=== PATIENT | female | born 1940 | race Caucasian/White ===

== ENCOUNTER → 2016-05-17 | Outpatient (CLI) | payer OTHER ==
[~2016-05-17] MED LIST: AMOX875T PO; ASPEC325 PO; ASPEC81 PO; ASPI81TA28 PO; ATV5 PO; CALC-393 PO; CALCTAB5 PO; CHOL1000 PO; CLOB-65 EXT; CPR/500 PO; FRRG PO; FSM70 PO; GABA-113 PO; IPRA1AER2 INH; LORA-741 PO; NAPR-1169 PO; RXC5 PO; SERT-234 PO; TYLOTC500 PO
[2016-05-17 13:29] LABS: BASO % 0.1 %; BASO ABS # 0.01 K/uL (0-0.2); COMPLETE YES; HEMATOCRIT 39.8 % (37-47); IG% 0.1 %; LYMPH % 8.3 %; MEAN CELL VOLUME 87.9 fL (80-100); MEAN CORPUSCULAR HGB CONC 34.2 g/dl (32-36); MEAN PLATELET VOLUME 9.7 fL (7.4-10.4); MONO % 7.1 %; NEUT % 84.4 %; PLATELET COUNT 322 K/uL (130-400); RED BLOOD COUNT 4.53 M/uL (4.2-5.4); WHITE BLOOD COUNT 14.41 K/uL (4.8-10.8)
[2016-05-17 14:01] LABS: ALT/SGPT 20 U/L (12-78); BLOOD UREA NITROGEN 21 mg/dl (7-18); BUN/CREATININE RATIO 22.9 (10-20); CALCIUM 9.4 mg/dl (8.5-10.1); CARBON DIOXIDE 24 mmol/L (21-32); CHLORIDE 103 mmol/L (98-107); CHOLESTEROL 197 mg/dl (0-200); CREATININE 0.93 mg/dl (0.60-1.20); GLUCOSE 93 mg/dl (70-99); POTASSIUM 4.1 mmol/L (3.5-5.1); SODIUM 137 mmol/L (136-145)
[2016-05-17 14:05] LABS: ALKALINE PHOSPHATASE 101 U/L (45-117); AST/SGOT 15 U/L (15-37); CHOLESTEROL/HDL RATIO 3.7; HDL CHOLESTEROL 53 mg/dl; LDL CHOLESTEROL CALCULATED 116 mg/dl; TRIGLYCERIDES 138 mg/dl (0-150); VERY LOW DENSITY LIPOPROT CALC 28 mg/dl
== END | disposition home or self-care (01) ==
LOC: C.LABBC 10:26
PROVIDERS: ATTEND Family Medicine
DX: M85.80 Other specified disorders of bone density and structure, unspecified site (principal); E55.9 Vitamin D deficiency, unspecified; Z13.0 Encounter for screening for diseases of the blood and blood-forming organs and certain disorders involving the immune mechanism; E78.5 Hyperlipidemia, unspecified

== ENCOUNTER → 2016-06-19 | Outpatient (CLI) | payer OTHER | END | disposition home or self-care (01) | LOC: C.CTS 13:20 | PROVIDERS: ATTEND Orthopaedic Surgery | DX: Z01.818 Encounter for other preprocedural examination (principal); M19.012 Primary osteoarthritis, left shoulder ==

== ENCOUNTER 2016-06-28 11:32 | Observation (INO) | payer OTHER ==
[~2016-06-28] VITALS: Ht 172.7 cm; Wt 85.0 kg
[~2016-06-28 11:32] MED LIST changes: -AMOX875T PO; -CALC-393 PO; -CPR/500 PO; -GABA-113 PO; -LORA-741 PO; -RXC5 PO
[2016-06-28] MEDS ORDERED: SODIUM CHLORIDE 0.9% 1000ML 1,000 ML IV SCH (11:55)
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
[2016-06-28 12:38] LABS: BASO % 0.2 %; BASO ABS # 0.02 K/uL (0-0.2); COMPLETE YES; HEMATOCRIT 39.6 % (37-47); IG% 0.2 %; LYMPH % 5.9 %; LYMPH ABS # 0.52 K/uL (1.2-3.4); MEAN CELL VOLUME 89.8 fL (80-100); MEAN CORPUSCULAR HEMOGLOBIN 31.1 pg (25-34); MEAN CORPUSCULAR HGB CONC 34.6 g/dl (32-36); MEAN PLATELET VOLUME 9.8 fL (7.4-10.4); MONO % 9.4 %; NEUT % 84.3 %; PLATELET COUNT 223 K/uL (130-400); RED BLOOD COUNT 4.41 M/uL (4.2-5.4); WHITE BLOOD COUNT 8.74 K/uL (4.8-10.8)
[2016-06-28] MEDS ORDERED: GABA-113 PO (12:56)
[2016-06-28] MEDS ORDERED: LORA-741 PO (12:56)
[2016-06-28] MEDS ORDERED: CALC-393 PO (12:56)
[2016-06-28 13:02] LABS: BLOOD UREA NITROGEN 17 mg/dl (7-18); BUN/CREATININE RATIO 14.2 (10-20); CARBON DIOXIDE 25 mmol/L (21-32); CHLORIDE 101 mmol/L (98-107); GLUCOSE 140 mg/dl (70-99); POTASSIUM 3.9 mmol/L (3.5-5.1); SODIUM 135 mmol/L (136-145)
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
[2016-06-28] MEDS ORDERED: CEFTRIAXONE SOD INJ 1 GM ADDVIAL IV STA (14:14)
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
[2016-06-28] MEDS ORDERED: LORAZEPAM 0.5 MG TAB PO PRN (16:45)
[2016-06-28] MEDS ORDERED: ONDANSETRON INJ 2 MG/ML 2 ML VIAL ONE (16:46)
[2016-06-28] MEDS ORDERED: IPRATROPIUM BROMIDE/ALBUTEROL respimat INH INH SCH (17:00)
[2016-06-28] MEDS ORDERED: ALUMINUM/MAGNESIUM/SIMETH (MAALOX MAX) 30 ML UDC PO PRN (17:30)
[2016-06-28] MEDS ORDERED: ONDANSETRON INJ 2 MG/ML 2 ML VIAL IV PRN (17:30)
[2016-06-28] MEDS ORDERED: ACETAMINOPHEN 325 MG TAB PO PRN (17:30)
[2016-06-28 18:39] LABS: MAGNESIUM 1.9 mg/dl (1.8-2.4)
--- NOTE | 2016-06-28 19:16 | DIAGNOSTIC IMAGING REPORT ---
PA CHEST RADIOGRAPH AND UPRIGHT AND SUPINE AP RADIOGRAPHS OF THE ABDOMEN CLINICAL HISTORY: Vomiting. Confusion. COMPARISON STUDY: CT of the abdomen and pelvis April 06, 2013 and chest radiograph June 28, 2016. FINDINGS: Lung volumes are normal. A right shoulder arthroplasty is incidentally noted. There is moderate to severe arthritis of the left glenohumeral joint. Underlying emphysema is noted. There is no consolidation. Cardiomediastinal silhouette is normal. There is no free air. There are cholecystectomy clips. There are bilateral hip arthroplasties. Bowel gas pattern is normal. IMPRESSION: 1. No free air or evidence of bowel obstruction. 2. No acute cardiopulmonary findings. Electronically signed by: Rito Aviles M.D. 06/28/2016 7:15 PM Dictated Date/Time: 06/28/2016 7:13 PM
[2016-06-28 19:30] VITALS: O2SAT 93
[2016-06-28 19:44] VITALS: BP 109/71; PULSE 111; TEMP 37.1; BMI 29.1
[2016-06-28 19:46] VITALS: BP 133/50; TEMP 37.6; Ht 172.7 cm; Wt 85.0 kg
[2016-06-28 21:02] LABS: INR 1.1 (0.9-1.1); PROTHROMBIN TIME (PATIENT) 11.6 SECONDS (9.0-12.0)
[2016-06-28] MEDS ORDERED: IV FLUIDS COMPLETED PRN (21:15)
[2016-06-28] MEDS: NSS + 20MEQ KCL 1000ML 1,000 ML IV SCH (21:32)
[2016-06-28] MEDS: GABAPENTIN 300 MG CAP PO SCH (21:32)
[2016-06-28] MEDS: ASPIRIN 81 MG ECTAB PO SCH (21:32)
[2016-06-28] MEDS: IPRATROPIUM BROMIDE/ALBUTEROL respimat INH INH SCH (21:34)
[2016-06-28 23:48] VITALS: BP 131/74; PULSE 93; TEMP 36.9; O2SAT 96
[2016-06-29] VITALS (7 sets, daily range): BP systolic 87–118; BP diastolic 52–71; PULSE 67–93; TEMP 36.5–37.2; O2SAT 90–96
[2016-06-29] MEDS ORDERED: GADAVIST IV PRN
[2016-06-29 00:01] LABS: CKMB/CK RATIO 0.6 (0-3.0)
--- NOTE | 2016-06-29 06:59 | DIAGNOSTIC IMAGING REPORT ---
MRI OF THE BRAIN WITHOUT AND WITH IV CONTRAST CLINICAL HISTORY: AMS r/o cava mental status change COMPARISON STUDY: No previous studies for comparison. TECHNIQUE: Utilizing a 1.5 Gladys magnet and dedicated coil, multiplanar, multiecho imaging of the brain was performed pre and postcontrast administration. IV administration of 8 mL of Gadavist contrast was uneventful. FINDINGS: Diffusion-weighted images show no evidence for an acute ischemic event. Mild cerebellar as well as cerebral atrophy. Diffuse multifocal sinusitis. Moderate chronic small vessel change of aging involving the periventricular and deep white matter regions. No significant postcontrast enhancement within the limitations of motion artifact. IMPRESSION: 1. Age-related chronic small vessel change as well as atrophy. 2. No evidence for an acute ischemic event. 3. Diffuse sinusitis. Electronically signed by: Neville Hernandez M.D. 06/29/2016 6:58 AM Dictated Date/Time: 06/29/2016 6:56 AM
[2016-06-29 07:26] LABS: BASO % 0.3 %; BASO ABS # 0.02 K/uL (0-0.2); COMPLETE YES; HEMATOCRIT 34.2 % (37-47); IG% 0.1 %; LYMPH % 17.1 %; LYMPH ABS # 1.18 K/uL (1.2-3.4); MEAN CELL VOLUME 90.7 fL (80-100); MEAN CORPUSCULAR HGB CONC 34.2 g/dl (32-36); MEAN PLATELET VOLUME 9.2 fL (7.4-10.4); MONO % 15.2 %; NEUT % 67.3 %; PLATELET COUNT 189 K/uL (130-400); RED BLOOD COUNT 3.77 M/uL (4.2-5.4); WHITE BLOOD COUNT 6.89 K/uL (4.8-10.8)
[2016-06-29 07:58] LABS: BUN/CREATININE RATIO 20.4 (10-20); CALCIUM 7.8 mg/dl (8.5-10.1); CREATININE 1.1 mg/dl (0.60-1.20); MAGNESIUM 1.9 mg/dl (1.8-2.4); POTASSIUM 4.1 mmol/L (3.5-5.1)
[2016-06-29 08:03] LABS: CKMB/CK RATIO 0.5 (0-3.0)
[2016-06-29] MEDS: NSS + 20MEQ KCL 1000ML 1,000 ML IV SCH ×2 (08:12→17:29)
[2016-06-29] MEDS: CEFTRIAXONE SOD INJ 1,000 MG in DEXTROSE 5% 50ML 50 ML IV SCH (08:12)
[2016-06-29] MEDS: IPRATROPIUM BROMIDE/ALBUTEROL respimat INH INH SCH ×4 (08:13→20:57)
[2016-06-29] MEDS: HEPARIN SOD 5000 UNIT/0.5 ML CARP SQ SCH ×2 (08:26→21:47)
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
[2016-06-29 15:56] LABS: URINE APPEARANCE CLEAR (CLEAR); URINE COLOR DK YELLOW; URINE EPITHELIAL CELL AUTO >30 /lpf (0-5); URINE NITRITE NEG (NEG); URINE SPECIFIC GRAVITY 1.035 (1.000-1.030); UROBILINOGEN NEG (NEG)
[2016-06-29 16:04] LABS: MANUAL MICROSCOPIC REQUIRED? NO; REVIEW REQ? NO
[2016-06-29 16:05] LABS: URINE BILIRUBIN NEG (NEG)
[2016-06-29 16:29] LABS: BENZODIAZEPINE, URINE NEG (NEG); COCAINE,URINE NEG (NEG); PHENCYCLIDINE, URINE NEG (NEG)
[2016-06-29] MEDS: GABAPENTIN 300 MG CAP PO SCH (20:56)
[2016-06-29] MEDS: ASPIRIN 81 MG ECTAB PO SCH (20:56)
[2016-06-30] MEDS: NSS + 20MEQ KCL 1000ML 1,000 ML IV SCH (03:46)
[2016-06-30 03:50] VITALS: BP 89/54; PULSE 75; TEMP 36.8; O2SAT 98
[2016-06-30 06:32] LABS: BASO % 0.4 %; BASO ABS # 0.02 K/uL (0-0.2); COMPLETE YES; EOS % 0.9 %; HEMATOCRIT 34.2 % (37-47); IG% 0.7 %; LYMPH % 26.1 %; MEAN CELL VOLUME 92.4 fL (80-100); MEAN CORPUSCULAR HEMOGLOBIN 30.3 pg (25-34); MEAN CORPUSCULAR HGB CONC 32.7 g/dl (32-36); MEAN PLATELET VOLUME 9.8 fL (7.4-10.4); MONO % 13.7 %; NEUT % 58.2 %; PLATELET COUNT 171 K/uL (130-400); WHITE BLOOD COUNT 4.59 K/uL (4.8-10.8)
[2016-06-30 07:12] LABS: BUN/CREATININE RATIO 22.9 (10-20); CALCIUM 7.5 mg/dl (8.5-10.1); CREATININE 0.79 mg/dl (0.60-1.20); POTASSIUM 4.1 mmol/L (3.5-5.1)
[2016-06-30 07:30] VITALS: BP 131/77; PULSE 82; TEMP 36.3; O2SAT 95
[2016-06-30] MEDS: IPRATROPIUM BROMIDE/ALBUTEROL respimat INH INH SCH (07:36)
[2016-06-30] MEDS: HEPARIN SOD 5000 UNIT/0.5 ML CARP SQ SCH (07:36)
[2016-06-30] MEDS: CEFTRIAXONE SOD INJ 1,000 MG in DEXTROSE 5% 50ML 50 ML IV SCH (09:57)
[2016-06-30] MEDS ORDERED: AMOX875T PO (11:19)
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
[2016-06-30 11:46] VITALS: BP 131/77; PULSE 82; TEMP 36.3; O2SAT 95
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
[2016-08-04] MEDS ORDERED: RXC5 PO (08:13)
== END 2016-06-30 12:42 | disposition home or self-care (01) ==
LOC: ENRESERVDT → ENRESERVTM → C.EDB 11:33 → C.2T 17:19
PROVIDERS: ADMIT Family Medicine; ATTEND Hospitalist
DX: J01.90 Acute sinusitis, unspecified (principal); G93.41 Metabolic encephalopathy; R11.10 Vomiting, unspecified; J43.9 Emphysema, unspecified; M19.90 Unspecified osteoarthritis, unspecified site; Z96.649 Presence of unspecified artificial hip joint; Z90.710 Acquired absence of both cervix and uterus; Z87.891 Personal history of nicotine dependence; Z79.82 Long term (current) use of aspirin

== ENCOUNTER → 2016-06-28 | Outpatient (CLI) | payer OTHER ==
[~2016-06-28] MED LIST changes: -ASPEC325 PO; -ASPEC81 PO; -FRRG PO; -NAPR-1169 PO; -SERT-234 PO
--- NOTE | 2016-06-28 09:41 | DIAGNOSTIC IMAGING REPORT ---
CHEST 2 VIEWS ROUTINE CLINICAL HISTORY: J22 Acute respiratory [id number] dyspnea COMPARISON STUDY: 06/19/2016 FINDINGS: Mild emphysematous change. Prominent central pulmonary vasculature suggesting a component of pulmonary arterial hypertension. Prior right shoulder arthroplasty. Diaphragms smooth. Mild chronic interstitial change. IMPRESSION: Chronic changes as noted. No acute process. Electronically signed by: Neville Hernandez M.D. 06/28/2016 9:40 AM Dictated Date/Time: 06/28/2016 9:39 AM
[2016-06-28 14:46] LABS: INFLUENZA A PCR Neg for Influ A (NEG); INFLUENZA B PCR Neg for Influ B (NEG)
== END | disposition home or self-care (01) ==
LOC: C.RADBC 09:06
PROVIDERS: ATTEND Family Medicine
DX: J22 Unspecified acute lower respiratory infection (principal)

== ENCOUNTER → 2016-07-10 | Outpatient (CLI) | payer OTHER ==
[~2016-07-10] MED LIST changes: -ATV5 PO; +CALC-393 PO; -CALCTAB5 PO; -CLOB-65 EXT; +CPR/500 PO; -FSM70 PO; +GABA-113 PO; +LORA-741 PO; +RXC5 PO
== END | disposition home or self-care (01) ==
LOC: C.LABBFT 09:19
PROVIDERS: ATTEND Physician Assistant Medical
DX: K52.1 Toxic gastroenteritis and colitis (principal)

== ENCOUNTER 2016-08-03 08:41 | Inpatient (IN) | payer OTHER ==
[2016-06-19 11:12] VITALS: BMI 29.0
--- NOTE | 2016-06-19 11:57 | PAT Medication Instructions ---
Service Date Jun 19, 2016. Current Home Medication List Acetaminophen (Tylenol), 1,000 MG PO PRN Alendronate (Fosamax *), 70 MG PO WK Aspirin (Aspirin Ec), 81 MG PO HS Calcium (Caltrate), 600 MG PO QAM Cholecalciferol (Vitamin D3), 1 TAB PO BID Clobetasol Propionate 0.05% (Temovate 0.05%), 1 APPLN EXT BID PRN Ipratropium-Albuterol (Combivent Respimat), 1 PUFFS INH QID Lorazepam (Ativan *), 0.5 MG PO HS PRN for Anxiety Medication Instructions For Your Scheduled Surgery Alendronate (Fosamax *), 70 MG PO WK (continue as usual) - Hold the following medications 24 hours prior to surgery: Clobetasol Propionate 0.05% (Temovate 0.05%), 1 APPLN EXT BID PRN - Hold the following medications the morning of surgery: Cholecalciferol (Vitamin D3), 1 TAB PO BID Calcium (Caltrate), 600 MG PO QAM - Take the following medications the morning of surgery with a sip of water: Ipratropium-Albuterol (Combivent Respimat), 1 PUFFS INH QID Acetaminophen (Tylenol), 1,000 MG PO PRN (if needed) - Take the following medications as scheduled the night before surgery: Lorazepam (Ativan *), 0.5 MG PO HS PRN for Anxiety Ipratropium-Albuterol (Combivent Respimat), 1 PUFFS INH QID Cholecalciferol (Vitamin D3), 1 TAB PO BID Aspirin (Aspirin Ec), 81 MG PO HS Acetaminophen (Tylenol), 1,000 MG PO PRN If you have any questions please call us at [phone] or [phone] ( [place]) or [phone]
[2016-06-19 12:25] LABS: BASO % 0.3 %; BASO ABS # 0.03 K/uL (0-0.2); COMPLETE YES; EOS % 1.1 %; HEMATOCRIT 41.9 % (37-47); IG% 0.3 %; LYMPH % 23.3 %; LYMPH ABS # 2.07 K/uL (1.2-3.4); MEAN CELL VOLUME 89.1 fL (80-100); MEAN CORPUSCULAR HGB CONC 33.7 g/dl (32-36); MEAN PLATELET VOLUME 9.1 fL (7.4-10.4); MONO % 6.4 %; NEUT % 68.6 %; PLATELET COUNT 272 K/uL (130-400); WHITE BLOOD COUNT 8.88 K/uL (4.8-10.8)
[2016-06-19 12:36] LABS: PROTHROMBIN TIME (PATIENT) 10.7 SECONDS (9.0-12.0)
--- NOTE | 2016-06-19 12:37 | DIAGNOSTIC IMAGING REPORT ---
CHEST 2 VIEWS ROUTINE CLINICAL HISTORY: Preoperative chest COMPARISON STUDY: 10/08/2014 FINDINGS: There is suspected underlying pulmonary emphysema. The heart is normal in size. There is no failure. There is no focal pulmonary consolidation. There are no pleural effusions. There is chronic bibasal thickening. As a calcified granuloma the left lung base. There are postsurgical changes right shoulder arthroplasty. Moderate degenerative changes are present within the left shoulder.[ IMPRESSION: No active disease in the chest. Electronically signed by: Alex Damon M.D. 06/19/2016 12:35 PM Dictated Date/Time: 06/19/2016 12:35 PM
[2016-06-19 12:45] LABS: URINE APPEARANCE CLEAR (CLEAR); URINE BILIRUBIN NEG (NEG); URINE COLOR YELLOW; URINE NITRITE NEG (NEG); URINE PH 6.5 (4.5-7.5); URINE SPECIFIC GRAVITY 1.008 (1.000-1.030); UROBILINOGEN NEG (NEG)
[2016-06-19 12:57] LABS: MANUAL MICROSCOPIC REQUIRED? NO; REVIEW REQ? NO
[2016-06-19 13:16] LABS: BUN/CREATININE RATIO 17.2 (10-20); CALCIUM 9.2 mg/dl (8.5-10.1); POTASSIUM 4.6 mmol/L (3.5-5.1)
--- NOTE | 2016-08-02 16:32 | HISTORY & PHYSICAL EXAMINATION ---
DATE OF ADMISSION: 08/03/2016 CHIEF COMPLAINT: Primary osteoarthritis of the left shoulder. HISTORY OF PRESENT ILLNESS: Tarik is a very pleasant 75-year-old female who has been dealing with chronic left shoulder pain. X-rays and clinical examination have been diagnostic for primary osteoarthritis of the left shoulder. After failing years of conservative treatment, she elected to proceed with a left total shoulder arthroplasty. She understands all the risks, benefits, alternatives to the procedure and has elected to proceed. PAST MEDICAL HISTORY: Significant for 1. Cerebral palsy, which is fairly mild from . 2. Emphysema/COPD. 3. Low back pain and sciatica. PAST SURGICAL HISTORY: Significant for bilateral hip replacements, one [place] [address] Polk and the other in [address] Grubbs and a right shoulder surgery in 2004. ALLERGIES: No known drug allergies. MEDICATIONS: Include lorazepam 0.5 mg daily, aspirin 81 mg daily, calcium 600 plus D daily, Tylenol Extra Strength 2 a day, Combivent inhaler 4 times a day. SOCIAL HISTORY: She lives by herself. She has a lot of family and friends who live close by. She does not smoke. She has a history of smoking, but quit in 2001. REVIEW OF SYSTEMS: She complains of left shoulder pain. All other pertinent review of systems is negative. PHYSICAL EXAMINATION: GENERAL: She is awake, alert and oriented x3. She is in no apparent distress. She is very pleasant. HEENT: Pupils are equal, round and reactive to light. Extraocular motion intact. Oral mucosa is pink and moist. HEART: Regular rate per radial pulse. LUNGS: Chelle symmetrically bilaterally with no audible breath sounds. ABDOMEN: Soft, nontender, nondistended. MUSCULOSKELETAL: On physical examination of her shoulder, she has about 80 degrees of forward elevation, 80 degrees of abduction. She 5/5 muscle strength to full can test and external rotation but significant crepitus with range of motion. She is neurovascularly intact. IMAGING DATA: X-rays of the left shoulder do show advanced osteoarthritis with some collapse of the humeral head. This is type B2 glenoid and some inferior osteophyte formation. IMPRESSION: Primary osteoarthritis of the left shoulder. PLAN: Will proceed with a Biomet comprehensive left total shoulder arthroplasty. Postoperatively, she will be placed in an arm sling and kept overnight for postoperative medical management.
[2016-08-03] VITALS (12 sets, daily range): BP systolic 96–133; BP diastolic 58–81; PULSE 72–120; TEMP 36.2–36.6; O2SAT 86–97; Ht 170.2 cm; Wt 84.2 kg
[~2016-08-03] VITALS: Ht 170.2 cm; Wt 84.2 kg
[~2016-08-03 08:41] MED LIST changes: +ACETAMINOPHEN 500 MG TAB PO SCH; +CEFAZOLIN 2000 MG/60 ML D5W 60 ML IV SCH; -CPR/500 PO; +FAMOTIDINE 20 MG TAB PO SCH; +GABAPENTIN 300 MG CAP PO SCH; +LACTATED RINGER'S 1000ML 1,000 ML IV SCH; +LACTATED RINGER'S 1000ML IV SCH; +ROPIVACAINE 0.5% 5 MG/ML 30 ML VIAL ONE; +ROPIVACAINE 5MG/ML 30 ML 150 MG, BUPIVACAINE/EPINEPHR 0.5% MPF 30 ML, KETOROLAC TROMETH... INFIL SCH; -RXC5 PO; +TRANEXAMIC ACID INJ 1,000 MG in SODIUM CHLORIDE 0.9% 100ML 100 ML IV SCH
--- NOTE | 2016-08-03 09:21 | History & Physical Bridge Note ---
H&P Re-Evaluation Bridge Note: I have examined the patient, reviewed the History & Physical and in the interval since the performance of the History & Physical I have noted the following changes of clinical significance: No changes noted
[2016-08-03] MEDS ORDERED: BUPIVACAINE/EPINEPHRINE 0.5% MPF 1:200,000 30 ML VIAL ONE (10:27)
[2016-08-03] MEDS ORDERED: ORTHO JOINT ANESTHETIC ONE (10:27)
[2016-08-03] MEDS ORDERED: BACITRACIN 50000 UNIT VIAL ONE (10:28)
[2016-08-03] MEDS ORDERED: MIDAZOLAM HCL 1 MG/ML 2ML VIAL ONE (10:32)
[2016-08-03] MEDS ORDERED: FENTANYL CITRATE INJ 50 MCG/1 ML 2 ML VIAL ONE (10:32)
[2016-08-03] MEDS ORDERED: PROPOFOL IV EMULSION 10 MG/ML 20 ML VIAL IV ONE (10:34)
[2016-08-03] MEDS ORDERED: ROCURONIUM BROMIDE 10 MG/ML 5 ML VIAL ONE (10:34)
[2016-08-03] MEDS ORDERED: LIDOCAINE HCL 2% 2 ML VIAL (20MG/ML) ONE (10:34)
[2016-08-03] MEDS: TRANEXAMIC ACID INJ 1,000 MG in SODIUM CHLORIDE 0.9% 100ML 100 ML IV SCH ×2 (10:35→15:01)
[2016-08-03] MEDS ORDERED: NEOSTIGMINE METHYLSULFATE 5 MG/5 ML SYR ONE (12:32)
[2016-08-03] MEDS ORDERED: DEXAMETHASONE SOD INJ 4 MG/ML VIAL ONE (12:32)
[2016-08-03] MEDS ORDERED: GLYCOPYRROLATE INJ 0.2 MG/ML VIAL ONE (12:32)
[2016-08-03] MEDS ORDERED: ONDANSETRON INJ 2 MG/ML 2 ML VIAL ONE (12:32)
--- NOTE | 2016-08-03 12:53 | [facility] Post Operative Brief Note ---
Immediate Operative Summary Operative Date August 03, 2016. Pre-Operative Diagnosis Primary osteoarthritis of the left shoulder Post-Operative Diagnosis SAME Procedure(s) Performed Left Total Shoulder Arthroplasty Surgeon Dr. 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 Left Humeral head Complication(s) None Disposition Recovery Room / PACU
[2016-08-03] MEDS ORDERED: MAGNESIUM HYDROXIDE SUSP 30 ML UDC PO PRN (13:00)
[2016-08-03] MEDS ORDERED: LORAZEPAM 0.5 MG TAB PO PRN (13:00)
[2016-08-03] MEDS ORDERED: OXYCODONE HCL IR 5 MG TAB (IMMEDIATE RELEASE) PO PRN (13:00)
[2016-08-03] MEDS ORDERED: METOCLOPRAMIDE HCL INJ 5 MG/ML 2 ML VIAL IV PRN (13:00)
[2016-08-03] MEDS ORDERED: MoRPHine SULFATE 2 MG/ML CARP IV PRN (13:00)
[2016-08-03] MEDS ORDERED: NALOXONE HCL 0.4 MG/1 ML VIAL/CARP IV PRN (13:00)
[2016-08-03] MEDS ORDERED: ONDANSETRON INJ 2 MG/ML 2 ML VIAL IV PRN (13:00)
[2016-08-03] MEDS ORDERED: SOD PHOSPHATE/SOD BIPHOSPHATE ENEMA 132 ML BTL PR PRN (13:00)
[2016-08-03] MEDS ORDERED: BISACODYL 10 MG SUPP PR PRN (13:00)
--- NOTE | 2016-08-03 13:45 | DIAGNOSTIC IMAGING REPORT ---
LEFT SHOULDER MIN 2 VIEWS ROUTINE CLINICAL HISTORY: Post shoulder surgery postoperative evaluation COMPARISON: None. DISCUSSION: Evidence for total left shoulder arthroplasty. Good contact between prosthetic and underlying bone. Small linear component of the bony structure posterior aspect to the metallic humeral head prosthetic possibly pre-existing. Expected postoperative soft tissue change. IMPRESSION: Anatomic alignment status post left shoulder arthroplasty. Electronically signed by: Neville Hernandez M.D. 08/03/2016 1:43 PM Dictated Date/Time: 08/03/2016 1:42 PM
--- NOTE | 2016-08-03 15:29 | OPERATIVE REPORT ---
DATE OF OPERATION: 08/03/2016 PREOPERATIVE DIAGNOSIS: Primary osteoarthritis of the left shoulder. POSTOPERATIVE DIAGNOSIS: Same. PROCEDURE: Left total shoulder arthroplasty. SURGEON: Dr. Harjit Whitaker. DEVELOPMENTAL SERVICES WORKER: Jonathon Garvin PA-C, whose assistance was necessary for retraction and helping with instrumentation. ANESTHESIA: General with left interscalene nerve block. COMPLICATIONS: None. CONDITION: Stable to PACU. IMPLANTS USED: I used a Biomet comprehensive left total shoulder arthroplasty with a small glenoid with Regenerex post, size 15 stem and a 14 x 21 eccentric head. The glenoid was cemented with Palacos-G cement. INDICATIONS: Tarik is a pleasant 75-year-old female who presented to my office with chronic left shoulder pain. X-rays and clinical examination were diagnostic for primary osteoarthritis of the left shoulder. After failing conservative treatment, she elected to undergo a left total shoulder arthroplasty. OPERATION AND FINDINGS: On 08/03/2016 she arrived at [facility] for the above procedure. She was seen in the preoperative holding area and the operative extremity was identified and signed. She was given a preoperative antibiotic, taken back to the operating room, laid on the table in supine position and put under general anesthesia. She was then put into the beachchair position. The left shoulder was prepped and draped in sterile fashion. Time-out was done and the patient and operative extremity was properly identified. A deltopectoral incision was used. Dissection was taken down through the fascia and the anterior shoulder was exposed. The long head of the biceps tendon was tenodesed to the upper border of the pec major and the rotator interval was opened. The subscapularis was tenotomized off the lesser tuberosity with a centimeter of cuff tissue remaining. The supraspinatus felt intact, although it was a little bit thin. The proximal humerus was then dislocated out of the joint. A canal finding reamer was sent down the center of the humeral canal. Sequential reaming up to a size 15 reamer was done. Off that reamer, a proximal humeral resection guide was placed and the proximal humerus was resected at 30 degrees of retroversion and 135 degrees of inclination. The glenoid was then exposed. Time was spent doing a very minimal labral release of the superior and anterior labrum. The Biomet signature guide was then snapped onto the anterior aspect of the glenoid and the guide pin was placed in the total shoulder arthroplasty hole. A small glenoid was then reamed and the central peg hole was drilled, the 3 peripheral peg holes were drilled and the final glenoid was cemented into place with Palacos-G cement. Once cement had hardened, the proximal humerus was exposed. Sequential broaching up to a size 15 broach was done. A 46 x 21 mm eccentric head seemed to be the best fit and it was placed. The shoulder was reduced, brought through a full range of motion and felt to be stable. The trial components were then removed. The final 15 stem was impacted into place followed by a 46 x 21 mm eccentric head. The shoulder was reduced. The subscapularis was tenodesed back to the lesser tuberosity with transosseous FiberWire sutures and [id number] sutures. Two sutures were placed in the rotator interval. The shoulder was brought through a full range of motion and felt to be stable. The entire joint was irrigated with 3 liters of normal saline solution with bacitracin. Surrounding soft tissues were injected with 100 mL of orthopedic pain control cocktail. A drain was placed. Hemostasis was controlled. Skin was closed with 2-0 Vicryl, 3-0 V-Loc suture and Prineo dressing. She was then placed in a compressive dressing and a left arm sling. She was then extubated, transferred to a [facility] and taken to the postanesthesia care unit in stable condition. She tolerated the procedure well. I attest to the content of the Intraoperative Record and any orders documented therein. Any exceptio ns are noted below.
--- NOTE | 2016-08-03 15:35 | Anesthesiology Progress Note ---
Anesthesia Post Op Note Date & Time August 03, 2016 at 15:35 Vital Signs Pain Intensity: 0 Vital Signs Past 12 Hours Date Time Temp Pulse Resp B/P Pulse Ox O2 Delivery O2 Flow Rate FiO2 08/03/16 15:00 36.4 90 18 125/72 96 Nasal Cannula 3.0 08/03/16 14:15 109/57 08/03/16 14:10 116/61 08/03/16 14:09 79 14 91 08/03/16 14:09 73 15 91 08/03/16 14:05 127/63 08/03/16 14:04 71 15 93 08/03/16 14:04 71 15 08/03/16 14:00 123/71 08/03/16 13:59 79 16 123/71 95 Nasal Cannula 2 08/03/16 13:58 79 16 08/03/16 13:58 77 16 94 08/03/16 13:56 77 19 94 08/03/16 13:56 77 15 93 08/03/16 13:55 108/61 08/03/16 13:50 116/60 08/03/16 13:46 71 18 94 08/03/16 13:46 72 18 08/03/16 13:45 118/54 08/03/16 13:45 118/54 08/03/16 13:44 67 18 96 08/03/16 13:44 67 18 96 08/03/16 13:44 69 18 08/03/16 13:44 69 18 08/03/16 13:40 117/58 08/03/16 13:40 117/58 08/03/16 13:39 65 15 99 08/03/16 13:39 61 15 99 08/03/16 13:39 65 15 99 08/03/16 13:39 61 15 99 08/03/16 13:35 122/65 08/03/16 13:35 122/65 08/03/16 13:30 120/59 08/03/16 13:30 120/59 08/03/16 13:29 68 17 08/03/16 13:29 68 17 08/03/16 13:29 69 17 100 08/03/16 13:29 69 17 100 08/03/16 13:25 129/59 08/03/16 13:25 129/59 08/03/16 13:24 36.2 65 12 130/65 100 Mask 10 08/03/16 13:24 65 15 100 08/03/16 13:24 66 15 130/65 100 08/03/16 13:24 66 15 130/65 100 08/03/16 13:24 65 15 100 08/03/16 09:23 36.6 96 20 108/67 96 Room Air Notes Mental Status: alert / awake / arousable, participated in evaluation Pt Amnestic to Procedure: Yes Nausea / Vomiting: adequately controlled Pain: adequately controlled Airway Patency, RR, SpO2: stable & adequate BP & HR: stable & adequate Hydration State: stable & adequate Anesthetic Complications: no major complications apparent
[2016-08-03] MEDS: ACETAMINOPHEN IV 1,000 MG in EMPTY BAG 0 ML IV SCH ×2 (16:06→21:12)
[2016-08-03] MEDS: IPRATROPIUM BROMIDE/ALBUTEROL respimat INH INH SCH ×3 (16:07→20:34)
[2016-08-03] MEDS: D5W AND 1/2NSS + 20MEQ KCL 1,000 ML IV SCH (16:07)
[2016-08-03] MEDS: KETOROLAC TROMETHAMINE 15 MG/ML VIAL IV. SCH ×2 (16:08→21:14)
[2016-08-03] MEDS: CEFAZOLIN IV 2,000 MG in DEXTROSE 5% 50ML 50 ML IV SCH (18:37)
[2016-08-03 19:25] LABS: BASO % 0.1 %; BASO ABS # 0.01 K/uL (0-0.2); HEMATOCRIT 36.4 % (37-47); IG% 0.1 %; LYMPH % 4.9 %; LYMPH ABS # 0.69 K/uL (1.2-3.4); MEAN CELL VOLUME 91.7 fL (80-100); MONO % 2.1 %; NEUT % 92.8 %; PLATELET COUNT 212 K/uL (130-400); RED BLOOD COUNT 3.97 M/uL (4.2-5.4); WHITE BLOOD COUNT 14.11 K/uL (4.8-10.8)
[2016-08-03 19:27] LABS: COMPLETE YES; MEAN CORPUSCULAR HGB CONC 32.7 g/dl (32-36)
[2016-08-03 20:00] LABS: BUN/CREATININE RATIO 14.9 (10-20); CALCIUM 8.3 mg/dl (8.5-10.1); CREATININE 1.2 mg/dl (0.60-1.20); POTASSIUM 4.1 mmol/L (3.5-5.1)
--- NOTE | 2016-08-03 20:20 | Progress Note ---
Subjective Date of Service: August 03, 2016. Subjective Pt evaluation today including: conversation w/ patient, physical exam, chart review, lab review, review of studies, review of inpatient medication list asked to see due to tachycardia pt post op shoulder arthroplasty nursing called due to HR gradually increasing through the day. asked to see when she'd reached 120. chart reviewed, labs and EKG ordered. pt seen / examined - notes that she's absolutely asymptomatic no palpitations/racing heart no chest pain/pressure no shortness of breath no weak/lightheaded/dizzy no diaphoresis no significant pain as an aside, she does incidentally note that she's been having trouble voiding since surgery - bladder feels full but can't eliminate Problem List Medical Problems: (1) Altered mental status Status: Acute (2) Sinusitis Status: Acute Review of Systems ros otherwise negative except for as above Objective Vital Signs Date Time Temp Pulse Resp B/P Pulse Ox O2 Delivery O2 Flow Rate FiO2 08/03/16 19:39 36.4 92 18 115/72 96 Room Air 2.0 08/03/16 19:25 99 88 Room Air 08/03/16 19:25 92 Nasal Cannula 2.0 08/03/16 18:14 120 08/03/16 17:30 36.3 114 18 110/63 92 Room Air 08/03/16 16:33 36.4 107 16 133/81 90 Room Air 08/03/16 15:30 36.2 97 18 129/58 97 Nasal Cannula 3.0 08/03/16 15:00 36.4 90 18 125/72 96 Nasal Cannula 3.0 08/03/16 14:30 Nasal Cannula 2.0 08/03/16 14:30 36.5 74 16 101/66 92 Nasal Cannula 2.0 08/03/16 14:30 Nasal Cannula 2.0 08/03/16 14:15 109/57 08/03/16 14:10 116/61 08/03/16 14:09 79 14 91 08/03/16 14:09 73 15 91 08/03/16 14:05 127/63 08/03/16 14:04 71 15 93 08/03/16 14:04 71 15 08/03/16 14:00 123/71 08/03/16 13:59 79 16 123/71 95 Nasal Cannula 2 08/03/16 13:58 79 16 08/03/16 13:58 77 16 94 08/03/16 13:56 77 19 94 08/03/16 13:56 77 15 93 08/03/16 13:55 108/61 08/03/16 13:50 116/60 08/03/16 13:46 71 18 94 08/03/16 13:46 72 18 08/03/16 13:45 118/54 08/03/16 13:45 118/54 08/03/16 13:44 67 18 96 08/03/16 13:44 67 18 96 08/03/16 13:44 69 18 08/03/16 13:44 69 18 08/03/16 13:40 117/58 08/03/16 13:40 117/58 08/03/16 13:39 65 15 99 08/03/16 13:39 61 15 99 08/03/16 13:39 65 15 99 08/03/16 13:39 61 15 99 08/03/16 13:35 122/65 08/03/16 13:35 122/65 08/03/16 13:30 120/59 08/03/16 13:30 120/59 08/03/16 13:29 68 17 08/03/16 13:29 68 17 08/03/16 13:29 69 17 100 08/03/16 13:29 69 17 100 08/03/16 13:25 129/59 08/03/16 13:25 129/59 08/03/16 13:24 36.2 65 12 130/65 100 Mask 10 08/03/16 13:24 65 15 100 08/03/16 13:24 66 15 130/65 100 08/03/16 13:24 66 15 130/65 100 08/03/16 13:24 65 15 100 08/03/16 09:23 36.6 96 20 108/67 96 Room Air Physical Exam General Appearance: no apparent distress Eyes: EOMI ENT: hearing grossly normal Neck: trachea midline Respiratory/Chest: lungs clear, normal breath sounds, no respiratory distress, no accessory muscle use Cardiovascular: regular rate, rhythm (sl tachy ~100 at the time of my exam), no edema, no gallop, no murmur Abdomen: soft, + pertinent finding (palpation above bladder feels full and creates the sensation of needing to void) 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 (chronic appearing asymmetry related to CP), alert, normal mood/affect Skin: normal color, warm/dry Laboratory Results Last 24 Hours Test 08/03/16 19:16 White Blood Count 14.11 K/uL Red Blood Count 3.97 M/uL Hemoglobin 11.9 g/dL Hematocrit 36.4 % Mean Corpuscular Volume 91.7 fL Mean Corpuscular Hemoglobin 30.0 pg Mean Corpuscular Hemoglobin Concent 32.7 g/dl Platelet Count 212 K/uL Mean Platelet Volume 9.0 fL Neutrophils (%) (Auto) 92.8 % Lymphocytes (%) (Auto) 4.9 % Monocytes (%) (Auto) 2.1 % Eosinophils (%) (Auto) 0.0 % Basophils (%) (Auto) 0.1 % Neutrophils # (Auto) 13.11 K/uL Lymphocytes # (Auto) 0.69 K/uL Monocytes # (Auto) 0.29 K/uL Eosinophils # (Auto) 0.00 K/uL Basophils # (Auto) 0.01 K/uL RDW Standard Deviation 48.8 fL RDW Coefficient of Variation 14.4 % Immature Granulocyte % (Auto) 0.1 % Immature Granulocyte # (Auto) 0.01 K/uL Sodium Level 138 mmol/L Potassium Level 4.1 mmol/L Chloride Level 104 mmol/L Carbon Dioxide Level 24 mmol/L Anion Gap 10.0 mmol/L Blood Urea Nitrogen 18 mg/dl Creatinine 1.20 mg/dl Est Creatinine Clear Calc Drug Dose 45.2 ml/min Estimated GFR () 51.2 Estimated GFR (Non- 44.2 BUN/Creatinine Ratio 14.9 Random Glucose 225 mg/dl Calcium Level 8.3 mg/dl Assessment and Plan sinus tachycardia -reviewed situation/labs - 300cc blood loss during surgery, creatinine higher now than it was preop - probably a degree of this is sinus tachy from blood loss , but no hypotension and already fluids @ 100/hr - would keep fluids at current rate and follow -likely also relates in a way to her current urinary retention - while common w spinal cord paralysis patients, ?dysautonomia w her urinary retention and CP. straight cath if unable to void for urinary retentino urinary retention -likely reactive to whole situation (surgery, meds, etc) -straight cath q6 prn, anticipate spontaneous resolution elevated creatinine -somewhat up from baseline -continue IVF, repeat BMP in AM anemia -preop labs in current chart actually higher than what appears to be her typical baseline - which is around high 11's. -continue to follow leukocytosis -no s/s infection - almost certainly steroid effect and/or demarginatino -follow clinically -CBC ordered for AM DVT proph -per orthopedics
[2016-08-03] MEDS: CHOLECALCIFEROL 1000 INTER.UNIT TAB PO SCH (20:35)
[2016-08-03] MEDS: DOCUSATE SODIUM 100 MG CAP PO SCH (20:35)
[2016-08-03] MEDS ORDERED: SENNA 8.6 MG TAB PO SCH (21:00)
[2016-08-03] MEDS ORDERED: GABAPENTIN 300 MG CAP PO SCH (21:00)
[2016-08-03] MEDS ORDERED: ASPIRIN 81 MG ECTAB PO SCH (21:00)
[2016-08-04] MEDS: D5W AND 1/2NSS + 20MEQ KCL 1,000 ML IV SCH ×2 (00:21→10:11)
[2016-08-04] MEDS: CEFAZOLIN IV 2,000 MG in DEXTROSE 5% 50ML 50 ML IV SCH (03:08)
[2016-08-04] MEDS: KETOROLAC TROMETHAMINE 15 MG/ML VIAL IV. SCH ×2 (03:10→09:43)
[2016-08-04 03:40] VITALS: BP 92/52; PULSE 73; TEMP 36.5; O2SAT 94
[2016-08-04] MEDS: ACETAMINOPHEN IV 1,000 MG in EMPTY BAG 0 ML IV SCH (05:10)
[2016-08-04 06:21] LABS: BASO % 0.1 %; BASO ABS # 0.01 K/uL (0-0.2); COMPLETE YES; HEMATOCRIT 35.3 % (37-47); IG% 0.2 %; LYMPH % 5.8 %; LYMPH ABS # 0.76 K/uL (1.2-3.4); MEAN CELL VOLUME 91.7 fL (80-100); MEAN CORPUSCULAR HEMOGLOBIN 30.1 pg (25-34); MEAN CORPUSCULAR HGB CONC 32.9 g/dl (32-36); NEUT % 87.9 %; PLATELET COUNT 203 K/uL (130-400); RED BLOOD COUNT 3.85 M/uL (4.2-5.4); WHITE BLOOD COUNT 13.05 K/uL (4.8-10.8)
[2016-08-04 07:18] LABS: BUN/CREATININE RATIO 17.2 (10-20); CALCIUM 8.2 mg/dl (8.5-10.1); CREATININE 0.85 mg/dl (0.60-1.20); POTASSIUM 4.6 mmol/L (3.5-5.1)
[2016-08-04 07:34] VITALS: BP 102/65; PULSE 70; TEMP 36.4; O2SAT 94
[2016-08-04] MEDS ORDERED: RXC5 PO (08:13)
--- NOTE | 2016-08-04 08:15 | Discharge Instructions ---
Discharge Instructions Date of Service August 04, 2016. Admission Reason for Admission: Left Degenerative Joint Disease Shoulder Discharge Discharge Diagnosis / Problem: Left Total Shoulder Discharge Goals Goal(s): Decrease discomfort, Improve function Activity Recommendations Activity Limitations: as noted below Shower/Bathe: may shower/bathe in 3 days . Instructions / Follow-Up Instructions / Follow-Up Activity and Therapy Recommendations: * Wear your sling for 3 weeks, unless otherwise instructed. You may remove your sling to shower and to dress, but otherwise, you should be in your sling at all times, including while sleeping * The shoulder replacement is very stable and you can use your hand while in the sling * Physical Therapy should start about 3-5 days from your day of surgery. Therapy will last about 8-12 weeks * You were shown a series of exercises in the hospital. Do these exercises daily including the exercises you were shown in physical therapy. Medications: * Narcotic You will likely be sent home from the hospital with a prescription for the narcotic pain medication that worked best throughout your stay. * Other medications may be prescribed for specific circumstances. If you have any questions, please call the office at . * Resume previous home medications unless otherwise instructed Dressing Care: You will likely have a Prineo dressing covering your incision. This looks like a glued on clear mesh dressing. Do not remove this dressing until you follow- up in my office in 2-3 weeks. Its pretty hard to peel it off. You may leave the Prineo dressing uncovered or cover it if it is draining a little bit. No further dressing care is required Showering: You may shower 3 days from the day of surgery. Leave the Prineo dressing intact and let the soapy shower water run over it. Do not scrub or soak the dressing or the incision. Things To Watch For: * Drainage from the incision site that occurs more than one week after your surgery. * Increased redness at the incision site. * Fever above 102 degrees Fahrenheit. * Unusual chest pain or shortness of breath. * Call [facility] at with any of the above problems Follow-Up Visit: Follow-up with Dr. Whitaker 2-3 weeks after your day of surgery. An appointment was probably scheduled when you signed-up for surgery in the office. If you have any questions call Office Instructions: More detailed instructions as well as Frequently Asked Questions were provided in a folder by our office when you signed-up for surgery. Please review these instructions when you get home. If you have any further questions or concerns, please feel free to call the office at [phone] Current Hospital Diet Patient's current hospital diet: Regular Diet Discharge Diet Recommended Diet: Regular Diet Procedures Procedures Performed: Left Total Shoulder Arthroplasty Pending Studies Studies pending at discharge: no Laboratory Results Lipid Panel Test 05/17/16 10:30 Range/Units Triglycerides Level 138 0-150 mg/dl Cholesterol Level 197 0-200 mg/dl HDL Cholesterol 53 mg/dl Cholesterol/HDL Ratio 3.7 LDL Cholesterol, Calculated 116 mg/dl Medical Emergencies . Who to Call and When: Medical Emergencies: If at any time you feel your situation is an emergency, please call 911 immediately. . Non-Emergent Contact Non-Emergency issues call your: Surgeon Call Non-Emergent contact if: wound has increased drainage, wound has increased redness . "Provider Documentation" section prepared by Harjit Whitaker. . VTE Core Measure Inpt VTE Proph given/why not?: Treatment not indicated
[2016-08-04] MEDS: CHOLECALCIFEROL 1000 INTER.UNIT TAB PO SCH (08:25)
[2016-08-04] MEDS: DOCUSATE SODIUM 100 MG CAP PO SCH (08:25)
[2016-08-04] MEDS: IPRATROPIUM BROMIDE/ALBUTEROL respimat INH INH SCH (08:25)
[2016-08-04 08:46] VITALS: BP 102/65; PULSE 70; TEMP 36.4; O2SAT 94
--- NOTE | 2016-08-04 08:46 | PROGRESS NOTE ---
DATE: 08/04/2016 CHIEF COMPLAINT: Status post left total shoulder arthroplasty postop day #1. PROGRESS: aTrik was seen and examined at bedside today. Overall, she is doing fairly well. She said she has no pain in her shoulder. She was able to get some sleep last night and has no complaints. PHYSICAL EXAMINATION: LEFT SHOULDER: The dressing is clean and dry, and the drain is to suction. Her radial, median and ulnar nerves are checked and intact at her wrist. She is wearing her sling as instructed. LABORATORIES: She has an H\T\H today of 11.6 and 35.3. Her glucose is 144. Vital signs are all stable on room air and she is voiding on her own. X-rays postoperatively of the left shoulder show the prosthesis to be in anatomic alignment without any evidence of fracture, dislocation or loosening. IMPRESSION: Status post left total shoulder arthroplasty postop day #1. PLAN: At this point, she is doing as well as expected. She will be seen by physical therapy this morning for hand, wrist, elbow and pendulum exercises. The nursing staff can change her dressing and pull the drain and discharge her to home later this morning on oral pain medications.
[2016-08-04] MEDS ORDERED: CALCIUM 600MG + VIT D 400 IU TAB PO SCH (09:00)
[2016-08-04] MEDS ORDERED: MULTIVITAMIN TAB PO SCH (09:00)
[2016-08-04] MEDS ORDERED: PANTOprazole SOD 40 MG TAB PO SCH (09:00)
--- NOTE | 2016-08-04 09:10 | DISCHARGE SUMMARY ---
DISCHARGE DIAGNOSIS: Primary osteoarthritis of the left shoulder. PROCEDURE: Left total shoulder arthroplasty on 08/03/[address] Harjit Whitaker. DISCHARGE INSTRUCTIONS: 1. Oxycodone 5-10 mg every 4 hours as needed for pain. 2. Tylenol 1000 mg as needed. 3. Aspirin 81 mg daily. 4. Calcium 600 mg daily. 5. Vitamin D3 1000 units twice a day. 6. Neurontin 300 mg at night. 7. Combivent 1 puff 4 times a day. 8. Ativan 0.5 mg at night as needed for anxiety. 9. Left arm sling for 3 weeks. 10. Start physical therapy this week. 11. Call the office of Dr. Whitaker with any questions or concerns. 12. Follow up with Dr. Whitaker in 2 weeks. HOSPITAL COURSE: Tarik is a pleasant 75-year-old female who presented to my office with complaints of chronic left shoulder pain. X-rays and clinical examination were diagnostic for primary osteoarthritis of the left shoulder. After failing conservative treatment, she elected to undergo shoulder arthroplasty. On 08/03/2016, she arrived at [facility] and underwent a left shoulder replacement without complications. She had an interscalene block and a general anesthetic. Postoperatively, she was discharged to general orthopedic floor. Her hospital course was uneventful. On postop day #1, her H\T\H was 11.6 and 35.5. She was not having much pain in her shoulder. She was able to participate well with physical therapy, doing hand, wrist, elbow and pendulum exercises. The nursing staff changed her dressing and pulled the drain, and she was subsequently discharged to home on oral pain medications and the above instructions.
== END 2016-08-04 11:03 | disposition home or self-care (01) | DRG 483 ==
LOC: ENRESERVDT → ENRESERVTM → C.ACU 08:41 → C.3E 09:30
PROVIDERS: ADMIT Orthopaedic Surgery; ATTEND Orthopaedic Surgery
PROC: 0RRK0JZ Replacement of Left Shoulder Joint with Synthetic Substitute, Open Approach (ICD-10-PCS; principal; 2016-08-03 11:40)
DX: M19.012 Primary osteoarthritis, left shoulder (principal); N39.0 Urinary tract infection, site not specified; R00.0 Tachycardia, unspecified; R33.9 Retention of urine, unspecified; G80.9 Cerebral palsy, unspecified; J43.9 Emphysema, unspecified; Z79.82 Long term (current) use of aspirin; Z79.899 Other long term (current) drug therapy; B96.5 Pseudomonas (aeruginosa) (mallei) (pseudomallei) as the cause of diseases classified elsewhere; D72.829 Elevated white blood cell count, unspecified; E86.0 Dehydration; R39.15 Urgency of urination; Z90.710 Acquired absence of both cervix and uterus; Z90.49 Acquired absence of other specified parts of digestive tract; E66.9 Obesity, unspecified; Z68.36 Body mass index [BMI] 36.0-36.9, adult; Z96.649 Presence of unspecified artificial hip joint; Z96.612 Presence of left artificial shoulder joint; Z87.891 Personal history of nicotine dependence; Z80.9 Family history of malignant neoplasm, unspecified; Z82.0 Family history of epilepsy and other diseases of the nervous system

== ENCOUNTER 2016-08-05 13:31 | Inpatient (IN) | payer OTHER ==
[~2016-08-05] VITALS: Ht 152.4 cm; Wt 84.2 kg
[~2016-08-05 13:31] MED LIST changes: -ACETAMINOPHEN 500 MG TAB PO SCH; -CEFAZOLIN 2000 MG/60 ML D5W 60 ML IV SCH; -FAMOTIDINE 20 MG TAB PO SCH; -GABAPENTIN 300 MG CAP PO SCH; -LACTATED RINGER'S 1000ML 1,000 ML IV SCH; -LACTATED RINGER'S 1000ML IV SCH; -ROPIVACAINE 0.5% 5 MG/ML 30 ML VIAL ONE; -ROPIVACAINE 5MG/ML 30 ML 150 MG, BUPIVACAINE/EPINEPHR 0.5% MPF 30 ML, KETOROLAC TROMETH... INFIL SCH; +RXC5 PO; -TRANEXAMIC ACID INJ 1,000 MG in SODIUM CHLORIDE 0.9% 100ML 100 ML IV SCH
[2016-08-05] MEDS ORDERED: SODIUM CHLORIDE 0.9% 250ML 250 ML IV STA (14:53)
[2016-08-05] MEDS ORDERED: SODIUM CHLORIDE 0.9% 1000ML 1,000 ML IV STA (14:53)
[2016-08-05 15:01] LABS: BASO % 0.2 %; BASO ABS # 0.03 K/uL (0-0.2); COMPLETE YES; EOS % 0.1 %; HEMATOCRIT 33.8 % (37-47); IG% 0.4 %; LYMPH % 8.1 %; LYMPH ABS # 1.12 K/uL (1.2-3.4); MEAN CELL VOLUME 91.4 fL (80-100); MEAN CORPUSCULAR HEMOGLOBIN 31.1 pg (25-34); MEAN PLATELET VOLUME 9.8 fL (7.4-10.4); MONO % 8.8 %; NEUT % 82.4 %; PLATELET COUNT 222 K/uL (130-400)
[2016-08-05 15:09] LABS: BLOOD UREA NITROGEN 15 mg/dl (7-18); CALCIUM 8.2 mg/dl (8.5-10.1); CARBON DIOXIDE 27 mmol/L (21-32); CHLORIDE 104 mmol/L (98-107); GLUCOSE 100 mg/dl (70-99); MAGNESIUM 1.9 mg/dl (1.8-2.4); POTASSIUM 4.3 mmol/L (3.5-5.1); SODIUM 140 mmol/L (136-145)
[2016-08-05 15:10] LABS: ALT/SGPT 17 U/L (12-78); AST/SGOT 22 U/L (15-37); BUN/CREATININE RATIO 18.3 (10-20); CREATININE 0.81 mg/dl (0.60-1.20)
--- NOTE | 2016-08-05 15:13 | EMERGENCY ROOM VISIT NOTE ---
History Report prepared by Manisha: Daisy Lang Under the Supervision of: Dr. Sabine Lara M.D. First contact with patient: 14:42 Chief Complaint: OTHER COMPLAINT Stated Complaint: POST SURGERY SIDE EFFECTS History of Present Illness The patient is a 75 year old female who presents to the Emergency Room with complaints of persistent weakness starting this morning. She got up around 0800 this morning and fell because her legs felt weak. She was unable to get up for 3 hours. Her daughter and son came to help her up and once they had gotten her up she fell again around 1200. She denies any injury or neck pain. She reports has had difficulty urinating recently. She feels like she has to go, but cannot produce any urine at times. She denies any dysuria. She feels she might have a fever. She denies any confusion or changes in speech. She has not eaten today. She has a history of arthritis and COPD. She recently had shoulder replacement surgery. She has not taken any Percocet or pain medications today. Source of History: patient Onset: this morning Position: other (global) Quality: other (weakness) Timing: other (persistent) Associated Symptoms: No neck pain Note: Pt reports 2 falls, trouble urinating. Pt denies any injury, dysuria, confusion , changes in speech. Review of Systems See HPI for pertinent positives & negatives. A total of 10 systems reviewed and were otherwise negative. Past Medical & Surgical Medical Problems: (1) DJD (degenerative joint disease) (2) History of orthopedic surgery (3) Metabolic encephalopathy (4) Osteoarthritis of left shoulder Surgical Problems: (1) History of total hip replacement (2) Hx of hysterectomy Family History FHx: cancer FHx: seizures Social History Smoking Status: Never Smoker Alcohol Use: none Marital Status: Housing Status: lives alone Occupation Status: retired Current/Historical Medications Scheduled Acetaminophen (Tylenol), 1,000 MG PO PRN Aspirin (Aspirin Ec), 81 MG PO HS Calcium Carbonate (Calcium), 600 MG PO DAILY Cholecalciferol (Vitamin D3), 1 TAB PO BID Gabapentin (Neurontin), 300 MG PO QPM Ipratropium-Albuterol (Combivent Respimat), 1 PUFFS INH QID Scheduled PRN Lorazepam (Ativan), 0.25 MG PO HS PRN for Anxiety Oxycodone HCl (Oxycodone HCl), 5-10 MG PO Q4H PRN for Pain Allergies Coded Allergies: No Known Allergies (Verified , 08/05/16) Physical Exam Vital Signs Date Time Temp Pulse Resp B/P Pulse Ox O2 Delivery O2 Flow Rate FiO2 08/05/16 18:07 104 20 111/57 95 Room Air 08/05/16 15:55 53 20 128/56 96 Room Air 08/05/16 14:20 108 08/05/16 13:37 37.3 103 20 162/69 96 Room Air Physical Exam Vital signs reviewed. General: Well-appearing, in no significant distress. HEENT: No scleral icterus, PERRLA, neck supple. Atraumatic. Mucous membranes dry. Cardiovascular: Regular rate and rhythm, no extra sounds. Pulmonary: Clear to auscultation bilaterally, normal work of breathing. Abdomen: Soft, nontender, nondistended, positive bowel sounds. Musculoskeletal: No peripheral edema. Sling to the left arm with bandages in place over the shoulder. Neurologic: Patient awake alert and oriented x 3, full strength in all 4 extremities. Cranial nerves 2 through 12 grossly intact. Skin: Warm, dry, no rash Medical Decision & Procedures ER Provider Diagnostic Interpretation: X-ray results as stated below per interpretation by me and the radiologist. Radiology results as stated below per my review and radiologist interpretation: CHEST ONE VIEW PORTABLE CLINICAL HISTORY: Weakness. Trauma. COMPARISON STUDY: 06/28/2016 FINDINGS: The heart is normal in size. There is no failure. There is no lobar consolidation. There is mild chronic interstitial thickening. There is calcified left lower lobe granuloma. There are no pleural effusions. There are postsurgical changes of bilateral shoulder arthroplasties.[ IMPRESSION: Mild chronic interstitial change. No acute findings. Electronically signed by: Alex Damon M.D. 08/05/2016 4:20 PM Dictated Date/Time: 08/05/2016 4:[address] HEAD WITHOUT CONTRAST (CT) CLINICAL HISTORY: Acute change in mental status. Weakness. Head trauma. COMPARISON STUDY: 06/28/2016 TECHNIQUE: Axial CT of the brain is performed from the vertex to the skull base. IV contrast was not administered for this examination. CT DOSE: 1074.96 mGy.cm FINDINGS: No intra or extra-axial mass lesions are visualized. There is no CT evidence of acute cortical infarction. There is no evidence of midline shift. There is no acute hemorrhage. No calvarial fractures are visualized. There are patchy white matter hypodensities likely on a small vessel basis. There is no evidence of pathologic ventricular dilatation. There is no evidence of acute sinusitis IMPRESSION: No acute intracranial findings Electronically signed by: Alex Damon M.D. 08/05/2016 3:30 PM Dictated Date/Time: 08/05/2016 3:29 PM Laboratory Results 08/05/16 14:33 Red Blood Count 3.70, Mean Corpuscular Volume 91.4, Mean Corpuscular Hemoglobin 31.1, Mean Corpuscular Hemoglobin Concent 34.0, Mean Platelet Volume 9.8, Neutrophils (%) (Auto) 82.4, Lymphocytes (%) (Auto) 8.1, Monocytes (%) (Auto) 8.8, Eosinophils (%) (Auto) 0.1, Basophils (%) (Auto) 0.2, Neutrophils # (Auto) 11.37, Lymphocytes # (Auto) 1.12, Monocytes # (Auto) 1.21, Eosinophils # (Auto) 0.02, Basophils # (Auto) 0.03 08/05/16 14:33 Test 08/05/16 14:33 08/05/16 15:44 White Blood Count 13.80 K/uL (4.8-10.8) Red Blood Count 3.70 M/uL (4.2-5.4) Hemoglobin 11.5 g/dL (12.0-16.0) Hematocrit 33.8 % (37-47) Mean Corpuscular Volume 91.4 fL (80-100) Mean Corpuscular Hemoglobin 31.1 pg (25-34) Mean Corpuscular Hemoglobin Concent 34.0 g/dl (32-36) Platelet Count 222 K/uL (130-400) Mean Platelet Volume 9.8 fL (7.4-10.4) Neutrophils (%) (Auto) 82.4 % Lymphocytes (%) (Auto) 8.1 % Monocytes (%) (Auto) 8.8 % Eosinophils (%) (Auto) 0.1 % Basophils (%) (Auto) 0.2 % Neutrophils # (Auto) 11.37 K/uL (1.4-6.5) Lymphocytes # (Auto) 1.12 K/uL (1.2-3.4) Monocytes # (Auto) 1.21 K/uL (0.11-0.59) Eosinophils # (Auto) 0.02 K/uL (0-0.5) Basophils # (Auto) 0.03 K/uL (0-0.2) RDW Standard Deviation 50.7 fL (36.4-46.3) RDW Coefficient of Variation 15.1 % (11.5-14.5) Immature Granulocyte % (Auto) 0.4 % Immature Granulocyte # (Auto) 0.05 K/uL (0.00-0.02) Anion Gap 9.0 mmol/L (3-11) Est Creatinine Clear Calc Drug Dose 67.2 ml/min Estimated GFR () 82.3 Estimated GFR (Non- 71.0 BUN/Creatinine Ratio 18.3 (10-20) Calcium Level 8.2 mg/dl (8.5-10.1) Magnesium Level 1.9 mg/dl (1.8-2.4) Total Bilirubin 0.7 mg/dl (0.2-1) Direct Bilirubin 0.2 mg/dl (0-0.2) Aspartate Amino Transf (AST/SGOT) 22 U/L (15-37) Alanine Aminotransferase (ALT/SGPT) 17 U/L (12-78) Alkaline Phosphatase 63 U/L (45-117) Total Creatine Kinase 260 U/L (26-192) Creatine Kinase MB 0.6 ng/ml (0.5-3.6) Creatine Kinase MB Ratio 0.2 (0-3.0) Troponin I < 0.015 ng/ml (0-0.045) Total Protein 6.7 gm/dl (6.4-8.2) Albumin 3.1 gm/dl (3.4-5.0) Urine Color YELLOW Urine Appearance CLEAR (CLEAR) Urine pH 5.5 (4.5-7.5) Urine Specific [place] 1.020 (1.000-1.030) Urine Protein NEG (NEG) Urine Glucose (UA) NEG (NEG) Urine Ketones TRACE (NEG) Urine Occult Blood NEG (NEG) Urine Nitrite NEG (NEG) Urine Bilirubin NEG (NEG) Urine Urobilinogen NEG (NEG) Urine Leukocyte Esterase NEG (NEG) Laboratory results per my review. Medications Administered Medications (Trade) Dose Ordered Sig/[place] Route Start Time Stop Time Status Last Admin Dose Admin Sodium Chloride 250 ml @ 999 mls/hr Q16M STAT IV 08/05/16 14:53 08/05/16 15:08 DC 08/05/16 15:42 999 MLS/HR Sodium Chloride (Nss 1000ml) 1,000 ml @ 125 mls/hr Q8H STAT IV 08/05/16 14:53 08/05/16 20:50 DC 08/05/16 15:52 125 MLS/HR ECG Indication: weakness Rate (beats per minute): 107 Rhythm: sinus tachycardia Findings: PVC (frequent), no acute ischemic change, other (possible right ventricular hypertrophy, QTC 427) ED Course 1452: Past medical records reviewed. The patient was evaluated in room C8. A complete history and physical examination was performed. 1453: NSS 1000 ml @ 125 mls/hr IV, NSS 250 ml @ 999 mls/hr IV. 1641: The case repairer is trying to arrange rehab for the patient. 1647: I reevaluated the patient. I updated her on the plan. 1656: I reviewed the patient's case with Dr. Pritchett [facility] - hospitalist. He will evaluate the patient for further management. 1715: Upon reevaluation, the patient is resting comfortably. I discussed laboratory and radiographic results with her and her family. They verbalized agreement of the treatment plan. The patient will be evaluated for further management and care. Medical Decision Differential diagnosis: Etiologies such as metabolic, infection, hypo/hyperglycemia, electrolyte abnormalities, cardiac sources, intracerebral event, toxicologic, neurologic, as well as others were entertained. This patient was evaluated and appeared to be in no significant distress. IV access was obtained and laboratory work was drawn. The patient was placed on the attendance clerk. After work reveals a mild leukocytosis. Patient was hydrated with normal saline solution. It does not appear that the patient is suffering from an acute urinary tract infection. Laboratory work is otherwise fairly unrevealing. I suspect the patient requires more intensive rehabilitation services after her recent surgery. The patient seems happy with the plan for hospitalist evaluation. Consults Time Called: 1649 Consulting Physician: Dr. Pritchett [facility] hospitalist Returned Call: [phone] I reviewed the patient's case with him. He will evaluate the patient for further management. Impression Primary Impression: Generalized weakness Additional Impressions: Physical deconditioning Falls Status post replacement of left shoulder joint Scribe Attestation The scribe's documentation has been prepared under my direction and personally reviewed by me in its entirety. I confirm that the note above accurately reflects all work, treatment, procedures, and medical decision making performed by me. Departure Information Dispostion Being Evaluated By Hospitalist Referrals Austin Gilmore D.O.Int.Med. (PCP) Patient Instructions My [facility] Problem Qualifiers
[2016-08-05 15:19] LABS: ALKALINE PHOSPHATASE 63 U/L (45-117); CKMB/CK RATIO 0.2 (0-3.0)
--- NOTE | 2016-08-05 15:32 | DIAGNOSTIC IMAGING REPORT ---
CT HEAD WITHOUT CONTRAST (CT) CLINICAL HISTORY: Acute change in mental status. Weakness. Head trauma. COMPARISON STUDY: 06/28/2016 TECHNIQUE: Axial CT of the brain is performed from the vertex to the skull base. IV contrast was not administered for this examination. CT DOSE: 1074.96 mGy.cm FINDINGS: No intra or extra-axial mass lesions are visualized. There is no CT evidence of acute cortical infarction. There is no evidence of midline shift. There is no acute hemorrhage. No calvarial fractures are visualized. There are patchy white matter hypodensities likely on a small vessel basis. There is no evidence of pathologic ventricular dilatation. There is no evidence of acute sinusitis IMPRESSION: No acute intracranial findings Electronically signed by: Alex Damon M.D. 08/05/2016 3:30 PM Dictated Date/Time: 08/05/2016 3:29 PM
[2016-08-05 16:02] LABS: URINE APPEARANCE CLEAR (CLEAR); URINE BILIRUBIN NEG (NEG); URINE COLOR YELLOW; URINE NITRITE NEG (NEG); URINE PH 5.5 (4.5-7.5); UROBILINOGEN NEG (NEG); ZZURINE CULT IF INDIC CATH NO
[2016-08-05 16:04] LABS: MANUAL MICROSCOPIC REQUIRED? NO; REVIEW REQ? NO
--- NOTE | 2016-08-05 16:22 | DIAGNOSTIC IMAGING REPORT ---
CHEST ONE VIEW PORTABLE CLINICAL HISTORY: Weakness. Trauma. COMPARISON STUDY: 06/28/2016 FINDINGS: The heart is normal in size. There is no failure. There is no lobar consolidation. There is mild chronic interstitial thickening. There is calcified left lower lobe granuloma. There are no pleural effusions. There are postsurgical changes of bilateral shoulder arthroplasties.[ IMPRESSION: Mild chronic interstitial change. No acute findings. Electronically signed by: Alex Damon M.D. 08/05/2016 4:20 PM Dictated Date/Time: 08/05/2016 4:19 PM
[2016-08-05] MEDS ORDERED: ACETAMINOPHEN 325 MG TAB PO PRN (18:30)
[2016-08-05] MEDS ORDERED: OXYCODONE HCL IR 5 MG TAB (IMMEDIATE RELEASE) PO PRN (18:30)
[2016-08-05] MEDS ORDERED: LORAZEPAM 0.5 MG TAB PO PRN (18:30)
[2016-08-05] MEDS ORDERED: MAGNESIUM HYDROXIDE SUSP 30 ML UDC PO PRN (18:30)
[2016-08-05] MEDS ORDERED: ALUMINUM/MAGNESIUM/SIMETH (MAALOX MAX) 30 ML UDC PO PRN (18:30)
[2016-08-05] MEDS ORDERED: POLYETHYLENE (MIRALAX) 17 GM PACK PO PRN (18:30)
[2016-08-05] MEDS ORDERED: ACETAMINOPHEN 500 MG TAB PO SCH (18:30)
[2016-08-05] MEDS ORDERED: ONDANSETRON INJ 2 MG/ML 2 ML VIAL IV PRN (18:30)
[2016-08-05 19:50] VITALS: BP 119/68; PULSE 94; TEMP 37.1; O2SAT 94; Ht 152.4 cm; Wt 84.2 kg
[2016-08-05] MEDS ORDERED: OXYCODONE HCL IR 5 MG TAB (IMMEDIATE RELEASE) PO ONE (20:47)
[2016-08-05] MEDS: SODIUM CHLOR 0.45% + 20MEQ KCL 1,000 ML IV SCH (21:14)
[2016-08-05] MEDS: IPRATROPIUM BROMIDE/ALBUTEROL respimat INH INH SCH (21:19)
--- NOTE | 2016-08-05 21:38 | History and Physical ---
History & Physical Date & Time of Service: August 05, 2016 at 21:34 Chief Complaint: Generalized Weakness Primary Care Physician: Austin Gilmore D.O.Int.Med. Past Medical/Surgical History Medical Problems: (1) DJD (degenerative joint disease) Status: Chronic (2) History of orthopedic surgery Status: Resolved Surgical Problems: (1) History of total hip replacement Status: Resolved (2) Hx of hysterectomy Status: Resolved Family History FHx: cancer FHx: seizures Social History Smoking Status: Former Smoker Marital Status: Housing status: lives alone Occupational Status: retired Immunizations History of Influenza Vaccine: No History of Tetanus Vaccine?: Yes Tetanus Immunization Date: Oct 25, 2012 History of Pneumococcal: Unknown History of Hepatitis B Vaccine: No Multi-Drug Resistant Organisms History of MDRO: No Allergies Coded Allergies: No Known Allergies (Verified , 08/05/16) Home Medications Scheduled Acetaminophen (Tylenol), 1,000 MG PO PRN Aspirin (Aspirin Ec), 81 MG PO HS Calcium Carbonate (Calcium), 600 MG PO DAILY Cholecalciferol (Vitamin D3), 1 TAB PO BID Gabapentin (Neurontin), 300 MG PO QPM Ipratropium-Albuterol (Combivent Respimat), 1 PUFFS INH QID Scheduled PRN Lorazepam (Ativan), 0.25 MG PO HS PRN for Anxiety Oxycodone HCl (Oxycodone HCl), 5-10 MG PO Q4H PRN for Pain Physical Exam Vital Signs Date Time Temp Pulse Resp B/P Pulse Ox O2 Delivery O2 Flow Rate FiO2 08/05/16 19:50 37.1 94 18 119/68 94 Room Air 08/05/16 19:32 88 18 113/67 96 Room Air 08/05/16 18:07 104 20 111/57 95 Room Air 08/05/16 15:55 53 20 128/56 96 Room Air 08/05/16 14:20 108 08/05/16 13:37 37.3 103 20 162/69 96 Room Air Diagnostics Laboratory Results Results Past 24 Hours Test 08/05/16 14:33 08/05/16 15:44 Range/Units White Blood Count 13.80 4.8-10.8 K/uL Red Blood Count 3.70 4.2-5.4 M/uL Hemoglobin 11.5 12.0-16.0 g/dL Hematocrit 33.8 37-47 % Mean Corpuscular Volume 91.4 80-100 fL Mean Corpuscular Hemoglobin 31.1 25-34 pg Mean Corpuscular Hemoglobin Concent 34.0 32-36 g/dl Platelet Count 222 130-400 K/uL Mean Platelet Volume 9.8 7.4-10.4 fL Neutrophils (%) (Auto) 82.4 % Lymphocytes (%) (Auto) 8.1 % Monocytes (%) (Auto) 8.8 % Eosinophils (%) (Auto) 0.1 % Basophils (%) (Auto) 0.2 % Neutrophils # (Auto) 11.37 1.4-6.5 K/uL Lymphocytes # (Auto) 1.12 1.2-3.4 K/uL Monocytes # (Auto) 1.21 0.11-0.59 K/uL Eosinophils # (Auto) 0.02 0-0.5 K/uL Basophils # (Auto) 0.03 0-0.2 K/uL RDW Standard Deviation 50.7 36.4-46.3 fL RDW Coefficient of Variation 15.1 11.5-14.5 % Immature Granulocyte % (Auto) 0.4 % Immature Granulocyte # (Auto) 0.05 0.00-0.02 K/uL Sodium Level 140 136-145 mmol/L Potassium Level 4.3 3.5-5.1 mmol/L Chloride Level 104 98-107 mmol/L Carbon Dioxide Level 27 21-32 mmol/L Anion Gap 9.0 3-11 mmol/L Blood Urea Nitrogen 15 7-18 mg/dl Creatinine 0.81 0.60-1.20 mg/dl Est Creatinine Clear Calc Drug Dose 67.2 ml/min Estimated GFR () 82.3 Estimated GFR (Non- 71.0 BUN/Creatinine Ratio 18.3 10-20 Random Glucose 100 70-99 mg/dl Calcium Level 8.2 8.5-10.1 mg/dl Magnesium Level 1.9 1.8-2.4 mg/dl Total Bilirubin 0.7 0.2-1 mg/dl Direct Bilirubin 0.2 0-0.2 mg/dl Aspartate Amino Transf (AST/SGOT) 22 15-37 U/L Alanine Aminotransferase (ALT/SGPT) 17 12-78 U/L Alkaline Phosphatase 63 45-117 U/L Total Creatine Kinase 260 26-192 U/L Creatine Kinase MB 0.6 0.5-3.6 ng/ml Creatine Kinase MB Ratio 0.2 0-3.0 Troponin I < 0.015 0-0.045 ng/ml Total Protein 6.7 6.4-8.2 gm/dl Albumin 3.1 3.4-5.0 gm/dl Urine Color YELLOW Urine Appearance CLEAR CLEAR Urine pH 5.5 4.5-7.5 Urine Specific [place] 1.020 1.000-1.030 Urine Protein NEG NEG Urine Glucose (UA) NEG NEG Urine Ketones TRACE NEG Urine Occult Blood NEG NEG Urine Nitrite NEG NEG Urine Bilirubin NEG NEG Urine Urobilinogen NEG NEG Urine Leukocyte Esterase NEG NEG Microbiology Results 08/05/16 Blood Culture, Received Pending 08/05/16 Blood Culture, Received Pending 08/05/16 Urine Culture, Received Pending Impression Assessment and Plan obs #[id number] Advanced Directives Existing Living Will: No Existing Power of Keno Writer: No VTE Prophylaxis VTE Risk Assessment Done? Y/N: Yes Risk Level: Moderate
[2016-08-05] MEDS: GABAPENTIN 300 MG CAP PO SCH (21:45)
[2016-08-05] MEDS: ASPIRIN 81 MG ECTAB PO SCH (21:45)
[2016-08-05] MEDS: CHOLECALCIFEROL 1000 INTER.UNIT TAB PO SCH (21:45)
[2016-08-05] MEDS ORDERED: IV FLUIDS COMPLETED PRN (22:30)
[2016-08-05 23:25] VITALS: BP 97/61; PULSE 80; TEMP 37; O2SAT 96
--- NOTE | 2016-08-06 04:13 | HISTORY & PHYSICAL EXAMINATION ---
DATE OF ADMISSION: 08/05/2016 CHIEF COMPLAINT: Weakness. HISTORY OF PRESENT ILLNESS: The patient is a very pleasant 75-year-old female with cerebral palsy that I had actually seen a couple of nights ago for our consultation for tachycardia and after her shoulder surgery. She, then the next day it appears, was discharged to home but now she is noting that she is starting to feel weak. She got up around 8:00 this morning and fell. She notes that her legs just felt weak and shaky. She initially notes numb, but that on clarification, it does not appear there was truly a lack of sensation as much as it just felt weak all over diffusely without any focal weakness. There was no pain. She was unable to get up for several hours and then her children came and found her and then she fell again around noon and because she was continuing to be so weak, they brought her here to the ER for further evaluation. She denies maverick fevers, chills, or sweats but notes she has felt a little bit hot. She denies dysuria, although she did have urinary retention a couple of nights ago. She is no longer having urinary retention, now she does not have cough, chest pain or shortness of breath. REVIEW OF SYSTEMS: Otherwise negative, except for as above. PAST MEDICAL HISTORY: Emphysema, anxiety, osteoarthritis, cerebral palsy. PAST SURGICAL HISTORY: Includes her shoulder surgery from a couple of days ago, appendectomy, cholecystectomy, total abdominal hysterectomy. Two hip surgeries. FAMILY HISTORY: Includes cancer and seizures. Dad of a stroke at 70. Both mother and grandmother had early Alzheimer's. SOCIAL HISTORY: She is a former smoker but she quit about 20 years ago. She is and lives alone. ALLERGIES: No known drug allergies. MEDICATIONS: Her current meds are acetaminophen 1000 mg p.o. p.r.n. pain, aspirin 81 mg at bedtime, calcium 600 mg daily, vitamin D 1 b.i.d., gabapentin 300 mg at bedtime, Combivent 1 puff q.i.d., Ativan 0.25 at bedtime p.r.n., oxycodone 5 mg 1-2 tabs q. 4 hours p.r.n. moderate to severe pain. ALLERGIES: No known drug allergies. PHYSICAL EXAMINATION: VITAL SIGNS: Temp 37.3, pulse 103, respiratory rate 20, blood pressure 162/69, 96% on room air. GENERAL: She is awake, alert, oriented x3, pleasant but appears fatigued. HEENT: Normocephalic, atraumatic. Mucous membranes somewhat dry. CARDIOVASCULAR: Regular. No rubs, murmurs, or gallops. LUNGS: Clear to auscultation bilaterally. No rales, rhonchi, or wheezes with good effort. ABDOMEN: Soft, nondistended, nontender, no masses or organomegaly. EXTREMITIES: Without cyanosis, clubbing or edema. No calf tenderness. Her left arm is in a sling, but is distally neurovascularly intact. NEUROLOGIC: Shows chronic appearing deficits with her cerebral palsy unchanged from whenever I saw her the other night. No other deficits. Cranial nerves II-XII grossly intact. Gross motor and sensory are intact. SKIN: Shows no rashes, no pallor or icterus. MUSCULOSKELETAL: Chills, no gross lesions. Her left arm is in a sling as above noted. MENTAL STATE: Good recent and remote recall. Normal mood and affect. Good judgment and insight. LABORATORY AND DIAGNOSTICS: CBC shows a white count of 13.8 with 82.4% neutrophils is actually lower than it was. When I last saw her, it was 14.11 and yesterday was 13.05. She did have steroids perioperatively on review of chart, hemoglobin 11.5, platelets 222. Complete metabolic panel shows sodium 140, potassium 4.3, chloride 104, CO2 27, BUN 15, calcium 8.2, glucose 100. Mag 1.9, total bili 0.7 with a direct of 0.2, AST 22, ALT 17, alkaline phosphatase 63. CK total of 260 with an MB of 0.6, troponin less than 0.015. Albumin 3.1, total protein 6.7. Urinalysis is yellow, clear, specific gravity 1.020, trace ketones. Head CT shows no evidence of cortical infarct, no evidence of midline shift, no hemorrhage, no fractures, patchy white matter hypodensities, likely small vessel. No evidence of palpable logic ventricular dilation, no evidence of acute sinusitis and her chest x-ray has no lobar consolidation, calcified left lower lobe granuloma, no acute findings, mild chronic interstitial change. EKG sinus tachycardia with frequent. Notable ischemic changes. Urine and blood cultures are pending. ASSESSMENT AND PLAN: 1. Fall with weakness most likely it is a combination of being a 75-year-old female with cerebral palsy and a recent shoulder surgery, her pain medicines, and just general deconditioning certainly it appears to be exacerbated by a bit of dehydration. Fortunately, I do not see any evidence of anything worrisome acute going on such as a septic process or new infection. Obviously, we will be awaiting cultures and following serial exams to ensure this is not the case, but mostly we will initially manage her with supportive care, IV fluids, physical therapy and occupational therapy evaluations and see if she needs rehabilitation. 2. Mild dehydration. IV fluids followup. 3. Leukocytosis. This appears to be a lingering steroid effect/maybe a degree of demargination from surgery. She does not show any signs or symptoms of active infection. Chest x-ray was clear. Blood and urine cultures are pending. We will continue to follow expectantly. 4. Deep venous thrombosis prophylaxis, Lovenox. 5. Chronic obstructive pulmonary disease. Continue her Combivent. KHAI
[2016-08-06 05:45] VITALS: BP_SYST 104; BP_SYST 78; BP_SYST 95; BP_DIAS 40; BP_DIAS 61; PULSE 91; PULSE 93; PULSE 98
[2016-08-06] MEDS: SODIUM CHLOR 0.45% + 20MEQ KCL 1,000 ML IV SCH ×2 (06:11→16:45)
[2016-08-06 07:18] VITALS: BP 107/68; PULSE 90; TEMP 36.6; O2SAT 95
[2016-08-06] MEDS: ENOXAPARIN 40 MG/0.4 ML SYR SQ SCH (08:39)
[2016-08-06] MEDS: CHOLECALCIFEROL 1000 INTER.UNIT TAB PO SCH ×2 (08:39→20:36)
[2016-08-06] MEDS: CALCIUM 600MG + VIT D 400 IU TAB PO SCH (08:39)
[2016-08-06] MEDS: IPRATROPIUM BROMIDE/ALBUTEROL respimat INH INH SCH ×4 (08:40→20:35)
--- NOTE | 2016-08-06 09:28 | Hospitalist Progress Note ---
Hospitalist Progress Note Date of Service August 06, 2016. (Sonia Tamayo PA-C) Subjective Pt evaluation today including: conversation w/ patient, physical exam, chart review, lab review, review of studies, review of inpatient medication list Patient seen and evaluated. Admitted overnight for generalized weakness and falls x 2. Question deconditioning vs cerebral palsy vs dehydration. UA negative for bacteria but culture with prelim reading of gram neg. bacilli. Only symptom reported is feeling the need to void but does not void. Orthostatic readings positive for orthostasis. Also complains of a non-productive cough that has been present for a while but cannot give complete duration. Reviewed previous admission which shows significant sinusitis on CT imaging and was treated with Augmentin at end of May. -- Does have a history of COPD so possible related to this Feels like she is febrile but not documented fevers. Previous admission noted for mother and sister with dementia symptoms at this approx. age Constitutional: + fever (subjective), + weakness (generalized), No chills Eyes: No worsening of vision ENT: No sore throat Respiratory: + cough, No shortness of breath, No sputum Cardiovascular: No chest pain Abdomen: No nausea, No pain, No vomiting Female : + problem reported (feelings of needing to void without voiding) , No dysuria Neurologic: No numbness/tingling (Sonia Tamayo, ERNESTOC) Medications Current Inpatient Medications Medications (Trade) Dose Ordered Sig/Gary Route Start Time Stop Time Status Last Admin Dose Admin Enoxaparin Sodium (Lovenox Inj) 40 mg DAILY SQ 08/06/16 09:00 09/05/16 08:59 08/06/16 08:39 40 MG Acetaminophen (Tylenol Tab) 650 mg Q4H PRN PO 08/05/16 18:30 09/04/16 18:29 Al Hydrox/Mg Hydrox/Simethicone (Maalox Max Susp) 15 ml Q4H PRN PO 08/05/16 18:30 09/04/16 18:29 Magnesium Hydroxide (Milk Of Magnesia Susp) 30 ml Q6H PRN PO 08/05/16 18:30 09/04/16 18:29 Polyethylene (Miralax Powder Packet) 17 gm DAILY PRN PO 08/05/16 18:30 09/04/16 18:29 Ondansetron HCl (Zofran Inj) 4 mg Q6H PRN IV 08/05/16 18:30 09/04/16 18:29 Aspirin (Ecotrin Tab) 81 mg HS PO 08/05/16 21:00 09/04/16 20:59 08/05/16 21:45 81 MG Cholecalciferol (Vitamin D Tab) 1,000 inter.unit BID PO 08/05/16 21:00 09/04/16 20:59 08/06/16 08:39 1,000 INTER.UNIT Gabapentin (Neurontin Cap) 300 mg QPM PO 08/05/16 21:00 09/04/16 20:59 08/05/16 21:45 300 MG Albuterol/ Ipratropium (Combivent Respimat Inh) 1 puffs QID INH 08/05/16 21:00 09/04/16 20:59 08/06/16 08:40 1 PUFFS Lorazepam (Ativan Tab) 0.25 mg HS PRN PO 08/05/16 18:30 09/04/16 18:29 Oxycodone HCl (Roxicodone Immediate Rel Tab) 5 mg Q4H PRN PO 08/05/16 18:30 09/04/16 18:29 08/05/16 19:40 5 MG Calcium/Vitamin D 1 tab 1 tab DAILY PO 08/06/16 09:00 09/05/16 08:59 08/06/16 08:39 1 TAB Potassium Chloride/Sodium Chloride (1/2 Nss + 20meq KCl 1000ml) 1,000 ml @ 100 mls/hr Q10H IV 08/05/16 21:00 09/04/16 20:59 08/06/16 06:11 100 MLS/HR Miscellaneous 1 ea 1 ea PRN PRN N/A 08/05/16 22:30 08/05/17 22:29 Ceftriaxone Sodium/Dextrose (Rocephin Inj/ Dextrose Add-[place] 50ML) 50 ml @ 100 mls/hr ONE STAT IV 08/06/16 09:19 08/06/16 09:48 UNV (Sonia Tamayo, ELSI) Objective Vital Signs Date Time Temp Pulse Resp B/P Pulse Ox O2 Delivery O2 Flow Rate FiO2 08/06/16 07:18 36.6 90 16 107/68 95 Room Air 08/06/16 07:15 Room Air 08/06/16 05:45 93 104/61 91 95/61 98 78/40 08/05/16 23:25 37.0 80 18 97/61 96 Room Air 08/05/16 19:50 37.1 94 18 119/68 94 Room Air 08/05/16 19:32 88 18 113/67 96 Room Air 08/05/16 18:07 104 20 111/57 95 Room Air 08/05/16 15:55 53 20 128/56 96 Room Air 08/05/16 14:20 108 08/05/16 13:37 37.3 103 20 162/69 96 Room Air (Sonia Tamayo PA-C) Physical Exam General Appearance: WD/WN, no apparent distress Eyes: sclerae normal ENT: hearing grossly normal Neck: supple, no JVD, trachea midline Respiratory/Chest: lungs clear, normal breath sounds, no respiratory distress, no accessory muscle use Cardiovascular: regular rate, rhythm, no gallop, no murmur Abdomen: normal bowel sounds, non tender, soft Extremities: no pedal edema, no calf tenderness, + pertinent finding ( tenderness to palpation of anterior aspect of bilateral tibias not exacerbated with joint movements or dorsiflexion/plantar flexion) Neurologic/Psychiatric: alert Skin: normal color, warm/dry (Sonia Tamayo, PA-C) Laboratory Results Last 24 Hours Test 08/05/16 14:33 08/05/16 15:44 White Blood Count 13.80 K/uL Red Blood Count 3.70 M/uL Hemoglobin 11.5 g/dL Hematocrit 33.8 % Mean Corpuscular Volume 91.4 fL Mean Corpuscular Hemoglobin 31.1 pg Mean Corpuscular Hemoglobin Concent 34.0 g/dl Platelet Count 222 K/uL Mean Platelet Volume 9.8 fL Neutrophils (%) (Auto) 82.4 % Lymphocytes (%) (Auto) 8.1 % Monocytes (%) (Auto) 8.8 % Eosinophils (%) (Auto) 0.1 % Basophils (%) (Auto) 0.2 % Neutrophils # (Auto) 11.37 K/uL Lymphocytes # (Auto) 1.12 K/uL Monocytes # (Auto) 1.21 K/uL Eosinophils # (Auto) 0.02 K/uL Basophils # (Auto) 0.03 K/uL RDW Standard Deviation 50.7 fL RDW Coefficient of Variation 15.1 % Immature Granulocyte % (Auto) 0.4 % Immature Granulocyte # (Auto) 0.05 K/uL Sodium Level 140 mmol/L Potassium Level 4.3 mmol/L Chloride Level 104 mmol/L Carbon Dioxide Level 27 mmol/L Anion Gap 9.0 mmol/L Blood Urea Nitrogen 15 mg/dl Creatinine 0.81 mg/dl Est Creatinine Clear Calc Drug Dose 67.2 ml/min Estimated GFR () 82.3 Estimated GFR (Non- 71.0 BUN/Creatinine Ratio 18.3 Random Glucose 100 mg/dl Calcium Level 8.2 mg/dl Magnesium Level 1.9 mg/dl Total Bilirubin 0.7 mg/dl Direct Bilirubin 0.2 mg/dl Aspartate Amino Transf (AST/SGOT) 22 U/L Alanine Aminotransferase (ALT/SGPT) 17 U/L Alkaline Phosphatase 63 U/L Total Creatine Kinase 260 U/L Creatine Kinase MB 0.6 ng/ml Creatine Kinase MB Ratio 0.2 Troponin I < 0.015 ng/ml Total Protein 6.7 gm/dl Albumin 3.1 gm/dl Urine Color YELLOW Urine Appearance CLEAR Urine pH 5.5 Urine Specific [place] 1.020 Urine Protein NEG Urine Glucose (UA) NEG Urine Ketones TRACE Urine Occult Blood NEG Urine Nitrite NEG Urine Bilirubin NEG Urine Urobilinogen NEG Urine Leukocyte Esterase NEG (Sonia Tamayo PA-C) Assessment and Plan Generalized Weakness and Fall x 2: - Recent L shoulder surgery and H/O cerebral palsy - pain medicines vs deconditioning vs dehydration vs orthostatic hypotension - NSS + KCl 20 mEq 100 mL/hr Urgency to Void - UCx prelim with gram neg. bacilli: - Rocephin 1 g IV daily - await culture results for further management S/P L Shoulder Surgery: Oxycodone 5 mg Q4H PRN COPD: Combivent 1 puff QID Cerebral Palsy: Gabapentin 300 mg daily DVT Prophylaxis: Lovenox 40 mg SC daily Disposition: - PT/OT evaluations - possible SNF at [facility] (Sonia Tamayo PA-C) Reviewed: Pt Seen/Exam by Me (Anuja Manley M.D.) History Pt seen with Sonia CALZADA. Agree with A/P. (Anuja Manley M.D.) Constitutional: acknowledges: weakness Musculoskeletal: positive: other (left shoulder pain) (Anuja Manley M.D.) General Appearance: WD/WN, other (resting in chair) Ears, Nose, Throat: normal ENT inspection Neck: non-tender Respiratory: chest non-tender Cardiovascular: normal peripheral pulses Extremities: other (left shoulder in sling support. Left shoulder incision C/D and in dressing) Neurologic/Psychiatric: protection analyst II-XII nml as tested, alert, oriented x 3 (Anuja Manley M.D.) Assessment/Plan s/p left shoulder surgery. Follow up with Ortho as OP. Possible UTI: On IV rocephin. follow up on urine cultures (Anuja Manley M.D.)
[2016-08-06] MEDS ORDERED: CEFTRIAXONE SOD INJ 1 GM in DEXTROSE 5% ADD-VANTAGE 50ML 50 ML IV STA (09:33)
[2016-08-06 15:02] VITALS: BP 100/63; PULSE 77; TEMP 37.6; O2SAT 93
[2016-08-06] MEDS: GABAPENTIN 300 MG CAP PO SCH (20:36)
[2016-08-06] MEDS: ASPIRIN 81 MG ECTAB PO SCH (20:36)
[2016-08-06 21:11] VITALS: BP_SYST 110; BP_SYST 123; BP_SYST 143; BP_DIAS 60; BP_DIAS 63; BP_DIAS 74
[2016-08-06 22:55] VITALS: BP 104/68; PULSE 92; TEMP 37.1; O2SAT 95
[2016-08-07] VITALS (7 sets, daily range): BP systolic 99–133; BP diastolic 55–73; PULSE 64–89; TEMP 36.5–37; O2SAT 93–98
[2016-08-07] MEDS: SODIUM CHLOR 0.45% + 20MEQ KCL 1,000 ML IV SCH ×3 (02:46→23:21)
[2016-08-07] MEDS: CALCIUM 600MG + VIT D 400 IU TAB PO SCH (08:28)
[2016-08-07] MEDS: CHOLECALCIFEROL 1000 INTER.UNIT TAB PO SCH ×2 (08:28→20:37)
[2016-08-07] MEDS: IPRATROPIUM BROMIDE/ALBUTEROL respimat INH INH SCH ×4 (08:28→20:35)
[2016-08-07] MEDS: ENOXAPARIN 40 MG/0.4 ML SYR SQ SCH (08:29)
[2016-08-07] MEDS ORDERED: CIPROFLOXACIN 250 MG TAB PO SCH (11:15)
[2016-08-07] MEDS ORDERED: CEFTRIAXONE SOD INJ 1 GM in DEXTROSE 5% ADD-VANTAGE 50ML 50 ML IV SCH (12:00)
--- NOTE | 2016-08-07 15:32 | Hospitalist Progress Note ---
Hospitalist Progress Note Date of Service August 07, 2016. (Sonia Tamayo, ENRESTOC) Subjective Pt evaluation today including: conversation w/ patient, physical exam, chart review, lab review, review of studies, review of inpatient medication list Patient seen and evaluated. Still positive orthostatics but improved. She feels that her weakness has improved. She was denied [facility] and discussed with patient. She would prefer to return home with home health services. Daughter can pick patient up at 5 After talking with patient plan is to keep overnight and continue hydration and evaluate orthostatics in AM States that she has been urinating more frequently which she states she feels she was not urinating enough prior to today. Prelim BCx were with NGTD - was called that one cx is now + for gram neg bacilli. Will update patient Constitutional: No chills, No fever Eyes: No worsening of vision ENT: No nasal symptoms, No sore throat Respiratory: + cough, No shortness of breath Cardiovascular: No chest pain Abdomen: No constipation, No diarrhea, No nausea, No pain, No vomiting Musculoskeletal: No calf pain, No swelling Female : + urinary frequency Neurologic: + weakness (bilateral - improving) Skin: No itch, No rash (Sonia Tamayo, ERNESTOC) Medications Current Inpatient Medications Medications (Trade) Dose Ordered Sig/Gary Route Start Time Stop Time Status Last Admin Dose Admin Enoxaparin Sodium (Lovenox Inj) 40 mg DAILY SQ 08/06/16 09:00 09/05/16 08:59 08/07/16 08:29 40 MG Acetaminophen (Tylenol Tab) 650 mg Q4H PRN PO 08/05/16 18:30 09/04/16 18:29 Al Hydrox/Mg Hydrox/Simethicone (Maalox Max Susp) 15 ml Q4H PRN PO 08/05/16 18:30 09/04/16 18:29 Magnesium Hydroxide (Milk Of Magnesia Susp) 30 ml Q6H PRN PO 08/05/16 18:30 09/04/16 18:29 Polyethylene (Miralax Powder Packet) 17 gm DAILY PRN PO 08/05/16 18:30 09/04/16 18:29 Ondansetron HCl (Zofran Inj) 4 mg Q6H PRN IV 08/05/16 18:30 09/04/16 18:29 Aspirin (Ecotrin Tab) 81 mg HS PO 08/05/16 21:00 09/04/16 20:59 08/06/16 20:36 81 MG Cholecalciferol (Vitamin D Tab) 1,000 inter.unit BID PO 08/05/16 21:00 09/04/16 20:59 08/07/16 08:28 1,000 INTER.UNIT Gabapentin (Neurontin Cap) 300 mg QPM PO 08/05/16 21:00 09/04/16 20:59 08/06/16 20:36 300 MG Albuterol/ Ipratropium (Combivent Respimat Inh) 1 puffs QID INH 08/05/16 21:00 09/04/16 20:59 08/07/16 14:08 1 PUFFS Lorazepam (Ativan Tab) 0.25 mg HS PRN PO 08/05/16 18:30 09/04/16 18:29 Oxycodone HCl (Roxicodone Immediate Rel Tab) 5 mg Q4H PRN PO 08/05/16 18:30 09/04/16 18:29 08/05/16 19:40 5 MG Calcium/Vitamin D 1 tab 1 tab DAILY PO 08/06/16 09:00 09/05/16 08:59 08/07/16 08:28 1 TAB Potassium Chloride/Sodium Chloride (1/2 Nss + 20meq KCl 1000ml) 1,000 ml @ 100 mls/hr Q10H IV 08/05/16 21:00 09/04/16 20:59 08/07/16 14:08 100 MLS/HR Miscellaneous (Iv Fluids Completed) 1 ea PRN PRN N/A 08/05/16 22:30 08/05/17 22:29 Ciprofloxacin (Ciprofloxacin Tab) 250 mg Q12 PO 08/07/16 11:15 08/12/16 11:14 08/07/16 11:38 250 MG (Sonia Tamayo PA-C) Objective Vital Signs Date Time Temp Pulse Resp B/P Pulse Ox O2 Delivery O2 Flow Rate FiO2 08/07/16 07:28 36.7 83 18 112/67 95 Room Air 08/07/16 07:28 Room Air 08/07/16 00:20 Room Air 08/06/16 22:55 37.1 92 18 104/68 95 Room Air 08/06/16 21:11 143/74 123/60 110/63 08/06/16 19:33 Room Air (Sonia Tamayo PA-C) Physical Exam General Appearance: WD/WN, no apparent distress Eyes: sclerae normal ENT: hearing grossly normal Neck: supple, no JVD, trachea midline Respiratory/Chest: lungs clear, normal breath sounds, no respiratory distress, no accessory muscle use Cardiovascular: regular rate, rhythm, no gallop, no murmur Abdomen: normal bowel sounds, non tender, soft Extremities: no pedal edema, no calf tenderness Neurologic/Psychiatric: alert, oriented x 3 Skin: normal color, warm/dry (Sonia Tamayo PA-C) Laboratory Results Last 24 Hours Test 08/07/16 07:19 Cortisol AM Sample 25.69 mcg/dl (Sonia Tamayo PA-C) Assessment and Plan Bacteremia: Gram Neg Bacilli - Prelim BCx with NGTD - one is now positive for gram neg. bacilli - awaiting further identification - Will stop po Cipro and institute Cipro 500 mg IV BID - due to some resistance with initial ceftriaxone will allow another day of antibiotics and plan for repeat BCx on 08/09 Generalized Weakness and Fall x 2: IMPROVING - Recent L shoulder surgery and H/O cerebral palsy - pain medicines vs deconditioning vs dehydration vs orthostatic hypotension - NSS + KCl 20 mEq 100 mL/hr - evidence of orthostasis that is improving with hydration Enterobacter Cloacae and Pseudomonas Aeruginosa UTI: - Enterobacter resistant to Rocephin and Cefoxatime - antibiotics as above S/P L Shoulder Surgery: Oxycodone 5 mg Q4H PRN COPD: Combivent 1 puff QID Cerebral Palsy: Gabapentin 300 mg daily DVT Prophylaxis: Lovenox 40 mg SC daily Disposition: - [facility] denied - patient prefers [facility] and have been arranged - Changed to full admission Continued [facility] stay due to: multiple IV medications needed Discharge planning: home with home health (Sonia Tamayo PA-C)
[2016-08-07] MEDS: CIPROFLOXACIN / D5W 400 MG in PREMIXED IN D5W 200 ML IV SCH (20:36)
[2016-08-07] MEDS: GABAPENTIN 300 MG CAP PO SCH (20:37)
[2016-08-07] MEDS: ASPIRIN 81 MG ECTAB PO SCH (20:37)
[2016-08-08 05:32] LABS: HEMATOCRIT 29.7 % (37-47); MEAN CELL VOLUME 90.8 fL (80-100); MEAN CORPUSCULAR HEMOGLOBIN 30.3 pg (25-34); MEAN CORPUSCULAR HGB CONC 33.3 g/dl (32-36); MEAN PLATELET VOLUME 9.2 fL (7.4-10.4); PLATELET COUNT 224 K/uL (130-400); RED BLOOD COUNT 3.27 M/uL (4.2-5.4); WHITE BLOOD COUNT 6.51 K/uL (4.8-10.8)
[2016-08-08 05:53] LABS: BUN/CREATININE RATIO 9.4 (10-20); CALCIUM 7.8 mg/dl (8.5-10.1); CREATININE 0.6 mg/dl (0.60-1.20); POTASSIUM 4.1 mmol/L (3.5-5.1)
[2016-08-08 07:06] VITALS: BP 112/67; PULSE 79; TEMP 36.7; O2SAT 95
[2016-08-08] MEDS: CHOLECALCIFEROL 1000 INTER.UNIT TAB PO SCH (08:51)
[2016-08-08] MEDS: CIPROFLOXACIN / D5W 400 MG in PREMIXED IN D5W 200 ML IV SCH (08:51)
[2016-08-08] MEDS: SODIUM CHLOR 0.45% + 20MEQ KCL 1,000 ML IV SCH (08:51)
[2016-08-08] MEDS: IPRATROPIUM BROMIDE/ALBUTEROL respimat INH INH SCH ×3 (08:51→17:11)
[2016-08-08] MEDS: CALCIUM 600MG + VIT D 400 IU TAB PO SCH (08:52)
[2016-08-08] MEDS: ENOXAPARIN 40 MG/0.4 ML SYR SQ SCH (08:52)
--- NOTE | 2016-08-08 10:16 | Clinical Documentation Query ---
CLINICAL DOCUMENTATION QUERY 75 year old female who presents to the Emergency Room with complaints of persistent weakness. She has undergone left TSR on 08/03/16 and has since had weakness, Leukocytosis, and bacteremia not congruent with identified bacteria in UC. In your clinical opinion is this patient being managed for: ( ) Possible left total shoulder arthroplasty joint infection ( ) Other explanation of clinical findings (Please Explain) ( ) Unable to determine (Please Define) ( ) Need to Discuss ( ) Not Agree The medical record reflects the following clinical findings, treatment, and risk factors. Clinical Indicators: WBC's 13.80, 1/2 BC +Gram positive bacilli, weakness. Treatment: ID consult, IV Cipro, repeat BC. Risk Factors: Age, recent surgery Please clarify and document your clinical opinion in the progress notes and discharge summary. Terms such as "probable", "suspected", "likely", "questionable", "possible", or "still to be ruled out" are acceptable. IF IN AGREEMENT, YOU MUST DOCUMENT ABOVE DIAGNOSTIC STATEMENT IN DAILY PROGRESS NOTES AND DISCHARGE SUMMARY. This document is not part of the patient's record. Thank You, Fred Tamayo RN [phone]
--- NOTE | 2016-08-08 11:28 | Medical Consult ---
Consultation Date of Consultation: August 08, 2016. Attending Physician: Fabio Pritchett D.O. Reason for Consultation: Bacteremia, Pseudomonas and Enterobacter UTI History of Present Illness Patient is a 75-year-old female presents emergency department with complaint of weakness prior to admission started a few hours before she came in for evaluation. The patient states that she had a left total shoulder replacement completed on 08/03/2016. She initially did well following surgery, but then started to get very weak. She states she has had no problems with her left shoulder. Her wound has been healing well, and she has had no drainage from the wound or surrounding erythema. She denies fever or, but she has had some chills. Her white blood cell count on admission was 13.80. Her creatinine was 0.81. She did have a urine culture completed which grew Enterobacter which was resistant to cefotaxime and ceftriaxone only, and Pseudomonas which was pansensitive. Her initial blood cultures are growing gram-positive bacilli in 1 /2 cultures and repeat blood cultures are pending. She was initially placed on IV ceftriaxone empirically, but was changed to IV Cipro following culture results. She did have a CT scan of her head which showed no acute findings, and chest x-ray showed mild chronic interstitial change but no acute findings either. I did discuss this case with Sonia Tamayo PA-C as well. Past Medical/Surgical History Medical Problems: (1) Altered mental status Status: Acute (2) Falls Status: Acute (3) Generalized weakness Status: Acute (4) Physical deconditioning Status: Acute (5) Sinusitis Status: Acute Social History Problems: (1) Status post replacement of left shoulder joint Status: Acute Medical Problems: (1) DJD (degenerative joint disease) (2) History of orthopedic surgery (3) Metabolic encephalopathy (4) Osteoarthritis of left shoulder Surgical Problems: (1) History of total hip replacement (2) Hx of hysterectomy Family History FHx: cancer FHx: seizures Noncontributory Social History Smoking Status: Former Smoker Marital Status: Housing Status: lives alone Occupation Status: retired Allergies Coded Allergies: No Known Allergies (Verified , 08/05/16) Home Medications Reported Home Medications Medications Dose Route/Sig Max Daily Dose Days Date Category Oxycodone HCl 5 Mg Tab 5-10 Mg PO Q4H PRN 08/04/16 Rx Ativan (Lorazepam) 0.5 Mg Tab 0.25 Mg PO HS PRN 06/28/16 Reported Neurontin (Gabapentin) 300 Mg Cap 300 Mg PO QPM 06/28/16 Reported Calcium (Calcium Carbonate) 600 Mg Tab 600 Mg PO DAILY 06/28/16 Reported Vitamin D3 (Cholecalciferol) 1,000 Unit Tab 1 Tab PO BID 90 06/19/16 Reported Aspirin Ec (Aspirin) 81 Mg Tab 81 Mg PO HS 06/19/16 Reported Combivent Respimat (Ipratropium-Albuterol) 1 Aer Aer 1 Puffs INH QID 10/08/14 Reported Tylenol (Acetaminophen) 500 Mg Tab 1,000 Mg PO PRN 10/08/14 Reported Current Inpatient Medications Current Inpatient Medications Medications (Trade) Dose Ordered Sig/Gary Route Start Time Stop Time Status Last Admin Dose Admin Enoxaparin Sodium (Lovenox Inj) 40 mg DAILY SQ 08/06/16 09:00 09/05/16 08:59 08/08/16 08:52 40 MG Acetaminophen (Tylenol Tab) 650 mg Q4H PRN PO 08/05/16 18:30 09/04/16 18:29 Al Hydrox/Mg Hydrox/Simethicone (Maalox Max Susp) 15 ml Q4H PRN PO 08/05/16 18:30 09/04/16 18:29 Magnesium Hydroxide (Milk Of Magnesia Susp) 30 ml Q6H PRN PO 08/05/16 18:30 09/04/16 18:29 Polyethylene (Miralax Powder Packet) 17 gm DAILY PRN PO 08/05/16 18:30 09/04/16 18:29 Ondansetron HCl (Zofran Inj) 4 mg Q6H PRN IV 08/05/16 18:30 09/04/16 18:29 Aspirin (Ecotrin Tab) 81 mg HS PO 08/05/16 21:00 09/04/16 20:59 08/07/16 20:37 81 MG Cholecalciferol (Vitamin D Tab) 1,000 inter.unit BID PO 08/05/16 21:00 09/04/16 20:59 08/08/16 08:51 1,000 INTER.UNIT Gabapentin (Neurontin Cap) 300 mg QPM PO 08/05/16 21:00 09/04/16 20:59 08/07/16 20:37 300 MG Albuterol/ Ipratropium (Combivent Respimat Inh) 1 puffs QID INH 08/05/16 21:00 09/04/16 20:59 08/08/16 08:51 1 PUFFS Lorazepam (Ativan Tab) 0.25 mg HS PRN PO 08/05/16 18:30 09/04/16 18:29 08/07/16 20:40 0.25 MG Oxycodone HCl (Roxicodone Immediate Rel Tab) 5 mg Q4H PRN PO 08/05/16 18:30 09/04/16 18:29 08/05/16 19:40 5 MG Calcium/Vitamin D 1 tab 1 tab DAILY PO 08/06/16 09:00 09/05/16 08:59 08/08/16 08:52 1 TAB Potassium Chloride/Sodium Chloride (1/2 Nss + 20meq KCl 1000ml) 1,000 ml @ 100 mls/hr Q10H IV 08/05/16 21:00 09/04/16 20:59 08/08/16 08:51 100 MLS/HR Miscellaneous 1 ea 1 ea PRN PRN N/A 08/05/16 22:30 08/05/17 22:29 Ciprofloxacin/ Dextrose/Prmx (Cipro / D5w/ Premixed D5W) 200 ml @ 100 mls/hr Q12H IV 08/07/16 21:00 08/21/16 20:59 08/08/16 08:51 100 MLS/HR Review of Systems Constitutional: + chills (chronic), + fatigue, + weakness Eyes: No worsening of vision ENT: No hearing loss Respiratory: + cough, No shortness of breath Cardiovascular: No chest pain, No palpitations Abdomen: No diarrhea, No nausea, No pain, No vomiting Musculoskeletal: + joint pain (left shoulder- recent shoulder replacement) Genitourinary - Female: + 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), No dysuria, No urinary frequency Integumentary: + new/changing skin lesions (healing incision of the left shoulder), No itch, No rash Physical Exam Date Time Temp Pulse Resp B/P Pulse Ox O2 Delivery O2 Flow Rate FiO2 08/08/16 07:30 Room Air 08/08/16 07:06 36.7 79 18 112/67 95 Room Air 08/07/16 23:30 36.5 89 16 115/73 95 Room Air 08/07/16 19:25 Room Air 08/07/16 16:17 36.7 73 18 106/68 93 Room Air 08/07/16 16:13 36.7 81 16 119/55 97 Room Air 08/07/16 16:12 36.7 86 16 124/71 97 Nasal Cannula 2.0 08/07/16 16:05 36.6 64 99/58 98 Room Air 08/07/16 15:52 37.0 64 16 133/64 98 Room Air 08/07/16 15:18 Room Air General Appearance: no apparent distress, + obese Head: normocephalic, atraumatic Eyes: normal inspection, sclerae normal ENT: hearing grossly normal Neck: supple, trachea midline Respiratory/Chest: chest non-tender, lungs clear, normal breath sounds, no respiratory distress, no accessory muscle use Cardiovascular: regular rate, rhythm, no murmur Abdomen/GI: normal bowel sounds, non tender, soft, no organomegaly Extremities/Musculoskelatal: + pertinent finding (left shoulder with healing surgical incision. No surrounding erythema, edema, or warmth) Neurologic/Psych: alert, normal mood/affect Skin: normal color, warm/dry, no rash Laboratory Results CHEST ONE VIEW PORTABLE CLINICAL HISTORY: Weakness. Trauma. COMPARISON STUDY: 06/28/2016 FINDINGS: The heart is normal in size. There is no failure. There is no lobar consolidation. There is mild chronic interstitial thickening. There is calcified left lower lobe granuloma. There are no pleural effusions. There are postsurgical changes of bilateral shoulder arthroplasties.[ IMPRESSION: Mild chronic interstitial change. No acute findings. RUN DATE: 08/07/16 [facility] PAGE 1 RUN TIME: 914 Specimen Inquiry PATIENT: JAMIL BLAIR LOC: [facility] U # : [id number] AGE/SX: 75/F ROOM: E303 REG : 08/05/[address]: Fabio Pritchett D.O. : 1940 BED: 1 DIS : STATUS: ADM Silas TLOC: SPEC #: [id number] LUIS ALFREDO: 08/05/16-UNK STATUS: COMP REQ #: [id number] RECD: 08/05/[address]: Fabio Pritchett D.O. SOURCE: CHEKO, CC ENTR: 08/05/[address] [facility] [address]: Austin Gilmore D.O.Int.Med. SPDESC: ORDERED: ROMA BOWEN COMMENTS: Has Specimen Been Obtained/Collected? Y Procedure Result Verified Site URINE CULTURE Final 08/07/16-914 Organism 1 ENTEROBACTER CLOACAE COLONY COUNT >100,000 CFU/ml SENS SENSITIVITY TO FOLLOW Organism 2 PSEUDOMONAS AERUGINOSA COLONY COUNT >100,000 CFU/ml SENS SENSITIVITY TO FOLLOW ENT CLOAC PSEUD AERG M.I.C. RX M.I.C. RX --------- ------ --------- ------ TRIMET/SULFA <=2/38 S CEFOTAXIME >32 R CEFTAZIDIME 4 S CEFTRIAXONE >32 R CEFEPIME <=4 S <=4 S IMIPENEM <=1 S <=1 S AZTREONAM <=4 S GENTAMICIN <=4 S <=4 S TOBRAMYCIN <=4 S <=4 S AMIKACIN <=16 S <=16 S CIPROFLOXACIN <=1 S <=1 S LEVOFLOXACIN <=2 S <=2 S ERTAPENEM <=1 S NITROFURANTOIN <=32 S PIP/TAZO <=16 S <=16 S 1. ENTEROBACTER CLOACAE Target Route Dose RX AB Cost M.I.C. IQ ------ ----- ------ -- ------ -------- - ------ TRIMET/SULFA S <=2/38 CEFOTAXIME R >32 CEFTRIAXONE R >32 CEFEPIME S <=4 IMIPENEM S <=1 GENTAMICIN S <=4 TOBRAMYCIN S <=4 AMIKACIN S <=16 CIPROFLOXACIN S <=1 LEVOFLOXACIN S <=2 CONTINUED ON NEXT PAGE RUN DATE: 08/07/16 [facility] PAGE 2 RUN TIME: 914 Specimen Inquiry SPEC: [id number] PATIENT: JOHNNIEJAMIL Faiza [id number] ( Continued) Procedure Result Verified Site URINE CULTURE Final (continued) 08/07/16-914 1. ENTEROBACTER CLOACAE (continued) Target Route Dose RX AB Cost M.I.C. IQ ------ ----- ------ -- ------ -------- - ------ ERTAPENEM S <=1 NITROFURANTOIN S <=32 PIP/TAZO S <=16 2. PSEUDOMONAS AERUGINOSA Target Route Dose RX AB Cost M.I.C. IQ ------ ----- ------ -- ------ -------- - ------ CEFTAZIDIME S 4 CEFEPIME S <=4 IMIPENEM S <=1 AZTREONAM S <=4 GENTAMICIN S <=4 TOBRAMYCIN S <=4 AMIKACIN S <=16 CIPROFLOXACIN S <=1 LEVOFLOXACIN S <=2 PIP/TAZO S <=16 S = SENSITIVE I = INTERMEDIATE R = RESISTANT Item Value Date Time Blood Culture Received 08/08/16 0515 Blood Pending Blood Culture Received 08/08/16 05 Blood Pending Blood Culture - Preliminary Resulted 08/05/162114 Blood NO GROWTH TO DATE. Urine Culture - Final Complete 08/05/16 0000 Urine , Clean Catch Enterobacter Cloacae Blood Culture - Preliminary Resulted 08/05/162111 Blood Gram Positive Bacilli Blood Culture - Preliminary Resulted 08/05/162111 Blood Gram Positive Bacilli Urine Culture - Final Complete 06/19/16 0000 Urine , Clean Catch Gamma Strep Not Enterococcus Last 24 Hours Test 08/08/16 05:15 White Blood Count 6.51 K/uL Red Blood Count 3.27 M/uL Hemoglobin 9.9 g/dL Hematocrit 29.7 % Mean Corpuscular Volume 90.8 fL Mean Corpuscular Hemoglobin 30.3 pg Mean Corpuscular Hemoglobin Concent 33.3 g/dl RDW Standard Deviation 48.9 fL RDW Coefficient of Variation 14.7 % Platelet Count 224 K/uL Mean Platelet Volume 9.2 fL Sodium Level 136 mmol/L Potassium Level 4.1 mmol/L Chloride Level 105 mmol/L Carbon Dioxide Level 26 mmol/L Anion Gap 5.0 mmol/L Blood Urea Nitrogen 6 mg/dl Creatinine 0.60 mg/dl Est Creatinine Clear Calc Drug Dose 78.0 ml/min Estimated GFR () 103.3 Estimated GFR (Non- 89.2 BUN/Creatinine Ratio 9.4 Random Glucose 103 mg/dl Calcium Level 7.8 mg/dl Assessment & Plan Patient with Enterobacter and Pseudomonas UTI with Gram positive Bacilli growing in 1/2 initial blood culture. The patient is currently on IV Cipro- will change this to PO Cipro 500 mg BID. Feel that her GPB in 1/2 blood cultures is likely contaminant, but will follow repeat blood cultures. The other concern would be recent shoulder surgery and possible P. Acnes (GPB) in blood cultures but seems unlikely with shoulder healing well. This patient likely is OK for D/C once cleared by primary team with PO Cipro 500 mg BID to complete 2 week. We will follow up as outpatient. PROVIDER ADDENDUM: Pt. examined and reviewed with Ms. Bone. Agree with above assessment.
[2016-08-08] MEDS ORDERED: CPR/500 PO (12:57)
--- NOTE | 2016-08-08 13:09 | Discharge Instructions ---
Discharge Instructions Date of Service August 08, 2016. Admission Reason for Admission: Generalized Weakness Discharge Discharge Diagnosis / Problem: Urinary Tract Infection Discharge Goals Goal(s): Decrease discomfort, Improve function, Increase independence Activity Recommendations Activity Limitations: as noted below Lifting Limitations: gradually increase as tolerated (follow instructions by orthopedic surgeon) Shower/Bathe: no limitations . Instructions / Follow-Up Instructions / Follow-Up Urinary Tract Infection: - You have been treated for a UTI and have received antibiotics today. You will be provided a prescription to finish the course of antibiotics - Continue Ciprofloxacin 500 mg twice a day to finish a 14 day course -- You received one dose in the morning while at the hospital. Please take your evening dose today 08/08 Blood Culture: - One blood culture on two obtain was positive however this appears to be a contamination when they were drawn - Repeat blood cultures were obtained on 08/08 and results will be available to your family doctor Follow-Up: - Keep your appointment with your orthopedic surgeon as previously established - Infectious Disease (antibiotic and infection doctors) will set up a follow-up appointment in regards to the UTI - Home health services will be visiting you to assist with needs. Please see your family doctor in 7-10 days Current Hospital Diet Patient's current hospital diet: Regular Diet Discharge Diet Recommended Diet: Regular Diet Pending Studies Studies pending at discharge: yes List of pending studies: Repeat blood cultures - results will be available to family doctor Laboratory Results Lipid Panel Test 05/17/16 10:30 Range/Units Triglycerides Level 138 0-150 mg/dl Cholesterol Level 197 0-200 mg/dl HDL Cholesterol 53 mg/dl Cholesterol/HDL Ratio 3.7 LDL Cholesterol, Calculated 116 mg/dl Medical Emergencies . Who to Call and When: Medical Emergencies: If at any time you feel your situation is an emergency, please call 911 immediately. . Non-Emergent Contact Non-Emergency issues call your: Primary Care Provider Call Non-Emergent contact if: you have a fever, your pain is concerning you, you have any medication questions . . "Provider Documentation" section prepared by Sonia Tamayo. . VTE Core Measure Inpt VTE Proph given/why not?: Enoxaparin (Lovenox)SQ
--- NOTE | 2016-08-08 15:38 | Discharge Summary ---
Discharge Summary Date of Service August 08, 2016. Discharge Summary Admission Date: August 07, 2016 at 15:34 Discharge Date: August 08, 2016 Discharge Disposition: Home with services Principal Diagnosis: Urinary Tract Infection Problems/Secondary Diagnoses: 1. Emphysema 2. Osteoarthritis 3. Cerebral Palsy 4. S/P L Shoulder Replacement (Recent) 5. S/P Cholecystectomy 6. S/P Total Abdominal Hysterectomy Immunizations: Have You Had Influenza Vaccine: No History of Tetanus Vaccine?: Yes Tetanus Immunization Date: Oct 25, 2012 History of Pneumococcal: Unknown History of Hepatitis B Vaccine: No Procedures: 1. CT HEAD WITHOUT CONTRAST (CT) FINDINGS: No intra or extra-axial mass lesions are visualized. There is no CT evidence of acute cortical infarction. There is no evidence of midline shift. There is no acute hemorrhage. No calvarial fractures are visualized. There are patchy white matter hypodensities likely on a small vessel basis. There is no evidence of pathologic ventricular dilatation. There is no evidence of acute sinusitis IMPRESSION: No acute intracranial findings 2. CHEST ONE VIEW PORTABLE FINDINGS: The heart is normal in size. There is no failure. There is no lobar consolidation. There is mild chronic interstitial thickening. There is calcified left lower lobe granuloma. There are no pleural effusions. There are postsurgical changes of bilateral shoulder arthroplasties. IMPRESSION: Mild chronic interstitial change. No acute findings. Consultations: 1. Infectious Disease Medication Reconciliation New Medications: Ciprofloxacin (Ciprofloxacin HCl) 500 Mg Tab 500 MG PO BID, #25 take one pill tonight 08/08 then take twice a day starting 08/09 Continued Medications: Acetaminophen (Tylenol) 500 Mg Tab 1000 MG PO PRN, TAB Aspirin (Aspirin Ec) 81 Mg Tab 81 MG PO HS Calcium Carbonate (Calcium) 600 Mg Tab 600 MG PO DAILY Cholecalciferol (Vitamin D3) 1,000 Unit Tab 1 TAB PO BID for 90 Days, #180 TAB 3 Refills Gabapentin (Neurontin) 300 Mg Cap 300 MG PO QPM Ipratropium-Albuterol (Combivent Respimat) 1 Aer Aer 1 PUFFS INH QID, INH Lorazepam (Ativan) 0.5 Mg Tab 0.25 MG PO HS PRN for Anxiety Oxycodone HCl (Oxycodone HCl) 5 Mg Tab 5-10 MG PO Q4H PRN for Pain, #30 TAB Discharge Exam REVIEW OF SYSTEMS Constitutional: No chills, No fever Eyes: No worsening of vision ENT: No nasal symptoms, No sore throat Respiratory: + cough, No shortness of breath Cardiovascular: No chest pain Abdomen: No constipation, No diarrhea, No nausea, No pain, No vomiting Musculoskeletal: No calf pain, No swelling Female : + urinary frequency (improving) Neurologic: + weakness (bilateral - resolved); Denies lightheadedness/dizziness Skin: No itch, No rash PHYSICAL EXAM: General Appearance: WD/WN, no apparent distress Eyes: sclerae normal ENT: hearing grossly normal Neck: supple, no JVD, trachea midline Respiratory/Chest: lungs clear, normal breath sounds, no respiratory distress, no accessory muscle use Cardiovascular: regular rate, rhythm, no gallop, no murmur Abdomen: normal bowel sounds, non tender, soft Extremities: no pedal edema, no calf tenderness Neurologic/Psychiatric: alert, oriented x 3; gross motor function intact in b/ l lower extremities and RUE; LUE placed in sling Skin: normal color, warm/dry Hospital Course ADMISSION: The patient is a very pleasant 75-year-old female with cerebral palsy that I had actually seen a couple of nights ago for our consultation for tachycardia and after her shoulder surgery. She, then the next day it appears, was discharged to home but now she is noting that she is starting to feel weak. She got up around 8:00 this morning and fell. She notes that her legs just felt weak and shaky. She initially notes numb, but that on clarification, it does not appear there was truly a lack of sensation as much as it just felt weak all over diffusely without any focal weakness. There was no pain. She was unable to get up for several hours and then her children came and found her and then she fell again around noon and because she was continuing to be so weak , they brought her here to the ER for further evaluation. She denies maverick fevers, chills, or sweats but notes she has felt a little bit hot. She denies dysuria, although she did have urinary retention a couple of nights ago. She is no longer having urinary retention, now she does not have cough, chest pain or shortness of breath. HOSPITAL COURSE: Ms. Segura was admitted for general weakness of initial unknown etiology. Preliminary urinalysis was unremarkable but give patient's urinary symptoms of the sensation to void without voiding a culture was obtained. Culture significant for pansensitive pseudomonas aeruginosa and minimally resistant enterococcus cloacae (ceftriaxone/cefotaxime). She was initially placed on Ceftriaxone prior to culture identification which had no effect on the enterococcus. She did begin to feel better with IV hydration. She was noted to be significantly orthostatic which did improve with hydration. Patient reporting that she was not symptomatic even when orthostatic. During admission, blood cultures revealed one with gram positive bacilli which appears to be contaminated. Repeat blood cultures obtained and pending. Infectious disease was consulted which believe this is contamination but concern for P. acnes given recent surgery. ID would like to follow-up with patient as outpatient. Recommendations given for Ciprofloxacin 500 mg BID x 14 days total. PT/OT evaluations completed with concern for returning home alone. Insurance declined [place] stay and discussed this with patient and daughter Jessica. They both would like to utilize [facility] at this time. Patient did improve in regards to presenting symptoms and likely acute falls related to infection. Per our records reviewed no evidence of prior pseudomonas/enterococcus UTIs in our system. Per patient, she reports getting frequent UTIs when she was younger but has not had any recently. Also discussion with daughter reveals that she noticed some acute mental status changes prior to presentation to the hospital. Patient was noted to be mildly confused but alert and oriented. 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 Patient is hemodynamically stable and optimal for discharge home with [facility]. Total Time Spent: Greater than 30 minutes This includes examination of the patient, discharge planning, medication reconciliation, and communication with other providers. Discharge Instructions Please refer to the electronic Patient Visit Report (Discharge Instructions) for additional information. Additional Copies To Austin Gilmore D.O.Int.Med.
[2016-08-08 15:47] VITALS: BP 121/63; PULSE 88; TEMP 36.9; O2SAT 97
== END 2016-08-08 17:40 | disposition home health service (06) | DRG 690 ==
LOC: CANRESERV → ENRESERVDT → ENRESERVTM → C.EDB 13:32 → C.3E 18:24 → OBSVTOIN 08-07 15:34
PROVIDERS: ADMIT Family Medicine; ATTEND Family Medicine
DX: N39.0 Urinary tract infection, site not specified (principal); B96.5 Pseudomonas (aeruginosa) (mallei) (pseudomallei) as the cause of diseases classified elsewhere; G80.9 Cerebral palsy, unspecified; J43.9 Emphysema, unspecified; M19.90 Unspecified osteoarthritis, unspecified site; D72.829 Elevated white blood cell count, unspecified; E86.0 Dehydration; R39.15 Urgency of urination; R33.9 Retention of urine, unspecified; Z79.82 Long term (current) use of aspirin; Z79.899 Other long term (current) drug therapy; Z90.710 Acquired absence of both cervix and uterus; Z90.49 Acquired absence of other specified parts of digestive tract; E66.9 Obesity, unspecified; Z68.36 Body mass index [BMI] 36.0-36.9, adult; Z96.649 Presence of unspecified artificial hip joint; Z96.612 Presence of left artificial shoulder joint; Z87.891 Personal history of nicotine dependence; Z80.9 Family history of malignant neoplasm, unspecified; Z82.0 Family history of epilepsy and other diseases of the nervous system

== ENCOUNTER → 2017-03-29 | Outpatient (CLI) | payer OTHER ==
[~2017-03-29] MED LIST changes: +CPR/500 PO
--- NOTE | 2017-04-02 13:37 | MAMMOGRAPHY REPORT ---
BILATERAL DIGITAL SCREENING MAMMOGRAM WITH CAD: 03/29/2017 CLINICAL HISTORY: Routine screening. Patient has no complaints. TECHNIQUE: Current study was also evaluated with a Computer Aided Detection (CAD) system. Bilateral CC and MLO views were obtained. COMPARISON: Comparison is made to exams dated: 03/12/2016 mammogram, 03/08/2015 mammogram, 03/04/2014 mammogram, 03/03/2013 mammogram, 02/27/2011 mammogram, and 02/21/2010 mammogram - [facility]. BREAST COMPOSITION: The tissue of both breasts is almost entirely fatty. FINDINGS: No suspicious masses, calcifications, or areas of architectural distortion are noted in ei ther breast. There has been no significant interval change compared to prior exams. IMPRESSION: ACR BI-RADS CATEGORY 1: NEGATIVE There is no mammographic evidence of malignancy. A 1 year screening mammogram is recommended. The pa tient will receive written notification of the results. Approximately 10% of breast cancers are not detected with mammography. A negative mammographic report should not delay biopsy if a clinically suggestive mass is present. Opal Norris M.D. /:03/29/2017 14:57:28 Coper Hand: Dianne Taylor, [facility] letter sent: Normal 1/2 BI-RADS Code: ACR BI-RADS Category 1: Negative
== END | disposition home or self-care (01) ==
LOC: C.MAMM 14:20
PROVIDERS: ATTEND Internal Medicine
DX: Z12.31 Encounter for screening mammogram for malignant neoplasm of breast (principal)

== ENCOUNTER → 2017-11-19 | Outpatient (CLI) | payer OTHER ==
[2017-11-19 12:43] LABS: BASO % 0.7 %; BASO ABS # 0.05 K/uL (0-0.2); EOS % 3.2 %; EOS ABS # 0.24 K/uL (0-0.5); HEMATOCRIT 41.9 % (37-47); HEMOGLOBIN 13.8 g/dL (12.0-16.0); IG# 0.02 K/uL (0.00-0.02); LYMPH % 21.9 %; LYMPH ABS # 1.66 K/uL (1.2-3.4); MEAN CELL VOLUME 92.9 fL (80-100); MEAN CORPUSCULAR HEMOGLOBIN 30.6 pg (25-34); MEAN CORPUSCULAR HGB CONC 32.9 g/dl (32-36); MEAN PLATELET VOLUME 9.9 fL (7.4-10.4); MONO % 7.3 %; MONO ABS # 0.55 K/uL (0.11-0.59); NEUT % 66.6 %; NEUT ABS # 5.06 K/uL (1.4-6.5); PLATELET COUNT 281 K/uL (130-400); RED CELL DISTRIBUTION WIDTH SD 47.6 fL (36.4-46.3); WHITE BLOOD COUNT 7.58 K/uL (4.8-10.8)
[2017-11-19 14:14] LABS: ALBUMIN 3.9 gm/dl (3.4-5.0); ALKALINE PHOSPHATASE 77 U/L (45-117); ALT/SGPT 18 U/L (12-78); AST/SGOT 15 U/L (15-37); BLOOD UREA NITROGEN 20 mg/dl (7-18); CALCIUM 8.5 mg/dl (8.5-10.1); CARBON DIOXIDE 25 mmol/L (21-32); CHOLESTEROL 200 mg/dl (0-200); CREATININE 0.97 mg/dl (0.60-1.20); GLUCOSE 95 mg/dl (70-99); LDL CHOLESTEROL CALCULATED 116 mg/dl; POTASSIUM 4.6 mmol/L (3.5-5.1); SODIUM 135 mmol/L (136-145); TOTAL PROTEIN 7.8 gm/dl (6.4-8.2)
== END | disposition home or self-care (01) ==
LOC: C.LABBFT 08:27
PROVIDERS: ATTEND Internal Medicine
DX: Z00.00 Encounter for general adult medical examination without abnormal findings (principal); M85.80 Other specified disorders of bone density and structure, unspecified site; M47.816 Spondylosis without myelopathy or radiculopathy, lumbar region; J44.9 Chronic obstructive pulmonary disease, unspecified; F41.9 Anxiety disorder, unspecified; E78.5 Hyperlipidemia, unspecified

== ENCOUNTER 2022-07-23 16:45 | Inpatient (IN) ==
--- NOTE | 2022-07-23 17:16 | Emergency Department Note ---
Impression & Plan Closed dislocation of right hip, Pulmonary edema, Hypoxia ED Provider Note NAME: JAMIL BLAIR AGE: 81 SEX: F : 1940 ARRIVES VIA: Ambulance INFORMANT: Patient, ED PROVIDER(S): Pablito Soriano DO CHIEF COMPLAINT: Hip pain HPI: The patient is an 81-year-old female who presented to the emergency department for hip pain. She states that she bent forward in a chair to try to pet her cat when she noticed pain in her right hip. The patient states she has a history of hip dislocation in the past. It feels similar. She denies having any trauma or fall. She denies having any head injury or chest pain. He is also noticed that she is having some trouble breathing especially over the course the last 2 weeks. She had no changes to her medications. She has had a dry cough. She been compliant with her outpatient medications otherwise. She was started on prednisone recently she was seen in our facility for right hip pain. This was felt to be secondary to arthritis. She was started on prednisone. ROS: See above HPI for pertinent positives & negatives. A total of 10 systems reviewed and were otherwise negative. PAST MEDICAL HISTORY: See Below PAST SURGICAL HISTORY: See Below FAMILY HISTORY: See Below SOCIAL HISTORY: See Below HOME MEDICATIONS: See Below ALLERGIES: See Below VITALS: See Below PHYSICAL EXAMINATION: GENERAL: The patient is awake and alert. She is anxious and uncomfortable. EYES: The conjunctivae are clear. The pupils are round and reactive. EARS, NOSE, MOUTH AND THROAT: The nose is without any evidence of any deformity. NECK: The neck is nontender and supple. RESPIRATORY: Diminished breath sounds are noted throughout. There is no tachypnea or conversational dyspnea. CARDIOVASCULAR: Regular rate and rhythm noted there no murmurs rubs or gallops normal S1 normal S2. GASTROINTESTINAL: The abdomen is soft. Abdomen is nontender. MUSCULOSKELETAL/EXTREMITIES: Right lower extremity is internally rotated and shortened. There is pain with any range of motion testing. SKIN: There is no obvious evidence of any rash. There are no petechiae, pallor or cyanosis noted. NEUROLOGIC: Patient is awake alert and oriented x3 MEDICAL DECISION MAKING: The patient is an 81-year-old female who presented to the emergency department for an evaluation of hip pain. The patient was seated in a chair when she bent forward to pet her cat and felt her hip go out of place. She had a very similar episode occur approximately 1 month ago. She was in our facility recently for hip pain again but this was felt to be arthritic in nature and the patient was started on a course of steroids. The patient was treated with sedation and re duction of the right hip dislocation. The patient tolerated the procedure well. On the previous visit she did require a large amount of propofol. For this reason etomidate was used. The patient did quite well with the procedure. Upon arrival to the emergency department she was hypoxic. Chest x-ray appears to be consistent with pulmonary edema. This does not appear to be cardiac in nature at least not related to acute ischemia. She was given a small dose of Lasix. Because of her other findings even though the hip was reduced I did discuss her condition with the on-call [facility] hospitalist. They have agreed to evaluate the patient in the emergency department for further management and disposition. The patient was also discussed with the on-call orthopedic physician. She may require routine consult while she is in the hospital to determine if the patient would benefit from any revision of this hip. Triage Nursing notes reviewed. Prior medical records reviewed Vital Signs: reviewed and remarkable for hypoxia. Differential diagnosis: Fracture, subluxation, dislocation, contusion, ligamentous injury, neurovascular, compartment syndrome, rhabdomyolysis, as well as other patho logies. ER treatment provided: See below Diagnostics interpreted by me: ECG: EKG was obtained in the emergency department. My interpretation is normal sinus rhythm at 81 bpm. There was no ectopy. There is no acute ST segment abnormalities noted. This was paired to a tracing from September 17, 2020. No changes were noted. Cardiac Monitoring: An order was placed for continuous cardiac monitoring. The monitor shows a rate of 71 bpm with sinus rhythm. Laboratory studies: As stated above and show below. Imaging studies: See below. Radiographic imaging was reviewed by myself Consultation(s): I discussed this case with Dr. Whitaker who is on-call for orthopedics. I discussed this case with Dr. [facility] ED COURSE: Procedures: Closed reduction of right hip dislocation Indication: Prostatic hip dislocation closed, right. The patient was treated with sedation in the emergency department. The patient was consented for sedation and closed reduction. The patient was given sedation and after the effects of the medication were observed the right hip was brought into flexion and perpendicular with the bed. Upward traction toward the ceiling was applied against the right leg. Internal rotation was applied to the right hip. The patient tolerated the procedure well. Pulses were symmetric in both feet. Past Med/Surg History Medical History Allergic rhinitis Anxiety Carpal tunnel syndrome, right Chronic pruritus COPD (chronic obstructive pulmonary disease) Degenerative joint disease of left hip Dyslipidemia Hypothyroidism Impaired fasting glucose Lichen planus Osteoarthritis of left shoulder Osteopenia Sensorineural hearing loss of both ears Spastic dysphonia mild CP Stress incontinence in female Ulnar neuropathy at elbow of right upper extremity Vitamin D deficiency Surgical History History of appendectomy History of cholecystectomy History of shoulder replacement History of total abdominal hysterectomy and bilateral salpingo-oophorectomy History of total hip replacement Family History Sister Breast cancer Denies family history of Ovarian cancer Prostate cancer Myocardial infarction Colorectal cancer Social History Smoking Status: Former smoker Tobacco Type: Cigarettes Age Started Using Tobacco: 15; Age Quit Using Tobacco: 66; packs per day: 2; Cigarettes Per Day: 40; Second Hand Exposure: No; Hx Alcohol Use: No Hx Substance Use: No Preferred Language: [place] Visual Impairment: No Limitations Hearing Ability: Use of Hearing Aid marital status: Current Living Situation: Alone current occupational status: retired 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 Feels Safe at Home: Yes Childhood Exposure to Second-Hand Smoke: No caffeine: Yes (Not very often) Dental Care, Regularly: No Physical Activity Frequency: Does not Exercise Seatbelt Use: always Sunscreen Use: No Allergies Allergies Allergy/AdvReac Type Severity Reaction Status Date / Time No Known Drug Allergies Allergy NKDA Verified 07/23/22 21:07 Home Meds Home Medications Medication Instructions Recorded Confirmed aspirin 81 mg tablet,delayed 81 mg PO DAILY #30 tabs 12/11/18 07/23/22 release calcium carbonate 600 mg calcium 600 mg PO DAILY 12/11/18 07/23/22 (1,500 mg) tablet cholecalciferol (vitamin D3) 50 2,000 units PO DAILY #90 caps 12/11/18 07/23/22 mcg (2,000 unit) capsule acetaminophen 500 mg tablet 1,000 mg PO Q4H PRN hip pain 06/28/22 07/23/22 (Tylenol Extra Strength) docusate sodium 50 mg capsule 100 mg PO HS 06/28/22 07/23/22 (Stool Softener) Previous Rx's Medication Instructions Recorded albuterol sulfate 90 mcg/actuation 2 puff inhalation Q6H PRN 08/30/21 aerosol inhaler shortness of breath or wheezing #18 grams escitalopram oxalate 10 mg tablet 10 mg PO DAILY #90 tabs 10/26/21 gabapentin 300 mg capsule 300 mg PO HS #90 caps 11/01/21 lorazepam 1 mg tablet 1.5 mg PO HS PRN sleep #45 tabs 03/19/22 levothyroxine 50 mcg tablet 50 mcg PO DAILY #90 tabs 06/12/22 glycopyrrolate 9 mcg-formoterol 2 puff inhalation BID #10.7 grams 07/09/22 4.8 mcg HFA aerosol inhaler (Bevespi Aerosphere) celecoxib 100 mg capsule (Celebrex) 100 mg PO BID PRN pain #30 caps 07/16/22 tramadol 50 mg tablet 50 mg PO TID PRN pain #42 tabs 07/16/22 Results & Data (ED) Vital Signs Vital Signs - 24 hr 07/23/22 16:37 07/23/22 16:52 07/23/22 17:07 Temperature 36.5 C Temperature Source Oral Pulse Rate 84 79 Pulse Rate [Finger] 84 Pulse Rhythm Regular Regular Pulse Rhythm [Finger] Regular Pulse Strength Normal Pulse Strength [Finger] Normal Respiratory Rate 20 20 21 Respiratory Effort / Characteristics Non-Labored Non-Labored Respiratory Depth Normal Normal Respiratory Pattern Regular Regular Blood Pressure 177/97 H Blood Pressure [Right Arm] 177/97 H Blood Pressure Mean 123 Blood Pressure Mean [Right Arm] 123 Blood Pressure Position [Right Arm] Sitting Pulse Oximetry 92 92 89 L Oxygen Delivery Method Room Air Room Air Room Air Oxygen Flow Rate Sepsis Recent Fever Within 48 Hours No Sepsis New/Unexplained Change in Mental Status N/A Sepsis Action Taken by Nursing No Action Required End Tidal CO2 (18-54mmHg) 07/23/22 17:24 07/23/22 18:25 07/23/22 19:51 Temperature Temperature Source Pulse Rate 86 80 Pulse Rate [Finger] 88 Pulse Rhythm Pulse Rhythm [Finger] Regular Pulse Strength Pulse Strength [Finger] Normal Respiratory Rate 22 24 Respiratory Effort / Characteristics Non-Labored Spontaneous Non-Labored Spontaneous Respiratory Depth Normal Normal Respiratory Pattern Regular Regular Blood Pressure Blood Pressure [Right Arm] 138/83 180/78 H Blood Pressure Mean Blood Pressure Mean [Right Arm] 101 Blood Pressure Position [Right Arm] Sitting Pulse Oximetry 93 94 Oxygen Delivery Method Nasal Cannula Nasal Cannula Oxygen Flow Rate 2 4 Sepsis Recent Fever Within 48 Hours Sepsis New/Unexplained Change in Mental Status Sepsis Action Taken by Nursing End Tidal CO2 (18-54mmHg) 07/23/22 20:32 07/23/22 19:55 07/23/22 19:59 Temperature Temperature Source Pulse Rate 82 76 Pulse Rate [Finger] 72 Pulse Rhythm Pulse Rhythm [Finger] Pulse Strength Pulse Strength [Finger] Respiratory Rate 18 26 H 21 Respiratory Effort / Characteristics Non-Labored Spontaneous Non-Labored Spontaneous Non-Labored Spontaneous Respiratory Depth Normal Normal Normal Respiratory Pattern Regular Regular Regular Blood Pressure Blood Pressure [Right Arm] 146/71 H 182/81 H 157/85 H Blood Pressure Mean Blood Pressure Mean [Right Arm] 96 Blood Pressure Position [Right Arm] Pulse Oximetry 93 95 94 Oxygen Delivery Method Nasal Cannula Nasal Cannula Nasal Cannula Oxygen Flow Rate 3 4 4 Sepsis Recent Fever Within 48 Hours Sepsis New/Unexplained Change in Mental Status Sepsis Action Taken by Nursing End Tidal CO2 (18-54mmHg) 25 07/23/22 20:14 07/23/22 20:29 07/23/22 21:06 Temperature Temperature Source Pulse Rate 72 72 Pulse Rate [Finger] 78 Pulse Rhythm Pulse Rhythm [Finger] Pulse Strength Pulse Strength [Finger] Respiratory Rate 19 16 18 Respiratory Effort / Characteristics Non-Labored Spontaneous Non-Labored Spontaneous Non-Labored Spontaneous Respiratory Depth Normal Normal Normal Respiratory Pattern Regular Regular Regular Blood Pressure Blood Pressure [Right Arm] 153/73 H 156/75 H 136/63 Blood Pressure Mean Blood Pressure Mean [Right Arm] 87 Blood Pressure Position [Right Arm] Pulse Oximetry 93 92 93 Oxygen Delivery Method Nasal Cannula Nasal Cannula Nasal Cannula Oxygen Flow Rate 2 3 3 Sepsis Recent Fever Within 48 Hours Sepsis New/Unexplained Change in Mental Status Sepsis Action Taken by Nursing End Tidal CO2 (18-54mmHg) 07/23/22 21:32 Temperature Temperature Source Pulse Rate 71 Pulse Rate [Finger] Pulse Rhythm Pulse Rhythm [Finger] Pulse Strength Pulse Strength [Finger] Respiratory Rate Respiratory Effort / Characteristics Respiratory Depth Respiratory Pattern Blood Pressure Blood Pressure [Right Arm] Blood Pressure Mean Blood Pressure Mean [Right Arm] Blood Pressure Position [Right Arm] Pulse Oximetry Oxygen Delivery Method Oxygen Flow Rate Sepsis Recent Fever Within 48 Hours Sepsis New/Unexplained Change in Mental Status Sepsis Action Taken by Nursing End Tidal CO2 (18-54mmHg) Home Medications Current Medication List: was personally reviewed by me Laboratory Data Attestation: I reviewed the patient's lab results. 07/23/22 17:25 07/23/22 17:25 Lab Results 07/23/22 07/23/22 07/23/22 Range/Units 17:25 17:25 17:46 WBC 11.83 H (4.8-10.8) K/ul RBC 4.43 (4.20-5.40) M/uL Hgb 13.6 (12.0-16.0) g/dl Hct 40.4 (37.0-47.0) % MCV 91.2 (80.0-100.0) fL MCH 30.7 (25.0-34.0) pg MCHC 33.7 (32.0-36.0) g/dL RDW Std Deviation 48.4 H (36.4-46.3) fL RDW Coeff of Gregoria 14.4 (11.5-14.5) % Plt Count 300 (130-400) K/uL MPV 8.8 L (9.4-12.4) fL Immature Gran % (Auto) 0.5 % Neut % (Auto) 81.0 % Lymph % (Auto) 11.8 % [place] % (Auto) 6.0 % Eos % (Auto) 0.4 % Baso % (Auto) 0.3 % Neut # (Auto) 9.57 H (1.40-6.50) K/uL Lymph # (Auto) 1.40 (1.2-3.4) K/uL [place] # (Auto) 0.71 H (0.11-0.59) K/uL Eos # (Auto) 0.05 (0-0.50) K/uL Baso # (Auto) 0.04 (0-0.2) K/uL Immature Gran # (Auto) 0.06 (0.01-0.20) K/uL VBG pH 7.40 (7.36-7.41) VBG pCO2 45 (38-50) mmHg VBG pO2 46 mmHg VBG HCO3 28 mmol/L VBG O2 Saturation 79.0 % VBG Base Excess 2.5 mEq/L Sodium 135 L (136-145) mmol/L Potassium 4.3 (3.5-5.1) mmol/L Chloride 101 (98-107) mmol/L Carbon Dioxide 25 (21-32) mmol/L Anion Gap 9 (3-11) BUN 31 H (6-23) mg/dl Creatinine 0.83 (0.6-1.2) mg/dl Est Cr Clr Drug Dosing 31.7 ml/min Est GFR ( Amer) 76.6 ml/min Est GFR (Non-Af Amer) 66.1 ml/min BUN/Creatinine Ratio 37.3 H (10-20) Glucose 107 H (70-99(Fasting)) mg/dl Calcium 9.4 (8.6-10.3) mg/dl Total Bilirubin 0.5 (0.2-1.0) mg/dl AST 18 (13-39) U/L ALT 10 (7-52) U/L Alkaline Phosphatase 83 (34-104) U/L Troponin I High Sens 6.4 (0-14) pg/ml Total Protein 7.8 (6.0-8.3) gm/dl Albumin 4.3 (3.4-5.0) gm/dl Globulin 3.5 (2.5-4.0) gm/dl Albumin/Globulin Ratio 1.2 (0.9-2) Lipase 21 (11-82) U/L Urine Color Urine Appearance (Clear) Urine pH (4.5-7.5) Ur Specific [place] (1.000-1.030) Urine Protein (Negative) Urine Glucose (UA) (Negative) Urine Ketones (Negative) Urine Blood (Negative) Urine Nitrite (Negative) Urine Bilirubin (Negative) Urine Urobilinogen (Negative) Ur Leukocyte Esterase (Negative) Urine WBC (Auto) (0-5) /hpf Urine RBC (Auto) (0-4) /hpf U Hyaline Cast (Auto) (0-5) /lpf U Epithel Cells (Auto) (0-5) /lpf Urine Bacteria (Auto) (Negative) SARS-CoV-2 (PCR) (Negative) Influenza Type A (PCR) (Neg) Influenza Type B (PCR) (Neg) RSV (RT-PCR) (Neg) 07/23/22 07/23/22 Range/Units 18:26 Unknown WBC (4.8-10.8) K/ul RBC (4.20-5.40) M/uL Hgb (12.0-16.0) g/dl Hct (37.0-47.0) % MCV (80.0-100.0) fL MCH (25.0-34.0) pg MCHC (32.0-36.0) g/dL RDW Std Deviation (36.4-46.3) fL RDW Coeff of Gregoria (11.5-14.5) % Plt Count (130-400) K/uL MPV (9.4-12.4) fL Immature Gran % (Auto) % Neut % (Auto) % Lymph % (Auto) % [place] % (Auto) % Eos % (Auto) % Baso % (Auto) % Neut # (Auto) (1.40-6.50) K/uL Lymph # (Auto) (1.2-3.4) K/uL [place] # (Auto) (0.11-0.59) K/uL Eos # (Auto) (0-0.50) K/uL Baso # (Auto) (0-0.2) K/uL Immature Gran # (Auto) (0.01-0.20) K/uL VBG pH (7.36-7.41) VBG pCO2 (38-50) mmHg VBG pO2 mmHg VBG HCO3 mmol/L VBG O2 Saturation % VBG Base Excess mEq/L Sodium (136-145) mmol/L Potassium (3.5-5.1) mmol/L Chloride (98-107) mmol/L Carbon Dioxide (21-32) mmol/L Anion Gap (3-11) BUN (6-23) mg/dl Creatinine (0.6-1.2) mg/dl Est Cr Clr Drug Dosing ml/min Est GFR ( Amer) ml/min Est GFR (Non-Af Amer) ml/min BUN/Creatinine Ratio (10-20) Glucose (70-99(Fasting)) mg/dl Calcium (8.6-10.3) mg/dl Total Bilirubin (0.2-1.0) mg/dl AST (13-39) U/L ALT (7-52) U/L Alkaline Phosphatase (34-104) U/L Troponin I High Sens (0-14) pg/ml Total Protein (6.0-8.3) gm/dl Albumin (3.4-5.0) gm/dl Globulin (2.5-4.0) gm/dl Albumin/Globulin Ratio (0.9-2) Lipase (11-82) U/L Urine Color Yellow Urine Appearance Clear (Clear) Urine pH 6.5 (4.5-7.5) Ur Specific [place] 1.021 (1.000-1.030) Urine Protein 1+ H (Negative) Urine Glucose (UA) Negative (Negative) Urine Ketones Negative (Negative) Urine Blood 2+ H (Negative) Urine Nitrite Negative (Negative) Urine Bilirubin Negative (Negative) Urine Urobilinogen Negative (Negative) Ur Leukocyte Esterase Negative (Negative) Urine WBC (Auto) 5-10 H (0-5) /hpf Urine RBC (Auto) >30 H (0-4) /hpf U Hyaline Cast (Auto) 5-10 H (0-5) /lpf U Epithel Cells (Auto) 5-10 H (0-5) /lpf Urine Bacteria (Auto) Negative (Negative) SARS-CoV-2 (PCR) NEGATIVE (Negative) Influenza Type A (PCR) Negative (Neg) Influenza Type B (PCR) Negative (Neg) RSV (RT-PCR) Negative (Neg) Administered Medications Discontinued Medications Etomidate (Etomidate 2 Mg/Ml 20 Ml Vial) Confirm Administered Dose 80 mg IV .ST K-MED ONE Stop: 07/23/22 19:37 Last Increment: 07/23/22 20:34 Dose: 10 mg Documented By: MED Etomidate (Etomidate 2 Mg/Ml 20 Ml Vial) Confirm Administered Dose 40 mg IV .STK-MED ONE Stop: 07/23/22 19:38 Last Admin: 07/23/22 20:36 Dose: Not Given Documented By: MED Etomidate (Etomidate 2 Mg/Ml 20 Ml Vial) Confirm Administered Dose 80 mg IV .STK-MED ONE Stop: 07/23/22 19:39 Last Admin: 07/23/22 20:36 Dose: Not Given Documented By: MED Furosemide (Furosemide Inj 20 Mg/2 Ml Vial) 20 mg IV ONE ONE Stop: 07/23/22 19:01 Last Admin: 07/23/22 19:08 Dose: 20 mg Documented By: CHARY Imaging Data Attestation: I personally reviewed and interpreted this imaging study as follows: My Impression: X-ray of the right hip and pelvis was obtained in the emergency department. My interpretation is dislocation of the right hip, postoperative changes noted to both hips, final report below. Chest x-ray was obtained in the emergency department. My interpretation is pulmonary edema, final report below. Postreduction x-ray of the right hip was obtained in the emergency department. My interpretation is reduction was noted to the right hip that was previously dislocated, final report below. Radiologist's Impression: Hip/Pelvis X-Ray 07/23/22 17:06 XR hip RT 2V w pelvis CLINICAL HISTORY: dislocation TECHNIQUE: 2 views of the right hip and single frontal view of the pelvis were obtained. Comparison: Comparison is made to hip radiographs 07/03/2022 FINDINGS: There is dislocation of the right hip. 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 No perihardware lucency or hardware fracture is seen. Soft tissue swelling is seen. IMPRESSION: Dislocation of the right hip. ACT 112: Negative or not required by law. Electronically signed by: Manuel Gage M.D. 07/23/2022 6:57 PM Chest X-Ray 07/23/22 17:07 XR chest 1V portable CLINICAL HISTORY: hypoxia TECHNIQUE: Single frontal radiograph of the chest was obtained. Comparison: Comparison is made to chest radiograph 06/05/2022 FINDINGS: Bilateral shoulder arthroplasties are seen. Cardiomegaly is noted. Prominence and cephalization of the vasculature is seen. Small bilateral pleural effusions are seen. IMPRESSION: Small bilateral pleural effusions. Cardiomegaly and mild pulmonary edema. ACT 112: Negative or not required by law. Electronically signed by: Manuel Gage M.D. 07/23/2022 6:56 PM Hip/Pelvis X-Ray 07/23/22 19:53 XR hip RT 2V w pelvis CLINICAL HISTORY: post reduction TECHNIQUE: 2 views of the right hip and single frontal view of the pelvis were obtained. Comparison: Comparison is made to right hip radiographs 07/23/2022 at 1833 hours FINDINGS: Satisfactory reduction of previously noted right dislocation. 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 Degenerative changes are seen in the lumbar spine. IMPRESSION: Satisfactory reduction of bilateral hip arthroplasties. ACT 112: Negative or not required by law. Electronically signed by: Manuel Gage M.D. 07/23/2022 8:33 PM Discharge Plan Visit Data Chief Complaint: Hip Pain Stated Complaint: hip pain ED Provider: Pablito Soriano Discharge Problem: Closed dislocation of right hip, Pulmonary edema, Hypoxia Patient Disposition: Being Evaluated by Hospitalist Forms Stand Alone Forms: Anesthesia/Sedation, Adult, [facility] Prescriptions Prescriptions: No Action albuterol sulfate 90 mcg/actuation HFA aerosol inhaler 2 puff inhalation Q6H PRN (Reason: shortness of breath or wheezing) Qty: 18 5RF escitalopram oxalate 10 mg tablet 10 mg PO DAILY Qty: 90 3RF gabapentin 300 mg capsule 300 mg PO HS Qty: 90 3RF lorazepam 1 mg tablet 1.5 mg PO HS PRN (Reason: sleep) Qty: 45 5RF levothyroxine 50 mcg tablet 50 mcg PO DAILY Qty: 90 3RF Bevespi Aerosphere 9-4.8 mcg HFA aerosol inhaler 2 puff inhalation BID Qty: 10.7 5RF Stool Softener 50 mg capsule 100 mg PO HS acetaminophen [Tylenol Extra Strength] 500 mg tablet 1,000 mg PO Q4H PRN (Reason: hip pain ) aspirin 81 mg tablet,delayed release (DR/EC) 81 mg PO DAILY Qty: 30 calcium carbonate 600 mg calcium (1,500 mg) tablet 600 mg PO DAILY cholecalciferol (vitamin D3) 2,000 unit capsule 2,000 units PO DAILY Qty: 90 celecoxib [Celebrex] 100 mg capsule 100 mg PO BID PRN (Reason: pain) Qty: 30 1RF tramadol 50 mg tablet 50 mg PO TID PRN (Reason: pain) Qty: 42 0RF Referrals Referrals: Patricia Aviles MD [Primary Care Provider] -
[2022-07-23 17:50] LABS: Basophils # (auto) 0.04 K/uL (0-0.2); Basophils % (auto) 0.3 %; Eosinophils # (auto) 0.05 K/uL (0-0.50); Eosinophils % (auto) 0.4 %; Hematocrit (blood only) 40.4 % (37.0-47.0); Hemoglobin 13.6 g/dl (12.0-16.0); Immature Granulocytes # (auto) 0.06 K/uL (0.01-0.20); Immature Granulocytes % (auto) 0.5 %; Lymphocytes % (auto) 11.8 %; Mean Corpuscular Hemoglobin 30.7 pg (25.0-34.0); Mean Corpuscular Hgb Conc 33.7 g/dL (32.0-36.0); Mean Corpuscular Volume 91.2 fL (80.0-100.0); Mean Platelet Volume 8.8 fL (9.4-12.4); Monocytes # (auto) 0.71 K/uL (0.11-0.59); Neutrophils # (auto) 9.57 K/uL (1.40-6.50); Platelet Count 300 K/uL (130-400); RDW Coefficient of Variation 14.4 % (11.5-14.5); RDW Standard Deviation 48.4 fL (36.4-46.3); Red Blood Count 4.43 M/uL (4.20-5.40); White Blood Count 11.83 K/ul (4.8-10.8)
[2022-07-23 17:57] LABS: Base Excess VBG 2.5 mEq/L; HCO3 VBG 28 mmol/L; PCO2 VBG 45 mmHg (38-50); PO2 VBG 46 mmHg
[2022-07-23 18:03] LABS: Appearance Urine Clear (Clear); Bacteria Urine Automated Negative (Negative); Bilirubin Urine Negative (Negative); Blood Urine 2+ (Negative); Color Urine Yellow; Glucose Urine UA Negative (Negative); Ketones Urine Negative (Negative); Leukocyte Esterase Urine Negative (Negative); Nitrite Urine Negative (Negative); Protein Urine 1+ (Negative); RBC Urine Automated >30 /hpf (0-4); Specific Gravity Urine 1.021 (1.000-1.030); Urobilinogen Urine Negative (Negative); pH Urine 6.5 (4.5-7.5)
[2022-07-23 18:09] LABS: Albumin Globulin Ratio 1.2 (0.9-2); Albumin Level 4.3 gm/dl (3.4-5.0); BUN Creatinine Ratio 37.3 (10-20); Bilirubin,Total 0.5 mg/dl (0.2-1.0); Calcium 9.4 mg/dl (8.6-10.3); Creatinine Clr Calc Pharmacy 31.7 ml/min; Est GFR (African American) 76.6 ml/min; Est GFR (Non-African American) 66.1 ml/min; Globulin 3.5 gm/dl (2.5-4.0); Potassium 4.3 mmol/L (3.5-5.1); Total Protein 7.8 gm/dl (6.0-8.3)
[2022-07-23 18:13] LABS: Troponin I High Sensitivity 6.4 pg/ml (0-14)
--- NOTE | 2022-07-23 18:57 | XRay Report ---
XR chest 1V portable CLINICAL HISTORY: hypoxia TECHNIQUE: Single frontal radiograph of the chest was obtained. Comparison: Comparison is made to chest radiograph 06/05/2022 FINDINGS: Bilateral shoulder arthroplasties are seen. Cardiomegaly is noted. Prominence and cephalization of th e vasculature is seen. Small bilateral pleural effusions are seen. IMPRESSION: Small bilateral pleural effusions. Cardiomegaly and mild pulmonary edema. ACT 112: Negative or not required by law. Electronically signed by: Manuel Gage M.D. 07/23/2022 6:56 PM
--- NOTE | 2022-07-23 18:58 | XRay Report ---
XR hip RT 2V w pelvis CLINICAL HISTORY: dislocation TECHNIQUE: 2 views of the right hip and single frontal view of the pelvis were obtained. Comparison: Comparison is made to hip radiographs 07/03/2022 FINDINGS: There is dislocation of the right hip. 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 No perihardware lucency or hardware fracture is seen. Soft tissue swelling is seen. IMPRESSION: Dislocation of the right hip. ACT 112: Negative or not required by law. Electronically signed by: Manuel Gage M.D. 07/23/2022 6:57 PM
[2022-07-23] MEDS ORDERED: FUROSEMIDE INJ 20 MG/2 ML VIAL IV ONE (19:00)
[2022-07-23 19:27] LABS: Influenza A virus by PCR Negative (Neg); Influenza B virus by PCR Negative (Neg); RSV by PCR Negative (Neg); SARS CoV2 RNA(COVID-19) Ceph NEGATIVE (Negative)
[2022-07-23] MEDS ORDERED: ETOMIDATE 2 MG/ML 20 ML VIAL IV ONE ×3 (19:36→19:38)
--- NOTE | 2022-07-23 20:05 | Emergency Department Note ---
ED Visit Note Provided procedural sedation for the patient's right hip reduction. Please see note below Procedural Sedation Indication: right periprosthetic hip dislocation Total time: 8 minutes. Written consent was obtained after the risks and benefits were explained to the patient, including, but not limited to aspiration, allergic reaction, breathing difficulties, cardiac complications, vomiting, pain, event recall, bleeding, and/or infection. Pre-sedation examination and paperwork completed. The patient was on 100% oxygen via nasal cannula prior to the procedure. Continuos end tidal CO2 monitoring, pulse oximetry, and cardiac monitoring were utilized. Suction, airway equipment, medications, respiratory equipment, and appropriate personnel were prepared prior to the initiation of the procedure. A time out was taken. Sedation was achieved utilizing 10 mg of etomidate. After I observed the patient had reached the appropriate level of sedation the main procedure was performed without complication. Sedation was discontinued and the monitoring continued. The patient recovered quickly from the effects of the medication without complication or adverse event. .
--- NOTE | 2022-07-23 20:35 | XRay Report ---
XR hip RT 2V w pelvis CLINICAL HISTORY: post reduction TECHNIQUE: 2 views of the right hip and single frontal view of the pelvis were obtained. Comparison: Comparison is made to right hip radiographs 07/23/2022 at 1833 hours FINDINGS: Satisfactory reduction of previously noted right dislocation. 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 Degenerative changes are seen in the lumbar spine. IMPRESSION: Satisfactory reduction of bilateral hip arthroplasties. ACT 112: Negative or not required by law. Electronically signed by: Manuel Gage M.D. 07/23/2022 8:33 PM
--- NOTE | 2022-07-23 22:01 | History & Physical Report ---
Date of Service July 23, 2022 Assessment & Plan (1) Closed dislocation of right hip: (2) Pulmonary edema: (3) Hypoxia: (4) Hypothyroidism: (5) COPD (chronic obstructive pulmonary disease): (6) Anxiety: (7) Allergic rhinitis: (8) Dyslipidemia: (9) Vitamin D deficiency: Plan Closed dislocation right total hip arthroplasty- Previous occurrence on 06/05/2022 was reduced at that time Recurrence today, reduced in the ED Acetaminophen 650 mg by mouth every 6 hours as needed for mild pain or temperature Tramadol 50 mg by mouth every 6 hours as needed for moderate pain We will consult orthopedic surgery Dr. Whitaker Pulmonary edema/CHF/hypoxia- The patient will be admitted to telemetry for serial cardiac enzymes, serial EKG's, cardiac rhythm monitoring and a 2-D echocardiogram with Dopplers. Pulse ox 89% on room air, titrate to keep pulse ox around 95% Given furosemide 20 mg IV in ED Continue every morning, and follow response for possible adjustment needed in dosage Follow serial CBC with differential and chemistry profile Hypothyroidism- Continue levothyroxine 50 mcg daily Peripheral neuropathy- Continue gabapentin Anxiety- Continue escitalopram and lorazepam History of Present Illness Chief Complaint: The patient presents to the emergency department with complaint of right hip pain that occurred as she was bending forward in a chair to try to pet her cat. She also reports some persistent difficulty with breathing over the past 2 weeks, primarily complaining of dyspnea on exertion Primary Care Provider: Patricia Aviles MD The patient is an 81-year-old female with a past medical history including hypothyroidism, right ulnar neuropathy, right carpal tunnel syndrome, urinary stress incontinence, allergic rhinitis, anxiety, COPD, dyslipidemia, osteopenia, SNHL bilaterally, vitamin D deficiency, left shoulder osteoarthritis, right total hip arthroplasty, previous dislocation of right total hip arthroplasty on 06/05/2022 with reduction in the ED. 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 Chest x-ray revealed pulmonary edema with left pleural effusion, for which the patient received furosemide 20 mg IV, and was referred for evaluation for admission. Pulse ox on room air was 89% Allergies Allergy/AdvReac Type Severity Reaction Status Date / Time No Known Drug Allergies Allergy NKDA Verified 07/23/22 21:07 Home Medications Medication Instructions Recorded Confirmed Type aspirin 81 mg tablet,delayed 81 mg PO DAILY #30 tabs 12/11/18 07/23/22 History release calcium carbonate 600 mg calcium 600 mg PO DAILY 12/11/18 07/23/22 History (1,500 mg) tablet cholecalciferol (vitamin D3) 50 2,000 units PO DAILY #90 caps 12/11/18 07/23/22 History mcg (2,000 unit) capsule albuterol sulfate 90 mcg/actuation 2 puff inhalation Q6H PRN 08/30/21 07/23/22 Rx aerosol inhaler shortness of breath or wheezing #18 grams escitalopram oxalate 10 mg tablet 10 mg PO DAILY #90 tabs 10/26/21 07/23/22 Rx gabapentin 300 mg capsule 300 mg PO HS #90 caps 11/01/21 07/23/22 Rx lorazepam 1 mg tablet 1.5 mg PO HS PRN sleep #45 tabs 03/19/22 07/23/22 Rx levothyroxine 50 mcg tablet 50 mcg PO DAILY #90 tabs 06/12/22 07/23/22 Rx acetaminophen 500 mg tablet 1,000 mg PO Q4H PRN hip pain 06/28/22 07/23/22 History (Tylenol Extra Strength) docusate sodium 50 mg capsule 100 mg PO HS 06/28/22 07/23/22 History (Stool Softener) glycopyrrolate 9 mcg-formoterol 2 puff inhalation BID #10.7 grams 07/09/22 07/23/22 Rx 4.8 mcg HFA aerosol inhaler (Bevespi Aerosphere) celecoxib 100 mg capsule (Celebrex) 100 mg PO BID PRN pain #30 caps 07/16/22 07/23/22 Rx tramadol 50 mg tablet 50 mg PO TID PRN pain #42 tabs 07/16/22 07/23/22 Rx Past Med/Surg History Medical History Allergic rhinitis Anxiety Carpal tunnel syndrome, right Chronic pruritus COPD (chronic obstructive pulmonary disease) Degenerative joint disease of left hip Dyslipidemia Hypothyroidism Impaired fasting glucose Lichen planus Osteoarthritis of left shoulder Osteopenia Sensorineural hearing loss of both ears Spastic dysphonia mild CP Stress incontinence in female Ulnar neuropathy at elbow of right upper extremity Vitamin D deficiency Surgical History History of appendectomy History of cholecystectomy History of shoulder replacement History of total abdominal hysterectomy and bilateral salpingo-oophorectomy History of total hip replacement Family History Sister Breast cancer Denies family history of Ovarian cancer Prostate cancer Myocardial infarction Colorectal cancer Social History Smoking Status: Former smoker Tobacco Type: Cigarettes Age Started Using Tobacco: 15; Age Quit Using Tobacco: 66; packs per day: 2; Cigarettes Per Day: 40; Second Hand Exposure: No; Hx Alcohol Use: No Hx Substance Use: No Preferred Language: Swedish Visual Impairment: No Limitations Hearing Ability: Use of Hearing Aid marital status: Current Living Situation: Alone current occupational status: retired 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 Feels Safe at Home: Yes Childhood Exposure to Second-Hand Smoke: No caffeine: Yes (Not very often) Dental Care, Regularly: No Physical Activity Frequency: Does not Exercise Seatbelt Use: always Sunscreen Use: No Review of Systems Review of Systems: The patient denies chest pain, palpitations, cough, lower extremity swelling, sore throat, fevers, chills, sweats, weight change, fatigue, nausea, vomiting, diarrhea , constipation, abdominal pain, pelvic pain, blood in urine or stool, dysuria, urinary frequency or urgency, lightheadedness, dizziness, headache, memory loss, loss of consciousness, rash, abnormal bruising or bleeding, focal or generalized weakness, numbness or tingling in arms, generalized arthralgias or myalgias, back or neck pain, or night sweats. The review of systems is otherwise negative other than for that already noted above, and at least 10 systems have been reviewed. Physical Exam Physical Exam: The patient is awake, alert and oriented 3, well developed and well nourished, normocephalic and atraumatic, lying in bed and in no acute distress. HEENT--PERRL, EOMI, mucous membranes and oropharynx normal. Neck--supple. No JVD. No bruits. Thyroid normal, trachea midline, no adenopathy. Heart--normal S1 and S2. No murmurs, rubs or gallops. Lungs--clear bilaterally, no respiratory distress, no accessory muscle use. Abdomen--normal bowel sounds and soft. Nontender. Nondistended, no hernias or masses, no organomegaly. Extremities--no cyanosis or clubbing. No edema. There are good distal pulses b/l. Dermatologic--normal skin turgor, normal color, no abnormal lymph nodes, no rash. Neurologic--cranial nerves II through XII grossly intact. Rheumatologic--normal range of motion. Psychiatric--normal affect. Results & Data Results & Data Vital Signs (Past 12 Hours) Vital Signs Temp Pulse Pulse Resp BP BP Pulse Ox 07/23/22 21:32 71 07/23/22 21:06 78 18 136/63 93 07/23/22 20:29 72 16 156/75 H 92 07/23/22 20:14 72 19 153/73 H 93 07/23/22 19:59 76 21 157/85 H 94 07/23/22 19:55 82 26 H 182/81 H 95 07/23/22 20:32 72 18 146/71 H 93 07/23/22 19:51 80 24 180/78 H 94 07/23/22 18:25 88 22 138/83 93 07/23/22 17:24 86 07/23/22 17:07 79 21 89 L 07/23/22 16:52 36.5 C 84 20 177/97 H 92 07/23/22 16:37 84 20 177/97 H 92 O2 Del Method O2 Flow Rate 07/23/22 21:32 07/23/22 21:06 Nasal Cannula 3 07/23/22 20:29 Nasal Cannula 3 07/23/22 20:14 Nasal Cannula 2 07/23/22 19:59 Nasal Cannula 4 07/23/22 19:55 Nasal Cannula 4 07/23/22 20:32 Nasal Cannula 3 07/23/22 19:51 Nasal Cannula 4 07/23/22 18:25 Nasal Cannula 2 07/23/22 17:24 07/23/22 17:07 Room Air 07/23/22 16:52 Room Air 07/23/22 16:37 Room Air Laboratory Results Laboratory Results WBC 11.83 K/ul (4.8-10.8) H 07/23/22 17:25 RBC 4.43 M/uL (4.20-5.40) 07/23/22 17:25 Hgb 13.6 g/dl (12.0-16.0) 07/23/22 17: Hct 40.4 % (37.0-47.0) 07/23/22 17:25 MCV 91.2 fL (80.0-100.0) 07/23/22 17: MCH 30.7 pg (25.0-34.0) 07/23/22 17: MCHC 33.7 g/dL (32.0-36.0) 07/23/22 17: RDW Std Deviation 48.4 fL (36.4-46.3) H 07/23/22: RDW Coeff of Gregoria 14.4 % (11.5-14.5) 07/23/22 17: Plt Count 300 K/uL (130-400) 07/23/22 17: MPV 8.8 fL (9.4-12.4) L 07/23/22 17: Immature Gran % (Auto) 0.5 % 07/23/22 17: Neut % (Auto) 81.0 % 07/23/22 17:25 Lymph % (Auto) 11.8 % 07/23/22 17:25 Frio % (Auto) 6.0 % 07/23/22 17:25 Eos % (Auto) 0.4 % 07/23/22 17:25 Baso % (Auto) 0.3 % 07/23/22 17:25 Neut # (Auto) 9.57 K/uL (1.40-6.50) H 07/23/22 17:25 Lymph # (Auto) 1.40 K/uL (1.2-3.4) 07/23/22 17:25 Frio # (Auto) 0.71 K/uL (0.11-0.59) H 07/23/22 17:25 Eos # (Auto) 0.05 K/uL (0-0.50) 07/23/22 17:25 Baso # (Auto) 0.04 K/uL (0-0.2) 07/23/22 17: Immature Gran # (Auto) 0.06 K/uL (0.01-0.20) 07/23/22 17:25 VBG pH 7.40 (7.36-7.41) 07/23/22 17:46 VBG pCO2 45 mmHg (38-50) 07/23/22 17:46 VBG pO2 46 mmHg 07/23/22 17:46 VBG HCO3 28 mmol/L 07/23/22 17:46 VBG O2 Saturation 79.0 % 07/23/22 17:46 VBG Base Excess 2.5 mEq/L 07/23/22 17:46 Sodium 135 mmol/L (136-145) L 07/23/22 17:25 Potassium 4.3 mmol/L (3.5-5.1) 07/23/22 17:25 Chloride 101 mmol/L (98-107) 07/23/22 17:25 Carbon Dioxide 25 mmol/L (21-32) 07/23/22 17:25 Anion Gap 9 (3-11) 07/23/22 17:25 BUN 31 mg/dl (6-23) H 07/23/22 17:25 Creatinine 0.83 mg/dl (0.6-1.2) 07/23/22 17:25 Est Cr Clr Drug Dosing 31.7 ml/min 07/23/22 17:25 Est GFR ( Amer) 76.6 ml/min 07/23/22 17:25 Est GFR (Non-Af Amer) 66.1 ml/min 07/23/22 17:25 BUN/Creatinine Ratio 37.3 (10-20) H 07/23/22 17:25 Glucose 107 mg/dl (70-99(Fasting)) H 07/23/22 17:25 Calcium 9.4 mg/dl (8.6-10.3) 07/23/22 17:25 Total Bilirubin 0.5 mg/dl (0.2-1.0) 07/23/22 17:25 AST 18 U/L (13-39) 07/23/22 17:25 ALT 10 U/L (7-52) 07/23/22 17:25 Alkaline Phosphatase 83 U/L (34-104) 07/23/22 17:25 Troponin I High Sens 6.4 pg/ml (0-14) 07/23/22 17:25 Total Protein 7.8 gm/dl (6.0-8.3) 07/23/22 17:25 Albumin 4.3 gm/dl (3.4-5.0) 07/23/22 17:25 Globulin 3.5 gm/dl (2.5-4.0) 07/23/22 17:25 Albumin/Globulin Ratio 1.2 (0.9-2) 07/23/22 17:25 Lipase 21 U/L (11-82) 07/23/22 17:25 Urine Color Yellow 07/23/22 Unknown Urine Appearance Clear (Clear) 07/23/22 Unknown Urine pH 6.5 (4.5-7.5) 07/23/22 Unknown Ur Specific [place] 1.021 (1.000-1.030) 07/23/22 Unknown Urine Protein 1+ (Negative) H 07/23/22 Unknown Urine Glucose (UA) Negative (Negative) 07/23/22 Unknown Urine Ketones Negative (Negative) 07/23/22 Unknown Urine Blood 2+ (Negative) H 07/23/22 Unknown Urine Nitrite Negative (Negative) 07/23/22 Unknown Urine Bilirubin Negative (Negative) 07/23/22 Unknown Urine Urobilinogen Negative (Negative) 07/23/22 Unknown Ur Leukocyte Esterase Negative (Negative) 07/23/22 Unknown Urine WBC (Auto) 5-10 /hpf (0-5) H 07/23/22 Unknown Urine RBC (Auto) >30 /hpf (0-4) H 07/23/22 Unknown U Hyaline Cast (Auto) 5-10 /lpf (0-5) H 07/23/22 Unknown U Epithel Cells (Auto) 5-10 /lpf (0-5) H 07/23/22 Unknown Urine Bacteria (Auto) Negative (Negative) 07/23/22 Unknown SARS-CoV-2 (PCR) NEGATIVE (Negative) 07/23/22 18:26 Influenza Type A (PCR) Negative (Neg) 07/23/22 18:26 Influenza Type B (PCR) Negative (Neg) 07/23/22 18:26 RSV (RT-PCR) Negative (Neg) 07/23/22 18:26 Impressions Chest X-Ray 07/23/22 17:07 XR chest 1V portable CLINICAL HISTORY: hypoxia TECHNIQUE: Single frontal radiograph of the chest was obtained. Comparison: Comparison is made to chest radiograph 06/05/2022 FINDINGS: Bilateral shoulder arthroplasties are seen. Cardiomegaly is noted. Prominence and cephalization of the vasculature is seen. Small bilateral pleural effusions are seen. IMPRESSION: Small bilateral pleural effusions. Cardiomegaly and mild pulmonary edema. ACT 112: Negative or not required by law. Electronically signed by: Manuel Gage M.D. 07/23/2022 6:56 PM Hip/Pelvis X-Ray 07/23/22 19:53 XR hip RT 2V w pelvis CLINICAL HISTORY: post reduction TECHNIQUE: 2 views of the right hip and single frontal view of the pelvis were obtained. Comparison: Comparison is made to right hip radiographs 07/23/2022 at 1833 hours FINDINGS: Satisfactory reduction of previously noted right dislocation. 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 Degenerative changes are seen in the lumbar spine. IMPRESSION: Satisfactory reduction of bilateral hip arthroplasties. ACT 112: Negative or not required by law. Electronically signed by: Manuel Gage M.D. 07/23/2022 8:33 PM Code Status & VTE Plan Code Status Full code VTE Prophylaxis Plan VTE Prophylaxis will be ordered: Yes PG Care Time/CCT Total # of Minutes Spent Total Time Spent with Patient: Total time spent is greater than 50% in coordination of care (as documented) at patient's floor/unit and/or counseling patient: Coding Level of Care Code 33867 INT INP/OBS CARE MIN Diagnoses Closed dislocation of right hip S73.004A Encounter type: initial encounter Pulmonary edema J81.0 Chronicity: acute Hypoxia R09.02 Hypothyroidism E03.9 COPD (chronic obstructive pulmonary disease) J44.9 COPD type: unspecified COPD Anxiety F41.9 Allergic rhinitis J30.9 Dyslipidemia E78.5 Vitamin D deficiency E55.9 (1) Closed dislocation of right hip Encounter type: initial encounter Qualified Code(s): S73.004A - Unspecified dislocation of right hip, initial encounter (2) Pulmonary edema Chronicity: acute Qualified Code(s): J81.0 - Acute pulmonary edema (5) COPD (chronic obstructive pulmonary disease) COPD type: unspecified COPD Qualified Code(s): J44.9 - Chronic obstructive pulmonary disease, unspecified
[2022-07-23] MEDS ORDERED: ALBUTEROL HFA 8 GM INHALER INH PRN (23:50)
[2022-07-23] MEDS ORDERED: ACETAMINOPHEN 500 MG TAB PO PRN (23:50)
[2022-07-23] MEDS ORDERED: ONDANSETRON INJ 2 MG/ML 2 ML VIAL IV PRN (23:50)
[2022-07-24] MEDS: UMECLIDINIUM/VILANTEROL 62.5/25MCG 7 PUFFS/INHALER INH SCH ×2 (00:36→08:22)
[2022-07-24] MEDS: LEVOTHYROXINE SODIUM 50 MCG TABLET PO SCH (05:50)
--- NOTE | 2022-07-24 06:58 | Orthopedic Consultation ---
Date of Service July 24, 2022 Assessment & Plan (1) Closed dislocation of right hip: We discussed diagnosis and treatment options. I will place her in a knee immobilizer on the right leg. She can be up and ambulating with a knee immobilizer. She had a DePuy prosthesis with a cemented [place] [address] Polk. This was done through a posterior approach. I discussed this with my partner Dr. Chung Grubbs and he would be willing to see her in follow-up. She can follow-up with Dr. Grubbs next week regarding conservative treatment versus revision surgery to her right hip. In the meantime, she can be weightbearing as tolerated in the knee immobilizer. History of Present Illness Reason for Consultation: Recurrent dislocation of the right hip. Requesting Physician: . Attending Physician: Alfredo Alvarez MD Tarik is a pleasant 81-year-old female who underwent a right hip replacement by Dr. Polk in 1999. She did very well until this past May. She had her first dislocation of her right hip. She went to the emergency room and it was reduced. Unfortunately, she had a recurrent dislocation last night. She came to the emergency room and once again, her hip was reduced. She was also experiencing some hypoxia so she was admitted to the medical service. Orthopedics was consulted to evaluate and treat.. Allergies Allergy/AdvReac Type Severity Reaction Status Date / Time No Known Drug Allergies Allergy NKDA Verified 07/23/22 21:07 Home Medications Medication Instructions Recorded Confirmed Type aspirin 81 mg tablet,delayed 81 mg PO DAILY #30 tabs 12/11/18 07/23/22 History release calcium carbonate 600 mg calcium 600 mg PO DAILY 12/11/18 07/23/22 History (1,500 mg) tablet cholecalciferol (vitamin D3) 50 2,000 units PO DAILY #90 caps 12/11/18 07/23/22 History mcg (2,000 unit) capsule albuterol sulfate 90 mcg/actuation 2 puff inhalation Q6H PRN 08/30/21 07/23/22 Rx aerosol inhaler shortness of breath or wheezing #18 grams escitalopram oxalate 10 mg tablet 10 mg PO DAILY #90 tabs 10/26/21 07/23/22 Rx gabapentin 300 mg capsule 300 mg PO HS #90 caps 11/01/21 07/23/22 Rx lorazepam 1 mg tablet 1.5 mg PO HS PRN sleep #45 tabs 03/19/22 07/23/22 Rx levothyroxine 50 mcg tablet 50 mcg PO DAILY #90 tabs 06/12/22 07/23/22 Rx acetaminophen 500 mg tablet 1,000 mg PO Q4H PRN hip pain 06/28/22 07/23/22 History (Tylenol Extra Strength) docusate sodium 50 mg capsule 100 mg PO HS 06/28/22 07/23/22 History (Stool Softener) glycopyrrolate 9 mcg-formoterol 2 puff inhalation BID #10.7 grams 07/09/22 07/23/22 Rx 4.8 mcg HFA aerosol inhaler (Bevespi Aerosphere) celecoxib 100 mg capsule (Celebrex) 100 mg PO BID PRN pain #30 caps 07/16/22 07/23/22 Rx tramadol 50 mg tablet 50 mg PO TID PRN pain #42 tabs 07/16/22 07/23/22 Rx Past Med/Surg History Medical History Allergic rhinitis Anxiety Carpal tunnel syndrome, right Chronic pruritus COPD (chronic obstructive pulmonary disease) Degenerative joint disease of left hip Dyslipidemia Hypothyroidism Impaired fasting glucose Lichen planus Osteoarthritis of left shoulder Osteopenia Sensorineural hearing loss of both ears Spastic dysphonia mild CP Stress incontinence in female Ulnar neuropathy at elbow of right upper extremity Vitamin D deficiency Surgical History History of appendectomy History of cholecystectomy History of shoulder replacement History of total abdominal hysterectomy and bilateral salpingo-oophorectomy History of total hip replacement Family History Sister Breast cancer Denies family history of Ovarian cancer Prostate cancer Myocardial infarction Colorectal cancer Social History Smoking Status: Former smoker Tobacco Type: Cigarettes Age Started Using Tobacco: 15; Age Quit Using Tobacco: 66; packs per day: 2; Cigarettes Per Day: 40; Second Hand Exposure: No; Hx Alcohol Use: No Hx Substance Use: No Preferred Language: Hungarian Communication Ability: Effective Visual Impairment: No Limitations Hearing Ability: Use of Hearing Aid Business Initiatives Manager Required: No Beliefs That Will Affect Care: None marital status: Current Living Situation: Alone current occupational status: retired 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 Physical Exam On physical examination the right hip, she has good gentle range of motion. Her leg lengths are currently equal. She is neurovascular intact.. Constitutional WD/WN, vitals as above Eyes PERRL, conjunctivae normal, anicteric sclerae ENMT external ear and nose normal, oropharynx normal Neck trachea midline, no thyromegaly Respiratory normal respiratory effort, lungs clear to auscultation Cardiovascular RRR, no murmur, no edema Gastrointestinal (Abdomen) normal bowel sounds, soft, nontender, no hepatosplenomegaly Skin no rashes, warm and dry Psychiatric A+Ox3, euthymic affect Results & Data Results & Data Laboratory Results . Diagnostic Findings Postreduction x-rays of the right hip show the prosthesis to be in good alignment. I do not see any immediate complications with the prosthesis.. PG Care Time/CCT Total # of Minutes Spent Total Time Spent with Patient: Total time spent is greater than 50% in coordination of care (as documented) at patient's floor/unit and/or counseling patient: Coding Level of Care Code 80607 IN/OBS CONSULT LVL 4,60M Diagnoses Closed dislocation of right hip S73.004A Encounter type: initial encounter (1) Closed dislocation of right hip Encounter type: initial encounter Qualified Code(s): S73.004A - Unspecified dislocation of right hip, initial encounter
[2022-07-24 07:32] LABS: Basophils # (auto) 0.04 K/uL (0-0.2); Basophils % (auto) 0.4 %; Eosinophils # (auto) 0.33 K/uL (0-0.50); Eosinophils % (auto) 3.4 %; Hemoglobin 13.7 g/dl (12.0-16.0); Immature Granulocytes # (auto) 0.05 K/uL (0.01-0.20); Immature Granulocytes % (auto) 0.5 %; Lymphocytes # (auto) 1.55 K/uL (1.2-3.4); Lymphocytes % (auto) 15.8 %; Mean Corpuscular Hemoglobin 30.6 pg (25.0-34.0); Mean Corpuscular Hgb Conc 33.4 g/dL (32.0-36.0); Mean Corpuscular Volume 91.5 fL (80.0-100.0); Mean Platelet Volume 8.8 fL (9.4-12.4); Monocytes # (auto) 0.78 K/uL (0.11-0.59); Monocytes % (auto) 7.9 %; Neutrophils # (auto) 7.08 K/uL (1.40-6.50); Platelet Count 312 K/uL (130-400); RDW Coefficient of Variation 14.3 % (11.5-14.5); RDW Standard Deviation 48.3 fL (36.4-46.3); Red Blood Count 4.48 M/uL (4.20-5.40); White Blood Count 9.83 K/ul (4.8-10.8)
[2022-07-24 07:47] LABS: BUN Creatinine Ratio 30.9 (10-20); Calcium 9.2 mg/dl (8.6-10.3); Creatinine Clr Calc Pharmacy 58.2 ml/min; Est GFR (African American) 78.9 ml/min; Est GFR (Non-African American) 68.1 ml/min; Phosphorus 3.6 mg/dl (2.5-4.9); Potassium 5.1 mmol/L (3.5-5.1)
[2022-07-24] MEDS: ASPIRIN 81 MG ECTAB PO SCH (08:21)
[2022-07-24] MEDS: CHOLECALCIFEROL 1,000 UNITS 25 MCG TAB PO SCH (08:21)
[2022-07-24] MEDS: CALCIUM CARBONATE 1250MG TAB PO SCH (08:21)
[2022-07-24] MEDS: ESCITALOPRAM OXALATE 10 MG TAB PO SCH (08:22)
[2022-07-24] MEDS ORDERED: FUROSEMIDE INJ 20 MG/2 ML VIAL IV SCH (09:00)
--- NOTE | 2022-07-24 10:44 | XCELERA ---
[id number] [id number]
--- NOTE | 2022-07-24 12:45 | Electrocardiogram Report ---
Test Reason : Blood Pressure : / mmHG Vent. Rate : 086 BPM Atrial Rate : 086 BPM P-R Int : 156 ms QRS Dur : 088 ms QT Int : 382 ms P-R-T Axes : 062 075 063 degrees QTc Int : 457 ms Normal sinus rhythm Low voltage QRS Borderline ECG When compared with ECG of 17-SEP-2020 22:38, No significant change was found Confirmed by Pablito Davis ([id number]) on 07/24/2022 12:44:48 PM Referred By: REFERRED SELF Confirmed By:Pablito Davis
--- NOTE | 2022-07-24 13:01 | Electrocardiogram Report ---
Test Reason : Blood Pressure : / mmHG Vent. Rate : 068 BPM Atrial Rate : 068 BPM P-R Int : 152 ms QRS Dur : 086 ms QT Int : 434 ms P-R-T Axes : 042 061 053 degrees QTc Int : 461 ms Normal sinus rhythm Low voltage QRS Borderline ECG When compared with ECG of 23-JUL-2022 17:11, (unconfirmed) No significant change was found Confirmed by Pablito Davis ([id number]) on 07/24/2022 1:00:46 PM Referred By: REFERRED SELF Confirmed By:Pablito Davis
[2022-07-24] MEDS ORDERED: OPTIRAY 320 500ml IV ONE (16:43)
--- NOTE | 2022-07-24 16:59 | CT Scan Report ---
CT ANGIOGRAPHY OF THE CHEST, PULMONARY EMBOLUS PROTOCOL CLINICAL HISTORY: dyspnea, hypoxia; PE? CHF? other? COMPARISON STUDY: Chest radiograph July 23, 2022. Chest CT December 16, 2007. TECHNIQUE: Following IV administration of 110 mL of Optiray, helical axial images of the chest were o btained utilizing the pulmonary embolus protocol. Maximal intensity projections and sagittal and cor onal reformats were viewed on an independent 3D workstation. IV contrast was administered without co mplication. Automated exposure control was utilized for the study. A dose lowering technique was ut ilized adhering to the principles of ALARA. CT DOSE: 293.69 mGy.cm FINDINGS: No pulmonary emboli are identified. There is no thoracic aortic dissection. Size of the he art is normal. There is mild dilatation of the central pulmonary arteries. Prominent mediastinal and bilateral hilar lymph nodes are present. There is no pneumothorax or pleural effusion. There is mucus plugging and bronchial wall thickening within the right lower lobe. Mild subpleural ground glass opa cities within the left lower lobe are noted. There is a 1.5 x 0.6 cm subpleural elongated density wit hin the left lower lobe on image 38 of 256. This is likely benign. Moderate emphysema is present. In addition, there is peripheral predominant subpleural reticulation and groundglass opacity with honeyc ombing. There is no pneumothorax. No pleural effusion. No acute fractures within the bony thorax are present. IMPRESSION: 1. No pulmonary emboli identified. 2. Emphysema. 3. 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 4. Minimal alveolar opacities within the left lower lobe which favor an infectious process. 1.5 x 0.6 cm subpleural nodular density within the left lower lobe. This is likely benign. A follow up chest C T in 3 months to ensure resolution is recommended. 5. Mild dilatation of the central pulmonary arteries. 6. Bronchial wall thickening and mucus plugging within the right lower lobe. ACT 112: Negative or not required by law. Electronically signed by: Rito Aviles M.D. 07/24/2022 4:57 PM
[2022-07-24] MEDS: guaiFENesin SUGAR FREE 100 MG/5 ML UDC PO SCH (18:43)
[2022-07-24] MEDS: DOCUSATE SODIUM 100 MG CAP PO SCH (20:58)
[2022-07-24] MEDS: GABAPENTIN 300 MG CAP PO SCH (20:59)
[2022-07-24] MEDS: TRIAMCINOLONE ACET 0.5% CR 15 GM TUBE EXT SCH (20:59)
[2022-07-24] MEDS: DOXYCYCLINE HYCLATE 100 MG CAP PO SCH (20:59)
[2022-07-24] MEDS: LORazepam 0.5 MG TAB PO PRN (21:00)
--- NOTE | 2022-07-24 21:13 | Hospitalist Progress Note ---
Date of Service July 24, 2022 Assessment & Plan (1) Closed dislocation of right hip: Plan: s/p reduction of dislocated right total hip arthroplasty by ER attending at time of presentation. seen by orthopedics today - she can WBAT with knee immobilizer in place. her orthopedic right hip hardware is 20+ years old - thus, she ultimately may need revision of the hip in the future; discussions to take place as outpatient. appreciate ortho assistance. PT, OT ordered. (2) Hypothyroidism: Plan: TSH 11/2021 wnl cont synthroid (3) COPD (chronic obstructive pulmonary disease): Plan: long-time prior smoker I am not 100% convinced that her presenting pulmonary symptoms were due to pulmonary edema she does not examine in decompensated CHF today although she may have had mild volume overload that improved with 2 doses of lasix will obtain CTA chest - r/o PE, r/o ILD, r/o other causes of presenting pulmonary symptoms cont home inhalers (4) Anxiety: Plan: cont SSRI (5) Allergic rhinitis: (6) Dyslipidemia: (7) Vitamin D deficiency: Plan: 25-OH vit D level in 11/2021 was wnl (8) Pulmonary edema: Plan: question of, vs other etiology - see #3 above obtain CTA chest - r/o other causes of presenting dyspnea (9) DVT prophylaxis: Plan: consider once daily xarelto 10mg daily - at high risk of DVT due to use of knee immobilizer moving forward Admission and Anticipated Discharge Date Admission Date: July 23, 2022 Subjective tele overnight wnl patient resting comfortably in the bed during the visit she was wearing her knee immobilizer while resting states breathing is better overall her right hip pain is improved s/p reduction of her right total hip dislocation patient reports she was a previous smoker but quit in the past denies significant cough today eating well Review of Systems Review of Systems: gen - no fevers cv - no orthopnea today pulm - no dyspnea at rest GI - no abd pain or vomiting Physical Exam Physical Exam: gen - NAD, comfortable HENT - voice with dysphonia; MM dry neck - no JVD heart - RRR, s1 s2, no murmur lungs - fine b/l basilar dry rales, otherwise CTA b/l, no increased work of pema athing abd - soft NT ND BS+ ext - right leg in knee immobilizer, no peripheral edema, pulses 2+ b/l neuro - dysphonic voice skin - severe dermatitis of left hand (palm) with thick scale, cracking, etc Results & Data Results & Data Vital Signs (Past 12 Hours) Vital Signs Temp Pulse Pulse Resp BP Pulse Ox O2 Del Method 07/24/22 19:52 36.9 C 87 18 125/98 95 Nasal Cannula 07/24/22 16:00 81 07/24/22 15:26 36.8 C 87 18 112/71 95 Nasal Cannula 07/24/22 11:33 36.7 C 77 20 110/67 94 Nasal Cannula O2 Flow Rate 07/24/22 19:52 2.0 07/24/22 16:00 07/24/22 15:26 2 07/24/22 11:33 2 Laboratory Results Laboratory Results - last 24 hr 07/24/22 07/24/22 07/24/22 06:58 06:58 06:58 WBC 9.83 RBC 4.48 Hgb 13.7 Hct 41.0 MCV 91.5 MCH 30.6 MCHC 33.4 RDW Std Deviation 48.3 H RDW Coeff of Gregoria 14.3 Plt Count 312 MPV 8.8 L Immature Gran % (Auto) 0.5 Neut % (Auto) 72.0 Lymph % (Auto) 15.8 Delta % (Auto) 7.9 Eos % (Auto) 3.4 Baso % (Auto) 0.4 Neut # (Auto) 7.08 H Lymph # (Auto) 1.55 Delta # (Auto) 0.78 H Eos # (Auto) 0.33 Baso # (Auto) 0.04 Immature Gran # (Auto) 0.05 Sodium 136 Potassium 5.1 Chloride 99 Carbon Dioxide 30 Anion Gap 7 BUN 25 H Creatinine 0.81 Est Cr Clr Drug Dosing 58.2 Est GFR ( Amer) 78.9 Est GFR (Non-Af Amer) 68.1 BUN/Creatinine Ratio 30.9 H Glucose 94 Calcium 9.2 Phosphorus 3.6 Magnesium 2.0 Troponin I High Sens 6.7 Albumin 4.0 07/24/22 07/24/22 12:56 18:56 WBC RBC Hgb Hct MCV MCH MCHC RDW Std Deviation RDW Coeff of Gregoria Plt Count MPV Immature Gran % (Auto) Neut % (Auto) Lymph % (Auto) Delta % (Auto) Eos % (Auto) Baso % (Auto) Neut # (Auto) Lymph # (Auto) Delta # (Auto) Eos # (Auto) Baso # (Auto) Immature Gran # (Auto) Sodium Potassium Chloride Carbon Dioxide Anion Gap BUN Creatinine Est Cr Clr Drug Dosing Est GFR ( Amer) Est GFR (Non-Af Amer) BUN/Creatinine Ratio Glucose Calcium Phosphorus Magnesium Troponin I High Sens 4.9 7.0 Albumin PG Care Time/CCT Total # of Minutes Spent Total Time Spent with Patient: Total time spent is greater than 50% in coordination of care (as documented) at patient's floor/unit and/or counseling patient: Coding Level of Care Code 23161 SUB INP/OBS CARE 235MIN Diagnoses Closed dislocation of right hip S73.004A Encounter type: initial encounter Hypothyroidism E03.9 COPD (chronic obstructive pulmonary disease) J44.9 COPD type: unspecified COPD Anxiety F41.9 Allergic rhinitis J30.9 Dyslipidemia E78.5 Vitamin D deficiency E55.9 Pulmonary edema J81.0 Chronicity: acute DVT prophylaxis Z29.9 (1) Closed dislocation of right hip Encounter type: initial encounter Qualified Code(s): S73.004A - Unspecified dislocation of right hip, initial encounter (3) COPD (chronic obstructive pulmonary disease) COPD type: unspecified COPD Qualified Code(s): J44.9 - Chronic obstructive pulmonary disease, unspecified (8) Pulmonary edema Chronicity: acute Qualified Code(s): J81.0 - Acute pulmonary edema
[2022-07-24] MEDS: EUCERIN CR 120 GM JAR EXT SCH (21:34)
[2022-07-25] MEDS: guaiFENesin SUGAR FREE 100 MG/5 ML UDC PO SCH ×5 (00:09→22:48)
[2022-07-25] MEDS: traMADol HCL 50 MG TABLET PO PRN ×2 (01:53→11:24)
--- NOTE | 2022-07-25 03:33 | Communication Note ---
Date of Service: July 25, 2022 At approximately 1:36AM I was notified by patient's nurse she had gotten up to go to the bathroom an hour prior and had then complained of hip pain saying "feels like it may be dislocated again I'm not sure. Hurt a little after I got back from using the bathroom but now it's hurting more". A repeat R hip XR was performed with evidence of repeat dislocation of the R hip. At this time her pulses remain in tact at the bilateral lower extremities without any acute complaints other than pain. Patient would benefit from re-evaluation from orthopedic team in the daytime for repeat closed reduction. Patient now with external catheter. Resident Activity Tracking Resident Involvement: Resident Care Provided Care Provided: Adult Hospital Medicine
[2022-07-25] MEDS ORDERED: oxyCODONE/ACETAMINOPHEN 10-325 TAB PO STA (04:26)
[2022-07-25] MEDS: LEVOTHYROXINE SODIUM 50 MCG TABLET PO SCH (05:55)
--- NOTE | 2022-07-25 07:04 | XRay Report ---
SINGLE VIEW PELVIS; 2 VIEWS RIGHT HIP CLINICAL HISTORY: Right hip pain. FINDINGS: An AP view of the pelvis with AP and crosstable lateral views of the right hip are compared to study dated 07/23/2022. The skeletal structures are osteopenic. No acute fracture is seen involvin g the hips or bony pelvis. A left hip arthroplasty is in near anatomic alignment. There is dislocatio n of the femoral component of the right hip arthroplasty, which is posteriorly and superiorly displac ed. No periprosthetic lucency is identified. Enthesophytes arise from the anterior superior iliac spi karla. Lumbosacral spondylosis is partially imaged. The bladder is filled with excreted IV contrast. IMPRESSION: 1. Dislocation of the right hip arthroplasty. 2. No fracture is seen. Electronically signed by: Derrek Laguerre M.D. 07/25/2022 7:02 AM
[2022-07-25 07:36] LABS: Basophils # (auto) 0.03 K/uL (0-0.2); Basophils % (auto) 0.3 %; Eosinophils # (auto) 0.07 K/uL (0-0.50); Eosinophils % (auto) 0.7 %; Hematocrit (blood only) 36.5 % (37.0-47.0); Hemoglobin 12.2 g/dl (12.0-16.0); Immature Granulocytes # (auto) 0.05 K/uL (0.01-0.20); Immature Granulocytes % (auto) 0.5 %; Lymphocytes # (auto) 1.16 K/uL (1.2-3.4); Lymphocytes % (auto) 11.9 %; Mean Corpuscular Hemoglobin 30.1 pg (25.0-34.0); Mean Corpuscular Hgb Conc 33.4 g/dL (32.0-36.0); Mean Corpuscular Volume 90.1 fL (80.0-100.0); Mean Platelet Volume 8.9 fL (9.4-12.4); Monocytes # (auto) 0.74 K/uL (0.11-0.59); Monocytes % (auto) 7.6 %; Neutrophils # (auto) 7.66 K/uL (1.40-6.50); Platelet Count 312 K/uL (130-400); RDW Coefficient of Variation 14.2 % (11.5-14.5); RDW Standard Deviation 47.1 fL (36.4-46.3); Red Blood Count 4.05 M/uL (4.20-5.40); White Blood Count 9.71 K/ul (4.8-10.8)
[2022-07-25] MEDS: EUCERIN CR 120 GM JAR EXT SCH ×3 (08:00→20:37)
[2022-07-25] MEDS: DOXYCYCLINE HYCLATE 100 MG CAP PO SCH ×2 (08:00→20:37)
[2022-07-25] MEDS: ASPIRIN 81 MG ECTAB PO SCH (08:00)
[2022-07-25] MEDS: CHOLECALCIFEROL 1,000 UNITS 25 MCG TAB PO SCH (08:00)
[2022-07-25] MEDS: CALCIUM CARBONATE 1250MG TAB PO SCH (08:00)
[2022-07-25] MEDS: UMECLIDINIUM/VILANTEROL 62.5/25MCG 7 PUFFS/INHALER INH SCH (08:01)
[2022-07-25] MEDS: TRIAMCINOLONE ACET 0.5% CR 15 GM TUBE EXT SCH ×3 (08:01→20:37)
[2022-07-25] MEDS: ESCITALOPRAM OXALATE 10 MG TAB PO SCH (08:01)
[2022-07-25 09:48] LABS: Albumin Level 3.8 gm/dl (3.4-5.0); Calcium 8.4 mg/dl (8.6-10.3); Creatinine Clr Calc Pharmacy 52.9 ml/min; Est GFR (African American) 70.4 ml/min; Est GFR (Non-African American) 60.8 ml/min; Magnesium 1.9 mg/dl (1.7-2.4); Phosphorus 4.1 mg/dl (2.5-4.9); Potassium 3.9 mmol/L (3.5-5.1)
--- NOTE | 2022-07-25 15:41 | Orthopedic Progress Note ---
Date of Service July 25, 2022 Assessment & Plan (1) Closed dislocation of right hip: She was seen and examined by Dr. Grubbs today as well. 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 We discussed furtehr management/options including closed reduction vs revision maura. She wants to proceed with surgery and reviser her hip. Procedure was explained including risks, benefits, alternatives and consent was obtained. We will plan on doing a revision to a constrained liner, but be prepared for possible revision of the acetabular component if needed. NPO after midnight. Hold anticoagulation still at this time. Subjective . 81 year old patient admitted 07/23/22 s/p closed reduction of right hip. She was apparently sitting at the edge of her bed overnight and dislocated her hip again last night. She is not having pain unless she moves. Denies any pain prior to the dislocation. She had previous right maura in 1999 and revision in 2008 specifically head/liner exchange. Review of Systems All systems reviewed & are unremarkable except as noted in HPI & below. Physical Exam . alert and oriented. NAD Right leg: knee immobilizer on. Able to dorsiflex and plantarflex. NVI Results & Data Results & Data Laboratory Results . Diagnostic Findings .xrays show dislocation of right maura. There is some osteolysis around the acetabular component . PG Care Time/CCT Total # of Minutes Spent Total Time Spent with Patient: Total time spent is greater than 50% in coordination of care (as documented) at patient's floor/unit and/or counseling patient: Coding Level of Care Code 06247 SUB INP/OBS CARE 3/50MIN Diagnoses Closed dislocation of right hip S73.004A Encounter type: initial encounter (1) Closed dislocation of right hip Encounter type: initial encounter Qualified Code(s): S73.004A - Unspecified dislocation of right hip, initial encounter
--- NOTE | 2022-07-25 16:48 | Electrocardiogram Report ---
Test Reason : Blood Pressure : / mmHG Vent. Rate : 071 BPM Atrial Rate : 071 BPM P-R Int : 154 ms QRS Dur : 086 ms QT Int : 412 ms P-R-T Axes : 051 071 055 degrees QTc Int : 447 ms Normal sinus rhythm Normal ECG When compared with ECG of 24-JUL-2022 05:42, No significant change was found Confirmed by Pablito Davis [id number]) on 07/25/2022 4:47:56 PM Referred By: REFERRED SELF Confirmed By:Pablito Davis
--- NOTE | 2022-07-25 19:30 | Hospitalist Progress Note ---
Date of Service July 25, 2022 Assessment & Plan (1) Closed dislocation of right hip: Plan: present on admission --> s/p reduction of dislocated right total hip arthroplasty by ER attending at time of presentation. unfortunately had recurrence of same overnight. seen by Dr Grubbs from [facility] Ortho --> to have right THR revision tomorrow due to high risk of ongoing, recurrent hip dislocations. hardware of right THR is 20+ years old. from cardiopulmonary standpoint she is likely optimized. most of her CT chest findings are chronic in appearance. I do not feel she has decompensated CHF (Na worsened with diuresis, and mild o2 requirement has not changed with diuresis). Her O2 requirement is likely from COPD and newly discovered pulmonary fibrosis. Alejandro revised cardiac risk index score for perioperative cardiopulmonary event is <10% based on her medical history. will check an INR in am. will place on scheduled combivent for her COPD. appreciate ortho assistance. remain on bedrest. (2) Hypothyroidism: Plan: TSH 11/2021 wnl cont synthroid (3) COPD (chronic obstructive pulmonary disease): Plan: long-time prior smoker emphysema seen on CT chest 07/24 along with findings suggestive of pulmonary fibrosis (see below) cont home inhalers cont doxycycline as precautionary measure (some ? LLL infiltrate on CT but her clinical picture not c/w pneumonia) (4) Anxiety: Plan: cont SSRI (5) Allergic rhinitis: (6) Dyslipidemia: (7) Vitamin D deficiency: Plan: 25-OH vit D level in 11/2021 was wnl (8) Pulmonary edema: Plan: doubt CHF/pulm edema CT chest most c/w COPD with PF Na worse after just 2 small doses of IV lasix lasix stopped (9) DVT prophylaxis: Plan: consider once daily xarelto 10mg daily or asa 81mg BID post-op from right hip revision (10) Pulmonary fibrosis determined by high resolution computed tomography: Plan: CT chest shows findings concerning for PF if present this is likely from her prior smoking she does not follow with pulmonary would benefit from consultation with pulmonary as outpatient for PFTs and routine care they can make final call about whether there is truly pulmonary fibrosis but, again, CT chest highly suggestive of such COPD/suspected PF likely cause of ongoing dyspnea at home over the last few months will need 2-step ambulatory O2 test at discharge (11) Hyponatremia: Plan: 2nd diuresis no further lasix repeat BMP am Plan updated pt's daughter by phone this evening questions answered pt's daughter reports that patient has had memory loss for some time at home will refer to neurology post-d/c for neurocognitive evaluation, etc complex care coordination today Admission and Anticipated Discharge Date Admission Date: July 23, 2022 Subjective events of overnight reviewed by report patient got out of bed and walked to the commode upon return to the bed she developed acute pain in the right hip/groin region night resident was notified -- x-rays taken STAT of R hip -- recurrent dislocation of THR was seen placed on bedrest orthopedics has seen this afternoon -- they advise right THR revision due to recurrent nature of the dislocation even if we reduced this dislocation once again she is at high risk of ongoing dislocations patient agreeable to revision tomorrow based on her medical history her revised Alejandro cardiac risk index score for a perioperative/postoperative cardiopulmonary event is <10% tele overnight wnl Review of Systems Review of Systems: gen - eating fair (states this is chronic for her) cv - no chest pain, no orthopnea pulm - mild cough, but states it is chronic and no worse than usual ; just occasional sputum GI - no abd pain/n/v musculo - if she turns wrong in bed she has pain in the right groin/right anterior thigh Physical Exam Physical Exam: gen - NAD, comfortable lying nearly flat in bed HENT - voice with dysphonia; MMM neck - no JVD heart - RRR, s1 s2, no murmur lungs - fine b/l basilar dry rales worse on left; no wheezes; no increased work of breathing abd - soft NT ND BS+ ext - no peripheral edema, pulses 2+ b/l; right leg is shorter than left leg neuro - dysphonic voice skin - improved dermatitis of left hand (palm) Results & Data Results & Data Vital Signs (Past 12 Hours) Vital Signs Temp Pulse Pulse Resp BP Pulse Ox O2 Del Method 07/25/22 19:22 36.8 C 67 18 104/62 96 Room Air 07/25/22 18:12 68 07/25/22 16:00 36.5 C 88 18 108/77 97 Nasal Cannula 07/25/22 12:15 36.9 C 72 76 H 124/73 95 Room Air 07/25/22 07:58 36.8 C 88 20 118/66 98 Nasal Cannula 07/25/22 08:00 83 07/25/22 08:00 Nasal Cannula O2 Flow Rate 07/25/22 19:22 07/25/22 18:12 07/25/22 16:00 2 07/25/22 12:15 07/25/22 07:58 2 07/25/22 08:00 07/25/22 08:00 2 Laboratory Results Laboratory Results - last 24 hr 07/24/22 07/25/22 07/25/22 18:56 06:54 06:54 WBC 9.71 RBC 4.05 L Hgb 12.2 Hct 36.5 L MCV 90.1 MCH 30.1 MCHC 33.4 RDW Std Deviation 47.1 H RDW Coeff of Gregoria 14.2 Plt Count 312 MPV 8.9 L Immature Gran % (Auto) 0.5 Neut % (Auto) 79.0 Lymph % (Auto) 11.9 [place] % (Auto) 7.6 Eos % (Auto) 0.7 Baso % (Auto) 0.3 Neut # (Auto) 7.66 H Lymph # (Auto) 1.16 L [place] # (Auto) 0.74 H Eos # (Auto) 0.07 Baso # (Auto) 0.03 Immature Gran # (Auto) 0.05 Sodium 132 L Potassium 3.9 D Chloride 97 L Carbon Dioxide 26 Anion Gap 9 BUN 24 H Creatinine 0.89 Est Cr Clr Drug Dosing 52.9 Est GFR ( Amer) 70.4 Est GFR (Non-Af Amer) 60.8 BUN/Creatinine Ratio 27.0 H Glucose 104 H Calcium 8.4 L Phosphorus 4.1 Magnesium 1.9 Troponin I High Sens 7.0 Albumin 3.8 PG Care Time/CCT Total # of Minutes Spent Total Time Spent with Patient: Total time spent is greater than 50% in coordination of care (as documented) at patient's floor/unit and/or counseling patient: Coding Level of Care Code 57175 SUB INP/OBS CARE 3/50MIN Diagnoses Closed dislocation of right hip S73.004A Encounter type: initial encounter Hypothyroidism E03.9 COPD (chronic obstructive pulmonary disease) J44.9 COPD type: unspecified COPD Anxiety F41.9 Allergic rhinitis J30.9 Dyslipidemia E78.5 Vitamin D deficiency E55.9 Pulmonary edema J81.0 Chronicity: acute DVT prophylaxis Z29.9 Pulmonary fibrosis determined by high resolution computed tomography J84.10 Hyponatremia E87.1 (1) Closed dislocation of right hip Encounter type: initial encounter Qualified Code(s): S73.004A - Unspecified dislocation of right hip, initial encounter (3) COPD (chronic obstructive pulmonary disease) COPD type: unspecified COPD Qualified Code(s): J44.9 - Chronic obstructive pulmonary disease, unspecified (8) Pulmonary edema Chronicity: acute Qualified Code(s): J81.0 - Acute pulmonary edema
[2022-07-25] MEDS: DOCUSATE SODIUM 100 MG CAP PO SCH (20:37)
[2022-07-25] MEDS: GABAPENTIN 300 MG CAP PO SCH (20:37)
[2022-07-25] MEDS: LORazepam 0.5 MG TAB PO PRN (20:38)
[2022-07-25] MEDS ORDERED: IPRATROPIUM BROMIDE/ALBUTEROL respimat INH INH SCH (21:00)
[2022-07-26] MEDS: guaiFENesin SUGAR FREE 100 MG/5 ML UDC PO SCH ×4 (04:45→21:11)
[2022-07-26] MEDS: traMADol HCL 50 MG TABLET PO PRN (05:27)
[2022-07-26] MEDS: LEVOTHYROXINE SODIUM 50 MCG TABLET PO SCH (05:28)
[2022-07-26] MEDS ORDERED: BUPIVACAINE 0.5 % 5 MG/1 ML PF 10ML VIAL ONE (06:24)
[2022-07-26] MEDS ORDERED: ROPIVACAINE 0.5% 5 MG/ML 30 ML VIAL ONE (07:07)
[2022-07-26] MEDS: IPRATROPIUM BROMIDE HFA INHALER INH SCH ×4 (07:18→19:17)
[2022-07-26] MEDS: ALBUTEROL HFA 8 GM INHALER INH SCH ×4 (07:18→19:17)
[2022-07-26 08:02] LABS: BUN Creatinine Ratio 27.3 (10-20); Calcium 8.9 mg/dl (8.6-10.3); Creatinine Clr Calc Pharmacy 61.9 ml/min; Est GFR (African American) 83.9 ml/min; Est GFR (Non-African American) 72.4 ml/min; Phosphorus 3.4 mg/dl (2.5-4.9); Potassium 4.1 mmol/L (3.5-5.1)
[2022-07-26 08:08] LABS: Prothrombin Time 11.4 Seconds (9.0-12.0)
[2022-07-26] MEDS: ASPIRIN 81 MG ECTAB PO SCH (08:35)
[2022-07-26] MEDS: DOXYCYCLINE HYCLATE 100 MG CAP PO SCH ×2 (08:37→21:12)
[2022-07-26] MEDS: CALCIUM CARBONATE 1250MG TAB PO SCH (08:37)
[2022-07-26] MEDS: ESCITALOPRAM OXALATE 10 MG TAB PO SCH (08:37)
[2022-07-26] MEDS: CHOLECALCIFEROL 1,000 UNITS 25 MCG TAB PO SCH (08:37)
[2022-07-26] MEDS: TRIAMCINOLONE ACET 0.5% CR 15 GM TUBE EXT SCH ×3 (08:38→21:15)
[2022-07-26] MEDS: UMECLIDINIUM/VILANTEROL 62.5/25MCG 7 PUFFS/INHALER INH SCH (08:38)
[2022-07-26] MEDS: EUCERIN CR 120 GM JAR EXT SCH ×3 (08:38→21:14)
[2022-07-26] MEDS ORDERED: MIDAZOLAM HCL 1 MG/ML 2ML VIAL ONE (10:32)
[2022-07-26] MEDS ORDERED: fentaNYL citrate PF 100 MCG/2 ML VIAL ONE (10:32)
--- NOTE | 2022-07-26 10:32 | Anesthesiology Consultation ---
Date of Service July 26, 2022 Assessment & Plan Chart Review Chart Review: Acceptable Risk for Surgery and Patient NOT seen in Pre Admission Testing History Surgery Operation Date: 07/26/22 07:50 Proposed Procedures p Right Total Hip Arthroplasty Revision - Egdar Grubbs MD Height/Weight Height: 5 ft 6 in Weight: 82 kg Allergies Allergy/AdvReac Type Severity Reaction Status Date / Time No Known Drug Allergies Allergy NKDA Verified 07/23/22 21:07 Medications Home Medications Medication Instructions Recorded Confirmed Last Taken aspirin 81 mg tablet,delayed 81 mg PO DAILY #30 tabs 12/11/18 07/23/22 Unknown release calcium carbonate 600 mg calcium 600 mg PO DAILY 12/11/18 07/23/22 Unknown (1,500 mg) tablet cholecalciferol (vitamin D3) 50 2,000 units PO DAILY #90 caps 12/11/18 07/23/22 Unknown mcg (2,000 unit) capsule albuterol sulfate 90 mcg/actuation 2 puff inhalation Q6H PRN 08/30/21 07/23/22 Unknown aerosol inhaler shortness of breath or wheezing #18 grams escitalopram oxalate 10 mg tablet 10 mg PO DAILY #90 tabs 10/26/21 07/23/22 Unknown gabapentin 300 mg capsule 300 mg PO HS #90 caps 11/01/21 07/23/22 Unknown lorazepam 1 mg tablet 1.5 mg PO HS PRN sleep #45 tabs 03/19/22 07/23/22 Unknown levothyroxine 50 mcg tablet 50 mcg PO DAILY #90 tabs 06/12/22 07/23/22 Unknown acetaminophen 500 mg tablet 1,000 mg PO Q4H PRN hip pain 06/28/22 07/23/22 Unknown (Tylenol Extra Strength) docusate sodium 50 mg capsule 100 mg PO HS 06/28/22 07/23/22 Unknown (Stool Softener) glycopyrrolate 9 mcg-formoterol 2 puff inhalation BID #10.7 grams 07/09/22 07/23/22 Unknown 4.8 mcg HFA aerosol inhaler (Bevespi Aerosphere) celecoxib 100 mg capsule (Celebrex) 100 mg PO BID PRN pain #30 caps 07/16/22 07/23/22 Unknown tramadol 50 mg tablet 50 mg PO TID PRN pain #42 tabs 07/16/22 07/23/22 Unknown Active Medications Generic Name Dose Route Start Last Admin Trade Name Nasreen PRN Reason Stop Dose Admin Acetaminophen 1,000 mg 07/23/22 23:50 07/25/22 16:01 Acetaminophen 500 Mg Tab PO 08/22/22 23:49 1,000 mg Q4H PRN Administration hip pain Albuterol 1 puffs 07/26/22 07:00 07/26/22 07:18 Albuterol Hfa 8 Gm Inhaler INH 08/25/22 06:59 1 puffs QIDR ELENITA Administration Aspirin 81 mg 07/24/22 09:00 07/26/22 08:35 Aspirin 81 Mg Ectab PO 08/23/22 08:59 Not Given DAILY ELENITA Calcium Carbonate 1,250 mg 07/24/22 09:00 07/26/22 08:37 Calcium Carbonate 1250mg Tab PO 08/23/22 08:59 1,250 mg DAILY ELENITA Administration Docusate Sodium 100 mg 07/24/22 21:00 07/25/22 20:37 Docusate Sodium 100 Mg Cap PO 08/23/22 20:59 100 mg HS ELENITA Administration Doxycycline Hyclate 100 mg 07/24/22 21:00 07/26/22 08:37 Doxycycline Hyclate 100 Mg Cap PO 07/31/22 20:59 100 mg BID ELENITA Administration Escitalopram Oxalate 10 mg 07/24/22 09:00 07/26/22 08:37 Escitalopram Oxalate 10 Mg Tab PO 08/23/22 08:59 10 mg DAILY ELENITA Administration Gabapentin 300 mg 07/24/22 21:00 07/25/22 20:37 Gabapentin 300 Mg Cap PO 08/23/22 20:59 300 mg HS ELENITA Administration Guaifenesin 100 mg 07/24/22 17:45 07/26/22 04:45 Guaifenesin Sugar Free 100 Mg/5 Ml Udc PO 08/23/22 17:44 Not Given Q6H ELENITA Ipratropium [place] 1 puffs 07/26/22 07:00 07/26/22 07:18 Ipratropium [place] Hfa Inhaler INH 08/25/22 06:59 1 puffs QIDR ELENITA Administration Levothyroxine Sodium 50 mcg 07/24/22 06:30 07/26/22 05:28 Levothyroxine Sodium 50 Mcg Tablet PO 08/23/22 06:29 50 mcg DAILYBB ELENITA Administration Lorazepam 1.5 mg 07/23/22 23:50 07/25/22 20:38 Lorazepam 0.5 Mg Tab PO 08/22/22 23:49 1.5 mg HS PRN Administration sleep Multi-Ingredient Cream 1 appln 07/24/22 21:00 07/26/22 08:38 Eucerin Cr 120 Gm Jar EXT 08/23/22 20:59 1 appln TID ELENITA Administration Tramadol HCl 50 mg 07/23/22 23:50 07/26/22 05:27 Tramadol Hcl 50 Mg Tablet PO 08/22/22 23:49 50 mg TID PRN Administration Moderate Pain (Scale 4, 5, 6) Triamcinolone Acetonide 1 appln 07/24/22 21:00 07/26/22 08:38 Triamcinolone Acet 0.5% Cr 15 Gm Tube EXT 08/23/22 20:59 1 appln TID ELENITA Administration Umeclidinium/Vilanterol 1 puffs 07/23/22 23:50 07/26/22 08:38 Umeclidinium/Vilanterol 62.5/25mcg 7 Puffs/Inhaler INH 08/22/22 23:49 1 puffs DAILY ELENITA Administration Vitamin D 2,000 units 07/24/22 09:00 07/26/22 08:37 Cholecalciferol 1,000 Units 25 Mcg Tab PO 08/23/22 08:59 2,000 units DAILY ELENITA Administration NPO Date Last Intake of Fluids: 07/25/22 Time Last Intake of Fluids: 18:00 Last Intake of Fluids Comment: sipof water with meds Date Last Intake of Solids: 07/25/22 Time Last Intake of Solids: 18:00 Past Medical History Medical History Allergic rhinitis Anxiety Carpal tunnel syndrome, right Chronic pruritus COPD (chronic obstructive pulmonary disease) Degenerative joint disease of left hip Dyslipidemia Hypothyroidism Impaired fasting glucose Lichen planus Osteoarthritis of left shoulder Osteopenia Sensorineural hearing loss of both ears Spastic dysphonia mild CP Stress incontinence in female Ulnar neuropathy at elbow of right upper extremity Vitamin D deficiency Past Family History Family History Sister Breast cancer Denies family history of Ovarian cancer Prostate cancer Myocardial infarction Colorectal cancer Past Surgical History Surgical History History of appendectomy History of cholecystectomy History of shoulder replacement History of total abdominal hysterectomy and bilateral salpingo-oophorectomy History of total hip replacement Social History Smoking Status: Former smoker tobacco type: cigarettes Smoking cigarettes per day: 40 Do You Dip or Chew Tobacco: No Smoking End Date: 1999 Hx Alcohol Use: No Hx Substance Use: No substance use type: does not use Physical Exam Vital Signs Last Vital Signs Temp 36.8 C 07/26/22 10:21 Pulse 70 07/26/22 10:21 Resp 18 07/26/22 07:35 BP 129/57 L 07/26/22 10:21 Pulse Ox 95 07/26/22 10:21 O2 Del Method Nasal Cannula 07/26/22 10:21 O2 Flow Rate 2 07/26/22 10:21 Testing Laboratory Results 07/25/22 06:54 07/26/22 06:33 PT 11.4 Seconds (9.0-12.0) 07/26/22 06:32 INR 1.0 (0.9-1.1) 07/26/22 06:32 Urine Color Yellow 07/23/22 Unknown Urine Appearance Clear (Clear) 07/23/22 Unknown Urine pH 6.5 (4.5-7.5) 07/23/22 Unknown Ur Specific [place] 1.021 (1.000-1.030) 07/23/22 Unknown Urine Protein 1+ (Negative) H 07/23/22 Unknown Urine Glucose (UA) Negative (Negative) 07/23/22 Unknown Urine Ketones Negative (Negative) 07/23/22 Unknown Urine Nitrite Negative (Negative) 07/23/22 Unknown Ur Leukocyte Esterase Negative (Negative) 07/23/22 Unknown Urine WBC (Auto) 5-10 /hpf (0-5) H 07/23/22 Unknown Urine RBC (Auto) >30 /hpf (0-4) H 07/23/22 Unknown U Hyaline Cast (Auto) 5-10 /lpf (0-5) H 07/23/22 Unknown U Epithel Cells (Auto) 5-10 /lpf (0-5) H 07/23/22 Unknown Urine Bacteria (Auto) Negative (Negative) 07/23/22 Unknown Blood Type A Positive 07/25/22 20:06 Antibody Screen NEGATIVE 07/25/22 20:06
[2022-07-26] MEDS ORDERED: HYDROmorphone INJ 2 MG/ML SYR/VIAL IV PRN (10:33)
[2022-07-26] MEDS ORDERED: ONDANSETRON INJ 2 MG/ML 2 ML VIAL IV PRN ×2 (10:33→14:03)
[2022-07-26] MEDS ORDERED: ePHEDrine sulfate 50 MG/ML AMP IV PRN (10:33)
[2022-07-26] MEDS ORDERED: ATROPINE SULFATE 0.1 MG/ML 10ML SYR IV PRN (10:33)
[2022-07-26] MEDS ORDERED: fentaNYL citrate PF 100 MCG/2 ML VIAL IV PRN (10:33)
[2022-07-26] MEDS ORDERED: TRANEXAMIC ACID / 0.7% NACL 1,000 MG/100 ML BAG IV ONE (10:46)
[2022-07-26] MEDS ORDERED: ceFAZolin 2000MG 2,000 MG/15 ML SYR IV ONE (10:47)
--- NOTE | 2022-07-26 10:48 | History & Physical Bridge Note ---
Date of Service July 26, 2022 History & Physical Bridge Note I have examined the patient, reviewed the History & Physical and in the interval since the performance of the History & Physical I have noted the following changes of clinical significance: no changes noted
[2022-07-26] MEDS ORDERED: TRANEXAMIC ACID / 0.7% NACL 1000MG/100ML BAG IV ONE (10:49)
[2022-07-26] MEDS ORDERED: ceFAZolin 2,000 MG/15 ML IV PUSH IV ONE (10:49)
[2022-07-26] MEDS ORDERED: BUPIVACAINE/EPINEPHRINE 0.5% MPF 1:200,000 30 ML VIAL ONE (10:53)
--- NOTE | 2022-07-26 11:24 | History & Physical Bridge Note ---
Date of Service July 26, 2022 History & Physical Bridge Note I have examined the patient, reviewed the History & Physical and in the interval since the performance of the History & Physical I have noted the following changes of clinical significance: Unfortunately, the equipment that we needed to do this operation was improperly sent in and the we do not have the equipment to do it. As a result were going to have to postpone her surgery/revision arthroplasty till tomorrow when we can get the right equipment. She already has a spinal in place. As her anesthetic is in place we are going to relocate her hip today and make her more comfortable and till tomorrow in the interim time. I did call and talk to her daughter about this and explained the situation and got an consent from the daughter as the patient had received a spinal already. All questions were answered. Risks and benefits were explained and they understand.
--- NOTE | 2022-07-26 11:57 | Operative Report ---
PG Post Operative Report Pre & Post Diagnosis Operation Date: 07/27/22 13:15 Preop diagnosis: Right posterior hip dislocation status post total hip arthroplasty. Postoperative diagnosis: Posterior right hip dislocation status post total hip replacement I identified the patient and participated in the time-out.: Yes Procedure Operation Date: 07/27/22 13:15 Closed reduction of right dislocated total hip arthroplasty. Surgeon Edgar Grubbs MD Iridologist Jeffrey Diaz PA-C Estimated Blood Loss 0 Findings Consistent with Post-Op Diagnosis Specimens None Anesthesia Type Spinal MAC Complications none Disposition Accompanied Patient To Recovery: No Indications Patient is an 81-year-old female who is a status post a right hybrid total hip [place] [address] Polk. She underwent revision in [address] [place]. She done relatively well and over over the past several months she has had several dislocations. She admitted to the hospital status post closed reduction and indicated for revision arthroplasty due to unstable total hip replacement. We are planning on revising her hip to a constrained liner today but the improper equipment came. She already had a spinal in place so we elected do a closed reduction and read to schedule her surgery for tomorrow. The purpose of the closure duction is to make her more comfortable in the interim period of time since she already had the spinal. I did explain this in depth to the patient as well as her daughter and they were understanding. Description of Procedure The patient was taken the operating, identified, placed on the operating table supine position protectors were properly padded. Spinal had been implemented holding area. X-rays brought in. We applied some longitudinal traction of the leg to flex the hip and internally rotated. We were able to relocate the hip without much difficulty. Hip appeared stable postreduction. An abduction pillow was applied. The patient then transferred to the recovery room in stable condition. There were no complications. Jeffrey Diaz, my physician security assistant, was present for the entire procedure. His assistance was required for proper patient positioning, applying a lot of traction to the hip and assisting in the closure duction. I attest to the content of the Intraoperative Record and any orders documented therein. Any exceptions are noted below.
--- NOTE | 2022-07-26 11:58 | Fluoroscopy Report ---
FL hip RT 1V CLINICAL HISTORY: CLOSED REDUCTION RT HIP COMPARISON STUDY: Pelvis and right hip 07/25/2022. FLUOROSCOPY TIME: 35 seconds FLUOROSCOPY IMAGES: 1 Ka,r: 8.2 mGy FINDINGS: There is a right total hip arthroplasty. The alignment appears anatomic status post reducti on. No acute fractures identified. IMPRESSION: Fluoroscopic assistance provided for closed reduction of the right femoral prosthesis dis location. Alignment appears anatomic. ACT 112: Negative or not required by law. Electronically signed by: Chandana Yin M.D. 07/26/2022 11:57 AM
--- NOTE | 2022-07-26 13:15 | Anesthesiology Progress Note ---
Date of Service July 26, 2022 Anesthesia Post Procedure Vital Signs Vital Signs: Temp Pulse Pulse Pulse Resp BP Pulse Ox 07/26/22 13:05 74 20 105/48 L 95 07/26/22 12:55 80 21 92/45 L 94 07/26/22 12:45 77 17 103/55 L 94 07/26/22 12:35 37 C 75 20 101/50 L 94 07/26/22 12:25 86 21 94/50 L 95 07/26/22 12:15 69 13 93/50 L 95 07/26/22 12:05 70 20 96/48 L 97 07/26/22 11:55 67 14 104/50 L 97 07/26/22 11:48 37.1 C 72 18 98/40 L 100 07/26/22 10:21 36.8 C 70 129/57 L 95 07/26/22 07:35 36.7 C 68 18 115/54 L 96 07/26/22 07:18 66 07/26/22 07:18 07/26/22 07:18 78 16 96 07/26/22 03:07 36.8 C 64 18 108/67 96 07/26/22 00:09 68 07/25/22 22:35 36.6 C 72 18 106/66 96 07/25/22 19:51 07/25/22 19:22 36.8 C 67 18 104/62 96 07/25/22 18:12 68 07/25/22 16:00 36.5 C 88 18 108/77 97 O2 Del Method O2 Flow Rate 07/26/22 13:05 Nasal Cannula 2 07/26/22 12:55 Nasal Cannula 2 07/26/22 12:45 Nasal Cannula 2 07/26/22 12:35 Nasal Cannula 2 07/26/22 12:25 Nasal Cannula 3 07/26/22 12:15 Nasal Cannula 2 07/26/22 12:05 Nasal Cannula 4 07/26/22 11:55 Oxymask 12 07/26/22 11:48 Oxymask 12 07/26/22 10:21 Nasal Cannula 2 07/26/22 07:35 Nasal Cannula 2 07/26/22 07:18 07/26/22 07:18 Nasal Cannula 2 07/26/22 07:18 Nasal Cannula 2 07/26/22 03:07 Nasal Cannula 07/26/22 00:09 07/25/22 22:35 Nasal Cannula 07/25/22 19:51 Nasal Cannula 2 07/25/22 19:22 Room Air 07/25/22 18:12 07/25/22 16:00 Nasal Cannula 2 Pain Intensity Right Hip: Pain Intensity: 10 Transfer of Care Handoff Completed per policy Notes Mental Status: alert / awake / arousable Patient Amnestic to Procedure: Yes Nausea / Vomiting: adequately controlled Pain: adequately controlled Airway Patency, RR, SpO2: stable & adequate BP & HR: stable & adequate Hydration State: stable & adequate Neuraxial Anesthesia: was administered and sensory block is resolving Anesthetic Complications: no major complications apparent
[2022-07-26] MEDS ORDERED: CELECOXIB 100 MG CAP PO PRN (14:03)
[2022-07-26] MEDS ORDERED: NALOXONE HCL 0.4 MG/1 ML VIAL/CARP IV PRN (14:03)
[2022-07-26] MEDS ORDERED: METOCLOPRAMIDE HCL INJ 5 MG/ML 2 ML VIAL IV PRN (14:03)
[2022-07-26] MEDS ORDERED: bisacodyL 10 MG SUPP PR PRN (14:03)
[2022-07-26] MEDS ORDERED: MAGNESIUM HYDROXIDE SUSP 30 ML UDC PO PRN (14:03)
[2022-07-26] MEDS: SODIUM CHLORIDE 0.9% 1000ML 1,000 ML IV SCH (14:40)
--- NOTE | 2022-07-26 19:44 | Hospitalist Progress Note ---
Date of Service July 26, 2022 Assessment & Plan (1) Closed dislocation of right hip: Plan: present on admission --> s/p reduction of dislocated right total hip arthroplasty by ER attending at time of presentation. unfortunately had recurrence of same 07/25. seen by Dr Grubbs from [facility] who advised revision of R THR. hardware of right THR is 20+ years old. went to OR today to have the right hip revised. however, only able to reduce the right hip dislocation; unable to actually perform the revision. this will be done tomorrow 07/27. from cardiopulmonary standpoint she continues to be optimized. most of her CT chest findings are chronic in appearance. I do not feel she has decompensated CHF (Na worsened with diuresis, and mild o2 requirement has not changed with diuresis). Her O2 requirement is likely from COPD and newly discovered pulmonary fibrosis. Alejandro revised cardiac risk index score for perioperative cardiopulmonary event is <10% based on her medical history. (2) Hypothyroidism: Plan: TSH 11/2021 wnl cont synthroid (3) COPD (chronic obstructive pulmonary disease): Plan: long-time prior smoker emphysema seen on CT chest 07/24 along with findings suggestive of pulmonary fibrosis (see below) cont home inhalers cont doxycycline as precautionary measure (some ? LLL infiltrate on CT but her clinical picture not c/w pneumonia) (4) Anxiety: Plan: cont SSRI (5) Allergic rhinitis: (6) Dyslipidemia: (7) Vitamin D deficiency: Plan: 25-OH vit D level in 11/2021 was wnl (8) Pulmonary edema: Plan: doubt CHF/pulm edema CT chest most c/w COPD with PF Na worse after just 2 small doses of IV lasix lasix stopped (9) DVT prophylaxis: Plan: consider once daily xarelto 10mg daily or asa 81mg BID post-op from right hip revision (10) Pulmonary fibrosis determined by high resolution computed tomography: Plan: CT chest shows findings concerning for PF if present this is likely from her prior smoking she does not follow with pulmonary would benefit from consultation with pulmonary as outpatient for PFTs and routine care they can make final call about whether there is truly pulmonary fibrosis but, again, CT chest highly suggestive of such COPD/suspected PF likely cause of ongoing dyspnea at home over the last few months will need 2-step ambulatory O2 test at discharge cont inhalers & doxycycline (11) Hyponatremia: Plan: 2nd diuresis no further lasix repeat BMP today stable with Na 134 Plan updated pt's daughter by phone yesterday evening questions answered pt's daughter reports that patient has had memory loss for some time at home will refer to neurology post-d/c for neurocognitive evaluation, etc care d/w Dr Grubbs today Admission and Anticipated Discharge Date Admission Date: July 23, 2022 Subjective today's events noted went to OR to have R hip revised there were technical difficulties with hardware and thus only the R hip dislocation was reduced she will return to the OR tomorrow for the revision during my visit she was resting comfortably in bed no right hip pain breathing is near normal today mild cough only ate good meal post-op today tele wnl overnight Review of Systems Review of Systems: cv - no orthopnea pulm - no dyspnea at rest GI - no pain; has not moved bowels in some time Physical Exam Physical Exam: gen - NAD, comfortable HENT - voice with dysphonia; MMM neck - no JVD heart - RRR, s1 s2, no murmur lungs - decreased BS bases, minimal end-exp wheezes, minimal faint crackle b/l, airation fair-food abd - soft NT ND BS+ ext - no peripheral edema, pulses 2+ b/l neuro - dysphonic voice Results & Data Results & Data Vital Signs (Past 12 Hours) Vital Signs Temp Pulse Pulse Pulse Resp BP Pulse Ox 07/26/22 19:00 36.8 C 82 18 113/67 92 07/26/22 19:19 80 18 91 07/26/22 15:57 76 07/26/22 14:30 07/26/22 15:16 36.4 C L 73 20 105/53 L 93 07/26/22 14:53 73 18 94 07/26/22 13:15 72 18 99/52 L 94 07/26/22 13:05 74 20 105/48 L 95 07/26/22 12:55 80 21 92/45 L 94 07/26/22 12:45 77 17 103/55 L 94 07/26/22 12:35 37 C 75 20 101/50 L 94 07/26/22 12:25 86 21 94/50 L 95 07/26/22 12:15 69 13 93/50 L 95 07/26/22 12:05 70 20 96/48 L 97 07/26/22 11:55 67 14 104/50 L 97 07/26/22 11:48 37.1 C 72 18 98/40 L 100 07/26/22 10:21 36.8 C 70 129/57 L 95 O2 Del Method O2 Flow Rate 07/26/22 19:00 Nasal Cannula 1.5 07/26/22 19:19 Nasal Cannula 2 07/26/22 15:57 07/26/22 14:30 Nasal Cannula 2 07/26/22 15:16 Nasal Cannula 2 07/26/22 14:53 Nasal Cannula 2 07/26/22 13:15 Nasal Cannula 2 07/26/22 13:05 Nasal Cannula 2 07/26/22 12:55 Nasal Cannula 2 07/26/22 12:45 Nasal Cannula 2 07/26/22 12:35 Nasal Cannula 2 07/26/22 12:25 Nasal Cannula 3 07/26/22 12:15 Nasal Cannula 2 07/26/22 12:05 Nasal Cannula 4 07/26/22 11:55 Oxymask 12 07/26/22 11:48 Oxymask 12 07/26/22 10:21 Nasal Cannula 2 Laboratory Results Laboratory Results - last 24 hr 07/25/22 07/26/22 07/26/22 20:06 06:32 06:32 PT 11.4 INR 1.0 Sodium Potassium Chloride Carbon Dioxide Anion Gap BUN Creatinine Est Cr Clr Drug Dosing Est GFR ( Amer) Est GFR (Non-Af Amer) BUN/Creatinine Ratio Glucose Calcium Phosphorus Albumin Blood Type A Positive Blood Type Recheck A Positive Antibody Screen NEGATIVE 07/26/22 06:33 PT INR Sodium 134 L Potassium 4.1 Chloride 98 Carbon Dioxide 27 Anion Gap 9 BUN 21 Creatinine 0.77 Est Cr Clr Drug Dosing 61.9 Est GFR ( Amer) 83.9 Est GFR (Non-Af Amer) 72.4 BUN/Creatinine Ratio 27.3 H Glucose 91 Calcium 8.9 Phosphorus 3.4 Albumin 4.0 Blood Type Blood Type Recheck Antibody Screen PG Care Time/CCT Total # of Minutes Spent Total Time Spent with Patient: Total time spent is greater than 50% in coordination of care (as documented) at patient's floor/unit and/or counseling patient: Coding Level of Care Code 52940 SUB INP/OBS CARE 2/35MIN Diagnoses Closed dislocation of right hip S73.004A Encounter type: initial encounter Hypothyroidism E03.9 COPD (chronic obstructive pulmonary disease) J44.9 COPD type: unspecified COPD Anxiety F41.9 Allergic rhinitis J30.9 Dyslipidemia E78.5 Vitamin D deficiency E55.9 Pulmonary edema J81.0 Chronicity: acute DVT prophylaxis Z29.9 Pulmonary fibrosis determined by high resolution computed tomography J84.10 Hyponatremia E87.1 (1) Closed dislocation of right hip Encounter type: initial encounter Qualified Code(s): S73.004A - Unspecified dislocation of right hip, initial encounter (3) COPD (chronic obstructive pulmonary disease) COPD type: unspecified COPD Qualified Code(s): J44.9 - Chronic obstructive pulmonary disease, unspecified (8) Pulmonary edema Chronicity: acute Qualified Code(s): J81.0 - Acute pulmonary edema
[2022-07-26] MEDS: LORazepam 0.5 MG TAB PO PRN (21:11)
[2022-07-26] MEDS: DOCUSATE SODIUM 100 MG CAP PO SCH (21:12)
[2022-07-26] MEDS: GABAPENTIN 300 MG CAP PO SCH (21:13)
[2022-07-26] MEDS: SENNA 8.6 MG TAB PO SCH (21:13)
[2022-07-27] MEDS: SODIUM CHLORIDE 0.9% 1000ML 1,000 ML IV SCH ×2 (01:16→16:45)
[2022-07-27] MEDS ORDERED: ceFAZolin 2000MG 2,000 MG/15 ML SYR IV SCH (06:00)
[2022-07-27] MEDS ORDERED: TRANEXAMIC ACID / 0.7% NACL 1,000 MG/100 ML BAG IV SCH ×2 (06:00→21:45)
[2022-07-27] MEDS: guaiFENesin SUGAR FREE 100 MG/5 ML UDC PO SCH ×4 (06:27→22:47)
[2022-07-27] MEDS: LEVOTHYROXINE SODIUM 50 MCG TABLET PO SCH (06:28)
[2022-07-27] MEDS ORDERED: BUPIVACAINE 0.5 % 5 MG/1 ML PF 10ML VIAL ONE (06:44)
[2022-07-27] MEDS: IPRATROPIUM BROMIDE HFA INHALER INH SCH ×4 (07:20→19:56)
[2022-07-27] MEDS: ALBUTEROL HFA 8 GM INHALER INH SCH ×4 (07:20→19:56)
--- NOTE | 2022-07-27 07:34 | History & Physical Bridge Note ---
Date of Service July 27, 2022 History & Physical Bridge Note I have examined the patient, reviewed the History & Physical and in the interval since the performance of the History & Physical I have noted the following changes of clinical significance: no changes noted
[2022-07-27 07:50] LABS: Basophils # (auto) 0.04 K/uL (0-0.2); Basophils % (auto) 0.5 %; Eosinophils % (auto) 2.5 %; Hematocrit (blood only) 37.1 % (37.0-47.0); Hemoglobin 12.4 g/dl (12.0-16.0); Immature Granulocytes # (auto) 0.02 K/uL (0.01-0.20); Immature Granulocytes % (auto) 0.3 %; Lymphocytes % (auto) 13.8 %; Mean Corpuscular Hemoglobin 30.7 pg (25.0-34.0); Mean Corpuscular Hgb Conc 33.4 g/dL (32.0-36.0); Mean Corpuscular Volume 91.8 fL (80.0-100.0); Mean Platelet Volume 8.9 fL (9.4-12.4); Monocytes # (auto) 0.93 K/uL (0.11-0.59); Monocytes % (auto) 11.7 %; Neutrophils # (auto) 5.69 K/uL (1.40-6.50); Neutrophils % (auto) 71.2 %; Platelet Count 279 K/uL (130-400); RDW Coefficient of Variation 13.8 % (11.5-14.5); RDW Standard Deviation 47.4 fL (36.4-46.3); Red Blood Count 4.04 M/uL (4.20-5.40); White Blood Count 7.98 K/ul (4.8-10.8)
--- NOTE | 2022-07-27 07:53 | Progress Notes ---
DATE OF SERVICE: 07/27/2022. SUBJECTIVE: An 81-year-old female admitted with recurrent posterior hip dislocation on the right ramy e, status post total hip replacement. She had a closed reduction done yesterday. She is doing well. Really not having any pain currently. She is wanting to proceed with a revision to stabilize her h ip as it has come out several times this year, now. No new complaints. OBJECTIVE: VITAL SIGNS: Temperature 36.8. Vital signs are stable. GENERAL: Shows a pleasant elderly female. She is lying in bed. She is awake, alert and oriented. EXTREMITIES: Examination of the right leg reveals her leg to be well aligned. Leg lengths were equa l. She has got no particular pain with hip motion this morning. ASSESSMENT: An 81-year-old white female status post a right total hip replacement done in 1999 and r evised in 2008, with recurrent dislocation recently. She has failed conservative measures and would like to proceed with revision hip arthroplasty. PLAN: We are going to take her to the operating room today. Yesterday, we did order the equipment i n, but the wrong equipment came in. We are going to proceed with a conversion to a constrained impla nt. The risks and benefits of this procedure have been explained and she understands. She would lik e to proceed. We are going to hopefully do that early this afternoon. All questions were answered. We will continue DVT prophylaxis including thigh-high TEDs, SCDs, and postoperative management. Job ID: [id number]
[2022-07-27 08:02] LABS: BUN Creatinine Ratio 30.7 (10-20); Calcium 8.5 mg/dl (8.6-10.3); Creatinine Clr Calc Pharmacy 63.5 ml/min; Est GFR (African American) 86.6 ml/min; Est GFR (Non-African American) 74.8 ml/min; Potassium 4.1 mmol/L (3.5-5.1)
[2022-07-27] MEDS: CALCIUM CARBONATE 1250MG TAB PO SCH (09:09)
[2022-07-27] MEDS: DOXYCYCLINE HYCLATE 100 MG CAP PO SCH ×2 (09:10→21:36)
[2022-07-27] MEDS: ESCITALOPRAM OXALATE 10 MG TAB PO SCH (09:10)
[2022-07-27] MEDS: UMECLIDINIUM/VILANTEROL 62.5/25MCG 7 PUFFS/INHALER INH SCH (09:10)
[2022-07-27] MEDS: MULTIVITAMIN TAB PO SCH (09:10)
[2022-07-27] MEDS: DOCUSATE SODIUM 100 MG CAP PO SCH ×2 (09:10→21:34)
[2022-07-27] MEDS: ASPIRIN 81 MG ECTAB PO SCH ×2 (09:10→21:33)
[2022-07-27] MEDS: CHOLECALCIFEROL 1,000 UNITS 25 MCG TAB PO SCH (09:10)
[2022-07-27] MEDS: TRIAMCINOLONE ACET 0.5% CR 15 GM TUBE EXT SCH ×3 (09:13→21:36)
[2022-07-27] MEDS: EUCERIN CR 120 GM JAR EXT SCH ×3 (09:14→21:36)
[2022-07-27] MEDS ORDERED: ePHEDrine sulfate 50 MG/ML AMP IV PRN (13:03)
[2022-07-27] MEDS ORDERED: ONDANSETRON INJ 2 MG/ML 2 ML VIAL IV PRN ×2 (13:03→16:37)
[2022-07-27] MEDS ORDERED: MIDAZOLAM HCL 1 MG/ML 2ML VIAL ONE (13:03)
[2022-07-27] MEDS ORDERED: fentaNYL citrate PF 100 MCG/2 ML VIAL ONE (13:03)
[2022-07-27] MEDS ORDERED: ATROPINE SULFATE 0.1 MG/ML 10ML SYR IV PRN (13:03)
--- NOTE | 2022-07-27 13:03 | Anesthesiology Consultation ---
Date of Service July 27, 2022 Assessment & Plan Chart Review Chart Review: Acceptable Risk for Surgery Consults Requested none ASA ASA3 Proposed Anesthesia Anesthesia Type: MAC Spinal History Surgery Operation Date: 07/26/22 07:50 Proposed Procedures p Right Total Hip Arthroplasty Revision - Edgar Grubbs MD Operation Date: 07/27/22 13:15 Proposed Procedures p Right Total Hip Revision - Edgar Grubbs MD Height/Weight Height: 5 ft 6 in Weight: 82 kg Allergies Allergy/AdvReac Type Severity Reaction Status Date / Time No Known Drug Allergies Allergy NKDA Verified 07/23/22 21:07 Medications Home Medications Medication Instructions Recorded Confirmed Last Taken aspirin 81 mg tablet,delayed 81 mg PO DAILY #30 tabs 12/11/18 07/23/22 Unknown release calcium carbonate 600 mg calcium 600 mg PO DAILY 12/11/18 07/23/22 Unknown (1,500 mg) tablet cholecalciferol (vitamin D3) 50 2,000 units PO DAILY #90 caps 12/11/18 07/23/22 Unknown mcg (2,000 unit) capsule albuterol sulfate 90 mcg/actuation 2 puff inhalation Q6H PRN 08/30/21 07/23/22 Unknown aerosol inhaler shortness of breath or wheezing #18 grams escitalopram oxalate 10 mg tablet 10 mg PO DAILY #90 tabs 10/26/21 07/23/22 Unknown gabapentin 300 mg capsule 300 mg PO HS #90 caps 11/01/21 07/23/22 Unknown lorazepam 1 mg tablet 1.5 mg PO HS PRN sleep #45 tabs 03/19/22 07/23/22 Unknown levothyroxine 50 mcg tablet 50 mcg PO DAILY #90 tabs 06/12/22 07/23/22 Unknown acetaminophen 500 mg tablet 1,000 mg PO Q4H PRN hip pain 06/28/22 07/23/22 Unknown (Tylenol Extra Strength) docusate sodium 50 mg capsule 100 mg PO HS 06/28/22 07/23/22 Unknown (Stool Softener) glycopyrrolate 9 mcg-formoterol 2 puff inhalation BID #10.7 grams 07/09/22 07/23/22 Unknown 4.8 mcg HFA aerosol inhaler (Bevespi Aerosphere) celecoxib 100 mg capsule (Celebrex) 100 mg PO BID PRN pain #30 caps 07/16/22 07/23/22 Unknown tramadol 50 mg tablet 50 mg PO TID PRN pain #42 tabs 07/16/22 07/23/22 Unknown Active Medications Generic Name Dose Route Start Last Admin Trade Name Nasreen PRN Reason Stop Dose Admin Acetaminophen 1,000 mg 07/23/22 23:50 07/25/22 16:01 Acetaminophen 500 Mg Tab PO 08/22/22 23:49 1,000 mg Q4H PRN Administration hip pain Albuterol 1 puffs 07/26/22 07:00 07/27/22 11:25 Albuterol Hfa 8 Gm Inhaler INH 08/25/22 06:59 1 puffs QIDR ELENITA Administration Aspirin 81 mg 07/24/22 09:00 07/27/22 09:10 Aspirin 81 Mg Ectab PO 08/23/22 08:59 Not Given DAILY ELENITA Calcium Carbonate 1,250 mg 07/24/22 09:00 07/27/22 09:09 Calcium Carbonate 1250mg Tab PO 08/23/22 08:59 1,250 mg DAILY ELENITA Administration Docusate Sodium 100 mg 07/26/22 21:00 07/27/22 09:10 Docusate Sodium 100 Mg Cap PO 08/25/22 20:59 100 mg BID ELENITA Administration Doxycycline Hyclate 100 mg 07/24/22 21:00 07/27/22 09:10 Doxycycline Hyclate 100 Mg Cap PO 07/31/22 20:59 100 mg BID ELENITA Administration Escitalopram Oxalate 10 mg 07/24/22 09:00 07/27/22 09:10 Escitalopram Oxalate 10 Mg Tab PO 08/23/22 08:59 10 mg DAILY ELENITA Administration Gabapentin 300 mg 07/24/22 21:00 07/26/22 21:13 Gabapentin 300 Mg Cap PO 08/23/22 20:59 300 mg HS ELENITA Administration Guaifenesin 100 mg 07/24/22 17:45 07/27/22 10:18 Guaifenesin Sugar Free 100 Mg/5 Ml Udc PO 08/23/22 17:44 100 mg Q6H EELNITA Administration Ipratropium Delphi 1 puffs 07/26/22 07:00 07/27/22 11:26 Ipratropium Delphi Hfa Inhaler INH 08/25/22 06:59 1 puffs QIDR ELENITA Administration Levothyroxine Sodium 50 mcg 07/24/22 06:30 07/27/22 06:28 Levothyroxine Sodium 50 Mcg Tablet PO 08/23/22 06:29 50 mcg DAILYBB ELENITA Administration Lorazepam 1.5 mg 07/23/22 23:50 07/26/22 21:11 Lorazepam 0.5 Mg Tab PO 08/22/22 23:49 1.5 mg HS PRN Administration sleep Multi-Ingredient Cream 1 appln 07/24/22 21:00 07/27/22 09:14 Eucerin Cr 120 Gm Jar EXT 08/23/22 20:59 1 appln TID ELENITA Administration Multivitamins 1 tab 07/27/22 09:00 07/27/22 09:10 Multivitamin Tab PO 08/26/22 08:59 1 tab QAM ELENITA Administration Sennosides 17.2 mg 07/26/22 21:00 07/26/22 21:13 Senna 8.6 Mg Tab PO 08/25/22 20:59 17.2 mg HS ELENITA Administration Tramadol HCl 50 mg 07/23/22 23:50 07/26/22 05:27 Tramadol Hcl 50 Mg Tablet PO 08/22/22 23:49 50 mg TID PRN Administration Moderate Pain (Scale 4, 5, 6) Triamcinolone Acetonide 1 appln 07/24/22 21:00 07/27/22 09:13 Triamcinolone Acet 0.5% Cr 15 Gm Tube EXT 08/23/22 20:59 1 appln TID ELENITA Administration Umeclidinium/Vilanterol 1 puffs 07/23/22 23:50 07/27/22 09:10 Umeclidinium/Vilanterol 62.5/25mcg 7 Puffs/Inhaler INH 08/22/22 23:49 1 puffs DAILY ELENITA Administration Vitamin D 2,000 units 07/24/22 09:00 07/27/22 09:10 Cholecalciferol 1,000 Units 25 Mcg Tab PO 08/23/22 08:59 2,000 units DAILY ELENITA Administration NPO Date Last Intake of Fluids: 07/26/22 Time Last Intake of Fluids: 18:00 Last Intake of Fluids Comment: sip of water with meds today Date Last Intake of Solids: 07/26/22 Time Last Intake of Solids: 18:00 Past Medical History Medical History Allergic rhinitis Anxiety Carpal tunnel syndrome, right Chronic pruritus COPD (chronic obstructive pulmonary disease) Degenerative joint disease of left hip Dyslipidemia Hypothyroidism Impaired fasting glucose Lichen planus Osteoarthritis of left shoulder Osteopenia Sensorineural hearing loss of both ears Spastic dysphonia mild CP Stress incontinence in female Ulnar neuropathy at elbow of right upper extremity Vitamin D deficiency Exercise / Class Metabolic Activity II 4-5 Yardwork/Stairs/Walk up hill Past Family History Family History Sister Breast cancer Denies family history of Ovarian cancer Prostate cancer Myocardial infarction Colorectal cancer Past Surgical History Surgical History History of appendectomy History of cholecystectomy History of shoulder replacement History of total abdominal hysterectomy and bilateral salpingo-oophorectomy History of total hip replacement Social History Smoking Status: Former smoker tobacco type: cigarettes Smoking cigarettes per day: 40 Do You Dip or Chew Tobacco: No Smoking End Date: 1999 Hx Alcohol Use: No Hx Substance Use: No substance use type: does not use Review of Systems ROS Unobtainable: All systems reviewed & are unremarkable except as noted in HPI & below Physical Exam Vital Signs Last Vital Signs Temp 37.0 C 07/27/22 12:49 Pulse 73 07/27/22 12:49 Resp 20 07/27/22 12:49 BP 96/50 L 07/27/22 12:49 Pulse Ox 93 07/27/22 12:49 O2 Del Method Nasal Cannula 07/27/22 12:49 O2 Flow Rate 2 07/27/22 12:49 ENMT Thyromental Distance: > or= 3.5 Finger Breadths Mallampati Class: II Respiratory normal respiratory effort Auscultation: lungs clear to auscultation bilaterally Cardiovascular Rate/Rhythm: regular rate and regular rhythm Psychiatric Orientation: alert and oriented x 3 Testing Laboratory Results 07/27/22 07:12 07/27/22 07:12 PT 11.4 Seconds (9.0-12.0) 07/26/22 06:32 INR 1.0 (0.9-1.1) 07/26/22 06:32 Urine Color Yellow 07/23/22 Unknown Urine Appearance Clear (Clear) 07/23/22 Unknown Urine pH 6.5 (4.5-7.5) 07/23/22 Unknown Ur Specific [place] 1.021 (1.000-1.030) 07/23/22 Unknown Urine Protein 1+ (Negative) H 07/23/22 Unknown Urine Glucose (UA) Negative (Negative) 07/23/22 Unknown Urine Ketones Negative (Negative) 07/23/22 Unknown Urine Nitrite Negative (Negative) 07/23/22 Unknown Ur Leukocyte Esterase Negative (Negative) 07/23/22 Unknown Urine WBC (Auto) 5-10 /hpf (0-5) H 07/23/22 Unknown Urine RBC (Auto) >30 /hpf (0-4) H 07/23/22 Unknown U Hyaline Cast (Auto) 5-10 /lpf (0-5) H 07/23/22 Unknown U Epithel Cells (Auto) 5-10 /lpf (0-5) H 07/23/22 Unknown Urine Bacteria (Auto) Negative (Negative) 07/23/22 Unknown Blood Type A Positive 07/25/22 20:06 Antibody Screen NEGATIVE 07/25/22 20:06
[2022-07-27] MEDS ORDERED: BUPIVACAINE/EPINEPHRINE 0.5% MPF 1:200,000 30 ML VIAL ONE (13:47)
[2022-07-27] MEDS ORDERED: LIDOCAINE 2% MPF LOCAL 5 ML VIAL ONE (14:05)
[2022-07-27] MEDS ORDERED: PHENYLEPHRINE 100MCG/ML 5ML SYR ONE (14:05)
[2022-07-27] MEDS ORDERED: ePHEDrine sulfate 50 MG/ML SYR ONE (14:05)
[2022-07-27] MEDS ORDERED: PROPOFOL IV EMULSION 10 MG/ML 20 ML VIAL IV ONE (14:05)
--- NOTE | 2022-07-27 15:52 | Operative Report ---
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 I identified the patient and participated in the time-out.: Yes Procedure Operation Date: 07/27/22 13:15 Actual Procedures p Right Total Hip Revision(Right) - Edgar Grubbs MD Surgeon Edgar Grubbs MD [employer] Operator Jeffrey Diaz PA-C Estimated Blood Loss 100 Findings Consistent with Post-Op Diagnosis Specimens None Anesthesia Type Spinal MAC Complications none Disposition Accompanied Patient To Recovery: No Indications Patient is an 81-year-old female who is a status post right hip replacement done initially in 1999. She did pretty well from this but had revision done about [address] Rodriguez. She had no problems and that she has had several recurrent dislocation episodes. This required a closed reduction. She had 3 episodes now indicated for revision to a constrained liner. We had the surgery planned for yesterday but the inappropriate equipment was sent in and we had to reschedule. She is now indicated for the definitive procedure. Description of Procedure Operative implants consist of: 1. DePuy size 52 x 32 mm constrained acetabular liner. 2. DePuy +5/32 mm metal articular ball. The patient was taken the operating, identified, placed on the operating table supine position protectors were properly padded. IV antibiotics tried by anesthesia team. She also received 1 g tranexamic acid. The patient then placed in the left lateral decubitus position. Axillary roll was placed. Stulberg hip positioner was used for positioning. The right hip and leg were then prepped with Hibiclens and then ChloraPrep in a sterile fashion. The right leg was then draped in the sterile fashion. A posterolateral approach to the right hip was then performed a curvilinear incision using the previous incision. Sharp dissection was carried through subcutaneous tissue down to the IT band gluteal fascia the IT band gluteal fascia/longitudinally in line with skin incision. We did release some scar tissue from the back of the hip joint. I skeletonized the posterior aspect of the femur. I dislocated the hip. We remove the head. I then retracted the femur anteriorly. I spent quite a bit of time cleaning all the scar tissue and soft tissue around the edge of the acetabular cup so we could adequately visualize this. I then used a drill and a screw to remove the polyethylene liner. This took several attempts. I then assessed the implants and the implants appear to be well fixed. We elect to just place a constrained liner. The wounds irrigated extensively. The polyethylene was impacted into position. A 52 mm locking ring was then placed with the bevel superior and a +5/32 mm metal articular ball was impacted in position. Hip was then relocated. It took us some time to get the head to inserted into the constrained liner. Once this was complete locking ring was placed and secured. Hip was stable. Appeared well fixed. Attention drawn toward closing. Wounds irrigated cosigns of. Lavage solution. We did inject locally with 60 cc of half percent Marcaine with epinephrine. The posterior capsule and posterior scar in the soft tissues were then reattached to the posterior aspect of the hip through the holes in the trochanter with #2 Tycron suture. The IT band gluteal fascia then closed in 1 PDS suture running fashion the subcutaneous tissue then closed in 2 layers the deep layer #1 Vicryl suture subcutaneous tissues with 2-0 Dexon suture in a buried interrupted fashion the skin was closed skin spring. Leg was then cleaned and dried and sterile dressed with Xeroform, 4 fours, ABD pad and foam tape was applied. The patient and transferred to the recovery in stable condition. Patient tolerated procedure well and there were no complications. Jeffrey Diaz, my physician dental hygiene administrative assistant, was present for the entire procedure. His assistance was essential and required for appropriate patient positioning, prepping and draping, surgical exposure, performing the technical details of the operation, placement the implants, closure of the wound, and placement of the sterile bandage. I attest to the content of the Intraoperative Record and any orders documented therein. Any exceptions are noted below.
--- NOTE | 2022-07-27 16:13 | Anesthesiology Progress Note ---
Date of Service July 27, 2022 Anesthesia Post Procedure Vital Signs Vital Signs: Temp Pulse Pulse Pulse Resp BP BP 07/27/22 16:05 72 22 111/69 07/27/22 15:55 72 22 101/54 L 07/27/22 15:45 36.4 C L 67 16 128/63 07/27/22 12:49 37.0 C 73 20 96/50 L 07/27/22 11:30 36.5 C 82 18 109/54 L 07/27/22 11:26 83 17 07/27/22 07:00 65 07/27/22 09:52 07/27/22 09:20 07/27/22 09:19 07/27/22 07:47 36.7 C 70 18 108/69 07/27/22 07:21 82 17 07/27/22 00:00 78 07/26/22 21:00 07/27/22 02:55 36.8 C 77 18 101/56 L 07/26/22 22:26 36.9 C 77 18 92/57 L 07/26/22 19:00 36.8 C 82 18 113/67 07/26/22 19:19 80 18 Pulse Ox O2 Del Method O2 Flow Rate 07/27/22 16:05 96 Nasal Cannula 3 07/27/22 15:55 99 Oxymask 5 07/27/22 15:45 100 Oxymask 9 07/27/22 12:49 93 Nasal Cannula 2 07/27/22 11:30 93 Nasal Cannula 2 07/27/22 11:26 96 Nasal Cannula 2 07/27/22 07:00 07/27/22 09:52 Nasal Cannula 2 07/27/22 09:20 92 Nasal Cannula 2 07/27/22 09:19 79 L Room Air 07/27/22 07:47 91 Nasal Cannula 2 07/27/22 07:21 94 Nasal Cannula 2 07/27/22 00:00 07/26/22 21:00 Nasal Cannula 2 07/27/22 02:55 92 Nasal Cannula 1.5 07/26/22 22:26 92 Nasal Cannula 1.5 07/26/22 19:00 92 Nasal Cannula 1.5 07/26/22 19:19 91 Nasal Cannula 2 Pain Intensity Right Hip: Pain Intensity: 10 Transfer of Care Handoff Completed per policy Notes Mental Status: alert / awake / arousable and participated in evaluation Patient Amnestic to Procedure: Yes Nausea / Vomiting: adequately controlled Pain: adequately controlled Airway Patency, RR, SpO2: stable & adequate BP & HR: stable & adequate Hydration State: stable & adequate Neuraxial Anesthesia: was administered and sensory block is resolving Anesthetic Complications: no major complications apparent and Pt Satisfied with anesthetic care
--- NOTE | 2022-07-27 16:28 | XRay Report ---
AP PELVIS, CROSSTABLE LATERAL RIGHT HIP History: Right total hip arthroplasty. Degenerative arthritis. Postop. FINDINGS: The patient is status post replacement of a right total hip arthroplasty. The hardware is i ntact. No fracture or dislocation. Skin spring are in place. Evidence for prior left total hip arthr oplasty. IMPRESSION: Right total hip arthroplasty. No evidence for hardware complication ACT 112: Negative or not required by law. Electronically signed by: Chandana Yin M.D. 07/27/2022 4:26 PM
[2022-07-27] MEDS ORDERED: ALUMINUM/MAGNESIUM SUSP 30 ML UDC PO PRN (16:37)
[2022-07-27] MEDS ORDERED: MAGNESIUM HYDROXIDE SUSP 30 ML UDC PO PRN (16:37)
[2022-07-27] MEDS ORDERED: traMADol HCL 50 MG TABLET PO PRN (16:37)
[2022-07-27] MEDS ORDERED: HYDROmorphone INJ 0.5 MG/0.5 ML SYR IV PRN (16:37)
[2022-07-27] MEDS ORDERED: bisacodyL 10 MG SUPP PR PRN (16:37)
[2022-07-27] MEDS ORDERED: NALOXONE HCL 0.4 MG/1 ML VIAL/CARP IV PRN (16:37)
[2022-07-27] MEDS ORDERED: METOCLOPRAMIDE HCL INJ 5 MG/ML 2 ML VIAL IV PRN (16:37)
[2022-07-27] MEDS: ASCORBIC ACID 500 MG TAB PO SCH (16:46)
--- NOTE | 2022-07-27 19:29 | Hospitalist Progress Note ---
Date of Service July 27, 2022 Assessment & Plan (1) Closed dislocation of right hip: Plan: present on admission --> s/p reduction of dislocated right total hip arthroplasty by ER attending at time of presentation. unfortunately had recurrence of same 07/25. 07/26 - reduced again in OR. 07/27 - today - s/p revision of R THR by Dr Grubbs. appreciate his assistance. EBL - 100cc. check cbc/bmp in am. DVT proph - asa 81mg bid. (2) Hypothyroidism: Plan: TSH 11/2021 wnl cont synthroid (3) COPD (chronic obstructive pulmonary disease): Plan: long-time prior smoker emphysema seen on CT chest 07/24 along with findings suggestive of pulmonary fibrosis (see below) cont home inhalers cont doxycycline as precautionary measure (some ? LLL infiltrate on CT but her clinical picture not c/w pneumonia) day #3 of 7 of doxy (4) Anxiety: Plan: cont SSRI (5) Allergic rhinitis: (6) Dyslipidemia: (7) Vitamin D deficiency: Plan: 25-OH vit D level in 11/2021 was wnl (8) Pulmonary edema: Plan: doubt CHF/pulm edema recent CT chest most c/w COPD with PF lasix stopped (9) Pulmonary fibrosis determined by high resolution computed tomography: Plan: CT chest shows findings concerning for PF if present this is likely from her prior smoking she does not follow with pulmonary would benefit from consultation with pulmonary as outpatient for PFTs and routine care they can make final call about whether there is truly pulmonary fibrosis but, again, CT chest highly suggestive of such COPD/suspected PF likely cause of ongoing dyspnea at home over the last few months will need 2-step ambulatory O2 test at discharge cont inhalers & doxycycline - day #3 of such complete 7 days of doxy patient tolerated her surgery well today (10) Hyponatremia: Plan: 2nd diuresis no further lasix repeat BMP today stable (11) DVT prophylaxis: Plan: asa 81mg BID Plan updated pt's daughter by phone this evening questions answered pt's daughter reports that patient has had memory loss for some time at home will refer to neurology post-d/c for neurocognitive evaluation, etc PT, OT labs AM appreciate Dr Grubbs's assistance Admission and Anticipated Discharge Date Admission Date: July 23, 2022 Subjective saw patient post-op from her R THR revision she was resting comfortably in bed denied pain in the R hip no dyspnea no orthopnea no chest pain tele stable overnight able to eat w/o N/V at dinner tonight Review of Systems Review of Systems: gen - no fevers cv - no chest pain pulm - mild cough - no change from baseline cough GI - no pain Physical Exam Physical Exam: gen - NAD, comfortable, pleasant, lying in bed flat HENT - voice with dysphonia; MMM neck - no JVD heart - RRR, s1 s2, no murmur lungs - decreased BS bases, mild bibasilar rales (fine, dry) abd - soft NT ND BS+ ext - no peripheral edema, pulses 2+ b/l neuro - dysphonic voice musculo - right hip dressings in place; post-op adductor pillow in place Results & Data Results & Data Vital Signs (Past 12 Hours) Vital Signs Temp Pulse Pulse Resp BP BP Pulse Ox 07/27/22 18:28 36.3 C L 75 18 113/50 L 92 07/27/22 17:16 36.5 C 83 18 114/63 92 07/27/22 16:54 36.5 C 83 18 102/62 92 07/27/22 16:39 37.1 C 74 18 91/48 L 92 07/27/22 16:25 78 20 97/47 L 95 07/27/22 16:15 36.8 C 74 17 100/48 L 95 07/27/22 16:05 72 22 111/69 96 07/27/22 15:55 72 22 101/54 L 99 07/27/22 15:45 36.4 C L 67 16 128/63 100 07/27/22 12:49 37.0 C 73 20 96/50 L 93 07/27/22 11:30 36.5 C 82 18 109/54 L 93 07/27/22 11:26 83 17 96 07/27/22 09:52 07/27/22 09:20 92 07/27/22 09:19 79 L 07/27/22 07:47 36.7 C 70 18 108/69 91 O2 Del Method O2 Flow Rate 07/27/22 18:28 Nasal Cannula 2 07/27/22 17:16 Nasal Cannula 2 07/27/22 16:54 Nasal Cannula 2 07/27/22 16:39 Nasal Cannula 2 04/28/23 16:25 Nasal Cannula 3 07/27/22 16:15 Nasal Cannula 3 07/27/22 16:05 Nasal Cannula 3 07/27/22 15:55 Oxymask 5 07/27/22 15:45 Oxymask 9 07/27/22 12:49 Nasal Cannula 2 07/27/22 11:30 Nasal Cannula 2 07/27/22 11:26 Nasal Cannula 2 07/27/22 09:52 Nasal Cannula 2 07/27/22 09:20 Nasal Cannula 2 07/27/22 09:19 Room Air 07/27/22 07:47 Nasal Cannula 2 Laboratory Results Laboratory Results - last 48 hr 07/26/22 07/27/22 07/27/22 06:32 07:12 07:12 WBC 7.98 RBC 4.04 L Hgb 12.4 Hct 37.1 MCV 91.8 MCH 30.7 MCHC 33.4 RDW Std Deviation 47.4 H RDW Coeff of Gregoria 13.8 Plt Count 279 MPV 8.9 L Immature Gran % (Auto) 0.3 Neut % (Auto) 71.2 Lymph % (Auto) 13.8 [place] % (Auto) 11.7 Eos % (Auto) 2.5 Baso % (Auto) 0.5 Neut # (Auto) 5.69 Lymph # (Auto) 1.10 L [place] # (Auto) 0.93 H Eos # (Auto) 0.20 Baso # (Auto) 0.04 Immature Gran # (Auto) 0.02 Sodium 134 L Potassium 4.1 Chloride 99 Carbon Dioxide 27 Anion Gap 8 BUN 23 Creatinine 0.75 Est Cr Clr Drug Dosing 63.5 Est GFR ( Amer) 86.6 Est GFR (Non-Af Amer) 74.8 BUN/Creatinine Ratio 30.7 H Glucose 89 Calcium 8.5 L Blood Type Recheck A Positive PG Care Time/CCT Total # of Minutes Spent Total Time Spent with Patient: Total time spent is greater than 50% in coordination of care (as documented) at patient's floor/unit and/or counseling patient: Coding Level of Care Code 24213 SUB INP/OBS CARE 2/35MIN Diagnoses Closed dislocation of right hip S73.004A Encounter type: initial encounter Hypothyroidism E03.9 COPD (chronic obstructive pulmonary disease) J44.9 COPD type: unspecified COPD Anxiety F41.9 Allergic rhinitis J30.9 Dyslipidemia E78.5 Vitamin D deficiency E55.9 Pulmonary edema J81.0 Chronicity: acute Pulmonary fibrosis determined by high resolution computed tomography J84.10 Hyponatremia E87.1 DVT prophylaxis Z29.9 (1) Closed dislocation of right hip Encounter type: initial encounter Qualified Code(s): S73.004A - Unspecified dislocation of right hip, initial encounter (3) COPD (chronic obstructive pulmonary disease) COPD type: unspecified COPD Qualified Code(s): J44.9 - Chronic obstructive pulmonary disease, unspecified (8) Pulmonary edema Chronicity: acute Qualified Code(s): J81.0 - Acute pulmonary edema
[2022-07-27] MEDS ORDERED: SENNA 8.6 MG TAB PO SCH (21:00)
[2022-07-27] MEDS ORDERED: DOCUSATE SODIUM 100 MG CAP PO SCH (21:00)
[2022-07-27] MEDS: SENNA 8.6 MG TAB PO SCH (21:34)
[2022-07-27] MEDS: GABAPENTIN 300 MG CAP PO SCH (21:37)
[2022-07-27] MEDS: ACETAMINOPHEN 500 MG TAB PO SCH (21:42)
[2022-07-27] MEDS: ceFAZolin 2000MG 2,000 MG/15 ML SYR IV SCH (21:58)
[2022-07-27] MEDS: LORazepam 0.5 MG TAB PO PRN (22:04)
[2022-07-28] MEDS: SODIUM CHLORIDE 0.9% 1000ML 1,000 ML IV SCH (01:51)
[2022-07-28] MEDS: guaiFENesin SUGAR FREE 100 MG/5 ML UDC PO SCH ×4 (05:40→23:34)
[2022-07-28] MEDS: ceFAZolin 2000MG 2,000 MG/15 ML SYR IV SCH (05:41)
[2022-07-28] MEDS: ACETAMINOPHEN 500 MG TAB PO SCH ×3 (05:42→21:28)
[2022-07-28] MEDS: LEVOTHYROXINE SODIUM 50 MCG TABLET PO SCH (05:43)
[2022-07-28 07:13] LABS: Calcium 7.8 mg/dl (8.6-10.3); Creatinine Clr Calc Pharmacy 80.7 ml/min; Est GFR (African American) 99.1 ml/min; Est GFR (Non-African American) 85.5 ml/min
[2022-07-28] MEDS: MULTIVITAMIN TAB PO SCH ×2 (07:21→08:02)
[2022-07-28] MEDS: CALCIUM CARBONATE 1250MG TAB PO SCH (07:21)
[2022-07-28] MEDS: DOCUSATE SODIUM 100 MG CAP PO SCH ×2 (07:21→21:29)
[2022-07-28] MEDS: ESCITALOPRAM OXALATE 10 MG TAB PO SCH (07:22)
[2022-07-28] MEDS: ASPIRIN 81 MG ECTAB PO SCH ×2 (07:22→21:28)
[2022-07-28] MEDS: CHOLECALCIFEROL 1,000 UNITS 25 MCG TAB PO SCH (07:22)
[2022-07-28] MEDS: ASCORBIC ACID 500 MG TAB PO SCH ×2 (07:23→17:44)
[2022-07-28 07:26] LABS: Basophils # (auto) 0.03 K/uL (0-0.2); Basophils % (auto) 0.4 %; Eosinophils # (auto) 0.07 K/uL (0-0.50); Eosinophils % (auto) 0.9 %; Hematocrit (blood only) 31.6 % (37.0-47.0); Hemoglobin 10.3 g/dl (12.0-16.0); Immature Granulocytes # (auto) 0.05 K/uL (0.01-0.20); Immature Granulocytes % (auto) 0.6 %; Lymphocytes # (auto) 0.51 K/uL (1.2-3.4); Lymphocytes % (auto) 6.4 %; Mean Corpuscular Hemoglobin 30.5 pg (25.0-34.0); Mean Corpuscular Hgb Conc 32.6 g/dL (32.0-36.0); Mean Corpuscular Volume 93.5 fL (80.0-100.0); Mean Platelet Volume 9.1 fL (9.4-12.4); Monocytes # (auto) 0.81 K/uL (0.11-0.59); Monocytes % (auto) 10.2 %; Neutrophils # (auto) 6.51 K/uL (1.40-6.50); Neutrophils % (auto) 81.5 %; Platelet Count 260 K/uL (130-400); RDW Coefficient of Variation 13.9 % (11.5-14.5); RDW Standard Deviation 47.1 fL (36.4-46.3); Red Blood Count 3.38 M/uL (4.20-5.40); White Blood Count 7.98 K/ul (4.8-10.8)
[2022-07-28] MEDS: EUCERIN CR 120 GM JAR EXT SCH ×3 (07:29→21:30)
[2022-07-28] MEDS: TRIAMCINOLONE ACET 0.5% CR 15 GM TUBE EXT SCH ×3 (07:29→21:29)
[2022-07-28] MEDS: IPRATROPIUM BROMIDE HFA INHALER INH SCH ×4 (07:43→19:27)
[2022-07-28] MEDS: ALBUTEROL HFA 8 GM INHALER INH SCH ×4 (07:43→19:27)
[2022-07-28] MEDS: UMECLIDINIUM/VILANTEROL 62.5/25MCG 7 PUFFS/INHALER INH SCH (08:01)
[2022-07-28] MEDS: DOXYCYCLINE HYCLATE 100 MG CAP PO SCH ×2 (08:03→21:28)
--- NOTE | 2022-07-28 08:13 | Progress Notes ---
DATE OF SERVICE: 07/28/2022. SUBJECTIVE: An 81-year-old white female postoperative day 1 from a revision arthroplasty and convers ion to a constrained hip replacement liner. She is doing well this morning. Had a little bit of jose n overnight, but very manageable. No chest pain, no shortness of breath. Not feeling dizzy or light headed. OBJECTIVE: VITAL SIGNS: Temperature is 37.2. Vital signs are stable. GENERAL: Physical examination shows a pleasant, elderly female. She is sitting up in bed and just _ ___ her breakfast. She is awake, alert, and oriented and looks comfortable. EXTREMITIES: Examination of the right hip reveals the dressing to be clean, dry, and intact. Her le g lengths were equal. Hip is located. She is neurologically intact. LABORATORY DATA: Hemoglobin is 10.3. Hematocrit 31.6. Electrolytes are stable. ASSESSMENT: An 81-year-old white female postoperative day 1 from a conversion of a total hip replace ment to a constrained construct. She is doing well. Pain is controlled. Hip is located. She is ne urologically intact. PLAN: 1. DVT prophylaxis includes thigh-high TEDs, SCDs, and recommended a baby aspirin twice a day for 6 weeks. 2. PT/OT. She can fully weightbear as tolerated. No particular restrictions. 3. Medical management as per the medicine service. 4. Pain control. Recommended to limit pain medicine. ____ mostly Tylenol. I do not think it will be particularly painful for her. 5. Disposition: She is orthopedically okay for discharge any time medically stable. I will need to see her back two to three weeks out from surgery date. She can weight bear as tolerated. No partic ular restrictions. Job ID: [id number]
--- NOTE | 2022-07-28 17:53 | Hospitalist Progress Note ---
Date of Service July 28, 2022 Assessment & Plan (1) Closed dislocation of right hip: Plan: present on admission --> s/p reduction of dislocated right total hip arthroplasty by ER attending at time of presentation. unfortunately had recurrence of same 07/25. 07/26 - reduced again in OR. POD #1 - s/p revision of R THR by Dr Grubbs. appreciate his assistance. EBL - 100cc. DVT proph - asa 81mg bid. (2) Hypotension: Plan: likely a combination of acute blood loss anemia, diarrhea, and poor po intake today gave fluid bolus this afternoon (500cc) followed by 1 additional liter of maintenance fluids of note - appears R arm BPs are lower than L arm BPs if this trend continues consider dopplers of arms - r/o subclavian stenosis (3) Acute blood loss anemia: Plan: 2 gram drop since 24 hours ago 2nd to R hip surgery repeat CBC in am (4) Hyponatremia: Plan: 2nd diuresis earlier in the stay 133 today stable repeat BMP AM (5) Pulmonary fibrosis determined by high resolution computed tomography: Plan: CT chest shows findings concerning for PF if present this is likely from her prior smoking she does not follow with pulmonary would benefit from consultation with pulmonary as outpatient for PFTs and routine care they can make final call about whether there is truly pulmonary fibrosis but, again, CT chest highly suggestive of such COPD/suspected PF likely cause of ongoing dyspnea at home over the last few months will need 2-step ambulatory O2 test at discharge cont inhalers & doxycycline - day #4 of such complete 7 days of doxy pulmonary status remains stable (6) Hypothyroidism: Plan: TSH 11/2021 wnl cont synthroid (7) COPD (chronic obstructive pulmonary disease): Plan: long-time prior smoker emphysema seen on CT chest 07/24 along with findings suggestive of pulmonary fibrosis (see below) cont home inhalers cont doxycycline as precautionary measure (some ? LLL infiltrate on CT but her clinical picture not c/w pneumonia) day #4 of 7 of doxy remains stable on NC O2 - 2 L suspect she will need home O2 at d/c (8) Anxiety: Plan: cont SSRI (9) Allergic rhinitis: (10) Dyslipidemia: (11) Vitamin D deficiency: Plan: 25-OH vit D level in 11/2021 was wnl (12) Pulmonary edema: Plan: suspected at time of admission doubt CHF/pulm edema recent CT chest most c/w COPD with PF lasix stopped (13) Diarrhea: Plan: c diff negative likely abx-associated diarrhea supportive care (14) DVT prophylaxis: Plan: asa 81mg BID Plan updated pt's daughter by phone yesterday evening questions answered pt's daughter reported to me earlier this week that patient has had memory loss for some time at home will refer to neurology post-d/c for neurocognitive evaluation, etc cont PT, OT WBAT labs AM once again appreciate Dr Grubbs's assistance likely to need rehab post-discharge Admission and Anticipated Discharge Date Admission Date: July 23, 2022 Subjective patient was sitting in chair during the visit resting comfortably minimal R hip pain ate fair today - only 25% at each meal having multiple loose stools - c diff negative no abd pain or N/V, however tele overnight wnl denies significant cough denies dyspnea Review of Systems Review of Systems: gen - no fever cv - no chest pain pulm - no wheezing; mild cough only GI - loose stools Physical Exam Physical Exam: gen - NAD, comfortable, sitting in chair HENT - voice with dysphonia; MMM neck - no JVD heart - RRR, s1 s2, no murmur lungs - decreased BS bases, less rales today, no wheezes abd - soft NT ND BS+ ext - no peripheral edema, pulses 2+ b/l neuro - dysphonic voice musculo - right hip dressings in place Results & Data Results & Data Vital Signs (Past 12 Hours) Vital Signs Temp Pulse Pulse Pulse Resp BP BP 07/28/22 15:26 75 18 07/28/22 14:06 77 07/28/22 06:01 82 07/28/22 14:42 36.7 C 82 18 86/44 L 07/28/22 13:18 07/28/22 11:53 07/28/22 11:31 36.3 C L 88 18 100/55 L 07/28/22 11:29 77 18 07/28/22 08:00 07/28/22 09:29 07/28/22 09:00 07/28/22 09:04 07/28/22 09:00 07/28/22 07:46 77 16 07/28/22 07:39 37.2 C 75 18 89/47 L 94/57 L Pulse Ox Pulse Ox O2 Del Method O2 Flow Rate O2 Flow Rate 07/28/22 15:26 95 Nasal Cannula 1 07/28/22 14:06 07/28/22 06:01 07/28/22 14:42 92 Nasal Cannula 1 07/28/22 13:18 94 1 07/28/22 11:53 94 07/28/22 11:31 91 Nasal Cannula 1 07/28/22 11:29 90 Room Air 07/28/22 08:00 Nasal Cannula 07/28/22 09:29 89 L Nasal Cannula 1 07/28/22 09:00 90 Nasal Cannula 0.5 07/28/22 09:04 92 Nasal Cannula 1 07/28/22 09:00 85 L Room Air 07/28/22 07:46 95 Nasal Cannula 1 07/28/22 07:39 93 Nasal Cannula 2 Laboratory Results Laboratory Results - last 24 hr 07/28/22 07/28/22 07/28/22 06:13 06:13 11:00 WBC 7.98 RBC 3.38 L Hgb 10.3 L Hct 31.6 L MCV 93.5 MCH 30.5 MCHC 32.6 RDW Std Deviation 47.1 H RDW Coeff of Gregoria 13.9 Plt Count 260 MPV 9.1 L Immature Gran % (Auto) 0.6 Neut % (Auto) 81.5 Lymph % (Auto) 6.4 [place] % (Auto) 10.2 Eos % (Auto) 0.9 Baso % (Auto) 0.4 Neut # (Auto) 6.51 H Lymph # (Auto) 0.51 L [place] # (Auto) 0.81 H Eos # (Auto) 0.07 Baso # (Auto) 0.03 Immature Gran # (Auto) 0.05 Sodium 133 L Potassium 4.0 Chloride 102 Carbon Dioxide 24 Anion Gap 7 BUN 15 Creatinine 0.60 Est Cr Clr Drug Dosing 80.7 Est GFR ( Amer) 99.1 Est GFR (Non-Af Amer) 85.5 BUN/Creatinine Ratio 25.0 H Glucose 101 H Calcium 7.8 L Stl C. diff Tox B Gene Negative Cdiff Gene PG Care Time/CCT Total # of Minutes Spent Total Time Spent with Patient: Total time spent is greater than 50% in coordination of care (as documented) at patient's floor/unit and/or counseling patient: Coding Level of Care Code 39468 SUB INP/OBS CARE 3/50MIN Diagnoses Closed dislocation of right hip S73.004A Encounter type: initial encounter Hypotension I95.9 Acute blood loss anemia D62 Hyponatremia E87.1 Pulmonary fibrosis determined by high resolution computed tomography J84.10 Hypothyroidism E03.9 COPD (chronic obstructive pulmonary disease) J44.9 COPD type: unspecified COPD Anxiety F41.9 Allergic rhinitis J30.9 Dyslipidemia E78.5 Vitamin D deficiency E55.9 Pulmonary edema J81.0 Chronicity: acute Diarrhea R19.7 DVT prophylaxis Z29.9 (1) Closed dislocation of right hip Encounter type: initial encounter Qualified Code(s): S73.004A - Unspecified dislocation of right hip, initial encounter (7) COPD (chronic obstructive pulmonary disease) COPD type: unspecified COPD Qualified Code(s): J44.9 - Chronic obstructive pulmonary disease, unspecified (12) Pulmonary edema Chronicity: acute Qualified Code(s): J81.0 - Acute pulmonary edema
[2022-07-28] MEDS ORDERED: SODIUM CHLORIDE 0.9% 1000ML 500 ML IV ONE (17:59)
[2022-07-28] MEDS ORDERED: SODIUM CHLORIDE 0.9% 1000ML 1,000 ML IV SCH (18:00)
[2022-07-28] MEDS: GABAPENTIN 300 MG CAP PO SCH (21:28)
[2022-07-28] MEDS: SENNA 8.6 MG TAB PO SCH (21:29)
[2022-07-29] MEDS: LEVOTHYROXINE SODIUM 50 MCG TABLET PO SCH (05:32)
[2022-07-29] MEDS: ACETAMINOPHEN 500 MG TAB PO SCH ×3 (05:32→20:33)
[2022-07-29] MEDS: guaiFENesin SUGAR FREE 100 MG/5 ML UDC PO SCH ×4 (05:32→22:51)
[2022-07-29 06:25] LABS: Hematocrit (blood only) 30.1 % (37.0-47.0); Mean Corpuscular Hemoglobin 30.8 pg (25.0-34.0); Mean Corpuscular Hgb Conc 33.2 g/dL (32.0-36.0); Mean Corpuscular Volume 92.6 fL (80.0-100.0); Mean Platelet Volume 9.1 fL (9.4-12.4); Platelet Count 264 K/uL (130-400); RDW Coefficient of Variation 13.9 % (11.5-14.5); RDW Standard Deviation 47.4 fL (36.4-46.3); Red Blood Count 3.25 M/uL (4.20-5.40); White Blood Count 8.59 K/ul (4.8-10.8)
[2022-07-29 06:56] LABS: BUN Creatinine Ratio 18.3 (10-20); Calcium 7.7 mg/dl (8.6-10.3); Creatinine Clr Calc Pharmacy 79.8 ml/min; Est GFR (African American) 99.1 ml/min; Est GFR (Non-African American) 85.5 ml/min; Potassium 3.8 mmol/L (3.5-5.1)
[2022-07-29] MEDS: IPRATROPIUM BROMIDE HFA INHALER INH SCH ×4 (07:10→20:50)
[2022-07-29] MEDS: ALBUTEROL HFA 8 GM INHALER INH SCH ×4 (07:11→20:50)
[2022-07-29] MEDS: DOXYCYCLINE HYCLATE 100 MG CAP PO SCH ×2 (08:46→20:35)
[2022-07-29] MEDS: ASPIRIN 81 MG ECTAB PO SCH ×2 (08:46→20:34)
[2022-07-29] MEDS: ESCITALOPRAM OXALATE 10 MG TAB PO SCH (08:47)
[2022-07-29] MEDS: CHOLECALCIFEROL 1,000 UNITS 25 MCG TAB PO SCH (08:47)
[2022-07-29] MEDS: UMECLIDINIUM/VILANTEROL 62.5/25MCG 7 PUFFS/INHALER INH SCH (08:47)
[2022-07-29] MEDS: CALCIUM CARBONATE 1250MG TAB PO SCH (08:47)
[2022-07-29] MEDS: ASCORBIC ACID 500 MG TAB PO SCH ×2 (08:47→17:33)
[2022-07-29] MEDS: DOCUSATE SODIUM 100 MG CAP PO SCH ×2 (08:47→20:33)
[2022-07-29] MEDS: MULTIVITAMIN TAB PO SCH ×2 (08:47)
[2022-07-29] MEDS: EUCERIN CR 120 GM JAR EXT SCH ×3 (08:48→20:32)
[2022-07-29] MEDS: TRIAMCINOLONE ACET 0.5% CR 15 GM TUBE EXT SCH ×3 (08:48→20:33)
--- NOTE | 2022-07-29 15:08 | Progress Notes ---
DATE OF SERVICE: 07/29/2022. SUBJECTIVE: An 81-year-old white female postoperative day 2 from a left revision hip replacement to a constrained liner. She is doing pretty well. Denies much in the way of pain today. No chest pain or shortness of breath. Not feeling dizzy or lightheaded. OBJECTIVE: VITAL SIGNS: Temperature 36.5. Vital signs are stable. GENERAL: Shows a pleasant, elderly female. She is lying in bed, looks pretty comfortable. EXTREMITIES: Examination of the ____ hip reveals the incision to be well approximated. There is no drainage. Minimal swelling. Leg lengths were equal. Hip is located. She is neurologically intact. LABORATORY DATA: Hemoglobin 10.0. Hematocrit 30.1. Electrolytes are stable. ASSESSMENT: An 81-year-old white female postoperative day 2 from conversion of a total hip to a cons trained liner. She is doing well. Hip is located. She is neurologically intact. Pain is controlle d. PLAN: 1. DVT prophylaxis includes thigh-high TEDs, SCDs, and aspirin twice a day. 2. PT/OT. She can fully weightbear as tolerated. She is to obey hip precautions. 3. Pain control, doing okay with current pain regimen. 4. Medical management as per the medicine service. 5. Disposition: She is okay for discharge any time medically stable. I need to see her back two to three weeks out from surgery date. Any orthopedic questions can be directed to me at [phone]. Job ID: [id number]
--- NOTE | 2022-07-29 19:49 | Hospitalist Progress Note ---
Date of Service July 29, 2022 Assessment & Plan (1) Closed dislocation of right hip: Plan: present on admission --> s/p reduction of dislocated right total hip arthroplasty by ER attending at time of presentation. unfortunately had recurrence of same 07/25. 07/26 - reduced again in OR. POD #2 - s/p revision of R THR by Dr Grubbs. appreciate his assistance. EBL - 100cc. DVT proph - asa 81mg bid. Doing well from ortho standpoing. Cont PT/OT and WBAT. (2) History of revision of total replacement of right hip joint: Plan: see #1 above (3) Hypotension: Plan: likely a combination of acute blood loss anemia, diarrhea, and poor po intake. However, even after fluid bolus + maintenance fluids yesterday, BPs still low-normal. Check a cortisol level in am tomorrow. of note - appears R arm BPs are lower than L arm BPs if this trend continues consider dopplers of arms - r/o subclavian stenosis (4) Acute blood loss anemia: Plan: 2.5 gram drop since 24 hours ago 2nd to R hip surgery H/H acceptable today (5) Hyponatremia: Plan: 2nd diuresis earlier in the stay 134 today stable repeat BMP AM (6) Pulmonary fibrosis determined by high resolution computed tomography: Plan: CT chest shows findings concerning for PF if present this is likely from her prior smoking she does not follow with pulmonary would benefit from consultation with pulmonary as outpatient for PFTs and routine care they can make final call about whether there is truly pulmonary fibrosis but, again, CT chest highly suggestive of such COPD/suspected PF likely cause of ongoing dyspnea at home over the last few months will need 2-step ambulatory O2 test at discharge cont inhalers & doxycycline - day #5 of such complete 7 days of doxy pulmonary status remains stable (7) Hypothyroidism: Plan: TSH 11/2021 wnl cont synthroid (8) COPD (chronic obstructive pulmonary disease): Plan: long-time prior smoker emphysema seen on CT chest 07/24 along with findings suggestive of pulmonary fibrosis (see below) cont home inhalers cont doxycycline as precautionary measure (some ? LLL infiltrate on CT but her clinical picture not c/w pneumonia) day #5 of 7 of doxy remains stable on NC O2 - 2 L suspect she will need home O2 at d/c (9) Anxiety: Plan: cont SSRI (10) Allergic rhinitis: (11) Dyslipidemia: (12) Vitamin D deficiency: Plan: 25-OH vit D level in 11/2021 was wnl (13) Pulmonary edema: Plan: suspected at time of admission doubt CHF/pulm edema recent CT chest most c/w COPD with PF lasix stopped (14) Diarrhea: Plan: c diff negative likely abx-associated diarrhea supportive care hold colace hold senna (15) DVT prophylaxis: Plan: asa 81mg BID Plan updated pt's daughter by phone this evening questions answered pt's daughter reported to me earlier this week that patient has had memory loss for some time at home will refer to neurology post-d/c for neurocognitive evaluation, etc cont PT, OT WBAT appreciate Dr Grubbs's assistance needs rehab post-discharge Admission and Anticipated Discharge Date Admission Date: July 23, 2022 Subjective tele overnight wnl patient worked with therapy today - needs rehab sat in chair R hip pain controlled no change in cough denies dyspnea denies orthopnea Review of Systems Review of Systems: gen - eating fair (25-50% of meals) cv - no orthopnea or chest pain pulm - no dyspnea at rest or with moving in the room GI - no abd pain; having copious stools skin - L hand dermatitis improved Physical Exam Physical Exam: gen - NAD, comfortable lying in bed HENT - voice with dysphonia; MMM neck - no JVD heart - RRR, s1 s2, no murmur lungs - decreased BS bases, mild rales bases, no wheezes abd - soft NT ND BS+ ext - no peripheral edema, pulses 2+ b/l neuro - dysphonic voice musculo - right hip dressings in place, clean skin - L hand palm dermatitis MUCH improved Results & Data Results & Data Vital Signs (Past 12 Hours) Vital Signs Temp Pulse Pulse Pulse Pulse Resp BP 07/29/22 15:52 74 18 07/29/22 14:13 75 07/29/22 15:09 36.8 C 75 18 95/59 L 07/29/22 12:25 36.5 C 77 24 07/29/22 11:25 85 18 07/29/22 08:00 BP Pulse Ox O2 Del Method O2 Flow Rate 07/29/22 15:52 94 Nasal Cannula 1 07/29/22 14:13 07/29/22 15:09 94 Nasal Cannula 2 07/29/22 12:25 109/68 97 Nasal Cannula 07/29/22 11:25 93 Nasal Cannula 1 07/29/22 08:00 Nasal Cannula 1 Laboratory Results Laboratory Results - last 24 hr 07/29/22 07/29/22 05:55 05:55 WBC 8.59 RBC 3.25 L Hgb 10.0 L Hct 30.1 L MCV 92.6 MCH 30.8 MCHC 33.2 RDW Std Deviation 47.4 H RDW Coeff of Gregoria 13.9 Plt Count 264 MPV 9.1 L Sodium 134 L Potassium 3.8 Chloride 102 Carbon Dioxide 26 Anion Gap 6 BUN 11 Creatinine 0.60 Est Cr Clr Drug Dosing 79.8 Est GFR ( Amer) 99.1 Est GFR (Non-Af Amer) 85.5 BUN/Creatinine Ratio 18.3 Glucose 101 H Calcium 7.7 L PG Care Time/CCT Total # of Minutes Spent Total Time Spent with Patient: Total time spent is greater than 50% in coordination of care (as documented) at patient's floor/unit and/or counseling patient: Coding Level of Care Code 57372 SUB INP/OBS CARE 2/35MIN Diagnoses Closed dislocation of right hip S73.004A Encounter type: initial encounter History of revision of total replacement of right hip joint Z96.641 Hypotension I95.9 Acute blood loss anemia D62 Hyponatremia E87.1 Pulmonary fibrosis determined by high resolution computed tomography J84.10 Hypothyroidism E03.9 COPD (chronic obstructive pulmonary disease) J44.9 COPD type: unspecified COPD Anxiety F41.9 Allergic rhinitis J30.9 Dyslipidemia E78.5 Vitamin D deficiency E55.9 Pulmonary edema J81.0 Chronicity: acute Diarrhea R19.7 DVT prophylaxis Z29.9 (1) Closed dislocation of right hip Encounter type: initial encounter Qualified Code(s): S73.004A - Unspecified dislocation of right hip, initial encounter (8) COPD (chronic obstructive pulmonary disease) COPD type: unspecified COPD Qualified Code(s): J44.9 - Chronic obstructive pulmonary disease, unspecified (13) Pulmonary edema Chronicity: acute Qualified Code(s): J81.0 - Acute pulmonary edema
[2022-07-29] MEDS: SENNA 8.6 MG TAB PO SCH (20:16)
[2022-07-29] MEDS: GABAPENTIN 300 MG CAP PO SCH (20:34)
[2022-07-29] MEDS: LORazepam 0.5 MG TAB PO PRN (22:51)
[2022-07-30] MEDS: guaiFENesin SUGAR FREE 100 MG/5 ML UDC PO SCH ×4 (05:14→21:09)
[2022-07-30] MEDS: LEVOTHYROXINE SODIUM 50 MCG TABLET PO SCH (05:15)
[2022-07-30] MEDS: ACETAMINOPHEN 500 MG TAB PO SCH ×3 (05:15→21:11)
[2022-07-30] MEDS: IPRATROPIUM BROMIDE HFA INHALER INH SCH ×4 (07:33→19:20)
[2022-07-30] MEDS: ALBUTEROL HFA 8 GM INHALER INH SCH ×4 (07:33→19:20)
[2022-07-30] MEDS: DOXYCYCLINE HYCLATE 100 MG CAP PO SCH ×2 (08:21→21:12)
[2022-07-30] MEDS: ASPIRIN 81 MG ECTAB PO SCH ×2 (08:21→21:12)
[2022-07-30] MEDS: ASCORBIC ACID 500 MG TAB PO SCH ×2 (08:21→16:56)
[2022-07-30] MEDS: DOCUSATE SODIUM 100 MG CAP PO SCH (08:21)
[2022-07-30] MEDS: CALCIUM CARBONATE 1250MG TAB PO SCH (08:21)
[2022-07-30] MEDS: MULTIVITAMIN TAB PO SCH ×2 (08:22→10:03)
[2022-07-30] MEDS: TRIAMCINOLONE ACET 0.5% CR 15 GM TUBE EXT SCH ×3 (08:23→21:12)
[2022-07-30] MEDS: EUCERIN CR 120 GM JAR EXT SCH ×3 (08:23→21:11)
[2022-07-30] MEDS: CHOLECALCIFEROL 1,000 UNITS 25 MCG TAB PO SCH (08:24)
[2022-07-30] MEDS: ESCITALOPRAM OXALATE 10 MG TAB PO SCH (08:25)
[2022-07-30] MEDS: UMECLIDINIUM/VILANTEROL 62.5/25MCG 7 PUFFS/INHALER INH SCH (08:28)
[2022-07-30 10:04] LABS: BUN Creatinine Ratio 17.5 (10-20); Calcium 7.9 mg/dl (8.6-10.3); Est GFR (African American) 100.8 ml/min; Est GFR (Non-African American) 86.9 ml/min; Potassium 3.8 mmol/L (3.5-5.1)
--- NOTE | 2022-07-30 16:04 | Hospitalist Progress Note ---
Date of Service July 30, 2022 Assessment & Plan (1) Closed dislocation of right hip: Plan: present on admission --> s/p reduction of dislocated right total hip arthroplasty by ER attending at time of presentation. unfortunately had recurrence of same 07/25. 4 - reduced again in OR. POD #3 - s/p revision of R THR by Dr Grubbs. appreciate his assistance. EBL - 100cc. DVT proph - asa 81mg bid. Doing well from ortho standpoint. Cont PT/OT and WBAT. Dispo - rehab at SNF post-d/c. (2) History of revision of total replacement of right hip joint: Plan: see #1 above (3) Hypotension: Plan: post-operative resolved was likely a combination of acute blood loss anemia, diarrhea, and poor po intake. Cortisol level wnl. Despite low BPs her renal function has remained stable and she is not dizzy/lightheaded/symptomatic. of note - at times it appears R arm BPs are lower than L arm BPs if this trend continues consider dopplers of arms - r/o subclavian stenosis (4) Acute blood loss anemia: Plan: 2.5 gram drop post-op 2nd to R hip surgery most recent Hb was 10 repeat H/H in am for stability (5) Hyponatremia: Plan: 135 at admission has fluctuated while here - today it is 131 check serum osm, urine osm, urine Na she did receive IV lasix hospital days #1 and #2 which transiently worsened her sodium levels repeat BMP AM (6) Hypothyroidism: Plan: TSH 11/2021 wnl cont synthroid (7) COPD (chronic obstructive pulmonary disease): Plan: long-time prior smoker emphysema seen on CT chest 07/24 along with findings suggestive of pulmonary fibrosis (see below) cont home inhalers cont doxycycline as precautionary measure (some ? LLL infiltrate on CT but her clinical picture not c/w pneumonia) day #6 of 7 of doxy remains stable on NC O2 - 2 L suspect she will need home O2 at d/c (8) Pulmonary fibrosis determined by high resolution computed tomography: Plan: CT chest shows findings concerning for PF if present this is likely from her prior smoking she does not follow with pulmonary would benefit from consultation with pulmonary as outpatient for PFTs and routine care they can make final call about whether there is truly pulmonary fibrosis but, again, CT chest highly suggestive of such COPD/suspected PF likely cause of ongoing dyspnea at home over the last few months will need 2-step ambulatory O2 test when she is in rehab cont inhalers & doxycycline - day #6 of such complete 7 days of doxy pulmonary status remains stable on 2 L NC O2 (9) Anxiety: Plan: cont SSRI (10) Allergic rhinitis: (11) Dyslipidemia: (12) Vitamin D deficiency: Plan: 25-OH vit D level in 11/2021 was wnl (level = 34) cont vit D 2000 IU daily + calcium supplementation (13) Pulmonary edema: Plan: suspected at time of admission RULED OUT -- doubt she ever had CHF/pulm edema recent CT chest most c/w COPD with PF rather than edema lasix stopped (14) Diarrhea: Plan: resolved c diff negative likely abx-associated diarrhea and/or due to stool agents hold colace hold senna (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, pitch, 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 (16) DVT prophylaxis: Plan: asa 81mg BID x 6 weeks Plan updated pt's daughter by phone yesterday evening questions answered pt's daughter reported to me last week that patient has had memory loss for some time at home will refer to neurology post-d/c for neurocognitive evaluation, etc cont PT, OT WBAT appreciate Dr Grubbs's assistance from orthopedics needs rehab post-discharge - SNF level - referrals pending Admission and Anticipated Discharge Date Admission Date: July 23, 2022 Subjective patient reports sleeping very poorly overnight she is quite tired today was able to sit in the chair for a few hours however no right hip pain mild cough, but no dyspnea or REYES eating fair - 25% of meals - she states "I always eat like this even at home" denies any new complaints tele overnight - NSR Review of Systems Review of Systems: CV - no orthopnea or chest pain pulm - no dyspnea, no sputum GI - no abd pain; diarrhea has stopped with holding bowel agents Physical Exam Physical Exam: gen - NAD, comfortable lying in bed HENT - voice with dysphonia; MMM; no thrush neck - no JVD heart - RRR, s1 s2, no murmur lungs - mild dry rales bases, no wheezes abd - soft NT ND BS+ ext - no peripheral edema, pulses 2+ b/l neuro - dysphonic voice musculo - right hip incision C/D/I with spring in place skin - L hand palm dermatitis MUCH improved; dry scale much improved Results & Data Results & Data Vital Signs (Past 12 Hours) Vital Signs Temp Pulse Pulse Resp BP Pulse Ox O2 Del Method 07/30/22 15:12 36.9 C 91 H 18 102/64 95 Nasal Cannula 07/30/22 15:32 18 96 Nasal Cannula 07/30/22 15:03 68 07/30/22 11:34 18 96 Nasal Cannula 07/30/22 10:52 36.5 C 67 18 90/53 L 96 Nasal Cannula 07/30/22 08:00 Nasal Cannula 07/30/22 07:33 71 18 95 Nasal Cannula 07/30/22 07:15 36.8 C 68 16 100/62 95 Nasal Cannula 07/30/22 07:22 69 O2 Flow Rate 07/30/22 15:12 2 07/30/22 15:32 2 07/30/22 15:03 07/30/22 11:34 2 07/30/22 10:52 2 07/30/22 08:00 2 07/30/22 07:33 2 07/30/22 07:15 2 07/30/22 07:22 Laboratory Results Laboratory Results - last 24 hr 07/30/22 07/30/22 07:02 09:15 Sodium 131 L Potassium 3.8 Chloride 100 Carbon Dioxide 28 Anion Gap 3 BUN 10 Creatinine 0.57 L Est Cr Clr Drug Dosing 84.0 Est GFR ( Amer) 100.8 Est GFR (Non-Af Amer) 86.9 BUN/Creatinine Ratio 17.5 Glucose 140 H Calcium 7.9 L Cortisol AM Sample 15.24 PG Care Time/CCT Total # of Minutes Spent Total Time Spent with Patient: Total time spent is greater than 50% in coordination of care (as documented) at patient's floor/unit and/or counseling patient: Coding Level of Care Code 53291 SUB INP/OBS CARE 235MIN Diagnoses Closed dislocation of right hip S73.004A Encounter type: initial encounter History of revision of total replacement of right hip joint Z96.641 Hypotension I95.9 Acute blood loss anemia D62 Hyponatremia E87.1 Hypothyroidism E03.9 COPD (chronic obstructive pulmonary disease) J44.9 COPD type: unspecified COPD Pulmonary fibrosis determined by high resolution computed tomography J84.10 Anxiety F41.9 Allergic rhinitis J30.9 Dyslipidemia E78.5 Vitamin D deficiency E55.9 Pulmonary edema J81.0 Chronicity: acute Diarrhea R19.7 Spastic dysphonia J38.3 DVT prophylaxis Z29.9 (1) Closed dislocation of right hip Encounter type: initial encounter Qualified Code(s): S73.004A - Unspecified dislocation of right hip, initial encounter (7) COPD (chronic obstructive pulmonary disease) COPD type: unspecified COPD Qualified Code(s): J44.9 - Chronic obstructive pulmonary disease, unspecified (13) Pulmonary edema Chronicity: acute Qualified Code(s): J81.0 - Acute pulmonary edema
[2022-07-30] MEDS: LORazepam 0.5 MG TAB PO PRN (21:10)
[2022-07-30] MEDS: MELATONIN 3 MG TAB PO SCH (21:12)
[2022-07-30] MEDS: GABAPENTIN 300 MG CAP PO SCH (21:12)
[2022-07-31] MEDS: guaiFENesin SUGAR FREE 100 MG/5 ML UDC PO SCH ×4 (05:39→21:19)
[2022-07-31] MEDS: LEVOTHYROXINE SODIUM 50 MCG TABLET PO SCH (06:00)
[2022-07-31] MEDS: ACETAMINOPHEN 500 MG TAB PO SCH ×3 (06:01→21:14)
[2022-07-31 07:37] LABS: Hematocrit (blood only) 28.3 % (37.0-47.0); Hemoglobin 9.2 g/dl (12.0-16.0)
[2022-07-31] MEDS: IPRATROPIUM BROMIDE HFA INHALER INH SCH (07:46)
[2022-07-31] MEDS: ALBUTEROL HFA 8 GM INHALER INH SCH (07:47)
[2022-07-31 07:56] LABS: BUN Creatinine Ratio 15.8 (10-20); Calcium 7.7 mg/dl (8.6-10.3); Creatinine Clr Calc Pharmacy 85.2 ml/min; Est GFR (African American) 100.8 ml/min; Est GFR (Non-African American) 86.9 ml/min; Potassium 3.7 mmol/L (3.5-5.1)
[2022-07-31] MEDS: ASPIRIN 81 MG ECTAB PO SCH ×2 (09:06→21:13)
[2022-07-31] MEDS: ESCITALOPRAM OXALATE 10 MG TAB PO SCH (09:07)
[2022-07-31] MEDS: MULTIVITAMIN TAB PO SCH (09:07)
[2022-07-31] MEDS: DOXYCYCLINE HYCLATE 100 MG CAP PO SCH (09:07)
[2022-07-31] MEDS: ASCORBIC ACID 500 MG TAB PO SCH ×2 (09:07→17:32)
[2022-07-31] MEDS: CALCIUM CARBONATE 1250MG TAB PO SCH (09:08)
[2022-07-31] MEDS: SODIUM CHLORIDE 1 GM TABLET PO SCH (09:08)
[2022-07-31] MEDS: TRIAMCINOLONE ACET 0.5% CR 15 GM TUBE EXT SCH ×3 (09:08→21:13)
[2022-07-31] MEDS: EUCERIN CR 120 GM JAR EXT SCH ×3 (09:08→21:13)
[2022-07-31] MEDS: CHOLECALCIFEROL 1,000 UNITS 25 MCG TAB PO SCH (09:09)
[2022-07-31] MEDS: UMECLIDINIUM/VILANTEROL 62.5/25MCG 7 PUFFS/INHALER INH SCH (09:11)
--- NOTE | 2022-07-31 13:23 | Progress Notes ---
DATE OF SERVICE: 07/31/2022 SUBJECTIVE: An 81-year-old white female now postop day 4 from revision of a total hip to a constrain ed construct. She is doing well. Really denies much in the way of pain. She is starting to move be tter. No complaints. OBJECTIVE: VITAL SIGNS: Temperature 37.3. Vital signs are stable. GENERAL: Shows a pleasant, elderly female. She is sitting up in bed, looks quite comfortable. EXTREMITIES: Examination of the right hip and leg reveals the incision to be clean, dry and intact. There is no drainage. Leg lengths were equal. She is neurologically intact. Hip is located. LABORATORY DATA: Hemoglobin 9.2. Hematocrit 28.3. Electrolytes are stable. ASSESSMENT: An 81-year-old female now postop day 4 from revision of a total hip to a constrained con struct. She is doing well orthopedically. There are no restrictions. She can weightbear as tolerat ed. There is no need for stressing super hip precautions. PLAN: 1. DVT prophylaxis includes thigh-high TEDs, SCDs, and aspirin twice a day. 2. PT/OT. She can fully weightbear as tolerated. Should try to obey hip precautions, but no need t o harbor on that. 3. Medical management as per the medicine service. 4. Disposition: She is orthopedically okay for discharge any time medically stable. I believe we a re just waiting for a bed. Job ID: [id number]
[2022-07-31] MEDS: GABAPENTIN 300 MG CAP PO SCH (21:14)
[2022-07-31] MEDS: MELATONIN 3 MG TAB PO SCH (21:14)
[2022-07-31] MEDS: LORazepam 0.5 MG TAB PO PRN (21:18)
--- NOTE | 2022-07-31 22:47 | Hospitalist Progress Note ---
Date of Service July 31, 2022 Assessment & Plan (1) Closed dislocation of right hip: Plan: present on admission --> s/p reduction of dislocated right total hip arthroplasty by ER attending at time of presentation. unfortunately had recurrence of same 07/25. 4 - reduced again in OR. POD #4 - s/p revision of R THR by Dr Grubbs. appreciate his assistance. EBL - 100cc. DVT proph - asa 81mg bid. Doing well from ortho standpoint. Cont PT/OT and WBAT. Dispo - rehab at SNF post-d/c. (2) History of revision of total replacement of right hip joint: Plan: see #1 above (3) Hypotension: Plan: post-operative resolved was likely a combination of acute blood loss anemia, diarrhea, and poor po intake. Cortisol level wnl. Despite low BPs her renal function has remained stable and she is not dizzy/lightheaded/symptomatic. of note - at times it appears R arm BPs are lower than L arm BPs if this trend continues consider dopplers of arms - r/o subclavian stenosis (4) Acute blood loss anemia: Plan: 2.5 gram drop post-op 2nd to R hip surgery most recent Hb was 10 repeat H/H in am for stability (5) Hyponatremia: Plan: 135 at admission has fluctuated while here - today it is 134 check serum osm, urine osm, urine Na she did receive IV lasix hospital days #1 and #2 which transiently worsened her sodium levels (6) Hypothyroidism: Plan: TSH 11/2021 wnl cont synthroid (7) COPD (chronic obstructive pulmonary disease): Plan: long-time prior smoker emphysema seen on CT chest 07/24 along with findings suggestive of pulmonary fibrosis (see below) cont home inhalers cont doxycycline as precautionary measure (some ? LLL infiltrate on CT but her clinical picture not c/w pneumonia) day #7 of 7 of doxy remains stable on NC O2 - 2 L suspect she will need home O2 at d/c (8) Pulmonary fibrosis determined by high resolution computed tomography: Plan: CT chest shows findings concerning for PF if present this is likely from her prior smoking she does not follow with pulmonary would benefit from consultation with pulmonary as outpatient for PFTs and routine care they can make final call about whether there is truly pulmonary fibrosis but, again, CT chest highly suggestive of such COPD/suspected PF likely cause of ongoing dyspnea at home over the last few months will need 2-step ambulatory O2 test when she is in rehab cont inhalers & doxycycline - day #7 of such complete 7 days of doxy pulmonary status remains stable on 2 L NC O2 (9) Anxiety: Plan: cont SSRI (10) Allergic rhinitis: (11) Dyslipidemia: (12) Vitamin D deficiency: Plan: 25-OH vit D level in 11/2021 was wnl (level = 34) cont vit D 2000 IU daily + calcium supplementation (13) Pulmonary edema: Plan: suspected at time of admission RULED OUT -- doubt she ever had CHF/pulm edema recent CT chest most c/w COPD with PF rather than edema lasix stopped (14) Diarrhea: Plan: resolved c diff negative likely abx-associated diarrhea and/or due to stool agents hold colace hold senna (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 Review of Systems Review of Systems: All systems reviewed & are unremarkable except as noted in HPI & below Physical Exam Physical Exam: gen - NAD, comfortable lying in bed HENT - voice with dysphonia; MMM; no thrush neck - no JVD heart - RRR, s1 s2, no murmur lungs - mild dry rales bases, no wheezes abd - soft NT ND BS+ ext - no peripheral edema, pulses 2+ b/l neuro - dysphonic voice musculo - right hip incision C/D/I with spring in place skin - L hand palm dermatitis MUCH improved; dry scale much improved Results & Data Results & Data Vital Signs (Past 12 Hours) Vital Signs Temp Pulse Resp BP Pulse Ox O2 Del Method O2 Flow Rate 07/31/22 19:00 36.5 C 80 18 131/79 96 Nasal Cannula 1 07/31/22 15:18 Nasal Cannula 1 07/31/22 15:05 36.4 C L 70 20 121/73 98 Nasal Cannula 1 07/31/22 11:13 37.3 C 67 20 114/74 94 Room Air PG Care Time/CCT Total # of Minutes Spent Total Time Spent with Patient: Total time spent is greater than 50% in coordination of care (as documented) at patient's floor/unit and/or counseling patient: Coding Level of Care Code 40895 SUB INP/OBS CARE 2/35MIN Diagnoses Closed dislocation of right hip S73.004A Encounter type: initial encounter History of revision of total replacement of right hip joint Z96.641 Hypotension I95.9 Acute blood loss anemia D62 Hyponatremia E87.1 Hypothyroidism E03.9 COPD (chronic obstructive pulmonary disease) J44.9 COPD type: unspecified COPD Pulmonary fibrosis determined by high resolution computed tomography J84.10 Anxiety F41.9 Allergic rhinitis J30.9 Dyslipidemia E78.5 Vitamin D deficiency E55.9 Pulmonary edema J81.0 Chronicity: acute Diarrhea R19.7 Spastic dysphonia J38.3 DVT prophylaxis Z29.9 (1) Closed dislocation of right hip Encounter type: initial encounter Qualified Code(s): S73.004A - Unspecified dislocation of right hip, initial encounter (7) COPD (chronic obstructive pulmonary disease) COPD type: unspecified COPD Qualified Code(s): J44.9 - Chronic obstructive pulmonary disease, unspecified (13) Pulmonary edema Chronicity: acute Qualified Code(s): J81.0 - Acute pulmonary edema
[2022-08-01] MEDS: guaiFENesin SUGAR FREE 100 MG/5 ML UDC PO SCH ×4 (06:11→21:35)
[2022-08-01] MEDS: ACETAMINOPHEN 500 MG TAB PO SCH ×3 (06:12→21:37)
[2022-08-01] MEDS: LEVOTHYROXINE SODIUM 50 MCG TABLET PO SCH (06:12)
[2022-08-01] MEDS: MULTIVITAMIN TAB PO SCH (09:02)
[2022-08-01] MEDS: CALCIUM CARBONATE 1250MG TAB PO SCH (09:02)
[2022-08-01] MEDS: CHOLECALCIFEROL 1,000 UNITS 25 MCG TAB PO SCH (09:02)
[2022-08-01] MEDS: ASPIRIN 81 MG ECTAB PO SCH ×2 (09:02→21:36)
[2022-08-01] MEDS: ASCORBIC ACID 500 MG TAB PO SCH ×2 (09:03→18:29)
[2022-08-01] MEDS: ESCITALOPRAM OXALATE 10 MG TAB PO SCH (09:03)
[2022-08-01] MEDS: SODIUM CHLORIDE 1 GM TABLET PO SCH (09:03)
[2022-08-01] MEDS: TRIAMCINOLONE ACET 0.5% CR 15 GM TUBE EXT SCH ×3 (09:04→21:36)
[2022-08-01] MEDS: EUCERIN CR 120 GM JAR EXT SCH ×3 (09:04→21:35)
[2022-08-01] MEDS: UMECLIDINIUM/VILANTEROL 62.5/25MCG 7 PUFFS/INHALER INH SCH (09:05)
--- NOTE | 2022-08-01 12:44 | Progress Notes ---
SUBJECTIVE: An 81-year-old female postop day 5 from revision total hip arthroplasty to a constrained implant. She is doing well. She is just waiting for placement. Denies significant pain. She fee ls like she is getting better daily. OBJECTIVE: VITAL SIGNS: Temperature 36.8. Vital signs are stable. GENERAL: Shows a pleasant, elderly female. She is sitting on the bedside chair. She looks comforta ble. EXTREMITIES: Examination of the right hip and leg reveals leg lengths to be equal. Dressings at her incision sites are clean, dry, and intact. No drainage. Thigh soft and supple. She is neurologica lly intact. ASSESSMENT: An 81-year-old white female now five days out from revision hip arthroplasty to a constr ained implant, doing well. Pain is controlled. Her hip is located. She is neurologically intact. PLAN: 1. DVT prophylaxis includes thigh-high TEDs, SCDs, and aspirin twice a day for the next 6 weeks. 2. PT/OT. She can fully weight bear as tolerated. She does need to obey hip precautions. 3. Pain control, doing okay with current pain regimen. Really not having much pain. 4. Medical management as per the medicine service. 5. Disposition: She is orthopedically okay for discharge any time medically able to get her out. I believe she is just waiting for a bed. I will see her back in 2-3 weeks out from surgery date. An y orthopedic questions can be directed to me at [phone]. Job ID: [id number]
--- NOTE | 2022-08-01 17:09 | Hospitalist Progress Note ---
Date of Service August 01, 2022 Assessment & Plan (1) Closed dislocation of right hip: Plan: present on admission --> s/p reduction of dislocated right total hip arthroplasty by ER attending at time of presentation. unfortunately had recurrence of same 07/25. 07/26 - reduced again in OR. Now s/p revision of R THR by Dr Grubbs on 07/27-appreciate his assistance. EBL - 100cc. DVT proph - asa 81mg bid. Doing well from ortho standpoint. Cont PT/OT and WBAT. Dispo - rehab at SNF post-d/c. (2) History of revision of total replacement of right hip joint: Plan: see above (3) Hypotension: Plan: post-operative resolved was likely a combination of acute blood loss anemia, diarrhea, and poor po intake. Cortisol level wnl. Despite low BPs her renal function has remained stable and she is not dizzy/lightheaded/symptomatic. of note - at times it appears R arm BPs are lower than L arm BPs if this trend continues consider dopplers of arms - r/o subclavian stenosis (4) Acute blood loss anemia: Plan: 2.5 gram drop post-op 2nd to R hip surgery most recent Hb was 10 (5) Hyponatremia: Plan: 135 at admission has fluctuated while here - most recently was 134 checked serum osm, urine osm, urine Na --> UrOsm high, Ur Na 23--> with yudelka peripheral edema, could be mild volume overload she did receive IV lasix hospital days #1 and #2 which transiently worsened her sodium levels so will hold ff on any diuresis at this time -follow BMP in AM -dc salt tab (6) Hypothyroidism: Plan: TSH 11/2021 wnl cont synthroid (7) COPD (chronic obstructive pulmonary disease): Plan: long-time prior smoker emphysema seen on CT chest 07/24 along with findings suggestive of pulmonary fibrosis (see below) cont home inhalers received 7 days of doxycycline as precautionary measure (some ? LLL infiltrate on CT but her clinical picture not c/w pneumonia) remains stable on NC O2 - 2 L suspect she will need home O2 at d/c Needs PULM f/u after discharge (8) Pulmonary fibrosis determined by high resolution computed tomography: Plan: CT chest shows findings concerning for PF if present this is likely from her prior smoking she does not follow with pulmonary would benefit from consultation with pulmonary as outpatient for PFTs and routine care they can make final call about whether there is truly pulmonary fibrosis but, again, CT chest highly suggestive of such COPD/suspected PF likely cause of ongoing dyspnea at home over the last few months will need 2-step ambulatory O2 test when she is in rehab cont inhalers & completed course of doxycycline complete 7 days of doxy pulmonary status remains stable on 2 L NC O2 (9) Anxiety: Plan: cont SSRI (10) Vitamin D deficiency: Plan: 25-OH vit D level in 11/2021 was wnl (level = 34) cont vit D 2000 IU daily + calcium supplementation (11) Pulmonary edema: Plan: suspected at time of admission RULED OUT -- doubt she ever had CHF/pulm edema recent CT chest most c/w COPD with PF rather than edema lasix stopped (12) Diarrhea: Plan: resolved c diff negative likely abx-associated diarrhea and/or due to stool agents hold colace hold senna (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 Moving bowels, eating, pain controlled Physical Exam Physical Exam: gen - NAD, comfortable lying in bed HENT - voice with dysphonia heart - RRR, s1 s2, no murmur lungs - mild dry rales bases, no wheezes abd - soft NT ND BS+ ext - trace pitting peripheral edema neuro - dysphonic voice musculo - right hip incision C/D/I with spring in place Results & Data Results & Data Vital Signs (Past 12 Hours) Vital Signs Temp Pulse Resp BP Pulse Ox O2 Del Method O2 Flow Rate 08/01/22 14:59 36.8 C 72 18 95/59 L 96 Room Air 08/01/22 11:47 36.6 C 63 18 107/67 98 Nasal Cannula 1 08/01/22 09:09 Nasal Cannula 1 08/01/22 08:10 36.8 C 63 18 100/59 L 96 Nasal Cannula 1 Laboratory Results no labs PG Care Time/CCT Total # of Minutes Spent Total Time Spent with Patient: Total time spent is greater than 50% in coordination of care (as documented) at patient's floor/unit and/or counseling patient: Coding Level of Care Code 75958 SUB INP/OBS CARE 2/35MIN Diagnoses Closed dislocation of right hip S73.004A Encounter type: initial encounter History of revision of total replacement of right hip joint Z96.641 Hypotension I95.9 Acute blood loss anemia D62 Hyponatremia E87.1 Hypothyroidism E03.9 COPD (chronic obstructive pulmonary disease) J44.9 COPD type: unspecified COPD Pulmonary fibrosis determined by high resolution computed tomography J84.10 Anxiety F41.9 Vitamin D deficiency E55.9 Pulmonary edema J81.0 Chronicity: acute Diarrhea R19.7 Spastic dysphonia J38.3 DVT prophylaxis Z29.9 (1) Closed dislocation of right hip Encounter type: initial encounter Qualified Code(s): S73.004A - Unspecified dislocation of right hip, initial encounter (7) COPD (chronic obstructive pulmonary disease) COPD type: unspecified COPD Qualified Code(s): J44.9 - Chronic obstructive pulmonary disease, unspecified (11) Pulmonary edema Chronicity: acute Qualified Code(s): J81.0 - Acute pulmonary edema
[2022-08-01] MEDS: MELATONIN 3 MG TAB PO SCH (21:35)
[2022-08-01] MEDS: LORazepam 0.5 MG TAB PO PRN (21:35)
[2022-08-01] MEDS: GABAPENTIN 300 MG CAP PO SCH (21:37)
[2022-08-02] MEDS: guaiFENesin SUGAR FREE 100 MG/5 ML UDC PO SCH ×4 (05:42→23:23)
[2022-08-02] MEDS: ACETAMINOPHEN 500 MG TAB PO SCH ×3 (05:42→22:04)
[2022-08-02] MEDS: LEVOTHYROXINE SODIUM 50 MCG TABLET PO SCH (05:42)
[2022-08-02 07:20] LABS: Basophils # (auto) 0.04 K/uL (0-0.2); Basophils % (auto) 0.6 %; Eosinophils # (auto) 0.62 K/uL (0-0.50); Eosinophils % (auto) 9.2 %; Hematocrit (blood only) 30.9 % (37.0-47.0); Hemoglobin 10.1 g/dl (12.0-16.0); Immature Granulocytes # (auto) 0.03 K/uL (0.01-0.20); Immature Granulocytes % (auto) 0.4 %; Lymphocytes # (auto) 1.29 K/uL (1.2-3.4); Lymphocytes % (auto) 19.1 %; Mean Corpuscular Hemoglobin 30.3 pg (25.0-34.0); Mean Corpuscular Hgb Conc 32.7 g/dL (32.0-36.0); Mean Corpuscular Volume 92.8 fL (80.0-100.0); Mean Platelet Volume 8.7 fL (9.4-12.4); Monocytes # (auto) 0.81 K/uL (0.11-0.59); Neutrophils # (auto) 3.95 K/uL (1.40-6.50); Neutrophils % (auto) 58.7 %; Platelet Count 363 K/uL (130-400); RDW Coefficient of Variation 14.1 % (11.5-14.5); RDW Standard Deviation 48.2 fL (36.4-46.3); Red Blood Count 3.33 M/uL (4.20-5.40); White Blood Count 6.74 K/ul (4.8-10.8)
[2022-08-02 07:27] LABS: Calcium 7.9 mg/dl (8.6-10.3); Creatinine Clr Calc Pharmacy 96.9 ml/min; Est GFR (African American) 105.2 ml/min; Est GFR (Non-African American) 90.8 ml/min; Potassium 3.7 mmol/L (3.5-5.1)
[2022-08-02] MEDS: ASCORBIC ACID 500 MG TAB PO SCH ×2 (08:28→17:53)
[2022-08-02] MEDS: CALCIUM CARBONATE 1250MG TAB PO SCH (08:29)
[2022-08-02] MEDS: ASPIRIN 81 MG ECTAB PO SCH ×2 (08:29→20:29)
[2022-08-02] MEDS: ESCITALOPRAM OXALATE 10 MG TAB PO SCH (08:30)
[2022-08-02] MEDS: CHOLECALCIFEROL 1,000 UNITS 25 MCG TAB PO SCH (08:30)
[2022-08-02] MEDS: EUCERIN CR 120 GM JAR EXT SCH ×3 (08:31→20:29)
[2022-08-02] MEDS: MULTIVITAMIN TAB PO SCH (08:31)
[2022-08-02] MEDS: TRIAMCINOLONE ACET 0.5% CR 15 GM TUBE EXT SCH ×3 (08:32→20:29)
[2022-08-02] MEDS: UMECLIDINIUM/VILANTEROL 62.5/25MCG 7 PUFFS/INHALER INH SCH (08:32)
--- NOTE | 2022-08-02 18:59 | Hospitalist Progress Note ---
Date of Service August 02, 2022 Assessment & Plan (1) Closed dislocation of right hip: Plan: present on admission --> s/p reduction of dislocated right total hip arthroplasty by ER attending at time of presentation. unfortunately had recurrence of same 07/25. 07/26 - reduced again in OR. Now s/p revision of R THR by Dr Grubbs on 07/27-appreciate his assistance. EBL - 100cc. DVT proph - asa 81mg bid. Doing well from ortho standpoint. Cont PT/OT and WBAT. Dispo - rehab at SNF post-d/c. (2) History of revision of total replacement of right hip joint: Plan: see above (3) Hypotension: Plan: post-operative resolved was likely a combination of acute blood loss anemia, diarrhea, and poor po intake. Cortisol level wnl. Despite low BPs her renal function remained stable and she is not dizzy/lightheaded/symptomatic. of note - at times it appears R arm BPs are lower than L arm BPs if this trend continues consider dopplers of arms - r/o subclavian stenosis (4) Acute blood loss anemia: Plan: 2.5 gram drop post-op 2nd to R hip surgery most recent Hb was 10.1 (5) Hyponatremia: Plan: 135 at admission has fluctuated while here - now up to 136 checked serum osm, urine osm, urine Na --> UrOsm high, Ur Na 23--> with some peripheral edema, could be mild volume overload she did receive IV lasix hospital days #1 and #2 which transiently worsened her sodium levels so will hold ff on any diuresis at this time -dcd salt tab (6) Hypothyroidism: Plan: TSH 11/2021 wnl cont synthroid (7) COPD (chronic obstructive pulmonary disease): Plan: long-time prior smoker emphysema seen on CT chest 07/24 along with findings suggestive of pulmonary fibrosis (see below) cont home inhalers received 7 days of doxycycline as precautionary measure (some ? LLL infiltrate on CT but her clinical picture not c/w pneumonia) remains stable on NC O2 - 2 L suspect she will need home O2 at d/c Needs PULM f/u after discharge (8) Pulmonary fibrosis determined by high resolution computed tomography: Plan: CT chest shows findings concerning for PF if present this is likely from her prior smoking she does not follow with pulmonary would benefit from consultation with pulmonary as outpatient for PFTs and routine care they can make final call about whether there is truly pulmonary fibrosis but, again, CT chest highly suggestive of such COPD/suspected PF likely cause of ongoing dyspnea at home over the last few months will need 2-step ambulatory O2 test when she is in rehab cont inhalers & completed course of doxycycline completed 7 days of doxy pulmonary status remains stable on 2 L NC O2 (9) Anxiety: Plan: cont SSRI (10) Vitamin D deficiency: Plan: 25-OH vit D level in 11/2021 was wnl (level = 34) cont vit D 2000 IU daily + calcium supplementation (11) Pulmonary edema: Plan: suspected at time of admission RULED OUT -- doubt she ever had CHF/pulm edema recent CT chest most c/w COPD with PF rather than edema lasix stopped (12) Diarrhea: Plan: resolved c diff negative likely abx-associated diarrhea and/or due to stool agents hold colace hold senna (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 No pain. No CP, SOB Physical Exam Physical Exam: gen - NAD, comfortable lying in bed HENT - voice with dysphonia heart - RRR, s1 s2, no murmur lungs - mild dry rales bases, no wheezes abd - soft NT ND BS+ ext - trace pitting peripheral edema neuro - dysphonic voice musculo - right hip incision C/D/I with spring in place Results & Data Results & Data Vital Signs (Past 12 Hours) Vital Signs Temp Pulse Resp BP Pulse Ox O2 Del Method O2 Flow Rate 08/02/22 15:31 37.0 C 76 18 146/71 H 95 Nasal Cannula 2 08/02/22 08:12 Nasal Cannula 2 08/02/22 07:39 98 Nasal Cannula 2 08/02/22 07:18 36.7 C 78 18 114/69 91 Nasal Cannula 1 Laboratory Results CBC, BMP reviewed PG Care Time/CCT Total # of Minutes Spent Total Time Spent with Patient: Total time spent is greater than 50% in coordination of care (as documented) at patient's floor/unit and/or counseling patient: Coding Level of Care Code 01638 SUB INP/OBS CARE 04/25MIN Diagnoses Closed dislocation of right hip S73.004A Encounter type: initial encounter History of revision of total replacement of right hip joint Z96.641 Hypotension I95.9 Acute blood loss anemia D62 Hyponatremia E87.1 Hypothyroidism E03.9 COPD (chronic obstructive pulmonary disease) J44.9 COPD type: unspecified COPD Pulmonary fibrosis determined by high resolution computed tomography J84.10 Anxiety F41.9 Vitamin D deficiency E55.9 Pulmonary edema J81.0 Chronicity: acute Diarrhea R19.7 Spastic dysphonia J38.3 DVT prophylaxis Z29.9 (1) Closed dislocation of right hip Encounter type: initial encounter Qualified Code(s): S73.004A - Unspecified dislocation of right hip, initial encounter (7) COPD (chronic obstructive pulmonary disease) COPD type: unspecified COPD Qualified Code(s): J44.9 - Chronic obstructive pulmonary disease, unspecified (11) Pulmonary edema Chronicity: acute Qualified Code(s): J81.0 - Acute pulmonary edema
[2022-08-02] MEDS: MELATONIN 3 MG TAB PO SCH (20:28)
[2022-08-02] MEDS: GABAPENTIN 300 MG CAP PO SCH (20:29)
[2022-08-02] MEDS: LORazepam 0.5 MG TAB PO PRN (20:43)
[2022-08-03] MEDS: guaiFENesin SUGAR FREE 100 MG/5 ML UDC PO SCH ×2 (06:25→11:54)
[2022-08-03] MEDS: ACETAMINOPHEN 500 MG TAB PO SCH ×2 (06:25→13:28)
[2022-08-03] MEDS: LEVOTHYROXINE SODIUM 50 MCG TABLET PO SCH (06:25)
[2022-08-03] MEDS: UMECLIDINIUM/VILANTEROL 62.5/25MCG 7 PUFFS/INHALER INH SCH (08:05)
[2022-08-03] MEDS: ESCITALOPRAM OXALATE 10 MG TAB PO SCH (08:06)
[2022-08-03] MEDS: ASCORBIC ACID 500 MG TAB PO SCH (08:06)
[2022-08-03] MEDS: ASPIRIN 81 MG ECTAB PO SCH (08:06)
[2022-08-03] MEDS: CALCIUM CARBONATE 1250MG TAB PO SCH (08:06)
[2022-08-03] MEDS: CHOLECALCIFEROL 1,000 UNITS 25 MCG TAB PO SCH (08:06)
[2022-08-03] MEDS: EUCERIN CR 120 GM JAR EXT SCH ×2 (08:07→13:28)
[2022-08-03] MEDS: MULTIVITAMIN TAB PO SCH (08:07)
[2022-08-03] MEDS: TRIAMCINOLONE ACET 0.5% CR 15 GM TUBE EXT SCH ×2 (08:07→13:28)
--- NOTE | 2022-08-03 12:40 | Discharge Summary ---
Date of Service August 03, 2022 Admission HPI Per Admitting Provider The patient is an 81-year-old female with a past medical history including hypothyroidism, right ulnar neuropathy, right carpal tunnel syndrome, urinary stress incontinence, allergic rhinitis, anxiety, COPD, dyslipidemia, osteopenia, SNHL bilaterally, vitamin D deficiency, left shoulder osteoarthritis, right total hip arthroplasty, previous dislocation of right total hip arthroplasty on 06/05/2022 with reduction in the ED. 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 Chest x-ray revealed pulmonary edema with left pleural effusion, for which the patient received furosemide 20 mg IV, and was referred for evaluation for admission. Pulse ox on room air was 89% Principal Diagnosis Right hip dislocation with arthroplasty revision Hypoxia Discharge Exam gen - NAD, comfortable lying in bed HENT - voice with dysphonia heart - RRR, s1 s2, no murmur lungs - mild dry rales bases, no wheezes abd - soft NT ND BS+ ext - trace pitting peripheral edema neuro - dysphonic voice musculo - right hip incision C/D/I with spring in place Discharge Data Allergies Allergy/AdvReac Type Severity Reaction Status Date / Time No Known Drug Allergies Allergy NKDA Verified 07/23/22 21:07 Consultations 07/23/22 20:13 ED Decision to Admit Stat 07/23/22 22:00 Consult Orthopedic Surgery Routine Procedures Performed Operation Date: 07/27/22 13:15 Actual Procedures p Right Total Hip Revision(Right) - Edgar Grubbs MD Ordered Studies 07/24/22 14:45 CT angio chest PE protocol Routine 07/26/22 11:18 FL hip RT 1V Routine Hospital Course (1) Closed dislocation of right hip: present on admission --> s/p reduction of dislocated right total hip arthroplasty by ER attending at time of presentation. unfortunately had recurrence of same 07/25. 07/26 - reduced again in OR. Now s/p revision of R THR by Dr Grubbs on 07/27-appreciate his assistance. EBL - 100cc. DVT proph - asa 81mg bid x 6 weeks total-needs 4.5 more weeks Doing well from ortho standpoint. Cont PT/OT and WBAT. Dispo - rehab at SNF post-d/c. (2) History of revision of total replacement of right hip joint: see above (3) Hypotension: post-operative resolved was likely a combination of acute blood loss anemia, diarrhea, and poor po intake. Cortisol level wnl. Despite low BPs her renal function remained stable and she is not dizzy/lightheaded/symptomatic. of note - at times it appears R arm BPs are lower than L arm BPs (4) Acute blood loss anemia: 2.5 gram drop post-op 2nd to R hip surgery most recent Hb was 10.1 (5) Hyponatremia: 135 at admission has fluctuated while here - now up to 136 checked serum osm, urine osm, urine Na --> UrOsm high, Ur Na 23--> with some peripheral edema, could be mild volume overload she did receive IV lasix hospital days #1 and #2 which transiently worsened her sodium levels so will hold ff on any diuresis at this time -dcd salt tab Check BMP in 1 week (6) Hypothyroidism: TSH 11/2021 wnl cont synthroid (7) COPD (chronic obstructive pulmonary disease): long-time prior smoker emphysema seen on CT chest 07/24 along with findings suggestive of pulmonary fibrosis (see below) cont home inhalers received 7 days of doxycycline as precautionary measure (some ? LLL infiltrate on CT but her clinical picture not c/w pneumonia) remains stable on NC O2 - 2 L suspect she will need home O2 at d/c Needs PULM f/u after discharge (8) Pulmonary fibrosis determined by high resolution computed tomography: CT chest shows findings concerning for PF if present this is likely from her prior smoking she does not follow with pulmonary would benefit from consultation with pulmonary as outpatient for PFTs and routi ne care they can make final call about whether there is truly pulmonary fibrosis but, again, CT chest highly suggestive of such COPD/suspected PF likely cause of ongoing dyspnea at home over the last few months will need 2-step ambulatory O2 test when she is in rehab cont inhalers & completed course of doxycycline completed 7 days of doxy pulmonary status remains stable on 2 L NC O2 (9) Anxiety: cont SSRI (10) Vitamin D deficiency: 25-OH vit D level in 11/2021 was wnl (level = 34) cont vit D 2000 IU daily + calcium supplementation (11) Pulmonary edema: suspected at time of admission RULED OUT -- doubt she ever had CHF/pulm edema recent CT chest most c/w COPD with PF rather than edema lasix stopped (12) Diarrhea: resolved c diff negative likely abx-associated diarrhea and/or due to stool agents hold colace hold senna (13) Spastic dysphonia: voice quality, pitch, 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 (14) DVT prophylaxis: asa 81mg BID x 6 weeks continue JASIEL amezcuae Plan Cognitive impairment-pt's daughter reported that patient has had memory loss for some time at home-will refer to neurology post-d/c for neurocognitive evaluation, etc Dispo-medically stable for discharge to [facility] for SNF Total Time Total Time Spent Total Time Spent (In Minutes): 35 min Discharge Plan Discharge Items Patient Disposition: Transfer Group Home Fac Reason For Visit: DISLOCATED HIP ARTHROPLASTY, CHF Discharge Diagnosis: Right Hip Replacement Revision for Dislocation Hypoxia, pulmonary fibrosis Activity: Per Instructions section Activity Comment: Obey hip precautions Weightbearing: Full weightbearing Non-emergency contact: Primary Care Provider and Surgeon Call non-emergency contact if: you have any medication questions, your symptoms worsen, your pain is not controlled, you have a fever, your wound has increased redness, your wound has increased drainage and your wound pain has increased Follow-up/Referrals: Patricia Aviles MD [Primary Care Provider] - Edgar Grubbs MD [Physician] - (Orthopedic follow-up 2-3 weeks from surgery date) Diet: Regular Addtl Attending Provider Instructions: ACTIVITY RECOMMENDATIONS: Physical Therapy: * Aggressive physical therapy is not usually needed. You will learn to take care of yourself safely and walk. * Follow the "Hip Precautions Instructions." * In some cases, the healthcare social worker at the hospital will arrange to have a therapist come to your house for the first couple of weeks to help you learn these skills. * You need to practice on your own or with the help of a family member as needed. * When you learn these skills, most of the therapy can be done on your own. Home Exercise: * You were shown a series of exercises in the hospital. Do these exercises three to four times each day including the exercises you were shown in physical therapy. Walking: * Get up and walk several times each day. For the first four weeks, try not to stand or walk for more than one hour at a time. If you do stand or walk for more than one hour, you will not hurt anything, but your leg will likely swell. * As you feel comfortable, you may change from the walker or crutches to a cane and then to independent walking. MEDICATIONS: New Medicine: * You will likely be taking one or more of these medicines: 1. Tramadol - Take, as directed, when you need it, every six hours to control your pain. 2. Aspirin - Thins your blood to lessen the chance of forming a blood clot. * The most common side effects of pain medicine and iron are nausea and constipation. If nausea or constipation is too much of a problem or if you have any questions about your new medicines or doses, call [facility] at . We will try to help you manage these issues. "VERY IMPORTANT TO READ AND REVIEW" Pain: * The immediate post-operative period after hip replacement surgery is often quite painful. * You are given a prescription for pain medicine. You should take it, as directed, when you need it, especially before physical therapy and before going to bed. Pain that interferes with sleep is very common and can last several months. * You will likely need pain medicine for the first two to four weeks. It will not stop all of the pain. The pain will lessen and as you feel better, you may change to milder pain medicine such as Tylenol. * The most common side effects of pain medicine are nausea and constipation, so don't take more than you need. SPECIAL CARE INSTRUCTIONS: TEDs/Elastic Stockings: * The white elastic stockings help limit swelling and prevent blood clots from forming in your legs. The more you wear them, the more they work. * Wear them for six weeks. Incision Site Care: * Remove dressing postoperative day 2 and then shower. Keep direct shower pressure off the incision site. * After showering, cover spring with dry gauze and change daily or more frequently if the dressing is getting saturated with drainage. * May completely stop using bandage if wound is dry and no drainage * Houlka are removed between 2 and 3 weeks post-op. If your follow-up appointment is made before 2 weeks, please have your appointment re- scheduled. It is too early to remove the spring. Prevention of Infection: * Take antibiotics one hour before any dental cleaning, dental work, urological procedure, gastrointestinal procedure or any invasive surgery in order to prevent your new joint from getting infected. * You may get the antibiotics from the doctor performing the procedure or you may call our office at before and we will call in a prescription to the pharmacy of your choice. Things to Watch For: * Drainage from the incision site that occurs more than one week after your surgery. * Severely increased leg pain or swelling. * Increased redness at the incision site. * Fever above 102 degrees Fahrenheit. * Unusual chest pain or shortness of breath. * Unusual pain or burning with urination. Call [facility] at with any of the above problems or if you have any questions about your medicines or recovery. FOLLOW UP VISIT: Make an appointment to see your doctor for approximately two weeks after surgery for a progress check and staple removal by calling the office at . Addtl Conference Director Provider Instructions: Continue supplemental oxygen as needed to keep POx between 90-92%. Please follow up with Pulmonology after discharge Pending Studies at Discharge: No Stand-Alone Forms: My [facility] Skilled Items Patient informed of condition?: Yes DNR: No Discharge Level of Care: Skilled Communicable Disease: No Discharge Prognosis: Improving Lines: None Urinary Catheter: No Medications and DC Order Prescriptions: New melatonin 3 mg Tablet 3 mg PO HS Qty: 30 0RF guaifenesin 100 mg/5 mL Liquid 100 mg PO Q6H Qty: 473 0RF triamcinolone acetonide 0.5 % Cream 1 applic EXT BID 7 Days Qty: 15 0RF Rx Instructions: apply to left hand rash Dermacerin Cream 1 applic EXT BID Qty: 454 0RF Rx Instructions: apply to left hand ascorbic acid (vitamin C) [Vitamin C] 500 mg Tablet 500 mg PO BIDM Qty: 60 0RF multivitamin with folic acid [Daily-Anne Marie (with folic acid)] 400 mcg Tablet 1 tab PO QAM Qty: 30 0RF Continued albuterol sulfate 90 mcg/actuation HFA aerosol inhaler 2 puff inhalation Q6H PRN (Reason: shortness of breath or wheezing) Qty: 18 5RF escitalopram oxalate 10 mg tablet 10 mg PO DAILY Qty: 90 3RF gabapentin 300 mg capsule 300 mg PO HS Qty: 90 3RF levothyroxine 50 mcg tablet 50 mcg PO DAILY Qty: 90 3RF Bevespi Aerosphere 9-4.8 mcg HFA aerosol inhaler 2 puff inhalation BID Qty: 10.7 5RF Stool Softener 50 mg capsule 100 mg PO HS acetaminophen [Tylenol Extra Strength] 500 mg tablet 1,000 mg PO Q4H PRN (Reason: hip pain ) calcium carbonate 600 mg calcium (1,500 mg) tablet 600 mg PO DAILY cholecalciferol (vitamin D3) 2,000 unit capsule 2,000 units PO DAILY Qty: 90 celecoxib [Celebrex] 100 mg capsule 100 mg PO BID PRN (Reason: pain) Qty: 30 1RF Changed lorazepam 1 mg tablet 1.5 mg PO HS Qty: 10 5RF aspirin 81 mg tablet,delayed release (DR/EC) 81 mg PO BID Qty: 60 0RF Discontinued tramadol 50 mg tablet 50 mg PO TID PRN (Reason: pain) Qty: 42 0RF Discharge Orders: Discharge Order (Routine); Ordered 08/03/22 Ordered By: Kim Licona Admission Data Admit Date/Time: 07/23/22 22:00 Attending Provider: Kim Licona Admit Provider: Alfredo Alvarez Primary Care Provider: Patricia Aviles Other Providers: [place] ; Alfredo Alvarez ; Harjit Whitaker Coding Level of Care Code 55550 INP/OBS DISCH >30 MIN Diagnoses Closed dislocation of right hip S73.004A Encounter type: initial encounter History of revision of total replacement of right hip joint Z96.641 Hypotension I95.9 Acute blood loss anemia D62 Hyponatremia E87.1 Hypothyroidism E03.9 COPD (chronic obstructive pulmonary disease) J44.9 COPD type: unspecified COPD Pulmonary fibrosis determined by high resolution computed tomography J84.10 Anxiety F41.9 Vitamin D deficiency E55.9 Pulmonary edema J81.0 Chronicity: acute Diarrhea R19.7 Spastic dysphonia J38.3 DVT prophylaxis Z29.9
== END 2022-08-03 14:17 | DRG 467 ==
LOC: ED 16:45 → 2S 22:00 → SUATTDRO 22:00 → 2S 23:30 → 2N 07-26 13:34 → 3N 08-01 23:25

== ENCOUNTER 2022-11-14 10:44 | Observation (INO) ==
[2022-11-14] MEDS ORDERED: ALBUT/IPRATROP 3MG/0.5MG NEB 3 ML VIAL NEB STA (11:23)
[2022-11-14] MEDS ORDERED: methylPREDNISolone 120 MG in SYRINGE 0 ML IV ONE (11:25)
--- NOTE | 2022-11-14 11:39 | Emergency Department Note ---
ED Provider Note History of Present Illness Chief Complaint: Hip Pain Time Seen by Provider: 11/14/22 10:56 Source: patient Patient is an 81-year-old female presenting with right hip pain. Patient states she was getting off the couch today when she felt pain immediately at the right hip and had to help herself back down. Patient denies falling. Patient's leg is rotated inwards. Patient states she has had hip replacement previously. Patient states she had a procedure in June and she cannot remember if there was a revision done or if the hip was just relocated due to dislocation. Patient states the pain is currently a 5 out of 10. Patient can feel distal to the site of injury and wiggle all of her toes on her right foot. Patient states she has history of COPD and does not use oxygen at home. Patient states her baseline pulse ox shows 90 to 91%. Patient on room air today was 86% for nursing staff and placed on 1 to 2 L nasal cannula. Patient denies fevers or chills. Patient denies coughing. Home Medications Medication Instructions Recorded Confirmed Type calcium carbonate 600 mg calcium 600 mg PO DAILY 12/11/18 09/11/22 History (1,500 mg) tablet cholecalciferol (vitamin D3) 50 2,000 units PO DAILY #90 caps 12/11/18 09/11/22 History mcg (2,000 unit) capsule albuterol sulfate 90 mcg/actuation 2 puff inhalation Q6H PRN 08/30/21 09/11/22 Rx aerosol inhaler shortness of breath or wheezing #18 grams docusate sodium 50 mg capsule 100 mg PO HS 06/28/22 09/11/22 History (Stool Softener) glycopyrrolate 9 mcg-formoterol 2 puff inhalation BID #10.7 grams 07/09/22 09/11/22 Rx 4.8 mcg HFA aerosol inhaler (Bevespi Aerosphere) multivitamin with folic acid 400 1 tab PO QAM #30 tabs 08/03/22 09/11/22 Rx mcg tablet (Daily-Anne Marie (with folic acid)) gabapentin 300 mg capsule 300 mg PO HS #30 caps 08/14/22 09/11/22 Rx levothyroxine 50 mcg tablet 50 mcg PO QAM #30 tabs 08/14/22 09/11/22 Rx mirtazapine 7.5 mg tablet 7.5 mg PO HS #30 tabs 08/14/22 09/11/22 Rx triamcinolone acetonide 0.5 % 1 applic EXT BID 1 week #15 grams 10/10/22 Rx topical cream lorazepam 1 mg tablet 1 mg PO HS 11/14/22 11/14/22 History Allergies Allergy/AdvReac Type Severity Reaction Status Date / Time No Known Drug Allergies Allergy NKDA Verified 09/11/22 13:50 Past Med/Surg History Medical History Allergic rhinitis Anxiety Carpal tunnel syndrome, right Chronic pruritus Closed dislocation of right hip COPD (chronic obstructive pulmonary disease) Degenerative joint disease of left hip Dyslipidemia Hypothyroidism Impaired fasting glucose Lichen planus Osteoarthritis of left shoulder Osteopenia Sensorineural hearing loss of both ears Spastic dysphonia mild CP Stress incontinence in female Ulnar neuropathy at elbow of right upper extremity Vitamin D deficiency Surgical History History of appendectomy History of cholecystectomy History of shoulder replacement History of total abdominal hysterectomy and bilateral salpingo-oophorectomy History of total hip replacement Family History Sister Breast cancer Denies family history of Ovarian cancer Prostate cancer Myocardial infarction Colorectal cancer Social History Smoking Status: Former smoker Tobacco Type: Cigarettes Age Started Using Tobacco: 15; Age Quit Using Tobacco: 66; packs per day: 2; Cigarettes Per Day: 40; Second Hand Exposure: No; Do You Dip or Chew Tobacco: No; Hx Alcohol Use: No Hx Substance Use: No Preferred Language: Frisian Communication Ability: Effective Visual Impairment: No Limitations Hearing Ability: Use of Hearing Aid Supervisor [employer] Required: No Beliefs That Will Affect Care: None marital status: Current Living Situation: Alone current occupational status: retired 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 Feels Safe at Home: Yes Childhood Exposure to Second-Hand Smoke: No Diet: regular caffeine: Yes (Not very often) Dental Care, Regularly: No Physical Activity Frequency: Does not Exercise Seatbelt Use: always Sunscreen Use: No Assistive Devices: Cane and Walker Physical Exam Vital Signs Vital Signs - 24 hr 11/14/22 10:52 11/14/22 10:56 11/14/22 12:44 Temperature 37.1 C Temperature Source Oral Pulse Rate 99 H 97 H Pulse Rate [Apical] 94 H Pulse Rate from SpO2 Sensor Pulse Rhythm Regular Pulse Rhythm [Apical] Regular Pulse Strength Normal Pulse Strength [Apical] Normal Respiratory Rate 20 18 Respiratory Effort / Characteristics Non-Labored Spontaneous Non-Labored Spontaneous Respiratory Depth Normal Normal Respiratory Pattern Regular Blood Pressure 142/85 H Blood Pressure Mean 104 Pulse Oximetry 87 L 92 Oxygen Delivery Method Room Air Room Air Oxygen Flow Rate Sepsis Recent Fever Within 48 Hours No Sepsis New/Unexplained Change in Mental Status No Sepsis Action Taken by Nursing No Action Required Oxygen Flow Rate - Titration Pulse Oximetry Post Tiitration 11/14/22 12:45 11/14/22 10:51 11/14/22 13:33 Temperature Temperature Source Pulse Rate 92 H Pulse Rate [Apical] Pulse Rate from SpO2 Sensor Pulse Rhythm Pulse Rhythm [Apical] Pulse Strength Pulse Strength [Apical] Respiratory Rate 14 Respiratory Effort / Characteristics Respiratory Depth Respiratory Pattern Blood Pressure 142/85 H Blood Pressure Mean 104 Pulse Oximetry 92 92 89 L Oxygen Delivery Method Room Air Nasal Cannula Oxygen Flow Rate 2 0 Sepsis Recent Fever Within 48 Hours Sepsis New/Unexplained Change in Mental Status Sepsis Action Taken by Nursing Oxygen Flow Rate - Titration 0 2 Pulse Oximetry Post Tiitration 92 93 11/14/22 13:30 11/14/22 14:52 11/14/22 14:00 Temperature Temperature Source Pulse Rate 88 103 H 90 Pulse Rate [Apical] Pulse Rate from SpO2 Sensor 94 H Pulse Rhythm Pulse Rhythm [Apical] Pulse Strength Pulse Strength [Apical] Respiratory Rate 20 22 Respiratory Effort / Characteristics Respiratory Depth Respiratory Pattern Blood Pressure 134/78 Blood Pressure Mean 96 Pulse Oximetry 90 96 Oxygen Delivery Method Nasal Cannula Oxygen Flow Rate 2 Sepsis Recent Fever Within 48 Hours Sepsis New/Unexplained Change in Mental Status Sepsis Action Taken by Nursing Oxygen Flow Rate - Titration Pulse Oximetry Post Tiitration 11/14/22 14:30 11/14/22 15:00 Temperature Temperature Source Pulse Rate 89 90 Pulse Rate [Apical] Pulse Rate from SpO2 Sensor Pulse Rhythm Pulse Rhythm [Apical] Pulse Strength Pulse Strength [Apical] Respiratory Rate 22 21 Respiratory Effort / Characteristics Respiratory Depth Respiratory Pattern Blood Pressure 105/64 125/70 Blood Pressure Mean 77 88 Pulse Oximetry 95 94 Oxygen Delivery Method Nasal Cannula Nasal Cannula Oxygen Flow Rate 2 2 Sepsis Recent Fever Within 48 Hours Sepsis New/Unexplained Change in Mental Status Sepsis Action Taken by Nursing Oxygen Flow Rate - Titration Pulse Oximetry Post Tiitration GENERAL: Well appearing, well nourished, EYE EXAM: Normal conjunctiva. OROPHARYNX: Moist mucus membranes. Grossly normal dentition. NECK: Supple, LUNGS: Diminished breath sounds bilaterally HEART: NSR, ABDOMEN: Abdomen soft, non-tender, normo-active bowel sounds, no masses, no rebound or guarding BACK: No CVA TTP. SKIN: No rashes and no bruising. UPPER EXTREMITIES: Upper extremities are grossly normal LOWER EXTREMITIES: Right lower extremity and lower ext. rotated, +2 dorsal pedis pulse, intact sensation in all 5 digits of right foot NEURO EXAM: A&O x3, Psych; cooperative Course Administered Medications Discontinued Medications Albuterol (Albut/Ipratrop 3mg/0.5mg Neb 3 Ml Vial) 3 ml NEB NOW STA Stop: 11/14/22 11:24 Last Admin: 11/14/22 12:02 Dose: 3 ml Documented By: SARAH Methylprednisolone (Methylprednisolone 125 Mg/2 Ml Vial) 120 mg IV ONCE ONE Stop: 11/14/22 12:01 Last Admin: 11/14/22 12:02 Dose: 120 mg Documented By: SARAH Medical Decision Making Medical Records Attestation: I reviewed the patient's medical records. Home Medications was personally reviewed by me Laboratory Data Attestation: I reviewed the patient's lab results. 11/14/22 11:00 11/14/22 11:00 Lab Results 11/14/22 11/14/22 11/14/22 Range/Units 11:00 11:00 11:00 WBC 8.25 (4.8-10.8) K/ul RBC 4.48 (4.20-5.40) M/uL Hgb 13.4 (12.0-16.0) g/dl Hct 40.1 (37.0-47.0) % MCV 89.5 (80.0-100.0) fL MCH 29.9 (25.0-34.0) pg MCHC 33.4 (32.0-36.0) g/dL RDW Std Deviation 45.8 (36.4-46.3) fL RDW Coeff of Gregoria 14.1 (11.5-14.5) % Plt Count 262 (130-400) K/uL MPV 9.5 (9.4-12.4) fL Immature Gran % (Auto) 0.4 % Neut % (Auto) 75.7 % Lymph % (Auto) 14.1 % [place] % (Auto) 7.6 % Eos % (Auto) 1.6 % Baso % (Auto) 0.6 % Neut # (Auto) 6.25 (1.40-6.50) K/uL Lymph # (Auto) 1.16 L (1.2-3.4) K/uL [place] # (Auto) 0.63 H (0.11-0.59) K/uL Eos # (Auto) 0.13 (0-0.50) K/uL Baso # (Auto) 0.05 (0-0.2) K/uL Immature Gran # (Auto) 0.03 (0.01-0.20) K/uL PT 11.2 (9.0-12.0) Seconds INR 1.0 (0.9-1.1) APTT 27.2 (21.0-31.0) Seconds PTT Ratio 1.0 Sodium 138 (136-145) mmol/L Potassium 4.2 (3.5-5.1) mmol/L Chloride 104 (98-107) mmol/L Carbon Dioxide 26 (21-32) mmol/L Anion Gap 8 (3-11) BUN 23 (6-23) mg/dl Creatinine 0.85 (0.6-1.2) mg/dl Est Cr Clr Drug Dosing 53.7 ml/min Est GFR ( Amer) 74.5 ml/min Est GFR (Non-Af Amer) 64.3 ml/min BUN/Creatinine Ratio 27.1 H (10-20) Glucose 99 (70-99(Fasting)) mg/dl Calcium 9.5 (8.6-10.3) mg/dl Total Bilirubin 0.6 (0.2-1.0) mg/dl AST 19 (13-39) U/L ALT 11 (7-52) U/L Alkaline Phosphatase 80 (34-104) U/L Troponin I High Sens 4.9 (0-14) pg/ml Total Protein 7.5 (6.0-8.3) gm/dl Albumin 4.3 (3.4-5.0) gm/dl Globulin 3.2 (2.5-4.0) gm/dl Albumin/Globulin Ratio 1.3 (0.9-2) Imaging Data Attestation: I personally reviewed and interpreted this imaging study as follows: My Impression: hip dislocation Radiologist's Impression: Hip X-Ray 11/14/22 11:21 XR hip RT min 2V HISTORY: 81 years-old Female fall, pain, hx of replacement right hip arthroplasty COMPARISON: 07/27/2022 TECHNIQUE: 2 views of the right hip FINDINGS: Right hip arthroplasty. Several centimeters of superior and posterior dislocation of the femoral component. No acute fracture identified. Lateral soft tissue swelling. IMPRESSION: Dislocated right hip arthroplasty. ACT 112: Negative or not required by law. The above report was generated using voice recognition software. It may contain grammatical, syntax or spelling errors. Electronically signed by: Etienne Edmondson M.D. 11/14/2022 12:18 PM Chest X-Ray 11/14/22 11:22 XR chest 1V portable CLINICAL HISTORY: hypoxic, COPD TECHNIQUE: Single frontal radiograph of the chest was obtained. Comparison: Comparison is made to chest radiograph 07/23/2022 FINDINGS: Bilateral shoulder radiographs are seen. Calcified aortic knob is seen. Reticular interstitial opacities are seen. No evidence of pleural effusion or pneumothorax. IMPRESSION: Interstitial thickening is seen without acute abnormality. ACT 112: Negative or not required by law. Electronically signed by: Manuel Gage M.D. 11/14/2022 12:14 PM [facility] Narrative History of present illness; patient Reviewed external documents; orthopedic note from Dr. Grubbs June 2022 ER course: Patient is an 81-year-old female presenting with complaint of right hip pain. Patient states she went to get up from her couch and felt her hip pop out of its joint. Patient had revision surgery June of this prior year. Patient also has a history of COPD and was found to have 86% oxygen saturation on room air upon arrival. Patient was given steroids and DuoNeb treatment. Patient has no fever or white count. Patient's chest x-ray does not show overt pneumonia. Patient's case discussed with orthopedics who recommends admission to the hospital for evaluation for potential revision surgery again. Does not recommend reduction in the emergency room. Consult: Orthopedics-[facility], Hospitalist Labs (independently interpreted) are significant; no electrolyte abnormality, no leukocytosis Imaging results (independently interpreted): Right hip dislocation EKG interpretation (independently interpreted): This note was dictated using [employer], which is a voice operative dictation device. Any typographical errors are not intentional. Impression Dislocation, hip, COPD exacerbation, Hypoxia Discharge Plan Visit Data Chief Complaint: Hip Pain ED Provider: Hang Duarte Discharge Problem: Dislocation, hip, COPD exacerbation, Hypoxia Patient Disposition: Admitted As Inpatient Forms Stand Alone Forms: [facility] Prescriptions Prescriptions: No Action albuterol sulfate 90 mcg/actuation HFA aerosol inhaler 2 puff inhalation Q6H PRN (Reason: shortness of breath or wheezing) Qty: 18 5RF Bevespi Aerosphere 9-4.8 mcg HFA aerosol inhaler 2 puff inhalation BID Qty: 10.7 5RF triamcinolone acetonide 0.5 % cream 1 applic EXT BID 7 Days Qty: 15 1RF Rx Instructions: apply to left hand rash Stool Softener 50 mg capsule 100 mg PO HS calcium carbonate 600 mg calcium (1,500 mg) tablet 600 mg PO DAILY cholecalciferol (vitamin D3) 2,000 unit capsule 2,000 units PO DAILY Qty: 90 gabapentin 300 mg capsule 300 mg PO HS Qty: 30 5RF levothyroxine 50 mcg tablet 50 mcg PO QAM Qty: 30 5RF lorazepam 1 mg tablet 1 mg PO HS PRN (Reason: sleep) Qty: 30 5RF mirtazapine 7.5 mg tablet 7.5 mg PO HS Qty: 30 3RF multivitamin with folic acid [Daily-Anne Marie (with folic acid)] 400 mcg Tablet 1 tab PO QAM Qty: 30 0RF Referrals Referrals: Patricia Aviles MD [Primary Care Provider] -
[2022-11-14 11:46] LABS: Basophils # (auto) 0.05 K/uL (0-0.2); Basophils % (auto) 0.6 %; Eosinophils # (auto) 0.13 K/uL (0-0.50); Eosinophils % (auto) 1.6 %; Hematocrit (blood only) 40.1 % (37.0-47.0); Hemoglobin 13.4 g/dl (12.0-16.0); Immature Granulocytes # (auto) 0.03 K/uL (0.01-0.20); Immature Granulocytes % (auto) 0.4 %; Lymphocytes # (auto) 1.16 K/uL (1.2-3.4); Lymphocytes % (auto) 14.1 %; Mean Corpuscular Hemoglobin 29.9 pg (25.0-34.0); Mean Corpuscular Hgb Conc 33.4 g/dL (32.0-36.0); Mean Corpuscular Volume 89.5 fL (80.0-100.0); Mean Platelet Volume 9.5 fL (9.4-12.4); Monocytes # (auto) 0.63 K/uL (0.11-0.59); Monocytes % (auto) 7.6 %; Neutrophils # (auto) 6.25 K/uL (1.40-6.50); Neutrophils % (auto) 75.7 %; Platelet Count 262 K/uL (130-400); RDW Coefficient of Variation 14.1 % (11.5-14.5); RDW Standard Deviation 45.8 fL (36.4-46.3); Red Blood Count 4.48 M/uL (4.20-5.40); White Blood Count 8.25 K/ul (4.8-10.8)
[2022-11-14] MEDS ORDERED: methylPREDNISolone 125 MG/2 ML VIAL IV ONE (12:00)
[2022-11-14 12:03] LABS: Albumin Globulin Ratio 1.3 (0.9-2); Albumin Level 4.3 gm/dl (3.4-5.0); BUN Creatinine Ratio 27.1 (10-20); Bilirubin,Total 0.6 mg/dl (0.2-1.0); Calcium 9.5 mg/dl (8.6-10.3); Creatinine Clr Calc Pharmacy 53.7 ml/min; Est GFR (African American) 74.5 ml/min; Est GFR (Non-African American) 64.3 ml/min; Globulin 3.2 gm/dl (2.5-4.0); Potassium 4.2 mmol/L (3.5-5.1); Total Protein 7.5 gm/dl (6.0-8.3)
[2022-11-14 12:14] LABS: Partial Thromboplastin Time 27.2 Seconds (21.0-31.0); Prothrombin Time 11.2 Seconds (9.0-12.0)
--- NOTE | 2022-11-14 12:15 | XRay Report ---
XR chest 1V portable CLINICAL HISTORY: hypoxic, COPD TECHNIQUE: Single frontal radiograph of the chest was obtained. Comparison: Comparison is made to chest radiograph 07/23/2022 FINDINGS: Bilateral shoulder radiographs are seen. Calcified aortic knob is seen. Reticular interstitial opacit ies are seen. No evidence of pleural effusion or pneumothorax. IMPRESSION: Interstitial thickening is seen without acute abnormality. ACT 112: Negative or not required by law. Electronically signed by: Manuel Gage M.D. 11/14/2022 12:14 PM
--- NOTE | 2022-11-14 12:20 | XRay Report ---
XR hip RT min 2V HISTORY: 81 years-old Female fall, pain, hx of replacement right hip arthroplasty COMPARISON: 07/27/2022 TECHNIQUE: 2 views of the right hip FINDINGS: Right hip arthroplasty. Several centimeters of superior and posterior dislocation of the femoral comp onent. No acute fracture identified. Lateral soft tissue swelling. IMPRESSION: Dislocated right hip arthroplasty. ACT 112: Negative or not required by law. The above report was generated using voice recognition software. It may contain grammatical, syntax o r spelling errors. Electronically signed by: Etienne Edmondson M.D. 11/14/2022 12:18 PM
[2022-11-14 15:23] LABS: Troponin I High Sensitivity 4.9 pg/ml (0-14)
--- NOTE | 2022-11-14 15:52 | Electrocardiogram Report ---
Test Reason : Blood Pressure : / mmHG Vent. Rate : 087 BPM Atrial Rate : 087 BPM P-R Int : 148 ms QRS Dur : 082 ms QT Int : 380 ms P-R-T Axes : 062 036 062 degrees QTc Int : 457 ms Normal sinus rhythm Low voltage QRS Borderline ECG When compared with ECG of 25-JUL-2022 06:03, No significant change was found Confirmed by Pablito Davis ([id number]) on 11/14/2022 3:51:44 PM Referred By: REFERRED SELF Confirmed By:Pablito Davis
--- NOTE | 2022-11-14 15:54 | History & Physical Report ---
Date of Service November 14, 2022 Assessment & Plan (1) Dislocation, hip: Plan: Recurrent dislocation of right hip prosthesis. This occurred without trauma. Supportive care. Bedrest at this time. Palacios catheter was then placed. Consult orthopedic surgery for further management (2) COPD (chronic obstructive pulmonary disease): Plan: Stable. She states her oxygen saturation runs in the low 90s at home. Chest x- ray is unremarkable. This does not appear to be acute exacerbation (3) Hypoxia: Plan: No apparent exacerbation. Oxygen supplementation to maintain saturation greater than 90%. She may need O2 at discharge (4) Hypothyroidism: Plan: Stable. Continue thyroid replacement Plan To be determined depending on whether she will need surgery of the right hip History of Present Illness Chief Complaint: Right hip pain Primary Care Provider: Patricia Aviles MD 81-year-old white female with history of right total hip arthroplasty. She has had recurrent dislocations of the prosthesis. This occurred again. She states she was getting up from a chair when the right hip dislocated and she had pain and inability to ambulate. She was also found to be mildly hypoxic in the ED but does not have any COPD exacerbation. This appears to be her baseline She is admitted for orthopedic consultation, bedrest, Palacios catheter is in place. She may need surgical revision of the right hip Allergies Allergy/AdvReac Type Severity Reaction Status Date / Time No Known Drug Allergies Allergy NKDA Verified 11/14/22 15:41 Home Medications Medication Instructions Recorded Confirmed Type calcium carbonate 600 mg calcium 600 mg PO DAILY 12/11/18 11/14/22 History (1,500 mg) tablet cholecalciferol (vitamin D3) 50 2,000 units PO DAILY #90 caps 12/11/18 11/14/22 History mcg (2,000 unit) capsule albuterol sulfate 90 mcg/actuation 2 puff inhalation Q6H PRN 08/30/21 11/14/22 Rx aerosol inhaler shortness of breath or wheezing #18 grams docusate sodium 50 mg capsule 50 mg PO BID 06/28/22 11/14/22 History (Stool Softener) glycopyrrolate 9 mcg-formoterol 2 puff inhalation BID #10.7 grams 07/09/22 11/14/22 Rx 4.8 mcg HFA aerosol inhaler (Bevespi SLI Systemsphere) multivitamin with folic acid 400 1 tab PO QAM #30 tabs 08/03/22 11/14/22 Rx mcg tablet (Daily-Anne Marie (with folic acid)) gabapentin 300 mg capsule 300 mg PO HS #30 caps 08/14/22 11/14/22 Rx levothyroxine 50 mcg tablet 50 mcg PO QAM #30 tabs 08/14/22 11/14/22 Rx mirtazapine 7.5 mg tablet 7.5 mg PO HS #30 tabs 08/14/22 11/14/22 Rx triamcinolone acetonide 0.5 % 1 applic EXT BID 1 week #15 grams 10/10/22 Rx topical cream lorazepam 1 mg tablet 1 mg PO HS 11/14/22 11/14/22 History Past Med/Surg History Medical History Allergic rhinitis Anxiety Carpal tunnel syndrome, right Chronic pruritus Closed dislocation of right hip COPD (chronic obstructive pulmonary disease) Degenerative joint disease of left hip Dyslipidemia Hypothyroidism Impaired fasting glucose Lichen planus Osteoarthritis of left shoulder Osteopenia Sensorineural hearing loss of both ears Spastic dysphonia mild CP Stress incontinence in female Ulnar neuropathy at elbow of right upper extremity Vitamin D deficiency Surgical History History of appendectomy History of cholecystectomy History of shoulder replacement History of total abdominal hysterectomy and bilateral salpingo-oophorectomy History of total hip replacement Family History Sister Breast cancer Denies family history of Ovarian cancer Prostate cancer Myocardial infarction Colorectal cancer Social History Smoking Status: Former smoker Tobacco Type: Cigarettes Age Started Using Tobacco: 15; Age Quit Using Tobacco: 66; packs per day: 2; Cigarettes Per Day: 40; Second Hand Exposure: No; Do You Dip or Chew Tobacco: No; Hx Alcohol Use: No Hx Substance Use: No Preferred Language: Swedish Communication Ability: Effective Visual Impairment: No Limitations Hearing Ability: Use of Hearing Aid Assisted Living Assistant Required: No Beliefs That Will Affect Care: None marital status: Current Living Situation: Alone current occupational status: retired 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 Feels Safe at Home: Yes Childhood Exposure to Second-Hand Smoke: No Diet: regular caffeine: Yes (Not very often) Dental Care, Regularly: No Physical Activity Frequency: Does not Exercise Seatbelt Use: always Sunscreen Use: No Assistive Devices: Cane and Walker Review of Systems Review of Systems: Constitutional-no fever or chills ENT-no blurred vision, no double vision, no epistaxis, no sore throat Respiratory-no cough, no wheezing, no shortness of breath Cardiac-no palpitations, no chest pain, no syncope GI-no nausea, vomiting, diarrhea, melena, hematochezia -no urinary retention, no urinary incontinence, no dysuria, no hematuria Musculoskeletal-right hip discomfort from recurrent right total hip arthroplasty dislocation Skin-no bruising, no rashes, no pruritus Neuro-no isolated weakness, no paresthesia, no weakness Psych-no depression, no anxiety Physical Exam Physical Exam: General-alert and oriented x3, no fevers, no chills HEENT-head atraumatic and normocephalic, TMs intact bilaterally, pupils equal and reactive to light, extraocular muscles intact Neck-no lymphadenopathy or thyromegaly, trachea midline Chest-diminished breath sounds bilaterally. No rales wheezing or rhonchi Cardiac-regular rate and rhythm, normal S1 and S2 Abdomen-normal bowel sounds, nontender, no hepatosplenomegaly Extremities-right leg is shortened and internally rotated. She has right hip pain with attempted movement Neuro-cranial nerves II through XII intact, motor and sensory function within normal limits, strength symmetrical , no focal deficits Psych-normal affect, normal mood Results & Data Results & Data Vital Signs (Past 12 Hours) Vital Signs Temp Pulse Pulse Resp BP Pulse Ox O2 Del Method 11/14/22 15:00 90 21 125/70 94 Nasal Cannula 11/14/22 14:30 89 22 105/64 95 Nasal Cannula 11/14/22 14:00 90 22 134/78 96 Nasal Cannula 11/14/22 14:52 103 H 11/14/22 13:30 88 20 90 11/14/22 13:33 89 L Nasal Cannula 11/14/22 10:51 92 H 14 142/85 H 92 Room Air 11/14/22 12:45 92 11/14/22 12:44 94 H 18 92 Room Air 11/14/22 10:56 97 H 11/14/22 10:52 37.1 C 99 H 20 142/85 H 87 L Room Air O2 Flow Rate 11/14/22 15:00 2 11/14/22 14:30 2 11/14/22 14:00 2 11/14/22 14:52 11/14/22 13:30 11/14/22 13:33 0 11/14/22 10:51 11/14/22 12:45 2 11/14/22 12:44 11/14/22 10:56 11/14/22 10:52 Laboratory Results 11/14/22 11:00 11/14/22 11:00 PG Care Time/CCT Total # of Minutes Spent Total Time Spent with Patient: Total time spent is greater than 50% in coordination of care (as documented) at patient's floor/unit and/or counseling patient: Coding Level of Care Code 88024 INT INP/OBS CARE 3/75MIN Diagnoses Dislocation, hip S73.006A COPD (chronic obstructive pulmonary disease) J44.9 Hypoxia R09.02 Hypothyroidism E03.9
[2022-11-14] MEDS ORDERED: ALBUTEROL HFA 8 GM INHALER INH PRN (18:50)
[2022-11-14] MEDS ORDERED: ONDANSETRON INJ 2 MG/ML 2 ML VIAL IV PRN (18:50)
[2022-11-14] MEDS: MIRTAZAPINE TAB 15 MG TAB PO SCH (20:44)
[2022-11-14] MEDS: LORazepam 1 MG TAB PO SCH (20:44)
[2022-11-14] MEDS: GABAPENTIN 300 MG CAP PO SCH (20:45)
[2022-11-14] MEDS: TRIAMCINOLONE ACET 0.5% CR 15 GM TUBE EXT SCH (20:45)
[2022-11-14] MEDS: ACETAMINOPHEN 325 MG TAB PO PRN (22:48)
[2022-11-14] MEDS: HEPARIN SOD 5,000 UNIT/0.5 ML VIAL SQ SCH (22:49)
[2022-11-15] MEDS ORDERED: diphenhydrAMINE Capsule 25 MG CAP PO ONE (00:51)
[2022-11-15] MEDS ORDERED: ACETAMINOPHEN 500 MG TAB PO ONE (00:52)
[2022-11-15] MEDS ORDERED: LEVOTHYROXINE SODIUM 50 MCG TABLET PO SCH (06:30)
[2022-11-15] MEDS: HEPARIN SOD 5,000 UNIT/0.5 ML VIAL SQ SCH ×2 (07:47→20:21)
[2022-11-15] MEDS: TRIAMCINOLONE ACET 0.5% CR 15 GM TUBE EXT SCH ×2 (07:49→20:21)
[2022-11-15] MEDS ORDERED: MULTIVITAMIN TAB PO SCH (09:00)
[2022-11-15] MEDS ORDERED: CHOLECALCIFEROL 1,000 UNITS 25 MCG TAB PO SCH (09:00)
[2022-11-15] MEDS ORDERED: DOCUSATE SODIUM 100 MG CAP PO SCH (09:00)
[2022-11-15] MEDS ORDERED: PANTOprazole 40 MG TAB PO SCH (09:00)
[2022-11-15] MEDS ORDERED: UMECLIDINIUM/VILANTEROL 62.5/25MCG 7 PUFFS/INHALER INH SCH (09:00)
[2022-11-15] MEDS ORDERED: CALCIUM CARBONATE 1250MG TAB PO SCH (09:00)
[2022-11-15] MEDS: ACETAMINOPHEN 325 MG TAB PO PRN (13:31)
[2022-11-15] MEDS ORDERED: MoRPHine SULFATE 2 MG/ML CARP IV PRN (13:38)
--- NOTE | 2022-11-15 14:03 | Orthopedic Consultation ---
Date of Service November 15, 2022 Assessment & Plan (1) Dislocation, hip: Unfortunately she redislocated her hip and completely dislodged the constrained component. She may need a revision of the entire acetabular component. Unfortunately, Dr. Grubbs is not in town for the next week. I do not do posterior approaches to the hip and acetabular revision is out of the scope of my practice. I spoke with the family and recommended transfer to a tertiary care facility where she can get the best care for possible revision of the right hip. They understand the circumstances and would like to proceed with transfer. I spoke with the hospitalist and will do anything we need to help facilitate the transfer. History of Present Illness Reason for Consultation: Recurrent dislocations of the right hip. Requesting Physician: . Attending Physician: Kirby Causey MD Tarik is a pleasant 81-year-old female who initially had her right hip replaced by Dr. Moeller with [facility] orthopedics. She did well for a while. She then had a hip dislocation and a closed reduction several months ago. She then had a recurrent dislocation about 3 months ago and was treated with a revision to a constrained component by Dr. Grubbs. She was doing well with that postoperatively until yesterday when she got up awkwardly from the couch and felt another dislocation of her hip. She came to the emergency room and radiographs have demonstrated a recurrent dislocation with dislodgment of the constrained liner.. She was admitted to the medical service. Orthopedics was consulted to evaluate and treat. Allergies Allergy/AdvReac Type Severity Reaction Status Date / Time No Known Drug Allergies Allergy NKDA Verified 11/14/22 15:41 Home Medications Medication Instructions Recorded Confirmed Type calcium carbonate 600 mg calcium 600 mg PO DAILY 12/11/18 11/14/22 History (1,500 mg) tablet cholecalciferol (vitamin D3) 50 2,000 units PO DAILY #90 caps 12/11/18 11/14/22 History mcg (2,000 unit) capsule albuterol sulfate 90 mcg/actuation 2 puff inhalation Q6H PRN 08/30/21 11/14/22 Rx aerosol inhaler shortness of breath or wheezing #18 grams docusate sodium 50 mg capsule 50 mg PO BID 06/28/22 11/14/22 History (Stool Softener) glycopyrrolate 9 mcg-formoterol 2 puff inhalation BID #10.7 grams 04/10/23 08/16/23 Rx 4.8 mcg HFA aerosol inhaler (Bevespi Aerosphere) multivitamin with folic acid 400 1 tab PO QAM #30 tabs 08/03/22 11/14/22 Rx mcg tablet (Daily-Anne Marie (with folic acid)) gabapentin 300 mg capsule 300 mg PO HS #30 caps 08/14/22 11/14/22 Rx levothyroxine 50 mcg tablet 50 mcg PO QAM #30 tabs 08/14/22 11/14/22 Rx mirtazapine 7.5 mg tablet 7.5 mg PO HS #30 tabs 08/14/22 11/14/22 Rx triamcinolone acetonide 0.5 % 1 applic EXT BID 1 week #15 grams 10/10/22 11/14/22 Rx topical cream lorazepam 1 mg tablet 1 mg PO HS 11/14/22 11/14/22 History Past Med/Surg History Medical History Allergic rhinitis Anxiety Carpal tunnel syndrome, right Chronic pruritus Closed dislocation of right hip COPD (chronic obstructive pulmonary disease) Degenerative joint disease of left hip Dyslipidemia Hypothyroidism Impaired fasting glucose Lichen planus Osteoarthritis of left shoulder Osteopenia Sensorineural hearing loss of both ears Spastic dysphonia mild CP Stress incontinence in female Ulnar neuropathy at elbow of right upper extremity Vitamin D deficiency Surgical History History of appendectomy History of cholecystectomy History of shoulder replacement History of total abdominal hysterectomy and bilateral salpingo-oophorectomy History of total hip replacement Family History Sister Breast cancer Denies family history of Ovarian cancer Prostate cancer Myocardial infarction Colorectal cancer Social History Smoking Status: Former smoker Tobacco Type: Cigarettes Age Started Using Tobacco: 15; Age Quit Using Tobacco: 66; packs per day: 2; Cigarettes Per Day: 40; Second Hand Exposure: No; Do You Dip or Chew Tobacco: No; Hx Alcohol Use: No Hx Substance Use: No Preferred Language: Moldovan Communication Ability: Effective Visual Impairment: No Limitations Hearing Ability: Use of Hearing Aid Cotton Agent Required: No Beliefs That Will Affect Care: None marital status: Current Living Situation: Alone Current Living Situation Comment: Assisted living apartment current occupational status: retired 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 Physical Exam On physical examination of the right hip, she has very little range of motion. Her right leg is shortened and internally rotated.. Constitutional WD/WN, vitals as above Eyes PERRL, conjunctivae normal, anicteric sclerae ENMT external ear and nose normal, oropharynx normal Neck trachea midline, no thyromegaly Respiratory normal respiratory effort, lungs clear to auscultation Cardiovascular RRR, no murmur, no edema Gastrointestinal (Abdomen) normal bowel sounds, soft, nontender, no hepatosplenomegaly Skin no rashes, warm and dry Psychiatric A+Ox3, euthymic affect Results & Data Results & Data Laboratory Results . Diagnostic Findings X-rays of the right hip show recurrent dislocation with complete dislodgment of the constrained component.. PG Care Time/CCT Total # of Minutes Spent Total Time Spent with Patient: Total time spent is greater than 50% in coordination of care (as documented) at patient's floor/unit and/or counseling patient: Coding Level of Care Code 51952 IN/OBS CONSULT LVL 4,60M Diagnoses Dislocation, hip S73.006A
[2022-11-15] MEDS ORDERED: SODIUM CHLORIDE 0.9% 1,000 ML IV SCH (16:00)
--- NOTE | 2022-11-15 19:31 | Discharge Summary ---
Date of Service date of admission - November 14, 2022 date of discharge - November 15, 2022 Admission HPI Per Admitting Provider 81-year-old white female with history of right total hip arthroplasty. She has had recurrent dislocations of the prosthesis. This occurred again. She states she was getting up from a chair when the right hip dislocated and she had pain and inability to ambulate. She was also found to be mildly hypoxic in the ED but does not have any COPD exacerbation. This appears to be her baseline She is admitted for orthopedic consultation, bedrest, Palacios catheter is in place. She may need surgical revision of the right hip Principal Diagnosis Dislocation of right hip arthroplasty Discharge Exam gen - NAD, resting comfortably in bed neck - no JVD mouth - MMM heart - RRR, s1 s2 lungs - b/l basilar fine, dry rales; no wheeze; no increased work of breathing abd - soft NT ND BS+ ext - right leg mildly shortened and internally rotated; left leg wnl; no peripheral edema, pulses 2+ b/l neuro - mild dysarthria psych - a/o x 3 Discharge Data Allergies Allergy/AdvReac Type Severity Reaction Status Date / Time No Known Drug Allergies Allergy NKDA Verified 11/14/22 15:41 Consultations [facility] Orthopedic Surgery Ordered Studies Hip X-Ray 11/14/22 11:21 XR hip RT min 2V HISTORY: 81 years-old Female fall, pain, hx of replacement right hip arthr oplasty COMPARISON: 07/27/2022 TECHNIQUE: 2 views of the right hip FINDINGS: Right hip arthroplasty. Several centimeters of superior and posterior dislocation of the femoral component. No acute fracture identified. Lateral soft tissue swelling. IMPRESSION: Dislocated right hip arthroplasty. ACT 112: Negative or not required by law. The above report was generated using voice recognition software. It may contain grammatical, syntax or spelling errors. Electronically signed by: Etienne Edmondson M.D. 11/14/2022 12:18 PM Chest X-Ray 11/14/22 11:22 XR chest 1V portable CLINICAL HISTORY: hypoxic, COPD TECHNIQUE: Single frontal radiograph of the chest was obtained. Comparison: Comparison is made to chest radiograph 07/23/2022 FINDINGS: Bilateral shoulder radiographs are seen. Calcified aortic knob is seen. Reticular interstitial opacities are seen. No evidence of pleural effusion or pneumothorax. IMPRESSION: Interstitial thickening is seen without acute abnormality. ACT 112: Negative or not required by law. Electronically signed by: Manuel Gage M.D. 11/14/2022 12:14 PM Hospital Course (1) Dislocation, hip: RIGHT. Recurrent. Occurred without any trauma, fall, etc. She was simply getting up from her chair when the dislocation occurred. She is status post a right hybrid [place] [address] Polk. She underwent revision [place] [address] [place]. In 2022 has had several dislocations of the right hip. Presented to [facility] on 07/23/22 with a repeat dislocation. On 07/27/22 she underwent Right Total Hip Revision by Dr Edgar Grubbs. Since then had done well but unfortunately developed yet another dislocation leading to this admission. She was seen in consult by Dr Harjit Whitaker, [facility]. As part of her re-dislocation she also completely dislodged the constrained component based on imaging. She may need a revision of the entire acetabular component. Unfortunately Dr Grubbs who had done the revision in 06/2022 was not available to correct the current problem. Dr Whitaker advised transfer to a tertiary care center for management. To that end [facility] was contacted and they accepted Ms Segura in transfer for ongoing care. She was discharged to [facility] in satisfactory condition with stable labs and stable vital signs. (2) COPD (chronic obstructive pulmonary disease): Stable. Chest x-ray was unremarkable except for chronic interstitial changes. She has known ILD. (3) Hypothyroidism: Stable. Continue thyroid replacement. Last TSH was 11/2021 and was wnl. (4) Spastic dysphonia: (5) Pulmonary fibrosis determined by high resolution computed tomography: Total Time Total Time Spent Total Time Spent (In Minutes): 60 Discharge Plan Discharge Items Patient Disposition: Transfer Acute Care Hospital Reason For Visit: RIGHT HIP DISLOCATION Discharge Diagnosis: 1. right total hip arthroplasty dislocation 2. pulmonary fibrosis - stable 3. COPD - stable 4. hypothyroidism 5. spastic dysphonia Activity: As commented below Activity Comment: strict bedrest Non-emergency contact: Primary Care Provider Call non-emergency contact if: you have any medication questions Follow-up/Referrals: Patricia Aviles MD [Primary Care Provider] - Diet: Regular Addtl Attending Provider Instructions: Further instructions to follow after your hospitalization at [facility]. Pending Studies at Discharge: No Stand-Alone Forms: My [facility] Skilled Items Patient informed of condition?: Yes DNR: Yes Discharge Level of Care: Other Communicable Disease: No Discharge Prognosis: Stable Lines: Peripheral IV Urinary Catheter: Yes Medications and DC Order Prescriptions: New acetaminophen 325 mg Tablet 650 mg PO Q6H PRN (Reason: fever or pain) Qty: 1 0RF heparin, porcine (PF) 5,000 unit/0.5 mL Syringe 5,000 unit subcut Q12 10 Days Qty: 10 0RF Continued albuterol sulfate 90 mcg/actuation HFA aerosol inhaler 2 puff inhalation Q6H PRN (Reason: shortness of breath or wheezing) Qty: 18 5RF Bevespi Aerosphere 9-4.8 mcg HFA aerosol inhaler 2 puff inhalation BID Qty: 10.7 5RF triamcinolone acetonide 0.5 % cream 1 applic EXT BID 7 Days Qty: 15 1RF Rx Instructions: apply to left hand rash Stool Softener 50 mg capsule 50 mg PO BID calcium carbonate 600 mg calcium (1,500 mg) tablet 600 mg PO DAILY cholecalciferol (vitamin D3) 2,000 unit capsule 2,000 units PO DAILY Qty: 90 gabapentin 300 mg capsule 300 mg PO HS Qty: 30 5RF levothyroxine 50 mcg tablet 50 mcg PO QAM Qty: 30 5RF mirtazapine 7.5 mg tablet 7.5 mg PO HS Qty: 30 3RF multivitamin with folic acid [Daily-Anne Marie (with folic acid)] 400 mcg Tablet 1 tab PO QAM Qty: 30 0RF lorazepam 1 mg tablet 1 mg PO HS Discharge Orders: Discharge Order (Routine); Ordered 11/15/22 Ordered By: Kirby Causey Admission Data Admit Date/Time: 11/14/22 15:43 Attending Provider: Kirby Causey Admit Provider: Papi Barrientos Primary Care Provider: Patricia Aviles Other Providers: Edgar Grubbs ; Sohan Meza Coding Level of Care Code 87527 INP/OBS DISCH >30 MIN Diagnoses Dislocation, hip S73.006A COPD (chronic obstructive pulmonary disease) J44.9 Hypothyroidism E03.9 Spastic dysphonia J38.3 Pulmonary fibrosis determined by high resolution computed tomography J84.10
[2022-11-15] MEDS: LORazepam 1 MG TAB PO SCH (20:21)
[2022-11-15] MEDS: MIRTAZAPINE TAB 15 MG TAB PO SCH (20:21)
[2022-11-15] MEDS: GABAPENTIN 300 MG CAP PO SCH (20:21)
== END 2022-11-15 20:45 | disposition short-term general hospital (02) | DRG 561 ==
LOC: ED 10:44 → EDINP 15:43 → SUATTDRO 15:43 → INTOOBSV 15:43 → 2N 11-15 00:07 → 2W 11-15 05:11

== ENCOUNTER 2025-01-11 19:01 | Inpatient (IN) ==
--- NOTE | 2025-01-11 20:21 | Emergency Department Note ---
Impression & Plan Acute UTI, Diverticulitis, Generalized weakness, Dizziness, Frequent PVCs ED Provider Note NAME: JAMIL BLAIR AGE: 84 SEX: F : 1940 ARRIVES VIA: Walk-In INFORMANT: Patient ED PROVIDER(S): Mirza Lilly MD CHIEF COMPLAINT: Question UTI, constipation, generalized weakness, dizziness PLAN: Disposition: Admit MEDICAL DECISION MAKING: The patient is a pleasant 84-year-old woman with a past medical history of COPD, Hypothyroidism who presents to the emergency department via walk-in accompanied by her daughter for evaluation of urinary urgency as well as symptoms of constipation in setting of having generalized weakness and dizziness over the past several days with report of similar symptoms that wax and wane over the past year or more. Patient correlates the symptoms with a urinary tract infection. She denies any fevers, cough, congestion, chest pain or shortness of breath. On evaluation patient is no acute distress, afebrile with heart in the 100s and vital signs otherwise stable. She appears clinically dry. EKG demonstrates sinus tachycardia with frequent PVCs. Single episode of triplet was identified by monitor tabulating clerk but no recurrence. Chest x-ray negative for acute cardiopulmonary process per my preliminary independent interpretation. KUB demonstrates evidence of constipation. WBC, H/H and platelets within normal limits. Chemistry without metabolic acidosis. BUN/creatinine 28 consistent with the patient's clinically dry appearance. Magnesium 1.9, within normal limits however IV magnesium provided given frequent PVCs. LFTs unremarkable. High styptic troponin 4.0, within normal limits. Lipase is normal. TSH is 6.8 however free T4 within normal limits. UA is suspicious for infection with WBCs and 2+ leuk esterase though no bacteria and negative nitrates. Treatment for UTI initiated with IV ceftriaxone. CT of the head negative for acute abnormalities. CT of the abdomen pelvis demonstrates uncomplicated acute diverticulitis in the sigmoid colon. Description of possible stenosis involving the sigmoid colon is noted where malignancy is not completely excluded. Given evidence of diverticulitis antibiotic coverage broadened with IV Flagyl. Patient and daughter agree with plan for admission for further management. Case was discussed with Dr. Alvarez, [facility] hospitalist, who will evaluate the patient for admission. Further management per admitting team. Triage Nursing notes reviewed and agree them. Prior/external medical records reviewed Vital Signs: reviewed Differential diagnosis: Benign positional vertigo, dehydration, hypovolemia, anemia, tumor, infection, hypoglycemia, electrolyte abnormalities, cardiac sources, intracerebral event, toxicologic, neurologic, as well as other pathologies. ER treatment provided: See below. Diagnostics interpreted by me: ECG: Sinus rhythm with frequent PVCs, 94 bpm, no overt ST elevation or depression, QTc 445, QRS 86 Cardiac Monitoring: An order for continuous cardiac monitoring was placed and demonstrated Sinus rhythm with frequent PVCs, single triplet/?NSVT, 94 bpm Laboratory studies: See below Imaging studies: See below Consultation(s): Case was discussed with Dr. Alvarez, [facility] [place] [facility] hospitalist, who will evaluate the patient for admission. HPI: Per MDM. ROS: See above HPI for pertinent positives & negatives. A total of 10 systems reviewed and were otherwise negative. VITALS:See Below PHYSICAL EXAMINATION: GENERAL: Awake, alert, in no distress HENT: Normocephalic, atraumatic. Oropharynx with dry mucous membranes and otherwise unremarkable. EYES: Normal conjunctiva. Sclera non-icteric. NECK: Supple. No nuchal rigidity. FROM. No JVD. RESPIRATORY: Clear to auscultation. CARDIAC: Tachycardic rate, normal rhythm. Extremities warm and well perfused. Pulses equal. ABDOMEN: Soft, non-distended. No tenderness to palpation. No rebound or guarding. No masses. MUSCULOSKELETAL: Chest examination reveals no tenderness. The back is symmetrical on inspection without obvious abnormality. There is no CVA tenderness to palpation. No joint edema. LOWER EXTREMITIES: Calves are equal size bilaterally and non-tender. No edema. No discoloration. NEURO: Normal sensorium. No sensory or motor deficits noted. SKIN: No rash or jaundice noted. 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) Carpal tunnel syndrome, right (Chronic) Stress incontinence in female (Chronic) Impaired fasting glucose (Chronic) Chronic pruritus (Chronic) Allergic rhinitis (Chronic) Anxiety (Chronic) COPD (chronic obstructive pulmonary disease) (Chronic) Dyslipidemia (Chronic) 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) Osteopenia (Chronic) Sensorineural hearing loss of both ears (Chronic) Vitamin D deficiency (Chronic) 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 Surgical History History of revision of total replacement of right hip joint History of shoulder replacement History of total hip replacement History of appendectomy History of cholecystectomy History of total abdominal hysterectomy and bilateral salpingo-oophorectomy Family History Sister Breast cancer Denies family history of Ovarian cancer Prostate cancer Myocardial infarction Colorectal cancer Social History Smoking Status: Never smoker Tobacco Type: Cigarettes Age Started Using Tobacco: 15; Age Quit Using Tobacco: 66; packs per day: 2; Cigarettes Per Day: 40; Second Hand Exposure: No; Do You Dip or Chew Tobacco: No; Hx Alcohol Use: No Hx Substance Use: No Preferred Language: Arabic Communication Ability: Effective Visual Impairment: No Limitations Hearing Ability: Use of Hearing Aid Technical Services Assistant Required: No Beliefs That Will Affect Care: None marital status: Current Living Situation: Alone Current Living Situation Comment: Assisted living apartment current occupational status: retired 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 Feels Safe at Home: Yes Childhood Exposure to Second-Hand Smoke: No Diet: regular caffeine: Yes (Not very often) Dental Care, Regularly: No Physical Activity Frequency: Does not Exercise Seatbelt Use: always Sunscreen Use: No Assistive Devices: None Allergies Allergies Allergy/AdvReac Type Severity Reaction Status Date / Time No Known Allergies Allergy Verified 01/11/25 20:48 Home Meds Home Medications Medication Instructions Recorded Confirmed calcium carbonate 600 mg PO DAILY 12/11/18 01/11/25 cholecalciferol (vitamin D3) 50 2,000 units PO DAILY #90 caps 12/11/18 01/11/25 mcg (2,000 unit) capsule docusate sodium 50 mg capsule 50 mg PO BID 06/28/22 01/11/25 (Stool Softener) glucosamine sulfate 500 mg tablet 500 mg PO DAILY 12/12/22 01/11/25 cranberry fruit concentrate 250 mg 250 mg PO TID 02/26/24 01/11/25 chewable tablet (Azo Cranberry) phenazopyridine 99.5 mg tablet 99.5 mg PO BID 01/11/25 01/11/25 (Azo Urinary Pain Relief) triamcinolone acetonide 0.5 % 1 applic EXT BID PRN ITCHY RASH 01/11/25 01/11/25 topical cream Previous Rx's Medication Instructions Recorded albuterol sulfate 90 mcg/actuation 2 puff inhalation Q6H PRN 08/30/21 aerosol inhaler shortness of breath or wheezing #18 grams multivitamin with folic acid 400 1 tab PO QAM #30 tabs 08/03/22 mcg tablet (Daily-Anne Marie (with folic acid)) acetaminophen 325 mg tablet 650 mg (2 x 325 mg) PO Q6H PRN 11/15/22 fever or pain #1 tab Shower Chair #1 ea 02/24/24 mirtazapine 7.5 mg tablet 7.5 mg PO HS #30 tabs 03/19/24 gabapentin 300 mg capsule 300 mg PO HS #30 caps 08/19/24 levothyroxine 50 mcg tablet 50 mcg PO DAILY #30 tabs 08/26/24 glycopyrrolate 9 mcg-formoterol 2 puff inhalation BID #10.7 grams 09/01/24 4.8 mcg HFA aerosol inhaler (Bevespi Aerosphere) lorazepam 1 mg tablet 1 mg PO HS #30 tabs 11/17/24 Results & Data (ED) Vital Signs Vital Signs - 24 hr 01/11/25 19:12 01/11/25 19:55 01/11/25 19:56 Temperature 36.4 C L Temperature Source Oral Pulse Rate 99 H 97 H Pulse Rate [Left Apical] Respiratory Rate 19 Respiratory Effort / Characteristics Non-Labored Spontaneous Respiratory Depth Normal Respiratory Pattern Regular Blood Pressure 117/72 161/86 H Blood Pressure [Right Arm] Blood Pressure Mean 87 118 Blood Pressure Mean [Right Arm] Pulse Oximetry 94 Oxygen Delivery Method Room Air Sepsis Recent Fever Within 48 Hours No Sepsis New/Unexplained Change in Mental Status No Sepsis Action Taken by Nursing No Action Required 01/11/25 20:00 01/11/25 20:12 01/11/25 21:00 Temperature Temperature Source Pulse Rate 98 H 96 H Pulse Rate [Left Apical] Respiratory Rate 23 20 Respiratory Effort / Characteristics Respiratory Depth Respiratory Pattern Blood Pressure 149/88 H 130/79 Blood Pressure [Right Arm] Blood Pressure Mean 106 96 Blood Pressure Mean [Right Arm] Pulse Oximetry 96 92 Oxygen Delivery Method Room Air Room Air Sepsis Recent Fever Within 48 Hours Sepsis New/Unexplained Change in Mental Status Sepsis Action Taken by Nursing 01/11/25 21:12 01/11/25 21:55 01/11/25 22:00 Temperature Temperature Source Pulse Rate 97 H Pulse Rate [Left Apical] 92 H Respiratory Rate 22 18 Respiratory Effort / Characteristics Non-Labored Spontaneous Respiratory Depth Normal Respiratory Pattern Regular Blood Pressure 143/88 H Blood Pressure [Right Arm] 162/95 H Blood Pressure Mean 103 Blood Pressure Mean [Right Arm] 117 Pulse Oximetry 94 94 Oxygen Delivery Method Room Air Room Air Sepsis Recent Fever Within 48 Hours Sepsis New/Unexplained Change in Mental Status Sepsis Action Taken by Nursing 01/11/25 22:15 01/11/25 22:30 01/11/25 23:00 Temperature Temperature Source Pulse Rate 100 H 97 H Pulse Rate [Left Apical] 97 H Respiratory Rate 21 19 17 Respiratory Effort / Characteristics Respiratory Depth Respiratory Pattern Blood Pressure 144/85 H Blood Pressure [Right Arm] 160/94 H Blood Pressure Mean 104 Blood Pressure Mean [Right Arm] 116 Pulse Oximetry 96 93 94 Oxygen Delivery Method Room Air Room Air Room Air Sepsis Recent Fever Within 48 Hours Sepsis New/Unexplained Change in Mental Status Sepsis Action Taken by Nursing 01/11/25 23:50 Temperature Temperature Source Pulse Rate 101 H Pulse Rate [Left Apical] Respiratory Rate Respiratory Effort / Characteristics Respiratory Depth Respiratory Pattern Blood Pressure Blood Pressure [Right Arm] Blood Pressure Mean Blood Pressure Mean [Right Arm] Pulse Oximetry Oxygen Delivery Method Sepsis Recent Fever Within 48 Hours Sepsis New/Unexplained Change in Mental Status Sepsis Action Taken by Nursing Laboratory Data Attestation: I reviewed the patient's lab results. 01/11/25 20:12 01/11/25 20:12 Lab Results 01/11/25 01/11/25 Range/Units 20:12 20:59 WBC 9.86 (4.8-10.8) K/ul RBC 4.19 L (4.20-5.40) M/uL Hgb 13.0 (12.0-16.0) g/dl Hct 38.4 (37.0-47.0) % MCV 91.6 (80.0-100.0) fL MCH 31.0 (25.0-34.0) pg MCHC 33.9 (32.0-36.0) g/dL RDW Std Deviation 45.5 (36.4-46.3) fL RDW Coeff of Gregoria 13.4 (11.5-14.5) % Plt Count 310 (130-400) K/uL MPV 9.1 L (9.4-12.4) fL Immature Gran % (Auto) 0.5 % Neut % (Auto) 70.7 % Lymph % (Auto) 18.8 % [place] % (Auto) 7.8 % Eos % (Auto) 1.7 % Baso % (Auto) 0.5 % Neut # (Auto) 6.97 H (1.40-6.50) K/uL Lymph # (Auto) 1.85 (1.20-3.40) K/uL [place] # (Auto) 0.77 H (0.11-0.59) K/uL Eos # (Auto) 0.17 (0.00-0.50) K/uL Baso # (Auto) 0.05 (0.00-0.20) K/uL Immature Gran # (Auto) 0.05 (0.01-0.20) K/uL PT 10.7 (9.0-12.0) Seconds INR 1.0 (0.9-1.1) Sodium 137 (136-145) mmol/L Potassium 4.4 (3.5-5.1) mmol/L Chloride 102 (98-107) mmol/L Carbon Dioxide 26 (21-32) mmol/L Anion Gap 9 (3-11) BUN 26 H (6-23) mg/dl Creatinine 0.92 (0.6-1.2) mg/dl Est Cr Clr Drug Dosing 41.0 ml/min eGFR 61.40 BUN/Creatinine Ratio 28.3 H (10-20) Glucose 140 H (70-99(Fasting)) mg/dl Calcium 9.1 (8.6-10.3) mg/dl Phosphorus 4.1 (2.5-4.9) mg/dl Magnesium 1.9 (1.7-2.4) mg/dl Total Bilirubin 0.5 (0.2-1.0) mg/dl AST 21 (13-39) U/L ALT 9 (7-52) U/L Alkaline Phosphatase 79 (34-104) U/L Troponin I High Sens 4.0 (0-14) pg/ml Total Protein 7.5 (6.0-8.3) gm/dl Albumin 4.0 (3.4-5.0) gm/dl Globulin 3.5 (2.5-4.0) gm/dl Albumin/Globulin Ratio 1.1 (0.9-2) Lipase 31 (11-82) U/L TSH 6.817 H (0.300-4.500) uIu/ml Free T4 1.06 (0.61-1.60) ng/dl Urine Color Yellow Urine Appearance Clear (Clear) Urine pH 6.0 (4.5-7.5) Ur Specific [place] 1.019 (1.000-1.030) Urine Protein Trace H (Negative) Urine Glucose (UA) Negative (Negative) Urine Ketones Negative (Negative) Urine Blood Negative (Negative) Urine Nitrite Negative (Negative) Urine Bilirubin Negative (Negative) Urine Urobilinogen Negative (Negative) Ur Leukocyte Esterase 2+ H (Negative) Urine WBC (Auto) >50 H (0-5) /hpf Urine RBC (Auto) 3-5 H (0-2) /hpf U Hyaline Cast (Auto) 0-2 (0-2) /lpf U Epithel Cells (Auto) 0-2 (0-2) /hpf Urine Bacteria (Auto) None Seen (None Seen) Urine Comment Administered Medications Metronidazole (Flagyl) 500 mg in 100 mls @ 100 mls/hr IV NOW STA; Protocol Stop: 01/12/25 00:40 Last Admin: 01/12/25 00:23 Dose: 100 mls/hr Documented By: TAMIR Discontinued Medications Sodium Chloride (Nss) 500 mls @ 999 mls/hr IV .Q31M ONE Stop: 01/11/25 20:49 Last Infusion: 01/11/25 23:17 Dose: Infused Documented By: Admin: 01/11/25 20:57 Dose: 999 mls/hr Documented By: FOUZIA Magnesium Sulfate/Dextrose (Magnesium Sulfate / D5w) 1 gm in 100 mls @ 100 mls/hr IV NOW STA Stop: 01/11/25 22:15 Last Infusion: 01/11/25 22:55 Dose: Infused Documented By: Admin: 01/11/25 21:50 Dose: 100 mls/hr Documented By: WANDA Ceftriaxone Sodium (Rocephin) 2,000 mg in 50 mls @ 100 mls/hr IV NOW STA Stop: 01/11/25 23:13 Last Infusion: 01/11/25 23:37 Dose: Infused Documented By: Admin: 01/11/25 22:55 Dose: 100 mls/hr Documented By: WANDA Ioversol (Optiray 320 100ml) 90 ml IV ONCE ONE Stop: 01/11/25 21:35 Last Admin: 01/11/25 21:34 Dose: 90 ml Documented By: MARKEL Imaging Data Radiologist's Impression: Chest X-Ray 01/11/25 20:16 Exam(s): XR CXR 1 VIEW EXAM: XR Chest, 1 View CLINICAL HISTORY: Reason for exam: dizziness. TECHNIQUE: Frontal view of the chest. COMPARISON: 11/14/2022 FINDINGS: Lungs: Chronic appearing interstitial opacities are unchanged. No consolidation or overt edema. Pleural space: No pleural effusion. No pneumothorax. Heart: Unremarkable. No cardiomegaly. Bones/joints: Bilateral shoulder arthroplasties. IMPRESSION: No acute findings in the chest. Electronically signed by: Davide Street MD 01/11/25 22:54 PM KUB X-Ray 01/11/25 20:16 Exam(s): XR KUB EXAM: XR Abdomen, 1 View CLINICAL HISTORY: Reason for exam: constipation. TECHNIQUE: Frontal supine view of the abdomen/pelvis. COMPARISON: CT abdomen pelvis 04/06/2013 FINDINGS: Gastrointestinal tract: Moderate colonic stool burden. No bowel obstruction. Organs: Status post cholecystectomy. There is a retained suture needle in the right upper quadrant. This was present on the prior CT 04/06/2013 and is located within hepatic segment 5. Bones/joints: Bilateral hip arthroplasties. No acute fracture. Heterotopic ossification along the medial aspects of the right femoral stem. IMPRESSION: 1. Moderate colonic stool burden. 2. Retained suture needle in the right upper quadrant. This was present on the prior CT 04/06/2013 and is located within hepatic segment 5. Electronically signed by: Davide Street MD 01/11/25 22:58 PM Abdomen/Pelvis CT 01/11/25 21:15 Exam(s): CT ABDOMEN + PELVIS With Contrast IV Amt: 90 ml optiray 320 EXAM: CT Abdomen and Pelvis With Intravenous Contrast CLINICAL HISTORY: Reason for exam: abd pain, constipation. TECHNIQUE: Axial computed tomography images of the abdomen and pelvis with intravenous contrast. CTDI is 22.53 mGy and DLP is 1044.24 mGy-cm. Automated exposure control was utilized for the study. A dose lowering technique was utilized adhering to the principles of ALARA. CONTRAST: Patient received 90 ml optiray 320 of IV contrast COMPARISON: No relevant prior studies available. FINDINGS: ABDOMEN: Liver: Unremarkable. Gallbladder and bile ducts: Cholecystectomy. Biliary dilatation favored related to postcholecystectomy status. Pancreas: Unremarkable. Spleen: A few subcentimeter low-attenuation lesions in the spleen which are incompletely characterized but likely cysts. Adrenals: Unremarkable. Kidneys and ureters: Unremarkable. No obstructing stones. No hydronephrosis. Stomach and bowel: Circumferential mucosal thickening and hyperemia within the sigmoid colon with adjacent inflammatory changes consistent with acute diverticulitis. Stenosis of the involved sigmoid colon with a large amount of upstream stool burden. PELVIS: Appendix: No findings to suggest acute appendicitis. Bladder: Unremarkable. Reproductive: Hysterectomy. ABDOMEN and PELVIS: Intraperitoneal space: Unremarkable. No free air. No significant fluid collection. Bones/joints: Bilateral hip arthroplasties. Advanced degenerative changes in the lumbar spine. No acute fracture. Soft tissues: Unremarkable. Vasculature: Aortobiiliac atherosclerotic calcifications. Lymph nodes: Unremarkable. IMPRESSION: 1. Acute diverticulitis in the sigmoid colon. No perforation or abscess. 2. Stenosis of the involved sigmoid colon with a large amount of upstream stool burden. Cannot exclude malignancy. Electronically signed by: Davide Street MD 01/11/25 23:[address] 01/11/25 21:15 Exam(s): CT HEAD Without Contrast EXAM: CT Head Without Intravenous Contrast CLINICAL HISTORY: Reason for exam: dizziness. TECHNIQUE: Axial computed tomography images of the head/brain without intravenous contrast. CTDI is 37.49 mGy and DLP is 547.75 mGy-cm. Automated exposure control was utilized for the study. A dose lowering technique was utilized adhering to the principles of ALARA. COMPARISON: Head CT 09/17/2020. FINDINGS: Brain: No hemorrhage, extra-axial fluid collection, mass effect, or edema. Ventricles: Unremarkable. Bones/joints: Unremarkable. No fracture. Soft tissues: Unremarkable. Sinuses: No acute sinusitis. Mastoid air cells: Unremarkable as visualized. IMPRESSION: 1. No acute intracranial abnormality. Electronically signed by: Davide Street MD 01/11/25 23:22 PM Discharge Plan Visit Data Chief Complaint: Unable to Void Stated Complaint: NO BOWEL OR URINE MOVEMENT, HX UTI ED Provider: Mirza Lilly Discharge Problem: Acute UTI, Diverticulitis, Generalized weakness, Dizziness, Frequent PVCs Patient Disposition: Admitted As Inpatient Condition: Fair Forms Stand Alone Forms: [facility] Prescriptions Prescriptions: No Action albuterol sulfate 90 mcg/actuation HFA aerosol inhaler 2 puff inhalation Q6H PRN (Reason: shortness of breath or wheezing) Qty: 18 5RF glucosamine sulfate 500 mg tablet 500 mg PO DAILY Rx Instructions: administer with a meal dc encompass 12/10 ([facility]) Shower Chair See Rx Instructions .Route .MEDSUPPLY Qty: 1 0RF Rx Instructions: As directed to increase patient safety and prevention of falls/injuries while bathing mirtazapine 7.5 mg tablet 7.5 mg PO HS Qty: 30 11RF levothyroxine 50 mcg tablet 50 mcg PO DAILY Qty: 30 6RF Bevespi Aerosphere 9-4.8 mcg HFA aerosol inhaler 2 puff inhalation BID Qty: 10.7 5RF lorazepam 1 mg tablet 1 mg PO HS Qty: 30 5RF Stool Softener 50 mg capsule 50 mg PO BID calcium carbonate 600 mg calcium (1,500 mg) tablet 600 mg PO DAILY cholecalciferol (vitamin D3) 2,000 unit capsule 2,000 units PO DAILY Qty: 90 Azo Cranberry 250 mg tablet,chewable 250 mg PO TID gabapentin 300 mg capsule 300 mg PO HS Qty: 30 11RF multivitamin with folic acid [Daily-Anne Marie (with folic acid)] 400 mcg Tablet 1 tab PO QAM Qty: 30 0RF acetaminophen 325 mg Tablet 650 mg PO Q6H PRN (Reason: fever or pain) Qty: 1 0RF Azo Urinary Pain Relief 99.5 mg Tablet 99.5 mg PO BID triamcinolone acetonide 0.5 % cream 1 applic EXT BID PRN (Reason: ITCHY RASH) Rx Instructions: apply to itchy rash spots Referrals Referrals: Patricia Aviles MD [Primary Care Provider] -
[2025-01-11 20:29] LABS: Hematocrit (blood only) 38.4 % (37.0-47.0); Hemoglobin 13.0 g/dl (12.0-16.0); Immature Granulocytes # (auto) 0.05 K/uL (0.01-0.20); Immature Granulocytes % (auto) 0.5 %; Mean Corpuscular Hemoglobin 31.0 pg (25.0-34.0); Mean Corpuscular Volume 91.6 fL (80.0-100.0); Platelet Count 310 K/uL (130-400); RDW Standard Deviation 45.5 fL (36.4-46.3); Red Blood Count 4.19 M/uL (4.20-5.40); White Blood Count 9.86 K/ul (4.8-10.8)
[2025-01-11 20:47] LABS: Alanine Aminotransferase 9.0 U/L (7-52); Albumin Globulin Ratio 1.1 (0.9-2); Albumin Level 4.0 gm/dl (3.4-5.0); Alkaline Phosphatase 79.0 U/L (34-104); Anion Gap 9.0 (3-11); Bilirubin,Total 0.5 mg/dl (0.2-1.0); Blood Urea Nitrogen 26.0 mg/dl (6-23); Calcium 9.1 mg/dl (8.6-10.3); Carbon Dioxide 26.0 mmol/L (21-32); Chloride 102.0 mmol/L (98-107); Creatinine Clr Calc Pharmacy 41.0 ml/min; Globulin 3.5 gm/dl (2.5-4.0); Glucose 140.0 mg/dl (70-99(Fasting)); Lipase 31.0 U/L (11-82); Magnesium 1.9 mg/dl (1.7-2.4); Potassium 4.4 mmol/L (3.5-5.1); Sodium 137.0 mmol/L (136-145); Total Protein 7.5 gm/dl (6.0-8.3)
[2025-01-11] MEDS: SODIUM CHLORIDE 0.9% 500 ML IV ONE (20:57)
[2025-01-11 21:00] LABS: INR 1.0 (0.9-1.1); Prothrombin Time 10.7 Seconds (9.0-12.0)
[2025-01-11 21:03] LABS: Thyroid Stimulating Hormone 6.817 uIu/ml (0.300-4.500)
[2025-01-11 21:23] LABS: Appearance Urine Clear (Clear); Bacteria Urine Automated None Seen (None Seen); Cast Urine Automated 0-2 /lpf (0-2); Epithelial Cell Urine Auto 0-2 /hpf (0-2); Glucose Urine UA Negative (Negative); WBC Urine Automated >50 /hpf (0-5)
[2025-01-11] MEDS: OPTIRAY 320 100ml IV ONE (21:34)
[2025-01-11 21:38] LABS: T4 Free Thyroxine 1.06 ng/dl (0.61-1.60)
[2025-01-11] MEDS: MAGNESIUM SULFATE / D5W 1 GM/100 ML BAG IV STA (21:50)
[2025-01-11] MEDS: cefTRIAXone SODIUM 2,000 MG/50 ML BAG IV STA (22:55)
--- NOTE | 2025-01-11 22:55 | XRay Report ---
Exam(s): XR CXR 1 VIEW EXAM: XR Chest, 1 View CLINICAL HISTORY: Reason for exam: dizziness. TECHNIQUE: Frontal view of the chest. COMPARISON: 11/14/2022 FINDINGS: Lungs: Chronic appearing interstitial opacities are unchanged. No consolidation or overt edema. Pleural space: No pleural effusion. No pneumothorax. Heart: Unremarkable. No cardiomegaly. Bones/joints: Bilateral shoulder arthroplasties. IMPRESSION: No acute findings in the chest. Electronically signed by: Davide Street MD 01/11/25 22:54 PM
--- NOTE | 2025-01-11 22:58 | XRay Report ---
Exam(s): XR KUB EXAM: XR Abdomen, 1 View CLINICAL HISTORY: Reason for exam: constipation. TECHNIQUE: Frontal supine view of the abdomen/pelvis. COMPARISON: CT abdomen pelvis 04/06/2013 FINDINGS: Gastrointestinal tract: Moderate colonic stool burden. No bowel obstruction. Organs: Status post cholecystectomy. There is a retained suture needle in the right upper quadrant. This was present on the prior CT 04/06/2013 and is located within hepatic segment 5. Bones/joints: Bilateral hip arthroplasties. No acute fracture. Heterotopic ossification along the medial aspects of the right femoral stem. IMPRESSION: 1. Moderate colonic stool burden. 2. Retained suture needle in the right upper quadrant. This was present on the prior CT 04/06/2013 and is located within hepatic segment 5. Electronically signed by: Davide Street MD 01/11/25 22:58 PM
--- NOTE | 2025-01-11 23:22 | CT Scan Report ---
Exam(s): CT ABDOMEN + PELVIS With Contrast IV Amt: 90 ml optiray 320 EXAM: CT Abdomen and Pelvis With Intravenous Contrast CLINICAL HISTORY: Reason for exam: abd pain, constipation. TECHNIQUE: Axial computed tomography images of the abdomen and pelvis with intravenous contrast. CTDI is 22.53 mGy and DLP is 1044.24 mGy-cm. Automated exposure control was utilized for the study. A dose lowering technique was utilized adhering to the principles of ALARA. CONTRAST: Patient received 90 ml optiray 320 of IV contrast COMPARISON: No relevant prior studies available. FINDINGS: ABDOMEN: Liver: Unremarkable. Gallbladder and bile ducts: Cholecystectomy. Biliary dilatation favored related to postcholecystectomy status. Pancreas: Unremarkable. Spleen: A few subcentimeter low-attenuation lesions in the spleen which are incompletely characterized but likely cysts. Adrenals: Unremarkable. Kidneys and ureters: Unremarkable. No obstructing stones. No hydronephrosis. Stomach and bowel: Circumferential mucosal thickening and hyperemia within the sigmoid colon with adjacent inflammatory changes consistent with acute diverticulitis. Stenosis of the involved sigmoid colon with a large amount of upstream stool burden. PELVIS: Appendix: No findings to suggest acute appendicitis. Bladder: Unremarkable. Reproductive: Hysterectomy. ABDOMEN and PELVIS: Intraperitoneal space: Unremarkable. No free air. No significant fluid collection. Bones/joints: Bilateral hip arthroplasties. Advanced degenerative changes in the lumbar spine. No acute fracture. Soft tissues: Unremarkable. Vasculature: Aortobiiliac atherosclerotic calcifications. Lymph nodes: Unremarkable. IMPRESSION: 1. Acute diverticulitis in the sigmoid colon. No perforation or abscess. 2. Stenosis of the involved sigmoid colon with a large amount of upstream stool burden. Cannot exclude malignancy. Electronically signed by: Davide Street MD 01/11/25 23:21 PM
--- NOTE | 2025-01-11 23:23 | CT Scan Report ---
Exam(s): CT HEAD Without Contrast EXAM: CT Head Without Intravenous Contrast CLINICAL HISTORY: Reason for exam: dizziness. TECHNIQUE: Axial computed tomography images of the head/brain without intravenous contrast. CTDI is 37.49 mGy and DLP is 547.75 mGy-cm. Automated exposure control was utilized for the study. A dose lowering technique was utilized adhering to the principles of ALARA. COMPARISON: Head CT 09/17/2020. FINDINGS: Brain: No hemorrhage, extra-axial fluid collection, mass effect, or edema. Ventricles: Unremarkable. Bones/joints: Unremarkable. No fracture. Soft tissues: Unremarkable. Sinuses: No acute sinusitis. Mastoid air cells: Unremarkable as visualized. IMPRESSION: 1. No acute intracranial abnormality. Electronically signed by: Davide Street MD 01/11/25 23:22 PM
[2025-01-12] MEDS: metroNIDAZOLE 500 MG/100 ML BAG IV STA (00:23)
--- NOTE | 2025-01-12 01:01 | History & Physical Report ---
Date of Service January 12, 2025 Assessment & Plan (1) Diverticulitis: (2) Acute UTI: (3) Frequent PVCs: Plan 84 y/o with history of COPD, neuropathy, anxiety , dyslipidemia, history of recurrent UTI and constipations. Patient presented here due to abdominal pain, weakness and urinary urgency. She states been constipated for months now, she took two laxatives yesterday with no resolution of symptoms. She have symptoms of frequency and urgency with some incontinence. She feel pressure in her abdomen. She's passing gasses. On evaluation in the ED CT: with acute sigmoid diverticulitis, and severe stenosis in same area with increase stool burden. No leukocytosis, normal Hgb. UA positive for UTI, positive wbc and leuk esterase. She denied any fevers, chills, diarrhea, nausea or vomiting. No chest pain or palpitations. Denied any hematuria or bloody stools.Patient will be admitted for acute diverticulitis #Acute diverticulitis/ Stenosis in sigmoid colon - Patient with hx of chronic constipations that presented with abdominal pain, and weakness. No history of diverticulitis in the past. - Unknown of last colonoscopy, she refers had been normal. No bloody stools. - CT abdomen/ Pelvis: Acute diverticulitis in the sigmoid colon. No perforations or abscess. stenosis of the involved sigmoid colon with large amount of upstream stool burden. Cannot exclude malignancy - no Fevers, no chills. Normal wbc. Normal LFTs. Lactate pending - continue ceftriaxone 1g daily - Will add Flagyl 500 mg BID - Consult GI, aprec recommendations - Miralax added - NPO for now. LR 125 ml/hr while NPO - Labs AM #sinus tachycardia/ PVC - EKG on arrival demonstrated sinus tachycardia and frequent PVCs. single episdoe of triplet - Patient asymptomatic - Received 1 gm of Mag - Sinus rhythm on admission - Will admit to telemetry for further monitoring - Mag, Chemistry in AM - Replace Mag and potassium prn #UTI - hx of recurrent UTI with urinary symptoms. - UA positive with WBC and Leukocyte esterase. - Continue ceftriaxone - Follow urine culture #Neuropathy - continue gabapentin #Hypothyroidism: TSH: 6.81, T4: 1.06 continue levothyroxine COPD/ Pulmonary fibrosis - Albuterol as needed - CXR normal, no consolidations, #Anxiety: continue home Ativan and Remeron DVT prophylaxis: SCDs, activity Dispo: PCU/ telemetry History of Present Illness Primary Care Provider: Patricia Aviles MD 84 y/o with history of COPD, neuropathy, anxiety , dyslipidemia, history of recurrent UTI and constipations. Patient presented here due to abdominal pain, weakness and urinary urgency. She states been constipated for months now, she took two laxatives yesterday with no resolution of symptoms. She have symptoms of frequency and urgency with some incontinence. She feel pressure in her abdomen. She's passing gasses. On evaluation in the ED CT: with acute sigmoid diverticulitis, and severe stenosis in same area with increase stool burden. No leukocytosis, normal Hgb. UA positive for UTI, positive wbc and leuk esterase. She denied any fevers, chills, diarrhea, nausea or vomiting. No chest pain or palpitations. Denied any hematuria or bloody stools.Patient will be admitted for acute diverticulitis Allergies Allergy/AdvReac Type Severity Reaction Status Date / Time No Known Allergies Allergy Verified 01/11/25 20:48 Home Medications Medication Instructions Recorded Confirmed Type calcium carbonate 600 mg PO DAILY 12/11/18 01/11/25 History cholecalciferol (vitamin D3) 50 2,000 units PO DAILY #90 caps 12/11/18 01/11/25 History mcg (2,000 unit) capsule albuterol sulfate 90 mcg/actuation 2 puff inhalation Q6H PRN 08/30/21 01/11/25 Rx aerosol inhaler shortness of breath or wheezing #18 grams docusate sodium 50 mg capsule 50 mg PO BID 06/28/22 01/11/25 History (Stool Softener) multivitamin with folic acid 400 1 tab PO QAM #30 tabs 08/03/22 01/11/25 Rx mcg tablet (Daily-Anne Marie (with folic acid)) acetaminophen 325 mg tablet 650 mg (2 x 325 mg) PO Q6H PRN 11/15/22 01/11/25 Rx fever or pain #1 tab glucosamine sulfate 500 mg tablet 500 mg PO DAILY 12/12/22 01/11/25 History Shower Chair #1 ea 02/24/24 01/11/25 Rx cranberry fruit concentrate 250 mg 250 mg PO TID 02/26/24 01/11/25 History chewable tablet (Azo Cranberry) mirtazapine 7.5 mg tablet 7.5 mg PO HS #30 tabs 03/19/24 01/11/25 Rx gabapentin 300 mg capsule 300 mg PO HS #30 caps 08/19/24 01/11/25 Rx levothyroxine 50 mcg tablet 50 mcg PO DAILY #30 tabs 08/26/24 01/11/25 Rx glycopyrrolate 9 mcg-formoterol 2 puff inhalation BID #10.7 grams 09/01/24 01/11/25 Rx 4.8 mcg HFA aerosol inhaler (Bevespi Aerosphere) lorazepam 1 mg tablet 1 mg PO HS #30 tabs 11/17/24 01/11/25 Rx phenazopyridine 99.5 mg tablet 99.5 mg PO BID 01/11/25 01/11/25 History (Azo Urinary Pain Relief) triamcinolone acetonide 0.5 % 1 applic EXT BID PRN ITCHY RASH 01/11/25 01/11/25 History topical cream Past Med/Surg History Problem List Frequent PVCs (Acute) Dizziness (Acute) Generalized weakness (Acute) Diverticulitis (Acute) Acute UTI (Acute) Pulmonary fibrosis determined by high resolution computed tomography Hypothyroidism 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) Carpal tunnel syndrome, right (Chronic) Stress incontinence in female (Chronic) Impaired fasting glucose (Chronic) Chronic pruritus (Chronic) Allergic rhinitis (Chronic) Anxiety (Chronic) COPD (chronic obstructive pulmonary disease) (Chronic) Dyslipidemia (Chronic) 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) Osteopenia (Chronic) Sensorineural hearing loss of both ears (Chronic) Vitamin D deficiency (Chronic) 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 Surgical History History of revision of total replacement of right hip joint History of shoulder replacement History of total hip replacement History of appendectomy History of cholecystectomy History of total abdominal hysterectomy and bilateral salpingo-oophorectomy Family History Sister Breast cancer Denies family history of Ovarian cancer Prostate cancer Myocardial infarction Colorectal cancer Social History Smoking Status: Former smoker Tobacco Type: Cigarettes Age Started Using Tobacco: 15; Age Quit Using Tobacco: 66; packs per day: 2; Cigarettes Per Day: 40; Smoking End Date: 20 years ago; Second Hand Exposure: No; Do You Dip or Chew Tobacco: No; Hx Alcohol Use: No Hx Substance Use: No Preferred Language: Citizen Of [place] Communication Ability: Effective Visual Impairment: No Limitations Hearing Ability: Use of Hearing Aid A P Mechanic Required: No Beliefs That Will Affect Care: None marital status: Current Living Situation: Alone Current Living Situation Comment: Assisted living apartment current occupational status: retired 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 Feels Safe at Home: Yes Safety Concerns: Feels Safe At This Time Childhood Exposure to Second-Hand Smoke: No Diet: regular caffeine: Yes (Not very often) Dental Care, Regularly: No Physical Activity Frequency: Does not Exercise Seatbelt Use: always Sunscreen Use: No Assistive Devices: Denture - Upper, Denture - Lower, Glasses and Walker Review of Systems Review of Systems: as per hpi Physical Exam Constitutional: well developed and well nourished; no acute distress and not ill appearing Eyes: PERRL, conjunctivae normal, anicteric sclerae Respiratory: normal respiratory effort, lungs clear to auscultation Cardiovascular: RRR, no murmur, no edema Gastrointestinal (Abdomen): Inspection/Auscultation: normal bowel sounds; abdomen not distended Percussion/Palpation: + abdomen tender (generalized tenderness) and abdomen soft; no guarding and abdomen not rigid Skin: no rashes, warm and dry Psychiatric: A+Ox3, euthymic affect Results & Data Results & Data Vital Signs (Past 12 Hours) Vital Signs Temp Pulse Pulse Resp BP BP Pulse Ox 01/11/25 23:50 101 H 01/11/25 23:00 97 H 17 160/94 H 94 01/11/25 22:30 97 H 19 144/85 H 93 01/11/25 22:15 100 H 21 96 01/11/25 22:00 143/88 H 01/11/25 21:55 92 H 18 162/95 H 94 01/11/25 21:12 97 H 22 94 01/11/25 21:00 96 H 20 130/79 92 10/13/25 20:12 98 H 23 96 01/11/25 20:00 149/88 H 01/11/25 19:56 97 H 01/11/25 19:55 161/86 H 01/11/25 19:12 36.4 C L 99 H 19 117/72 94 O2 Del Method 01/11/25 23:50 01/11/25 23:00 Room Air 01/11/25 22:30 Room Air 01/11/25 22:15 Room Air 01/11/25 22:00 01/11/25 21:55 Room Air 01/11/25 21:12 Room Air 01/11/25 21:00 Room Air 01/11/25 20:12 Room Air 01/11/25 20:00 01/11/25 19:56 01/11/25 19:55 01/11/25 19:12 Room Air Code Status & VTE Plan VTE Prophylaxis Plan VTE Prophylaxis will be ordered: Yes Supervising Physician Co-Signing Physician Notes Attending addendum: I have physically seen this patient, have supervised the medical residents activities, and agree with the H&P unless as otherwise noted. Assessment and Plan: The patient is an 84-year-old female with past medical history including COPD, neuropathy, anxiety, dyslipidemia, recurrent urinary tract infections, and constipation. She presented to the emergency department due to abdominal pain, generalized weakness, and urinary urgency. She reports constipation for months, and yesterday took 2 laxatives with no resolution of symptoms. Evaluation in e emergency department included CT scan of abdomen pelvis which showed acute sigmoid diverticulitis, with severe sigmoid colon stenosis in the same area with increased stool burden. Urinalysis is positive for GI tract infection. Acute diverticulitis/stenosis in sigmoid colon- History of chronic constipation Presenting symptom of abdominal pain left lower quadrant and generalized weakness. CT scan abdomen and pelvis with acute sigmoid diverticulitis, without perforation or abscess. There is stenosis of the sigmoid colon with a large amount of upstream stool burden. Cannot exclude malignancy. Started on ceftriaxone 1 g IV in ED, will continue daily Add Flagyl 500 mg IV twice daily MiraLAX daily Dulcolax suppository daily as needed LR at 125 mL/h Consult gastroenterology Urinary tract infection- Follow urine culture sensitivity Antibiotics as above IV fluids as above Sinus tachycardia/PVCs- EKG was sinus tachycardia on monitor with frequent PVCs status post magnesium sulfate 1 g IV Admit to telemetry Optimize potassium, magnesium and calcium Treat underlying stressors of diverticulitis and urinary tract infection Neuropathy- Continue gabapentin COPD/pulmonary fibrosis- Albuterol HFA 2 puffs 4 times daily as needed Normal-appearing chest x-ray Anxiety- Continue Remeron, and lorazepam as needed Hypothyroidism- Continue levothyroxine at current dose, TSH mildly elevated, can be followed in the outpatient setting Resident Activity Tracking Resident Involvement: Resident Care Provided Care Provided: Adult Hospital Medicine
[2025-01-12] MEDS ORDERED: ALBUTEROL HFA 8 GM INHALER INH PRN (01:29)
[2025-01-12] MEDS: ACETAMINOPHEN 1,000 MG/100 ML VIAL IV STA (01:55)
[2025-01-12] MEDS: LACTATED RINGER'S 1,000 ML IV STA (02:05)
[2025-01-12 02:28] LABS: Hematocrit (blood only) 38.2 % (37.0-47.0); Hemoglobin 12.4 g/dl (12.0-16.0); Immature Granulocytes # (auto) 0.04 K/uL (0.01-0.20); Immature Granulocytes % (auto) 0.3 %; Mean Corpuscular Hemoglobin 30.0 pg (25.0-34.0); Mean Corpuscular Volume 92.5 fL (80.0-100.0); Platelet Count 279 K/uL (130-400); RDW Standard Deviation 46.0 fL (36.4-46.3); Red Blood Count 4.13 M/uL (4.20-5.40); White Blood Count 12.04 K/ul (4.8-10.8)
[2025-01-12 02:43] LABS: Alanine Aminotransferase 9.0 U/L (7-52); Albumin Globulin Ratio 1.1 (0.9-2); Albumin Level 3.7 gm/dl (3.4-5.0); Alkaline Phosphatase 76.0 U/L (34-104); Anion Gap 7.0 (3-11); Bilirubin,Total 0.4 mg/dl (0.2-1.0); Blood Urea Nitrogen 22.0 mg/dl (6-23); Calcium 8.8 mg/dl (8.6-10.3); Carbon Dioxide 26.0 mmol/L (21-32); Chloride 103.0 mmol/L (98-107); Creatinine Clr Calc Pharmacy 44.9 ml/min; Globulin 3.4 gm/dl (2.5-4.0); Glucose 114.0 mg/dl (70-99(Fasting)); Potassium 4.2 mmol/L (3.5-5.1); Sodium 136.0 mmol/L (136-145); Total Protein 7.1 gm/dl (6.0-8.3)
[2025-01-12 02:54] LABS: INR 1.0 (0.9-1.1); Prothrombin Time 10.9 Seconds (9.0-12.0)
[2025-01-12] MEDS: GABAPENTIN 300 MG CAP PO STA (03:17)
[2025-01-12] MEDS: MIRTAZAPINE TAB 15 MG TAB PO ONE (03:17)
[2025-01-12] MEDS: LORazepam 1 MG TAB PO STA (03:17)
[2025-01-12] MEDS: LEVOTHYROXINE SODIUM 50 MCG TABLET PO SCH (05:25)
[2025-01-12] MEDS: metroNIDAZOLE 500 MG/100 ML BAG IV SCH (08:45)
[2025-01-12] MEDS: GLUCOSAMINE SULFATE 500 MG CAP PO SCH (08:46)
[2025-01-12] MEDS: UMECLIDINIUM/VILANTEROL 62.5/25MCG 7 PUFFS/INHALER INH SCH (08:47)
[2025-01-12] MEDS: POLYETHYLENE (MIRALAX) 17 GM PACK PO SCH (08:50)
--- NOTE | 2025-01-12 10:21 | Gastrointestinal Consultation ---
Date of Consultation January 12, 2025 Assessment & Plan (1) Diverticulitis: 84 year old female w/ history of COPD, neuropathy, anxiety, dyslipidemia, recurrent UTI and others below admitted through the ED w/ report of abdominal pain, constipation and urinary urgency. CTAP w/ acute diverticulitis in the sigmoid colon, no perforation or abscess but stenosis of the sigmoid colon with a large amount of upstream stool burden. Lactate 0.9, she endorses a history of abdominal pain, incomplete evacuation and constipation over the last few months - Recommend colorectal surgery consultation - Continue IV ABX for acute diverticulitis - Establish a bowel regimen - Miralax 1 capful 1-2 times daily - Keep stools soft - Avoid constipation She will need a colonoscopy, timing TBD pending above consultation and collaboration with supervising physician. I spent a total of 60 minutes on the date of service in review of patient's record, and previously obtained information in person and appropriate medical visit, discussion and education of plan, with patient and/or caregiver, placing orders for test s/referral/procedures as medically necessary and documentation of pertinent clinical information in patient's medical records for their visit today. Thank you for allowing us to participate in the care of this patient. Please call with any acute changes, questions or concerns. Please see addendum below with additional recommendation from my supervising physician. Supervising Physician Co-Signing Physician Notes Sigmoid stenosis with proximal fecal retention. Concerning for chronic diverticular disease and/or stricture. Colon neoplasia on the differential though she is not having bleeding. Symptoms of also been present for she states up to 6 months. She is having recurrent urinary infections. Potential for a co lovesical fistula should be considered though there is not appear to be air in the bladder on imaging. At this point IV antibiotics. Try gentle bowel preparation for the proximal stool. Suspect patient will require surgical intervention if not a quick and prompt response to antibiotics. Symptoms for years suggest a chronic process. Colorectal surgery should be consulted. History of Present Illness Reason for Consultation: Acute diverticulitis, stenosis? Requesting Physician: Judd Hightower MD Attending Physician: Judd Hightower MD History of Present Illness 84 year old female w/ history of COPD, neuropathy, anxiety, dyslipidemia, recurrent UTI and others below admitted through the ED w/ report of abdominal pain, constipation and urinary urgency - GI was asked to evaluate for diverticulitis and stenosis. Pt was seen and evaluated, chart reviewed. She notes she has had issues with abd pain and constipation for quite some time. She notes she rarely has complete BM and notes she gets abd pain/pressure and attempts to move her bowels but produces little output. She cannot recall when her last BM was. No black or bloody stools. WBC 12 H&H 12.4/38.2 PLT 279 Lactate 0.9 CTAP 2024: Acute diverticulitis in the sigmoid colon. No perforation or abscess. Stenosis of the involved sigmoid colon with a large amount of upstream stool burden. Cannot exclude malignancy. Colonoscopy 2013: left sided diverticulosis w/ significant inflammation in the sigmoid colon Colonoscopy 2002: normal mucosa, no inflammation, cecum okay Allergies Allergy/AdvReac Type Severity Reaction Status Date / Time No Known Allergies Allergy Verified 01/11/25 20:48 Home Medications Medication Instructions Recorded Confirmed Type calcium carbonate 600 mg PO DAILY 12/11/18 01/11/25 History cholecalciferol (vitamin D3) 50 2,000 units PO DAILY #90 caps 12/11/18 01/11/25 History mcg (2,000 unit) capsule albuterol sulfate 90 mcg/actuation 2 puff inhalation Q6H PRN 08/30/21 01/11/25 Rx aerosol inhaler shortness of breath or wheezing #18 grams docusate sodium 50 mg capsule 50 mg PO BID 06/28/22 01/11/25 History (Stool Softener) multivitamin with folic acid 400 1 tab PO QAM #30 tabs 08/03/22 01/11/25 Rx mcg tablet (Daily-Anne Marie (with folic acid)) acetaminophen 325 mg tablet 650 mg (2 x 325 mg) PO Q6H PRN 11/15/22 01/11/25 Rx fever or pain #1 tab glucosamine sulfate 500 mg tablet 500 mg PO DAILY 12/12/22 01/11/25 History Shower Chair #1 ea 02/24/24 01/11/25 Rx cranberry fruit concentrate 250 mg 250 mg PO TID 02/26/24 01/11/25 History chewable tablet (Azo Cranberry) mirtazapine 7.5 mg tablet 7.5 mg PO HS #30 tabs 03/19/24 01/11/25 Rx gabapentin 300 mg capsule 300 mg PO HS #30 caps 08/19/24 01/11/25 Rx levothyroxine 50 mcg tablet 50 mcg PO DAILY #30 tabs 08/26/24 01/11/25 Rx glycopyrrolate 9 mcg-formoterol 2 puff inhalation BID #10.7 grams 09/01/24 01/11/25 Rx 4.8 mcg HFA aerosol inhaler (Bevespi Aerosphere) lorazepam 1 mg tablet 1 mg PO HS #30 tabs 11/17/24 01/11/25 Rx phenazopyridine 99.5 mg tablet 99.5 mg PO BID 01/11/25 01/11/25 History (Azo Urinary Pain Relief) triamcinolone acetonide 0.5 % 1 applic EXT BID PRN ITCHY RASH 01/11/25 01/11/25 History topical cream Patient History Medical History Spastic dysphonia mild CP Surgical History History of revision of total replacement of right hip joint History of shoulder replacement History of total hip replacement History of appendectomy History of cholecystectomy History of total abdominal hysterectomy and bilateral salpingo-oophorectomy Family History Sister Breast cancer Denies family history of Ovarian cancer Prostate cancer Myocardial infarction Colorectal cancer Social History Smoking Status: Former smoker Tobacco Type: Cigarettes Age Started Using Tobacco: 15; Age Quit Using Tobacco: 66; packs per day: 2; Cigarettes Per Day: 40; Smoking End Date: 20 years ago; Second Hand Exposure: No; Do You Dip or Chew Tobacco: No; Hx Alcohol Use: No Hx Substance Use: No Preferred Language: [place] Communication Ability: Effective Visual Impairment: No Limitations Hearing Ability: Use of Hearing Aid Manager Enrollment Required: No Beliefs That Will Affect Care: None marital status: Current Living Situation: Alone Current Living Situation Comment: Assisted living apartment current occupational status: retired 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 Physical Exam Constitutional: WD/WN, vitals as above Respiratory: normal respiratory effort, lungs clear to auscultation Gastrointestinal (Abdomen): normal bowel sounds, soft, nontender, no hepatosplenomegaly Skin: no rashes, warm and dry Results & Data Vital Signs (Past 12 Hours) Vital Signs Temp Pulse Pulse Resp BP BP Pulse Ox 01/12/25 07:55 82 01/12/25 02:43 01/12/25 01:50 97.7 F 97 H 20 128/71 93 01/12/25 01:39 102 H 01/12/25 01:18 89 17 135/79 93 01/11/25 23:50 101 H 01/11/25 23:00 97 H 17 160/94 H 94 01/11/25 22:30 97 H 19 144/85 H 93 01/11/25 22:15 100 H 21 96 O2 Del Method 01/12/25 07:55 01/12/25 02:43 Room Air 01/12/25 01:50 Room Air 01/12/25 01:39 01/12/25 01:18 Room Air 01/11/25 23:50 01/11/25 23:00 Room Air 01/11/25 22:30 Room Air 01/11/25 22:15 Room Air Laboratory Results 01/12/25 01/11/25 01/11/25 Range/Units 02:14 20:59 20:12 WBC 12.04 H 9.86 (4.8-10.8) K/ul RBC 4.13 L 4.19 L (4.20-5.40) M/uL Hgb 12.4 13.0 (12.0-16.0) g/dl Hct 38.2 38.4 (37.0-47.0) % MCV 92.5 91.6 (80.0-100.0) fL MCH 30.0 31.0 (25.0-34.0) pg MCHC 32.5 33.9 (32.0-36.0) g/dL RDW Std Deviation 46.0 45.5 (36.4-46.3) fL RDW Coeff of Gregoria 13.3 13.4 (11.5-14.5) % Plt Count 279 310 (130-400) K/uL MPV 8.7 L 9.1 L (9.4-12.4) fL Immature Gran % (Auto) 0.3 0.5 % Neut % (Auto) 79.7 70.7 % Lymph % (Auto) 11.1 18.8 % [place] % (Auto) 7.5 7.8 % Eos % (Auto) 1.0 1.7 % Baso % (Auto) 0.4 0.5 % Neut # (Auto) 9.59 H 6.97 H (1.40-6.50) K/uL Lymph # (Auto) 1.34 1.85 (1.20-3.40) K/uL [place] # (Auto) 0.90 H 0.77 H (0.11-0.59) K/uL Eos # (Auto) 0.12 0.17 (0.00-0.50) K/uL Baso # (Auto) 0.05 0.05 (0.00-0.20) K/uL Immature Gran # (Auto) 0.04 0.05 (0.01-0.20) K/uL PT 10.9 10.7 (9.0-12.0) Seconds INR 1.0 1.0 (0.9-1.1) Sodium 136 137 (136-145) mmol/L Potassium 4.2 4.4 (3.5-5.1) mmol/L Chloride 103 102 (98-107) mmol/L Carbon Dioxide 26 26 (21-32) mmol/L Anion Gap 7 9 (3-11) BUN 22 26 H (6-23) mg/dl Creatinine 0.84 0.92 (0.6-1.2) mg/dl Est Cr Clr Drug Dosing 44.9 41.0 ml/min eGFR 68.48 61.40 BUN/Creatinine Ratio 26.2 H 28.3 H (10-20) Glucose 114 H 140 H (70-99(Fasting)) mg/dl Lactate 0.9 (0.4-2.0) mmol/L Calcium 8.8 9.1 (8.6-10.3) mg/dl Phosphorus 4.1 (2.5-4.9) mg/dl Magnesium 1.9 (1.7-2.4) mg/dl Total Bilirubin 0.4 0.5 (0.2-1.0) mg/dl AST 16 21 (13-39) U/L ALT 9 9 (7-52) U/L Alkaline Phosphatase 76 79 (34-104) U/L Troponin I High Sens 4.0 (0-14) pg/ml Total Protein 7.1 7.5 (6.0-8.3) gm/dl Albumin 3.7 4.0 (3.4-5.0) gm/dl Globulin 3.4 3.5 (2.5-4.0) gm/dl Albumin/Globulin Ratio 1.1 1.1 (0.9-2) Lipase 31 (11-82) U/L TSH 6.817 H (0.300-4.500) uIu/ml Free T4 1.06 (0.61-1.60) ng/dl Urine Color Yellow Urine Appearance Clear (Clear) Urine pH 6.0 (4.5-7.5) Ur Specific [place] 1.019 (1.000-1.030) Urine Protein Trace H (Negative) Urine Glucose (UA) Negative (Negative) Urine Ketones Negative (Negative) Urine Blood Negative (Negative) Urine Nitrite Negative (Negative) Urine Bilirubin Negative (Negative) Urine Urobilinogen Negative (Negative) Ur Leukocyte Esterase 2+ H (Negative) Urine WBC (Auto) >50 H (0-5) /hpf Urine RBC (Auto) 3-5 H (0-2) /hpf U Hyaline Cast (Auto) 0-2 (0-2) /lpf U Epithel Cells (Auto) 0-2 (0-2) /hpf Urine Bacteria (Auto) None Seen (None Seen) Urine Comment PG Care Time/CCT Total # of Minutes Spent Total Time Spent with Patient: Total time spent is greater than 50% in coordination of care (as documented) at patient's floor/unit and/or counseling patient: Coding Level of Care Code 86337 INT INP/OBS CARE MIN Diagnoses Diverticulitis K57.92
[2025-01-12] MEDS: LACTATED RINGER'S 1,000 ML IV SCH (10:37)
--- NOTE | 2025-01-12 14:16 | Surgery Consultation ---
Date of Consultation January 12, 2025 Assessment & Plan (1) Diverticulitis: Her CT images and results we personally viewed and interpreted by myself She has some inflammation in the sigmoid colon as well as some thickening concerning for stenosis or neoplasm She likely has at least partial obstruction Would keep her NPO and continue IV ABX No acute surgical intervention required Colorectal surgery to see patient tomorrow History of Present Illness Reason for Consultation: Diverticulitis, sigmoid stenosis Attending Physician: Judd Hightower MD History of Present Illness This is an 84-year-old patient who was admitted to the hospital last night with sharp left lower quadrant pain that has been off and on for the several weeks. She states she has been treated with oral antibiotics several times as well. She came in because she thought she had a urinary tract infection. Denies any nausea or vomiting. Her last normal bowel movement was Saturday. She is passing flatus. Denies any fevers or chills. Surgeries include an appendectomy and hysterectomy and she does have a lower midline incision. Her last colonoscopy was in 2013 which showed diverticulosis. Allergies Allergy/AdvReac Type Severity Reaction Status Date / Time No Known Allergies Allergy Verified 01/11/25 20:48 Home Medications Medication Instructions Recorded Confirmed Type calcium carbonate 600 mg PO DAILY 12/11/18 01/11/25 History cholecalciferol (vitamin D3) 50 2,000 units PO DAILY #90 caps 12/11/18 01/11/25 History mcg (2,000 unit) capsule albuterol sulfate 90 mcg/actuation 2 puff inhalation Q6H PRN 08/30/21 01/11/25 Rx aerosol inhaler shortness of breath or wheezing #18 grams docusate sodium 50 mg capsule 50 mg PO BID 06/28/22 01/11/25 History (Stool Softener) multivitamin with folic acid 400 1 tab PO QAM #30 tabs 08/03/22 01/11/25 Rx mcg tablet (Daily-Anne Marie (with folic acid)) acetaminophen 325 mg tablet 650 mg (2 x 325 mg) PO Q6H PRN 11/15/22 01/11/25 Rx fever or pain #1 tab glucosamine sulfate 500 mg tablet 500 mg PO DAILY 12/12/22 01/11/25 History Shower Chair #1 ea 02/24/24 01/11/25 Rx cranberry fruit concentrate 250 mg 250 mg PO TID 02/26/24 01/11/25 History chewable tablet (Azo Cranberry) mirtazapine 7.5 mg tablet 7.5 mg PO HS #30 tabs 03/19/24 01/11/25 Rx gabapentin 300 mg capsule 300 mg PO HS #30 caps 08/19/24 01/11/25 Rx levothyroxine 50 mcg tablet 50 mcg PO DAILY #30 tabs 08/26/24 01/11/25 Rx glycopyrrolate 9 mcg-formoterol 2 puff inhalation BID #10.7 grams 09/01/24 01/11/25 Rx 4.8 mcg HFA aerosol inhaler (Bevespi Aerosphere) lorazepam 1 mg tablet 1 mg PO HS #30 tabs 11/17/24 01/11/25 Rx phenazopyridine 99.5 mg tablet 99.5 mg PO BID 01/11/25 01/11/25 History (Azo Urinary Pain Relief) triamcinolone acetonide 0.5 % 1 applic EXT BID PRN ITCHY RASH 01/11/25 01/11/25 History topical cream Patient History Medical History Spastic dysphonia mild CP Surgical History History of revision of total replacement of right hip joint History of shoulder replacement History of total hip replacement History of appendectomy History of cholecystectomy History of total abdominal hysterectomy and bilateral salpingo-oophorectomy Family History Sister Breast cancer Denies family history of Ovarian cancer Prostate cancer Myocardial infarction Colorectal cancer Social History Smoking Status: Former smoker Tobacco Type: Cigarettes Age Started Using Tobacco: 15; Age Quit Using Tobacco: 66; packs per day: 2; Cigarettes Per Day: 40; Smoking End Date: 20 years ago; Second Hand Exposure: No; Do You Dip or Chew Tobacco: No; Hx Alcohol Use: No Hx Substance Use: No Preferred Language: Kyrgyz Communication Ability: Effective Visual Impairment: No Limitations Hearing Ability: Use of Hearing Aid Packing Inspector Required: No Beliefs That Will Affect Care: None marital status: Current Living Situation: Alone Current Living Situation Comment: Assisted living apartment current occupational status: retired 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 Feels Safe at Home: Yes Safety Concerns: Feels Safe At This Time Childhood Exposure to Second-Hand Smoke: No Diet: regular caffeine: Yes (Not very often) Dental Care, Regularly: No Physical Activity Frequency: Does not Exercise Seatbelt Use: always Sunscreen Use: No Assistive Devices: Denture - Upper, Denture - Lower, Glasses and Walker Review of Systems Constitutional: no fever and no chills Eyes: no blind spots and no corrective lenses Ear, Nose, Mouth, Throat: no ear pain and no dizziness Respiratory: no cough and no dyspnea Cardiovascular: no chest pain and no dyspnea on exertion Gastrointestinal: + abdominal pain and + constipation; no nausea, no vomiting, no diarrhea/loose stools and no blood in stools Genitourinary: no dysuria and no difficulty urinating Musculoskeletal: no back pain and no neck pain Integumentary: no acne and no boil Neurologic: no gait abnormality and no headache(s) Psychiatric: no behavioral changes and no depression Hematologic / Lymphatic: no easy bleeding and no easy bruising Physical Exam Constitutional: WD/WN, vitals as above Eyes: PERRL, conjunctivae normal, anicteric sclerae ENMT: external ear and nose normal, oropharynx normal Neck: trachea midline, no thyromegaly Respiratory: normal respiratory effort, lungs clear to auscultation Cardiovascular: RRR, no murmur, no edema Gastrointestinal (Abdomen): Inspection/Auscultation: abdomen normal to inspection; abdomen not distended Percussion/Palpation: + abdomen tender (LLQ) and abdomen soft; no guarding Lower midline incision Musculoskeletal: no cyanosis or clubbing, extremities motor strength 5/5 Skin: no rashes, warm and dry Neurologic: PERRL, EOMI, accommodation nl, no face palsy, no dysarthria Psychiatric: A+Ox3, euthymic affect Results & Data Vital Signs (Past 12 Hours) Vital Signs Temp Pulse Pulse Resp BP Pulse Ox O2 Del Method 01/12/25 13:44 77 01/12/25 11:13 36.6 C 69 18 108/70 93 Room Air 01/12/25 07:55 82 01/12/25 02:43 Room Air PG Care Time/CCT Total # of Minutes Spent Total Time Spent with Patient: Total time spent is greater than 50% in coordination of care (as documented) at patient's floor/unit and/or counseling patient: Coding Level of Care Code 03301 INT INP/OBS CARE Diagnoses Diverticulitis K57.92
--- NOTE | 2025-01-12 16:01 | Hospitalist Progress Note ---
Date of Service January 12, 2025 Assessment & Plan (1) Diverticulitis: (2) Acute UTI: (3) Frequent PVCs: Plan 84 y/o with history of COPD, neuropathy, anxiety , dyslipidemia, history of recurrent UTI and constipations. Patient presented here due to abdominal pain, weakness and urinary urgency. She states been constipated for months now, she took two laxatives yesterday with no resolution of symptoms. She have symptoms of frequency and urgency with some incontinence. She feel pressure in her abdomen. She's passing gasses. On evaluation in the ED CT: with acute sigmoid diverticulitis, and severe stenosis in same area with increase stool burden. No leukocytosis, normal Hgb. UA positive for UTI, positive wbc and leuk esterase. She denied any fevers, chills, diarrhea, nausea or vomiting. No chest pain or palpitations. Denied any hematuria or bloody stools.Patient will be admitted for acute diverticulitis #Acute diverticulitis - Patient with hx of chronic constipations that presented with abdominal pain, and weakness. No history of diverticulitis in the past. - Unknown of last colonoscopy, she refers had been normal. No bloody stools. - CT abdomen/ Pelvis: Acute diverticulitis in the sigmoid colon. No perforations or abscess. stenosis of the involved sigmoid colon with large amount of upstream stool burden. Cannot exclude malignancy - no Fevers, no chills. Normal wbc. Normal LFTs. Lactate pending - continue ceftriaxone 1g daily - Will add Flagyl 500 mg BID - Miralax added - NPO for now. LR 80 ml/hr while NPO - continue to trend labs #Stenosis in sigmoid colon - CT abdomen/ Pelvis: Acute diverticulitis in the sigmoid colon. No perforations or abscess. stenosis of the involved sigmoid colon with large amount of upstream stool burden. Cannot exclude malignancy - Consult GI, See note, appreciate recs, consult to colorectal surgery placed #sinus tachycardia/ PVC #Leukocytosis - EKG on arrival demonstrated sinus tachycardia and frequent PVCs. single episdoe of triplet - Patient asymptomatic - imprivng, stable vitals, initial sepsis rule out, now normalized #UTI - hx of recurrent UTI with urinary symptoms. - UA positive with WBC and Leukocyte esterase. - Continue ceftriaxone - Follow urine culture #Neuropathy - continue gabapentin #Hypothyroidism: TSH: 6.81, T4: 1.06 continue levothyroxine COPD/ Pulmonary fibrosis - Albuterol as needed - CXR normal, no consolidations, #Anxiety: continue home Ativan and Remeron DVT prophylaxis: SCDs, activity Dispo: PCU/ telemetry Admission and Anticipated Discharge Date Admission Date: January 12, 2025 Subjective doing okay this morning. Does report that over the last month or 2 she has had increasingly colic the abdominal pain and occasional bloating. States that this is getting more severe. She denies any weight loss or weight gain. Does report having had a colonoscopy but states she "could not possibly tell me how long ago it was." Otherwise her symptoms are improving as of today. We discussed the CT findings. And the likelihood of repeat colonoscopy. No other new complaints or concerns per patient. Physical Exam Constitutional: well developed and well nourished; no acute distress and not ill appearing Eyes: PERRL, conjunctivae normal, anicteric sclerae Respiratory: normal respiratory effort, lungs clear to auscultation Cardiovascular: RRR, no murmur, no edema Gastrointestinal (Abdomen): Inspection/Auscultation: normal bowel sounds; abdomen not distended Percussion/Palpation: + abdomen tender (generalized tenderness) and abdomen soft; no guarding, abdomen not rigid, no pulsatile mass and abdomen not firm Skin: no rashes, warm and dry Ronnell appearance Psychiatric: A+Ox3, euthymic affect Results & Data Results & Data Vital Signs (Past 12 Hours) Vital Signs Temp Pulse Pulse Resp BP Pulse Ox O2 Del Method 01/12/25 15:17 36.7 C 73 18 137/72 93 Room Air 01/12/25 13:44 77 01/12/25 11:13 36.6 C 69 18 108/70 93 Room Air 01/12/25 07:55 82 Laboratory Results 01/11/25 20:59 Urine Culture - Preliminary Urine,Clean Catch Pin-point growth present, reincubating. 01/12/25 01/11/25 01/11/25 02:14 20:59 20:12 WBC 12.04 H 9.86 RBC 4.13 L 4.19 L Hgb 12.4 13.0 Hct 38.2 38.4 MCV 92.5 91.6 MCH 30.0 31.0 MCHC 32.5 33.9 RDW Std Deviation 46.0 45.5 RDW Coeff of Gregoria 13.3 13.4 Plt Count 279 310 MPV 8.7 L 9.1 L Immature Gran % (Auto) 0.3 0.5 Neut % (Auto) 79.7 70.7 Lymph % (Auto) 11.1 18.8 [place] % (Auto) 7.5 7.8 Eos % (Auto) 1.0 1.7 Baso % (Auto) 0.4 0.5 Neut # (Auto) 9.59 H 6.97 H Lymph # (Auto) 1.34 1.85 [place] # (Auto) 0.90 H 0.77 H Eos # (Auto) 0.12 0.17 Baso # (Auto) 0.05 0.05 Immature Gran # (Auto) 0.04 0.05 PT 10.9 10.7 INR 1.0 1.0 Sodium 136 137 Potassium 4.2 4.4 Chloride 103 102 Carbon Dioxide 26 26 Anion Gap 7 9 BUN 22 26 H Creatinine 0.84 0.92 Est Cr Clr Drug Dosing 44.9 41.0 eGFR 68.48 61.40 BUN/Creatinine Ratio 26.2 H 28.3 H Glucose 114 H 140 H Lactate 0.9 Calcium 8.8 9.1 Phosphorus 4.1 Magnesium 1.9 Total Bilirubin 0.4 0.5 AST 16 21 ALT 9 9 Alkaline Phosphatase 76 79 Troponin I High Sens 4.0 Total Protein 7.1 7.5 Albumin 3.7 4.0 Globulin 3.4 3.5 Albumin/Globulin Ratio 1.1 1.1 Lipase 31 TSH 6.817 H Free T4 1.06 Urine Color Yellow Urine Appearance Clear Urine pH 6.0 Ur Specific [place] 1.019 Urine Protein Trace H Urine Glucose (UA) Negative Urine Ketones Negative Urine Blood Negative Urine Nitrite Negative Urine Bilirubin Negative Urine Urobilinogen Negative Ur Leukocyte Esterase 2+ H Urine WBC (Auto) >50 H Urine RBC (Auto) 3-5 H U Hyaline Cast (Auto) 0-2 U Epithel Cells (Auto) 0-2 Urine Bacteria (Auto) None Seen Urine Comment PG Care Time/CCT Total # of Minutes Spent Total Time Spent with Patient: Total time spent is greater than 50% in coordination of care (as documented) at patient's floor/unit and/or counseling patient: Coding Level of Care Code 98871 SUB INP/OBS CARE 2/35MIN Diagnoses Diverticulitis K57.92 Acute UTI N39.0 Frequent PVCs I49.3
[2025-01-12] MEDS: MIRTAZAPINE TAB 15 MG TAB PO SCH (20:11)
[2025-01-12] MEDS: LORazepam 1 MG TAB PO SCH (20:11)
[2025-01-12] MEDS: ACETAMINOPHEN 325 MG TAB PO PRN (20:11)
[2025-01-12] MEDS: GABAPENTIN 300 MG CAP PO SCH (20:11)
--- NOTE | 2025-01-13 05:05 | Billing Data ---
Date of Service January 13, 2025 Coding Level of Care Code 60496 INT INP/OBS CARE
[2025-01-13 08:58] LABS: Hematocrit (blood only) 37.6 % (37.0-47.0); Hemoglobin 12.1 g/dl (12.0-16.0); Immature Granulocytes # (auto) 0.03 K/uL (0.01-0.20); Immature Granulocytes % (auto) 0.4 %; Mean Corpuscular Hemoglobin 29.9 pg (25.0-34.0); Mean Corpuscular Volume 92.8 fL (80.0-100.0); Platelet Count 280 K/uL (130-400); RDW Standard Deviation 45.9 fL (36.4-46.3); Red Blood Count 4.05 M/uL (4.20-5.40); White Blood Count 7.95 K/ul (4.8-10.8)
[2025-01-13 09:18] LABS: Alanine Aminotransferase 8.0 U/L (7-52); Albumin Globulin Ratio 1.1 (0.9-2); Albumin Level 3.4 gm/dl (3.4-5.0); Alkaline Phosphatase 75.0 U/L (34-104); Anion Gap 10.0 (3-11); Bilirubin,Total 0.7 mg/dl (0.2-1.0); Blood Urea Nitrogen 19.0 mg/dl (6-23); Calcium 8.8 mg/dl (8.6-10.3); Carbon Dioxide 25.0 mmol/L (21-32); Chloride 104.0 mmol/L (98-107); Creatinine Clr Calc Pharmacy 49.6 ml/min; Globulin 3.2 gm/dl (2.5-4.0); Glucose 76.0 mg/dl (70-99(Fasting)); Potassium 4.3 mmol/L (3.5-5.1); Sodium 139.0 mmol/L (136-145); Total Protein 6.6 gm/dl (6.0-8.3)
--- NOTE | 2025-01-13 09:42 | Gastroenterology Progress Note ---
Date of Service January 13, 2025 Assessment & Plan (1) Diverticulitis: Plan: 84 year old female w/ history of COPD, neuropathy, anxiety, dyslipidemia, recurrent UTI and others below admitted through the ED w/ report of abdominal pain, constipation and urinary urgency. CTAP w/ acute diverticulitis in the sigmoid colon, no perforation or abscess but stenosis of the sigmoid colon with a large amount of upstream stool burden. Lactate 0.9, she endorses a history of abdominal pain, incomplete evacuation and constipation over the last few months - Recommend colorectal surgery consultation - Continue IV ABX for acute diverticulitis - Establish a bowel regimen - Miralax 1 capful 1-2 times daily - Keep stools soft - Avoid constipation - OP GI follow up, Recall GI as needed She will need a colonoscopy, timing TBD pending above consultation and collabor ation with supervising physician. I spent a total of 30 minutes on the date of service in review of patient's record, and previously obtained information in person and appropriate medical visit, discussion and education of plan, with patient and/or caregiver, placing orders for tests/referral/procedures as medically necessary and documentation of pertinent clinical information in patient's medical records for their visit today. Thank you for allowing us to participate in the care of this patient. Please call with any acute changes, questions or concerns. Please see addendum below with additional recommendation from my supervising physician. Admission and Anticipated Discharge Date Admission Date: January 12, 2025 Supervising Physician Co-Signing Physician Notes Agree with above. Reviewed surgery's notes. Plan for laparoscopic surgery on Saturday. With creation of colostomy. Agree with this plan. IV antibiotics in the interim. Subjective Abd pain improving. Tolerated ice chips and sips. Stools are very formed, hard to pass despite Miralax. Review of Systems Review of Systems: All other findings negative except as noted in HPI. Physical Exam Gastrointestinal (Abdomen): normal bowel sounds, soft, nontender, no hepatosplenomegaly Results & Data Results & Data Vital Signs (Past 12 Hours) Vital Signs Temp Pulse Pulse Resp BP Pulse Ox O2 Del Method 01/13/25 07:59 97.9 F 87 18 118/71 90 Room Air 01/13/25 02:23 97.9 F 81 18 135/75 92 Room Air 01/12/25 22:18 97.7 F 83 16 95/65 L 92 Room Air 01/12/25 21:44 87 Laboratory Results 01/13/25 Range/Units 08:30 WBC 7.95 (4.8-10.8) K/ul RBC 4.05 L (4.20-5.40) M/uL Hgb 12.1 (12.0-16.0) g/dl Hct 37.6 (37.0-47.0) % MCV 92.8 (80.0-100.0) fL MCH 29.9 (25.0-34.0) pg MCHC 32.2 (32.0-36.0) g/dL RDW Std Deviation 45.9 (36.4-46.3) fL RDW Coeff of Gregoria 13.5 (11.5-14.5) % Plt Count 280 (130-400) K/uL MPV 8.8 L (9.4-12.4) fL Immature Gran % (Auto) 0.4 % Neut % (Auto) 68.2 % Lymph % (Auto) 18.4 % [place] % (Auto) 7.9 % Eos % (Auto) 4.3 % Baso % (Auto) 0.8 % Neut # (Auto) 5.43 (1.40-6.50) K/uL Lymph # (Auto) 1.46 (1.20-3.40) K/uL [place] # (Auto) 0.63 H (0.11-0.59) K/uL Eos # (Auto) 0.34 (0.00-0.50) K/uL Baso # (Auto) 0.06 (0.00-0.20) K/uL Immature Gran # (Auto) 0.03 (0.01-0.20) K/uL Sodium 139 (136-145) mmol/L Potassium 4.3 (3.5-5.1) mmol/L Chloride 104 (98-107) mmol/L Carbon Dioxide 25 (21-32) mmol/L Anion Gap 10 (3-11) BUN 19 (6-23) mg/dl Creatinine 0.76 (0.6-1.2) mg/dl Est Cr Clr Drug Dosing 49.6 ml/min eGFR 77.22 BUN/Creatinine Ratio 25.0 H (10-20) Glucose 76 (70-99(Fasting)) mg/dl Calcium 8.8 (8.6-10.3) mg/dl Total Bilirubin 0.7 (0.2-1.0) mg/dl AST 20 (13-39) U/L ALT 8 (7-52) U/L Alkaline Phosphatase 75 (34-104) U/L C-Reactive Protein 3.44 H (0-0.5) mg/dl Total Protein 6.6 (6.0-8.3) gm/dl Albumin 3.4 (3.4-5.0) gm/dl Globulin 3.2 (2.5-4.0) gm/dl Albumin/Globulin Ratio 1.1 (0.9-2) Procalcitonin Pending PG Care Time/CCT Total # of Minutes Spent Total Time Spent with Patient: Total time spent is greater than 50% in coordination of care (as documented) at patient's floor/unit and/or counseling patient: Coding Level of Care Code 85197 SUB INP/OBS CARE Diagnoses Diverticulitis K57.92
--- NOTE | 2025-01-13 11:59 | Hospitalist Progress Note ---
Date of Service January 13, 2025 Assessment & Plan (1) Diverticulitis: (2) Acute UTI: (3) Frequent PVCs: Plan 84 y/o with history of COPD, neuropathy, anxiety , dyslipidemia, history of recurrent UTI and constipations. Patient presented here due to abdominal pain, weakness and urinary urgency. She states been constipated for months now, she took two laxatives yesterday with no resolution of symptoms. She have symptoms of frequency and urgency with some incontinence. She feel pressure in her abdomen. She's passing gasses. On evaluation in the ED CT: with acute sigmoid diverticulitis, and severe stenosis in same area with increase stool burden. No leukocytosis, normal Hgb. UA positive for UTI, positive wbc and leuk esterase. She denied any fevers, chills, diarrhea, nausea or vomiting. No chest pain or palpitations. Denied any hematuria or bloody stools.Patient will be admitted for acute diverticulitis #Acute diverticulitis/ Stenosis in sigmoid colon - Patient with hx of chronic constipations that presented with abdominal pain, and weakness. No history of diverticulitis in the past. - Unknown of last colonoscopy, she refers had been normal. No bloody stools. - CT abdomen/ Pelvis: Acute diverticulitis in the sigmoid colon. No perforations or abscess. stenosis of the involved sigmoid colon with large amount of upstream stool burden. Cannot exclude malignancy - no Fevers, no chills. Normal wbc. Normal LFTs. Lactate unremarkable, cli nically improving - continue ceftriaxone 1g daily - Will add Flagyl 500 mg BID - Consult Colorectal surgery pending timing of colonoscopy - Miralax added - NPO for now. LR 80 ml/hr while NPO - trend Labs AM #sinus tachycardia/ PVC - EKG on arrival demonstrated sinus tachycardia and frequent PVCs. single episdoe of triplet - Patient asymptomatic, stable, no recurrence - Received 1 gm of Mag - Sinus rhythm on admission - Will admit to telemetry for further monitoring - Mag, Chemistry in AM - Replace Mag and potassium prn #UTI - hx of recurrent UTI with urinary symptoms. - UA positive with WBC and Leukocyte esterase. - Continue ceftriaxone - Follow urine culture, polymicrobial no clear pathogen's #Neuropathy - continue gabapentin #Hypothyroidism: TSH: 6.81, T4: 1.06 continue levothyroxine COPD/ Pulmonary fibrosis - Albuterol as needed - CXR normal, no consolidations, #Anxiety: continue home Ativan and Remeron DVT prophylaxis: SCDs, activity Dispo: PCU/ telemetry Admission and Anticipated Discharge Date Admission Date: January 12, 2025 Subjective actually feeling a bit better this morning. Much less of the abdominal cramping and bloating. Minimal pain at rest. No resumption of bowel function as of yet. No nausea or vomiting. Remains NPO. Colorectal surgery consultation still pending. Discussed overall care plan with the patient and her daughter who is at the bedside. Physical Exam Constitutional: well developed and well nourished; no acute distress and not ill appearing Eyes: PERRL, conjunctivae normal, anicteric sclerae Respiratory: normal respiratory effort, lungs clear to auscultation Cardiovascular: RRR, no murmur, no edema Gastrointestinal (Abdomen): Inspection/Auscultation: normal bowel sounds; abdomen not distended Percussion/Palpation: + abdomen tender (generalized tenderness) and abdomen soft; no guarding, abdomen not rigid, no pulsatile mass and abdomen not firm Skin: no rashes, warm and dry Ronnell appearance Psychiatric: A+Ox3, euthymic affect Results & Data Results & Data Vital Signs (Past 12 Hours) Vital Signs Temp Pulse Resp BP Pulse Ox O2 Del Method 01/13/25 11:37 36.6 C 96 H 19 130/83 91 Room Air 01/13/25 07:59 36.6 C 87 18 118/71 90 Room Air 01/13/25 02:23 36.6 C 81 18 135/75 92 Room Air Laboratory Results 01/11/25 20:59 Urine Culture - Final Urine,Clean Catch Three types of organisms present, all high counts. Repeat collection recommended. No further identifications or sensitivities to follow. 01/13/25 08:30 WBC 7.95 RBC 4.05 L Hgb 12.1 Hct 37.6 MCV 92.8 MCH 29.9 MCHC 32.2 RDW Std Deviation 45.9 RDW Coeff of Gregoria 13.5 Plt Count 280 MPV 8.8 L Immature Gran % (Auto) 0.4 Neut % (Auto) 68.2 Lymph % (Auto) 18.4 [place] % (Auto) 7.9 Eos % (Auto) 4.3 Baso % (Auto) 0.8 Neut # (Auto) 5.43 Lymph # (Auto) 1.46 [place] # (Auto) 0.63 H Eos # (Auto) 0.34 Baso # (Auto) 0.06 Immature Gran # (Auto) 0.03 Sodium 139 Potassium 4.3 Chloride 104 Carbon Dioxide 25 Anion Gap 10 BUN 19 Creatinine 0.76 Est Cr Clr Drug Dosing 49.6 eGFR 77.22 BUN/Creatinine Ratio 25.0 H Glucose 76 Calcium 8.8 Total Bilirubin 0.7 AST 20 ALT 8 Alkaline Phosphatase 75 C-Reactive Protein 3.44 H Total Protein 6.6 Albumin 3.4 Globulin 3.2 Albumin/Globulin Ratio 1.1 Procalcitonin 0.05 PG Care Time/CCT Total # of Minutes Spent Total Time Spent with Patient: Total time spent is greater than 50% in coordination of care (as documented) at patient's floor/unit and/or counseling patient: Coding Level of Care Code 42546 SUB INP/OBS CARE 235MIN Diagnoses Diverticulitis K57.92 Acute UTI N39.0 Frequent PVCs I49.3
--- NOTE | 2025-01-13 12:30 | Surgery Progress Note ---
<Statement entered by Prabhu Vo MD - 01/13/25 21:14> I independently saw the patient, and I agree w the assessment and plan of care. Date of Service January 13, 2025 Assessment & Plan (1) Diverticulitis: Plan: Patient here with acute diverticulitis with concern for a narrowing/stenosis in the sigmoid with + stool build up WBC 12 (9.8). Vitals are stable She is doing okay, but remains fairly tender in the LLQ GI is on board, starting a miralax regimen. passing some small stool, not much gas. Given CT findings of acute inflammation and likely inability to undergo a bowel prep there are no plans for colonscopy as inpt She reports frequent UTIs raising concern for possible colovesical fistula She may be on sips/chips. Recommending IV PPN for supplemental nutrition while prolonged NPO. Continue IV abx We will tentatively place patient on the schedule for this upcoming saturday with Dr. Vo for laparoscopic sigmoidectomy with creation of colostomy. Given stool burden she is not an ideal candidate for re-anastomosis, therefore will likely need colostomy with possibility of it being reversed down the road. Will ask urology for their assistance w/ placing intraop ureteral stents saturday as well Will follow closely Admission and Anticipated Discharge Date Admission Date: January 12, 2025 Subjective Patient feeling okay. Still having a decent amount of LLQ pain especially with palpation. She denies n/v. She is passing only a small amount of stool, minimal gas if any. Physical Exam Physical Exam: awake, alert, no distress Gastrointestinal (Abdomen): Percussion/Palpation: + abdomen tender (ttp in the LLQ) and abdomen soft Results & Data Vital Signs (Past 12 Hours) Vital Signs Temp Pulse Resp BP Pulse Ox O2 Del Method 01/13/25 11:37 97.9 F 96 H 19 130/83 91 Room Air 01/13/25 07:59 97.9 F 87 18 118/71 90 Room Air 01/13/25 02:23 97.9 F 81 18 135/75 92 Room Air PG Care Time/CCT Total # of Minutes Spent Total Time Spent with Patient: Total time spent is greater than 50% in coordination of care (as documented) at patient's floor/unit and/or counseling patient: Coding Level of Care Code 59746 SUB INP/OBS CARE 04/25MIN Diagnoses Diverticulitis K57.92
[2025-01-13] MEDS ORDERED: TPN/PPN CONSULT PHARMACY PRN (12:39)
[2025-01-13] MEDS: cefTRIAXone SODIUM 1,000 MG/50 ML BAG IV SCH (23:08)
[2025-01-14 09:04] LABS: Anion Gap 14.0 (3-11); Blood Urea Nitrogen 15.0 mg/dl (6-23); Calcium 8.5 mg/dl (8.6-10.3); Carbon Dioxide 22.0 mmol/L (21-32); Chloride 103.0 mmol/L (98-107); Creatinine Clr Calc Pharmacy 56.2 ml/min; Glucose 60.0 mg/dl (70-99(Fasting)); Magnesium 1.8 mg/dl (1.7-2.4); Potassium 3.7 mmol/L (3.5-5.1); Sodium 139.0 mmol/L (136-145); Triglycerides 64.0 mg/dl (0-150)
--- NOTE | 2025-01-14 12:57 | Surgery Progress Note ---
Date of Service January 14, 2025 Assessment & Plan (1) Diverticulitis: Plan: Patient here with acute diverticulitis with concern for a narrowing/stenosis in the sigmoid with + stool build up . Vitals are stable She is doing okay, but remains fairly tender in the LLQ GI is on board, starting a miralax regimen. passing some small stool, not much gas. Given CT findings of acute inflammation and likely inability to undergo a bowel prep there are no plans for colonscopy as inpt She reports frequent UTIs raising concern for possible colovesical fistula She may be on clear liquids. Recommending IV PPN for supplemental nutrition while prolonged NPO. Continue IV abx on the schedule for tomorrow for laparoscopic sigmoidectomy with creation of colostomy. Given stool burden she is not an ideal candidate for re-anastomosis, therefore will likely need colostomy with possibility of it being reversed down the road. urology on board w/ placing intraop ureteral stents saturday as well Will follow closely Admission and Anticipated Discharge Date Admission Date: January 12, 2025 Subjective Patient feeling okay. Still having a decent amount of LLQ pain especially with palpation. She denies n/v. Tolerating some liquids, passing some flatus and small amount of bowel movements. Physical Exam Constitutional: WD/WN, vitals as above Eyes: PERRL, conjunctivae normal, anicteric sclerae Neck: trachea midline, no thyromegaly Respiratory: normal effort Cardiovascular: Rate/Rhythm: regular rate Gastrointestinal (Abdomen): soft, slightly distended, ttp llq with some guarding in the area Results & Data Vital Signs (Past 12 Hours) Vital Signs Temp Pulse Resp BP Pulse Ox O2 Del Method 01/14/25 11:19 36.8 C 99 H 19 120/67 91 Room Air 01/14/25 02:26 36.7 C 86 18 140/80 93 Room Air PG Care Time/CCT Total # of Minutes Spent Total Time Spent with Patient: Total time spent is greater than 50% in coordination of care (as documented) at patient's floor/unit and/or counseling patient: Coding Level of Care Code 06223 SUB INP/OBS CARE 2/35MIN Diagnoses Diverticulitis K57.92
--- NOTE | 2025-01-14 13:42 | Hospitalist Progress Note ---
Date of Service January 14, 2025 Assessment & Plan (1) Diverticulitis: (2) Acute UTI: (3) Frequent PVCs: Plan 84 y/o with history of COPD, neuropathy, anxiety , dyslipidemia, history of recurrent UTI and constipations. Patient presented here due to abdominal pain, weakness and urinary urgency. She states been constipated for months now, she took two laxatives yesterday with no resolution of symptoms. She have symptoms of frequency and urgency with some incontinence. She feel pressure in her abdomen. She's passing gasses. On evaluation in the ED CT: with acute sigmoid diverticulitis, and severe stenosis in same area with increase stool burden. No leukocytosis, normal Hgb. UA positive for UTI, positive wbc and leuk esterase. She denied any fevers, chills, diarrhea, nausea or vomiting. No chest pain or palpitations. Denied any hematuria or bloody stools.Patient will be admitted for acute diverticulitis #Acute diverticulitis/ Stenosis in sigmoid colon - Patient with hx of chronic constipations that presented with abdominal pain, and weakness. No history of diverticulitis in the past. - Unknown of last colonoscopy, she refers had been normal. No bloody stools. - CT abdomen/ Pelvis: Acute diverticulitis in the sigmoid colon. No perforations or abscess. stenosis of the involved sigmoid colon with large amount of upstream stool burden. Cannot exclude malignancy - no Fevers, no chills. Normal wbc. Normal LFTs. Lactate unremarkable, cli nically stable - continue ceftriaxone 1g daily, flagyl 500 mg BID - Miralax added - NPO for now. LR 80 ml/hr while NPO - Plan for diverting colostomy - Will consent for PICC and start PPN, depending on diverting colostomy she may only need for the short term #sinus tachycardia/ PVC - EKG on arrival demonstrated sinus tachycardia and frequent PVCs. single episdoe of triplet - Patient asymptomatic, stable, no recurrence - Received 1 gm of Mag - Sinus rhythm on admission - Will admit to telemetry for further monitoring - Mag, Chemistry in AM stable - Replace Mag and potassium prn #UTI - hx of recurrent UTI with urinary symptoms. - UA positive with WBC and Leukocyte esterase. - Continue ceftriaxone - Follow urine culture, polymicrobial no clear pathogen's #Neuropathy - continue gabapentin #Hypothyroidism: TSH: 6.81, T4: 1.06 continue levothyroxine COPD/ Pulmonary fibrosis - Albuterol as needed - CXR normal, no consolidations, #Anxiety: continue home Ativan and Remeron DVT prophylaxis: SCDs, activity Dispo: PCU/ telemetry Admission and Anticipated Discharge Date Admission Date: January 12, 2025 Subjective doing pretty well overall this morning. Only minimal colicky cramping at times. mattress filling machine tender in the lower abdomen. We discussed tomorrow's procedure. She has had all of her questions answered up to this point. No new or different symptoms. Able to take a little bit of tea this morning. We discussed PPN. Otherwise she has no new concerns or complaints. No events or concerns per nursing Physical Exam Constitutional: well developed and well nourished; no acute distress and not ill appearing Eyes: PERRL, conjunctivae normal, anicteric sclerae Respiratory: normal respiratory effort, lungs clear to auscultation Cardiovascular: RRR, no murmur, no edema Gastrointestinal (Abdomen): Inspection/Auscultation: normal bowel sounds; abdomen not distended Percussion/Palpation: + abdomen tender (generalized tenderness) and abdomen soft; no guarding, abdomen not rigid, no pulsatile mass and abdomen not firm Skin: no rashes, warm and dry Ronnell appearance Psychiatric: A+Ox3, euthymic affect Results & Data Results & Data Vital Signs (Past 12 Hours) Vital Signs Temp Pulse Resp BP Pulse Ox O2 Del Method 01/14/25 11:19 36.8 C 99 H 19 120/67 91 Room Air 01/14/25 02:26 36.7 C 86 18 140/80 93 Room Air Laboratory Results 01/14/25 01/14/25 12:30 06:47 Sodium 139 Potassium 3.7 Chloride 103 Carbon Dioxide 22 Anion Gap 14 H BUN 15 Creatinine 0.67 Est Cr Clr Drug Dosing 56.2 eGFR 86.13 BUN/Creatinine Ratio 22.4 H Glucose 60 L POC Glucose 118 H Calcium 8.5 L Phosphorus 3.2 Magnesium 1.8 Triglycerides 64 PG Care Time/CCT Total # of Minutes Spent Total Time Spent with Patient: Total time spent is greater than 50% in coordination of care (as documented) at patient's floor/unit and/or counseling patient: Coding Level of Care Code 73648 SUB INP/OBS CARE 2/35MIN Diagnoses Diverticulitis K57.92 Acute UTI N39.0 Frequent PVCs I49.3
--- NOTE | 2025-01-14 14:59 | Pharmacy Report ---
Pharmacy Initial PN Consult Nt - Date of Service January 14, 2025 - [facility] Pharmacy has been consulted on this date to manage parenteral nutrition orders and order appropriate labs. As part of the Nutrition Support Team Guidelines, pharmacy will work in conjunction with dietary when determining the patients caloric needs. - Subjective * The patient is a 84 year old Female admitted on 01/12/25 for SIGMOID DIVERTICULITIS, UTI, PVCs. * Patient is to receive parenteral nutrition for prolonged NPO status - Objective Vascular Access: * Patient currently has a peripheral line * Peripheral line was confirmed by IV Team to be acceptable for PPN use on 01/13 Height & Weight (Last Documented) Height 5 ft 5 in Weight 63.503 kg Diet Order(s) 01/14/25 Breakfast Diet 01/15/25 00:01 NPO Intake & Ouput (24hrs) 01/13/25 01/14/25 01/15/25 06:59 06:59 06:59 Intake Total 2300 / 2300 2500.000 / 2500.000 1100 / 1100 Output Total 1600 / 1600 1107 / 1107 Balance 700 / 700 1393.000 / 5888.044 4829 / 1100 Selected Laboratory Results 01/14/25 06:47 Sodium 139 Potassium 3.7 Chloride 103 Carbon Dioxide 22 Anion Gap 14 H BUN 15 Creatinine 0.67 BUN/Creatinine Ratio 22.4 H Glucose 60 L Calcium 8.5 L Phosphorus 3.2 [address] - Follow Up Nutrition Assessment Start: 01/12/25 16:17 Freq: Status: Active Protocol: Document 01/13/25 20:15 JO (Rec: 01/13/25 20:31 [id number]) - Assessment & Plan Assessment: * Appreciate dietitians recommendations for macronutrients. Discussed with provider and would like to keep volume for PPN closer to 1500 ml/day. Plan: * For Day #1 of PPN administration, the following will be ordered: * Macronutrients: * Amino Acids: 64 grams/day * Dextrose: 75 grams/day * Lipids: -- grams/day * Micronutrients: * Sodium phosphate: 15 mMol/day * Sodium chloride: 60 mEq/day * Sodium acetate: 60 mEq/day * Potassium chloride: 40 mEq/day * Magnesium sulfate: 4.06 mEq/day * Calcium gluconate: 4.65 mEq/day * Multivitamins: 10 mL/day * Trace elements: 1 mL/day * Thiamine: 100 mg/day * Folic Acid: 1 mg/day * Total volume of 1602 mL will be infused over 24 hours and will provide 510 kcal/day * Patient is on PPN which has a maximum mOsm/L of 900. Final osmolarity of current solution is 861 mOsm/L. * Labs will be ordered per PN protocol. * Pharmacy will follow and adjust PN orders on a daily basis. Thank you!
[2025-01-14] MEDS ORDERED: DEXTROSE 10% 1,000 ML IV PRN (16:00)
[2025-01-14] MEDS: PERIPHERAL TPN IV SCH (16:07)
[2025-01-14] MEDS: [UNRECOGNIZED DRUG - OTHER] IV SCH (16:07)
[2025-01-14] MEDS: TPN/PPN CONSULT PHARMACY STA (16:07)
[2025-01-15] MEDS: LACTATED RINGER'S 1,000 ML IV SCH (06:36)
[2025-01-15] MEDS ORDERED: PROPOFOL IV EMULSION 10 MG/ML 20 ML VIAL IV ONE (06:42)
--- NOTE | 2025-01-15 06:45 | Anesthesiology Consultation ---
Date of Service January 15, 2025 Assessment & Plan Chart Review Chart Review: Acceptable Risk for Surgery Consults Requested none ASA ASA3 Proposed Anesthesia Anesthesia Type: MAC Risk / Benefits Reviewed With: PT / POA / Parent / Guardian, Accepts Plan and Informed Consent Obtained History Surgery Operation Date: 01/15/25 07:00 Proposed Procedures p Laparoscopic Sigmoidectomy with Creation of Colostomy - MD mirna Saez Ureteral Stent Insertion Bilateral - Issa Oliver MD Height/Weight Height: 5 ft 5 in Weight: 63.1 kg Allergies Allergy/AdvReac Type Severity Reaction Status Date / Time No Known Allergies Allergy Verified 01/11/25 20:48 Medications Home Medications Medication Instructions Recorded Confirmed Last Taken calcium carbonate 600 mg PO DAILY 12/11/18 01/11/25 01/11/25 cholecalciferol (vitamin D3) 50 2,000 units PO DAILY #90 caps 12/11/18 01/11/25 01/11/25 mcg (2,000 unit) capsule albuterol sulfate 90 mcg/actuation 2 puff inhalation Q6H PRN 08/30/21 01/11/25 Unknown aerosol inhaler shortness of breath or wheezing #18 grams docusate sodium 50 mg capsule 50 mg PO BID 06/28/22 01/11/25 01/11/25 08:00 (Stool Softener) multivitamin with folic acid 400 1 tab PO QAM #30 tabs 08/03/22 01/11/25 01/11/25 mcg tablet (Daily-Anne Marie (with folic acid)) acetaminophen 325 mg tablet 650 mg (2 x 325 mg) PO Q6H PRN 11/15/22 01/11/25 Unknown fever or pain #1 tab glucosamine sulfate 500 mg tablet 500 mg PO DAILY 12/12/22 01/11/25 01/11/25 Shower Chair #1 ea 02/24/24 01/11/25 01/11/25 cranberry fruit concentrate 250 mg 250 mg PO TID 02/26/24 01/11/25 01/11/25 12:00 chewable tablet (Azo Cranberry) mirtazapine 7.5 mg tablet 7.5 mg PO HS #30 tabs 03/19/24 01/11/25 01/10/25 gabapentin 300 mg capsule 300 mg PO HS #30 caps 08/19/24 01/11/25 01/10/25 levothyroxine 50 mcg tablet 50 mcg PO DAILY #30 tabs 08/26/24 01/11/25 01/11/25 glycopyrrolate 9 mcg-formoterol 2 puff inhalation BID #10.7 grams 09/01/24 01/11/25 01/11/25 08:00 4.8 mcg HFA aerosol inhaler (Bevespi Aerosphere) lorazepam 1 mg tablet 1 mg PO HS #30 tabs 11/17/24 01/11/25 01/10/25 phenazopyridine 99.5 mg tablet 99.5 mg PO BID 01/11/25 01/11/25 01/11/25 08:00 (Azo Urinary Pain Relief) triamcinolone acetonide 0.5 % 1 applic EXT BID PRN ITCHY RASH 01/11/25 01/11/25 Unknown topical cream Active Medications Generic Name Dose Route Start Last Admin Trade Name Freq PRN Reason Stop Dose Admin Acetaminophen 650 mg 01/12/25 01:29 01/12/25 20:11 Acetaminophen 325 Mg Tab PO 02/11/25 01:28 650 mg Q4H PRN Administration Pain or Fever Gabapentin 300 mg 01/12/25 21:00 01/14/25 21:34 Gabapentin 300 Mg Cap PO 02/11/25 20:59 300 mg HS ELENITA Administration Glucosamine Sulfate 500 mg 01/12/25 09:00 01/14/25 08:20 Glucosamine Sulfate 500 Mg Cap PO 02/11/25 08:59 500 mg DAILY ELENITA Administration Metronidazole 500 mg in 100 mls @ 100 mls/hr 01/12/25 08:00 01/15/25 00:24 Flagyl IV 01/22/25 07:59 Infused Q8H ELENITA Infusion Protocol Ceftriaxone Sodium 1,000 mg in 50 mls @ 100 mls/hr 01/13/25 23:00 01/14/25 23:51 Rocephin IV 01/23/25 22:59 Infused Q24H ELENITA Infusion Amino Acids 1,602 ml/ 1,602 mls @ 66.7 mls/hr 01/14/25 16:00 01/14/25 16:07 Nutrition (Parenteral) IV 01/15/25 15:59 66.7 mls/hr .Q24H ELENITA Administration Protocol Lactated Ringer's 1,000 mls @ 15 mls/hr 01/15/25 06:45 01/15/25 06:36 Lr IV 01/18/25 06:44 15 mls/hr .Q24H ELENITA Administration Levothyroxine Sodium 50 mcg 01/12/25 06:30 01/15/25 06:02 Levothyroxine Sodium 50 Mcg Tablet PO 02/11/25 06:29 50 mcg DAILYBB ELENITA Administration Lorazepam 1 mg 01/12/25 21:00 01/14/25 21:34 Lorazepam 1 Mg Tab PO 02/11/25 20:59 1 mg HS ELENITA Administration Mirtazapine 7.5 mg 01/12/25 21:00 01/14/25 21:33 Mirtazapine Tab 15 Mg Tab PO 02/11/25 20:59 7.5 mg HS ELENITA Administration Polyethylene Glycol 17 gm 01/12/25 09:00 01/14/25 21:33 Polyethylene (Miralax) 17 Gm Pack PO 02/11/25 08:59 17 gm BID ELENITA Administration Umeclidinium/Vilanterol 1 puffs 01/12/25 09:00 01/14/25 08:20 Umeclidinium/Vilanterol 62.5/25mcg 7 Puffs/Inhaler INH 02/11/25 08:59 1 puffs DAILY ELENITA Administration NPO Date Last Intake of Fluids: 01/14/25 Time Last Intake of Fluids: 18:00 Date Last Intake of Solids: 01/13/25 Time Last Intake of Solids: 18:00 Past Medical History Medical History Spastic dysphonia mild CP Exercise / Class Metabolic Activity III < 4 Walking/Shop/Light housework Past Family History Family History Sister Breast cancer Denies family history of Ovarian cancer Prostate cancer Myocardial infarction Colorectal cancer Past Surgical History Surgical History History of revision of total replacement of right hip joint History of shoulder replacement History of total hip replacement History of appendectomy History of cholecystectomy History of total abdominal hysterectomy and bilateral salpingo-oophorectomy Past Anesthesia History No Hx of Anesthesia Complications History of PONV No Hx of PONV and No Hx of Motion Sickness Social History Smoking Status: Former smoker tobacco type: cigarettes Smoking cigarettes per day: 40 Do You Dip or Chew Tobacco: No Smoking End Date: 20 years ago Hx Alcohol Use: No Hx Substance Use: No substance use type: does not use Review of Systems Respiratory: no problem reported Cardiovascular: no chest pain and no problem reported on TPN Physical Exam Vital Signs Last Vital Signs Temp 36.8 C 01/15/25 06:20 Pulse 82 01/15/25 06:20 Resp 20 01/15/25 06:20 BP 137/81 01/15/25 06:20 Pulse Ox 94 01/15/25 06:20 O2 Del Method Room Air 01/15/25 06:20 Constitutional no acute distress ENMT Mouth: + dentures and + edentulous; no TMJ abnormality Thyromental Distance: < 3.5 Finger Breadths Mallampati Class: III Neck normal visual inspection Respiratory normal respiratory effort Cardiovascular Rate/Rhythm: regular rate Chest (Breasts) Chest: no pacemaker Neurologic moves all extremities Psychiatric Orientation: alert and oriented x 3 Testing Laboratory Results 01/13/25 08:30 01/14/25 06:47 PT 10.9 Seconds (9.0-12.0) 01/12/25 02:14 INR 1.0 (0.9-1.1) 01/12/25 02:14 Urine Color Yellow 01/11/25 20:59 Urine Appearance Clear (Clear) 01/11/25 20:59 Urine pH 6.0 (4.5-7.5) 01/11/25 20:59 Ur Specific [place] 1.019 (1.000-1.030) 01/11/25 20:59 Urine Protein Trace (Negative) H 01/11/25 20:59 Urine Glucose (UA) Negative (Negative) 01/11/25 20:59 Urine Ketones Negative (Negative) 01/11/25 20:59 Urine Nitrite Negative (Negative) 01/11/25 20:59 Ur Leukocyte Esterase 2+ (Negative) H 01/11/25 20:59 Urine WBC (Auto) >50 /hpf (0-5) H 01/11/25 20:59 Urine RBC (Auto) 3-5 /hpf (0-2) H 01/11/25 20:59 U Hyaline Cast (Auto) 0-2 /lpf (0-2) 10/13/25 20:59 U Epithel Cells (Auto) 0-2 /hpf (0-2) 01/11/25 20:59 Urine Bacteria (Auto) None Seen (None Seen) 01/11/25 20:59 01/11/25 20:59 Urine Culture - Final Urine,Clean Catch Three types of organisms present, all high counts. Repeat collection recommended. No further identifications or sensitivities to follow.
--- NOTE | 2025-01-15 06:47 | History & Physical Bridge Note ---
Date of Service January 15, 2025 History & Physical Bridge Note I have examined the patient, reviewed the History & Physical and in the interval since the performance of the History & Physical I have noted the following changes of clinical significance: no changes noted
[2025-01-15] MEDS ORDERED: ROCURONIUM BROMIDE 10 MG/ML 5 ML VIAL IV ONE (06:49)
[2025-01-15] MEDS ORDERED: DEXAMETHASONE SOD INJ 4 MG/ML VIAL ONE (06:49)
[2025-01-15] MEDS ORDERED: LIDOCAINE 2% 2 ML VIAL/AMP(20MG/ML) INFIL ONE (06:49)
[2025-01-15] MEDS ORDERED: ONDANSETRON INJ 2 MG/ML 2 ML VIAL ONE (06:49)
[2025-01-15] MEDS ORDERED: ACETAMINOPHEN 1000 MG/100 ML IV IV ONE (06:54)
--- NOTE | 2025-01-15 06:54 | History & Physical Bridge Note ---
Date of Service January 15, 2025 History & Physical Bridge Note I have examined the patient, reviewed the History & Physical and in the interval since the performance of the History & Physical I have noted the following changes of clinical significance: no changes noted as per Dr. Vo's note. Our portion of the case will be purely precautionary to improve safety of the colon surgery.
[2025-01-15] MEDS ORDERED: ONDANSETRON INJ 2 MG/ML 2 ML VIAL IV PRN (06:59)
[2025-01-15] MEDS ORDERED: ATROPINE SULFATE 0.1 MG/ML 10ML SYR IV PRN (06:59)
[2025-01-15] MEDS ORDERED: GLYCOPYRROLATE 0.2 MG/ML VIAL ONE (07:39)
--- NOTE | 2025-01-15 07:54 | Operative Report ---
PG Post Operative Report Pre & Post Diagnosis Operation Date: 01/15/25 07:00 Pre: Diverticulitis - desired ureteral catheterization Post: Diverticulitis - desired ureteral catheterization I identified the patient and participated in the time-out.: Yes Procedure Operation Date: 01/15/25 07:00 Procedure: Cystoscopy, bilateral ureteral catheter/stent placement Surgeon Issa Oliver MD Panel Saw Operator none Estimated Blood Loss 0 Findings Consistent with Post-Op Diagnosis Specimens none Description of Procedure The patient was identified in the preoperative holding area, appropriate informed consents were reviewed and completed and the patient was transferred to the operative suite. Upon arrival, appropriate antibiotics and anesthesia were administered and the patient was placed in dorsal lithotomy position and prepped and draped in sterile fashion. Begin the case I passed a 21 [place] cystoscope 30 degree lens. Full inspection of the bladder was conducted and there was some minor erythema in the upper posterior wall but no evidence of a visible fistula. This was scattered erythema not focal. Ureteral orifices were in orthotopic position and I turned my attention to the left UO first. I used a sensor wire and a 5 [place]i open-ended catheter to cannulate the ureter. The catheter was positioned at 25 cm and left in place as I been proceeded to perform the same procedure on the right and again placed the catheter at 25 cm. I withdrew the scope leaving catheters in place and utilized a Palacios catheter and umbilical tape to secure the catheters to the Palacios. They were attached to a Quintero adapter and my portion of the case was concluded. She remained in very stable condition to move forward with Dr. Vo's portion of the case. I attest to the content of the Intraoperative Record and any orders documented therein. Any exceptions are noted below.
[2025-01-15] MEDS ORDERED: SUGAMMADEX SODIUM 200 MG/2 ML VIAL IV ONE (08:24)
[2025-01-15] MEDS ORDERED: HYDROmorphone INJ 2 MG/ML SYR/VIAL ONE (09:19)
[2025-01-15] MEDS ORDERED: ePHEDrine sulfate 50 MG/5 ML SYR ONE (10:00)
[2025-01-15] MEDS ORDERED: PHENYLEPHRINE 100MCG/ML 5ML SYR ONE ×2 (10:00→11:06)
[2025-01-15] MEDS: BUPIVACAINE/EPINEPHRINE 0.5% MPF 1:200,000 30 ML VIAL ONE (11:43)
[2025-01-15] MEDS: BUPIVACAINE LIPOSOME 1.3% 133 MG/10 ML VIAL INFIL ONE (11:44)
--- NOTE | 2025-01-15 11:51 | Post Operative Brief Note ---
PG Immediate Post Op with CF Date of Surgery January 15, 2025 Pre & Post Diagnosis Operation Date: 01/15/25 07:00 Pre-Op Diagnosis: sigmoid diverticulitis Post-Op Diagnosis: sigmoid diverticulitis I identified the patient and participated in the time-out.: Yes Procedure Operation Date: 01/15/25 07:00 Actual Procedures p Ureteral Stent Insertion Bilateral, Left Ureter Repair(Bilateral) - Issa Oliver MD p Exploratory Laparotomy with Lysis of Adhesions and Bladder Repair ,Laparoscopic Sigmoidectomy and Creation of Colostomy(Not Applicable) - Prabhu Vo MD s Flexible Sigmoidoscopy(Not Applicable) - Prabhu Vo MD Surgeon Prabhu Vo MD Surgical PA, [employer] was essential for all aspects of the case, including dissection, resection, repair of bladder and ureter, entry to the abdomen, exposure, closure of abdomen Director Of Design [employer] PA-C Estimated Blood Loss 50 Findings See Below Severely inflamed sigmoid colon with extension laterally into the pelvic sidewall with the left ureter somewhat encased in the inflammation, 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 Flexible sigmoidoscopy did not show definite evidence of mass but did show diverticular disease. Specimens Specimen Description: A: umbilical implant B: Sigmoid Colon Drains Palacios Catheter (16 [place] 10ml balloon) Complications none Disposition Disposition: Recovery Room
--- NOTE | 2025-01-15 12:26 | Anesthesiology Progress Note ---
Date of Service January 15, 2025 Anesthesia Post Procedure Vital Signs Vital Signs: Temp Pulse Pulse Resp BP BP Pulse Ox 01/15/25 12:20 87 20 138/72 96 01/15/25 12:10 36.3 C L 88 20 126/72 98 01/15/25 12:00 89 19 138/69 100 01/15/25 11:50 86 17 135/73 99 01/15/25 11:40 83 20 129/69 99 01/15/25 11:34 36.4 C L 88 19 127/69 99 01/15/25 09:24 77 01/15/25 06:20 36.8 C 82 20 137/81 94 01/15/25 03:52 36.8 C 81 17 103/65 93 01/14/25 23:07 37.1 C 82 18 95/50 L 91 01/14/25 22:00 81 01/14/25 20:56 36.7 C 84 18 138/69 93 01/14/25 16:00 86 01/14/25 15:55 36.7 C 91 H 18 138/67 92 O2 Del Method O2 Flow Rate 01/15/25 12:20 Nasal Cannula 2 01/15/25 12:10 Nasal Cannula 2 01/15/25 12:00 Oxymask 3 01/15/25 11:50 Oxymask 5 01/15/25 11:40 Oxymask 7 01/15/25 11:34 Oxymask 10 01/15/25 09:24 01/15/25 06:20 Room Air 01/15/25 03:52 Room Air 01/14/25 23:07 Room Air 01/14/25 22:00 01/14/25 20:56 Room Air 01/14/25 16:00 01/14/25 15:55 Room Air Transfer of Care Handoff Completed per policy Notes Mental Status: alert / awake / arousable Patient Amnestic to Procedure: Yes Nausea / Vomiting: adequately controlled Pain: adequately controlled Airway Patency, RR, SpO2: stable & adequate BP & HR: stable & adequate Hydration State: stable & adequate Anesthetic Complications: no major complications apparent
[2025-01-15 12:49] LABS: Hematocrit (blood only) 39.4 % (37.0-47.0); Hemoglobin 12.7 g/dl (12.0-16.0); Immature Granulocytes # (auto) 0.04 K/uL (0.01-0.20); Immature Granulocytes % (auto) 0.4 %; Mean Corpuscular Hemoglobin 30.2 pg (25.0-34.0); Mean Corpuscular Volume 93.8 fL (80.0-100.0); Platelet Count 312 K/uL (130-400); RDW Standard Deviation 45.2 fL (36.4-46.3); Red Blood Count 4.20 M/uL (4.20-5.40); White Blood Count 10.20 K/ul (4.8-10.8)
[2025-01-15] MEDS ORDERED: MoRPHine SULFATE 2 MG/ML CARP IV PRN (12:58)
[2025-01-15 13:03] LABS: Alanine Aminotransferase 15.0 U/L (7-52); Albumin Globulin Ratio 1.1 (0.9-2); Albumin Level 3.3 gm/dl (3.4-5.0); Alkaline Phosphatase 68.0 U/L (34-104); Anion Gap 7.0 (3-11); Bilirubin,Total 0.5 mg/dl (0.2-1.0); Blood Urea Nitrogen 18.0 mg/dl (6-23); Calcium 8.4 mg/dl (8.6-10.3); Carbon Dioxide 25.0 mmol/L (21-32); Chloride 104.0 mmol/L (98-107); Creatinine Clr Calc Pharmacy 48.9 ml/min; Globulin 2.9 gm/dl (2.5-4.0); Glucose 220.0 mg/dl (70-99(Fasting)); Magnesium 1.6 mg/dl (1.7-2.4); Potassium 3.8 mmol/L (3.5-5.1); Sodium 136.0 mmol/L (136-145); Total Protein 6.2 gm/dl (6.0-8.3)
[2025-01-15] MEDS: ACETAMINOPHEN 1,000 MG/100 ML VIAL IV SCH (13:25)
[2025-01-15] MEDS: SODIUM CHLORIDE 0.9% 1,000 ML IV SCH (13:26)
--- NOTE | 2025-01-15 13:32 | Operative Report ---
PG Post Operative Report Pre & Post Diagnosis Operation Date: 01/15/25 07:00 Pre-Op Diagnosis: sigmoid diverticulitis Post-Op Diagnosis: sigmoid diverticulitis I identified the patient and participated in the time-out.: Yes Procedure Operation Date: 01/15/25 07:00 Actual Procedures p Ureteral Stent Insertion Bilateral, Left Ureter Repair(Bilateral) - Eliu Oliver MD p Exploratory Laparotomy with Lysis of Adhesions and Bladder Repair ,Laparoscopic Sigmoidectomy and Creation of Colostomy(Not Applicable) - Prabhu Vo MD s Flexible Sigmoidoscopy(Not Applicable) - Prabhu Vo MD Surgeon Issa Oliver MD [place] PA-C Estimated Blood Loss 50 Findings See Below Specimens none Disposition Disposition: Recovery Room Description of Procedure After my initial involvement with catheterization of the ureters I was called back into the room secondary to identification of a ureteral injury while trying to dissect the colon from the left ureter. This was not a through and through injury but did have a gap across the medial aspect of the ureter. This was in the mid ureter, at least 8 cm above the bladder. Upon initial entry Dr. Vo completed dissection of the ureter away from the colon to allow subsequent repair of the ureter. Given its location and the lack of complete disruption I was able to reapproximate it with three 4-0 Vicryl simple sutures. This was accomplished over the existing ureteral catheter. Following closure and reap proximation I elected to convert the catheter to a standard double-J stent which will be left in place for approximately 6 weeks to allow healing. At the conclusion of my portion of the case I did replace a Palacios catheter and we noted some irrigation spilling into the pelvis below the area of the repair, there was believed to be disruption of the small area of the bladder secondary to adhesion from the colon/rectum. This was repaired primarily by Dr. Vo and will be managed with a Palacios for 2 weeks. Patient was stable throughout and continued with a successful surgery. I attest to the content of the Intraoperative Record and any orders documented therein. Any exceptions are noted below.
--- NOTE | 2025-01-15 14:11 | Operative Report ---
PG Post Operative Report Pre & Post Diagnosis Operation Date: 01/15/25 07:00 Pre-Op Diagnosis: sigmoid diverticulitis Post-Op Diagnosis: sigmoid diverticulitis I identified the patient and participated in the time-out.: Yes Procedure Operation Date: 01/15/25 07:00 Actual Procedures p Ureteral Stent Insertion Bilateral, Left Ureter Repair(Bilateral) - MD shannon Carreon Exploratory Laparotomy with Lysis of Adhesions and Bladder Repair ,Laparoscopic Sigmoidectomy and Creation of Colostomy(Not Applicable) - Prabhu Vo MD s Flexible Sigmoidoscopy(Not Applicable) - Prabhu Vo MD Surgeon Prabhu Vo MD Card Painter [employer] Pain[employer] PA-C Estimated Blood Loss 50 Findings See Below Severely inflamed and thickened sigmoid colon with entrapped ureter in the inflammation laterally as well as colovesical fistula, extensive adhesions from prior abdominal surgeries. Specimens Sigmoid colon Drains 19 Yi Roman drain in pelvis Complications Left ureter entrapped in inflammation and thickening at the level of the sigmoid colon and on dissection on lifting the colon medially, it partially tore. Was repaired primarily by urology. Disposition Disposition: Recovery Room Indications This is a an 84-year-old female with a history of abdominal pain. She also has a history of frequent urinary tract infections as well as obstructive symptoms in terms of passing flatus and bowel movements. Workup reveals colonic obstruction most likely due to diverticular disease with stenosis. She presents now for laparoscopic sigmoidectomy with most likely colostomy and all other indicated procedures. Risks of procedure were discussed with the patient and they include bleeding, infection, injury to surrounding structures, need for further procedures, anastomotic leak, and cardiopulmonary events that can occur. Risks also include wound issues to include wound infection, dehiscence, and hernia. Alternatives include no surgery, which the patient declines. Patient wishes to proceed with surgery. All questions were answered. Description of Procedure Informed consent was verified and site of surgery was verified and the patient was brought back to operative room. General anesthesia was administered. She was in the supine position. Urology had come in first and perform cystoscopy and placed bilateral ureteral catheters and Palacios. A surgical timeout was performed and there are no issues. Next, a left upper quadrant incision was made and a Veress needle was inserted and the abdomen was insufflated to about 15 mmHg. Next, a 0 degree laparoscope was inserted using a 5 mm trocar under direct vision using the Optiview technique. The abdomen was inspected, there was no evidence of any injuries to any structures from entry to the abdominal cavity. The 0 degree laparoscope was switched out to a 30 degree laparoscope and the abdomen was inspected. There were extensive adhesions in the pelvis and in the left abdomen. There was were adhesions of small bowel to the anterior abdominal wall. 2 additional 5 mm ports were placed under direct vision in the right upper and right lower quadrant. Extensive adhesiolysis was performed sharply but there were portions of the small bowel that were very deeply embedded into the abdominal wall and could not be safely taken down laparoscopically. Therefore, a midline incision was made and dissection was carried out and the abdominal cavity was entered. Additional adhesiolysis was performed of small bowel to the anterior abdominal wall as well as small bowel in the pelvis. 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 The colon was mobilized along the white line of Toldt laterally from the left colon to the level of the sigmoid colon but at the level of the sigmoid colon, with further mobilization, it was seen to be very thickened and inflamed extensively laterally as well as anteriorly and posteriorly. Due to concern for possible malignancy growing into the sidewall, decision was made to perform a flexible sigmoidoscopy to evaluate the lumen of the colon. This was brought in and examination was performed. There was some stool prohibiting complete extensive visualization but there did not appear to be a mass in the left colon or sigmoid colon. Therefore, further dissection was done laterally as well as posteriorly and anteriorly, the bladder and the lateral sidewall from the colon. The ureters were palpated and felt to be safe from harm but during further lateral dissection where there was a very thickened inflamed rind, a traction injury was performed on blunt dissection, exposing the stent partially. Urology was notified and they came in and repaired this primarily. Prior to the repair, further dissection was performed the ureter from the inflammation and thickened tissue laterally. At the level of the bladder, there did not appear to be a fistula as well. After urology had prepared the ureter, further dissection was performed posteriorly and laterally and distally with care taken to avoid any structures. High ligation of the mesentery was not performed due to this not being for malignant disease. The colon was extremely thickened and hard and inflamed. At the level of the rectum, which was identified by the splaying of the tinea coli in the sacral premonitory, when there was green in the mesentery and the rectum was transected using the 45 mm powered laparoscopic stapler. Further dissection was done laterally and posteriorly and the colon was transected proximally in the mid left colon and the specimen was removed off the field. Irrigation and suctioning was performed. There did appear to be a small defect in the bladder and this was repaired primarily using 3-0 Vicryl suture. Next, via the right lower quadrant port, 19 Yi Roman drain was placed in the pelvis and secured. At the level of the repair of the ureter, there did appear to be some exposed stent posteriorly and this was closed gently using 4-0 Vicryl suture. Next, the end of the colon was brought out via a circumferential incision in the left lower quadrant and secured. Next, the fascia of the midline incision was closed with 0 looped PDS and the skin of this and the other ports were closed using spring. Exparel and Marcaine was injected into the fascia of the midline incision prior to closing the skin with spring. The colostomy was matured in a Mary Anne fashion using 3-0 Vicryl suture. The right ureteral catheter was removed at the end of the case. It was intact. Sterile dressing was applied and the patient was weaned off anesthesia and transferred to recovery in stable condition. I attest to the content of the Intraoperative Record and any orders documented therein. Any exceptions are noted below.
[2025-01-15] MEDS: MoRPHine SULFATE 4 MG/ML 1 ML CARP\\VIAL IV PRN (14:38)
--- NOTE | 2025-01-15 15:00 | Hospitalist Progress Note ---
Date of Service January 15, 2025 Assessment & Plan (1) Diverticulitis: (2) Acute UTI: (3) Frequent PVCs: Plan 84 y/o with history of COPD, neuropathy, anxiety , dyslipidemia, history of recurrent UTI and constipations. Patient presented here due to abdominal pain, weakness and urinary urgency. She states been constipated for months now, she took two laxatives yesterday with no resolution of symptoms. She have symptoms of frequency and urgency with some incontinence. She feel pressure in her abdomen. She's passing gasses. On evaluation in the ED CT: with acute sigmoid diverticulitis, and severe stenosis in same area with increase stool burden. No leukocytosis, normal Hgb. UA positive for UTI, positive wbc and leuk esterase. She denied any fevers, chills, diarrhea, nausea or vomiting. No chest pain or palpitations. Denied any hematuria or bloody stools.Patient will be admitted for acute diverticulitis #Acute diverticulitis/ Stenosis in sigmoid colon - Patient with hx of chronic constipations that presented with abdominal pain, and weakness. No history of diverticulitis in the past. - Unknown of last colonoscopy, she refers had been normal. No bloody stools. - CT abdomen/ Pelvis: Acute diverticulitis in the sigmoid colon. No perforations or abscess. stenosis of the involved sigmoid colon with large amount of upstream stool burden. Cannot exclude malignancy - no Fevers, no chills. Normal wbc. Normal LFTs. Lactate unremarkable, cli nically stable - continue ceftriaxone 1g daily, flagyl 500 mg BID - Miralax added - NPO for now. LR 80 ml/hr while NPO - Plan for diverting colostomy - POD#0 lap sigmoidectomy with colostomy, post op cares per colorectal surgery - PPN until she is taking adequate PO. #Low body temp - during post operative window, improving, continue to monitor, no warming indicated #sinus tachycardia/ PVC - EKG on arrival demonstrated sinus tachycardia and frequent PVCs. single episdoe of triplet - Patient asymptomatic, stable, no recurrence - Received 1 gm of Mag - Sinus rhythm on admission - Will admit to telemetry for further monitoring - Mag, Chemistry in AM stable - Continue to monitor #UTI - hx of recurrent UTI with urinary symptoms. - UA positive with WBC and Leukocyte esterase. - s/p ctx #Neuropathy - continue gabapentin #Hypothyroidism: TSH: 6.81, T4: 1.06 continue levothyroxine COPD/ Pulmonary fibrosis - Albuterol as needed - CXR normal, no consolidations, #Anxiety: continue home Ativan and Remeron DVT prophylaxis: SCDs, activity Dispo: PCU/ telemetry Admission and Anticipated Discharge Date Admission Date: January 12, 2025 Subjective doing okay after procedure. Minimal pain. Her temperature was reading a little bit low however it seems as though we have had a better signal. Otherwise routine postoperative cares. Prior to the procedure no other events or concerns per patient or nursing staff. Physical Exam Constitutional: well developed and well nourished; no acute distress and not ill appearing Eyes: PERRL, conjunctivae normal, anicteric sclerae Respiratory: normal respiratory effort, lungs clear to auscultation Cardiovascular: RRR, no murmur, no edema Gastrointestinal (Abdomen): Inspection/Auscultation: normal bowel sounds; abdomen not distended Percussion/Palpation: + abdomen tender (generalized te nderness) and abdomen soft; no guarding, abdomen not rigid, no pulsatile mass and abdomen not firm Skin: no rashes, warm and dry Ronnell appearance Psychiatric: A+Ox3, euthymic affect Results & Data Results & Data Vital Signs (Past 12 Hours) Vital Signs Temp Pulse Pulse Resp BP BP Pulse Ox 01/15/25 14:09 35.2 C L 01/15/25 12:40 69 20 136/63 99 01/15/25 12:30 72 19 128/68 98 01/15/25 12:20 87 20 138/72 96 01/15/25 12:10 36.3 C L 88 20 126/72 98 01/15/25 12:00 89 19 138/69 100 01/15/25 11:50 86 17 135/73 99 01/15/25 11:40 83 20 129/69 99 01/15/25 11:34 36.4 C L 88 19 127/69 99 01/15/25 09:24 77 01/15/25 06:20 36.8 C 82 20 137/81 94 01/15/25 03:52 36.8 C 81 17 103/65 93 O2 Del Method O2 Flow Rate 01/15/25 14:09 01/15/25 12:40 Nasal Cannula 2 01/15/25 12:30 Nasal Cannula 2 01/15/25 12:20 Nasal Cannula 2 01/15/25 12:10 Nasal Cannula 2 01/15/25 12:00 Oxymask 3 01/15/25 11:50 Oxymask 5 01/15/25 11:40 Oxymask 7 01/15/25 11:34 Oxymask 10 01/15/25 09:24 01/15/25 06:20 Room Air 01/15/25 03:52 Room Air Laboratory Results Abnormal Lab Results 01/14/25 01/15/25 14:09 12:20 WBC 10.20 RBC 4.20 Hgb 12.7 Hct 39.4 MCV 93.8 MCH 30.2 MCHC 32.2 RDW Std Deviation 45.2 RDW Coeff of Gregoria 13.2 Plt Count 312 MPV 9.0 L Immature Gran % (Auto) 0.4 Neut % (Auto) 85.3 Lymph % (Auto) 6.2 Wilson % (Auto) 7.5 Eos % (Auto) 0.2 Baso % (Auto) 0.4 Neut # (Auto) 8.71 H Lymph # (Auto) 0.63 L Wilson # (Auto) 0.76 H Eos # (Auto) 0.02 Baso # (Auto) 0.04 Immature Gran # (Auto) 0.04 Sodium 136 Potassium 3.8 Chloride 104 Carbon Dioxide 25 Anion Gap 7 BUN 18 Creatinine 0.77 Est Cr Clr Drug Dosing 48.9 eGFR 76.02 BUN/Creatinine Ratio 23.4 H Glucose 220 H Calcium 8.4 L Phosphorus 3.3 Magnesium 1.6 L Total Bilirubin 0.5 AST 37 ALT 15 Alkaline Phosphatase 68 Total Protein 6.2 Albumin 3.3 L Globulin 2.9 Albumin/Globulin Ratio 1.1 Carcinoembryonic Ag 2.1 Blood Type A Positive Antibody Screen NEGATIVE PG Care Time/CCT Total # of Minutes Spent Total Time Spent with Patient: Total time spent is greater than 50% in coordination of care (as documented) at patient's floor/unit and/or counseling patient: Coding Level of Care Code 50266 SUB INP/OBS CARE MIN Diagnoses Diverticulitis K57.92 Acute UTI N39.0 Frequent PVCs I49.3
--- NOTE | 2025-01-15 15:19 | Electrocardiogram Report ---
Test Reason : Blood Pressure : */* mmHG Vent. Rate : 94 BPM Atrial Rate : 94 BPM P-R Int : 140 ms QRS Dur : 86 ms QT Int : 356 ms P-R-T Axes : 79 92 74 degrees QTcB Int : 445 ms Sinus rhythm with frequent Premature ventricular complexes Rightward axis Borderline ECG When compared with ECG of 14-Nov-2022 11:40, Premature ventricular complexes are now Present Questionable change in QRS axis Confirmed by Rashaun Weinstein ([id number]) on 01/15/2025 3:18:54 PM Referred By: Patricia Aviles Confirmed By: Rashaun Weinstein
[2025-01-15] MEDS ORDERED: DEXTROSE 50% 50 ML SYRINGE IV PRN (15:30)
[2025-01-15] MEDS ORDERED: GLUCOSE 40% GEL 15 GM TUBE PO PRN (15:30)
[2025-01-15] MEDS ORDERED: GLUCOSE 10 TAB/TUBE PO PRN (15:30)
[2025-01-15] MEDS ORDERED: CARBOHYDRATES FOR HYPOGLYCEMIA PO PRN (15:30)
[2025-01-15] MEDS ORDERED: GLUCAGON FOR INJ 1 MG VIAL SQ PRN (15:30)
[2025-01-15] MEDS: INSULIN ASPART PER UNIT CHARGE SC SCH (18:09)
[2025-01-15] MEDS: BUPIVACAINE LIPOSOME 1.3% 133 MG/10 ML VIAL ONE (19:03)
[2025-01-15] MEDS: CENTRAL TPN IV SCH (19:47)
[2025-01-15] MEDS: [UNRECOGNIZED DRUG - OTHER] IV SCH (19:47)
[2025-01-15] MEDS: CLINOLIPID 20% IV FAT EMULSION 250 ML IV SCH (19:47)
[2025-01-15] MEDS: DOCUSATE SODIUM 100 MG CAP PO SCH (20:10)
[2025-01-15] MEDS ORDERED: MoRPHine SULFATE 4 MG/ML 1 ML CARP\\VIAL IV PRN (21:36)
[2025-01-15] MEDS: LACTATED RINGER'S 1,000 ML IV ONE (23:10)
[2025-01-16] MEDS: ALBUMIN 25% 25 GM/100 ML VIAL IV ONE (00:14)
[2025-01-16] MEDS: MIDODRINE HCL 10 MG TAB PO STA (03:08)
[2025-01-16] MEDS: STOP CLINOLIPID SCH (04:48)
[2025-01-16] MEDS: LACTATED RINGER'S 500 ML IV ONE (04:48)
[2025-01-16 05:16] LABS: Hematocrit (blood only) 26.2 % (37.0-47.0); Hemoglobin 8.5 g/dl (12.0-16.0); Immature Granulocytes # (auto) 0.02 K/uL (0.01-0.20); Immature Granulocytes % (auto) 0.2 %; Mean Corpuscular Hemoglobin 30.8 pg (25.0-34.0); Mean Corpuscular Volume 94.9 fL (80.0-100.0); Platelet Count 206 K/uL (130-400); RDW Standard Deviation 47.3 fL (36.4-46.3); Red Blood Count 2.76 M/uL (4.20-5.40); White Blood Count 8.63 K/ul (4.8-10.8)
[2025-01-16 05:30] LABS: Anion Gap 6.0 (3-11); Blood Urea Nitrogen 25.0 mg/dl (6-23); Calcium 7.7 mg/dl (8.6-10.3); Carbon Dioxide 26.0 mmol/L (21-32); Chloride 105.0 mmol/L (98-107); Creatinine Clr Calc Pharmacy 45.4 ml/min; Glucose 151.0 mg/dl (70-99(Fasting)); Magnesium 1.6 mg/dl (1.7-2.4); Potassium 4.1 mmol/L (3.5-5.1); Sodium 137.0 mmol/L (136-145)
[2025-01-16] MEDS ORDERED: SODIUM CHLORIDE 0.9% 100 ML IV PRN (08:00)
[2025-01-16] MEDS: ASCORBIC ACID 500 MG TAB PO SCH (09:11)
--- NOTE | 2025-01-16 09:26 | Urology Progress Note ---
Date of Service January 16, 2025 Assessment & Plan (1) Diverticulitis: Plan Complex surgery secondary to diverticulitis Ureter and trapped against the colon ultimately requiring repair Tolerated this well Indwelling double-J ureteral stent was placed after the repairwe will plan for removal of the stent in approximately 6 weeks in our office Leave the Palacios catheter in place for around 10+ days to allow complete bladder healing given the close proximity of the colon and bowel as well. Urology will sign off for the time being as it seemed that she is progressing appropriately. Call us if new issues Admission and Anticipated Discharge Date Admission Date: January 12, 2025 Subjective Subjectively doing okay this morning She reports that she feels well, she is tender in her abdomen when she presses but no other major complaints. Not a lot of hunger, she is drinking water and tolerating it well. Her urine is clearing appropriately and her JAE output is low compared to urine output. Overall seems to be in very good spirits Physical Exam Physical Exam: Abdomen certainly tender but soft Dressings intact. Palacios draining blood-tinged but relatively clear/translucent urine Results & Data Vital Signs (Past 12 Hours) Vital Signs Temp Pulse Pulse Resp BP Pulse Ox O2 Del Method 01/16/25 08:57 102/70 01/16/25 08:47 84 85/45 L 01/16/25 08:03 36.4 C L 77 24 77/42 L 92 Nasal Cannula 01/16/25 07:55 36.4 C L 77 16 77/42 L 92 Room Air 01/16/25 06:04 83/45 L 01/16/25 03:02 36.6 C 84 18 88/55 L 96 Nasal Cannula 01/16/25 01:45 93/58 L 01/16/25 01:30 80/45 L 01/15/25 22:35 36.4 C L 78 18 74/45 L 95 Nasal Cannula 01/15/25 22:00 80 O2 Flow Rate 01/16/25 08:57 01/16/25 08:47 01/16/25 08:03 2 01/16/25 07:55 01/16/25 06:04 01/16/25 03:02 3 01/16/25 01:45 01/16/25 01:30 01/15/25 22:35 2 01/15/25 22:00 PG Care Time/CCT Total # of Minutes Spent Total Time Spent with Patient: Total time spent is greater than 50% in coordination of care (as documented) at patient's floor/unit and/or counseling patient: Coding Level of Care Code 34428 SUB INP/OBS CARE MIN Diagnoses Diverticulitis K57.92
--- NOTE | 2025-01-16 12:04 | Surgery Progress Note ---
Date of Service January 16, 2025 Assessment & Plan (1) Diverticulitis: Plan: POD #1 s/p Exploratory Laparotomy with Lysis of Adhesions and Bladder Repair ,Laparoscopic Sigmoidectomy by Dr. Vo and Creation of Colostomy followed by Ureteral Stent Insertion Bilateral, Left Ureter Repair with Dr. Oliver. Tarik reports some abdominal tenderness at incision site as expected. No output from ostomy. No signs of infection on exam. Camara catheter in place - will remain for at least [address] Oliver. Drop in H and H and hypotensive- currently receiving blood per primary team, will recheck H and H later today and will continue to monitor. Continue SCDs, incentive spirometer. Currently on clear liquid diet and tolerating well. Will continue to follow closely. Patient seen and examined with Dr. Powell. Admission and Anticipated Discharge Date Admission Date: January 12, 2025 Supervising Physician Co-Signing Physician Notes Patient seen examined, labs reviewed, agree with above. POD #1 Peters's procedure for diverticulitis, repair of bladder injury and ureter injury. Had some hypotension this morning and H&H had a significant drop, is currently receiving PRBCs. Denies any dizziness or lightheadedness. Mild abdominal pain. On exam she is afebrile, slightly hypotensive, nontachycardic. Abdomen is soft, incision without infection, ostomy congested and nonproductive expected. Slight blood tinge to the urine. WBC normal, hemoglobin 8.5 down from 12.7 preop. Creatinine normal. Agree with blood transfusion, repeat H&H after. If stable tomorrow we will likely start anticoagulation. Continue clear liquids, await return of bowel function. Continue antibiotics. Camara catheter and ureteral stent management per urology. Surgical follow, call with questions or concerns Subjective Tarik is resting in bed, son is at bedside. She reports that she is doing well. She reports abdominal discomfort, which is expected following surgery yesterday. Denies nausea or vomiting. Review of Systems Constitutional: as per Subjective / HPI; no fever and no chills Gastrointestinal: + abdominal pain (at incision site); no nausea and no vomiting Physical Exam Constitutional: WD/WN, vitals as above Respiratory: normal respiratory effort; no respiratory distress and no labored breathing Gastrointestinal (Abdomen): Abdomen tender at incision site as expected. Surgical dressings dry. Incision is CDI, will plan to change dressings tomorrow. No output yet from ostomy. No signs of infection on exam. Genitourinary: camara catheter in place w/ blood-tinged output. Results & Data Vital Signs (Past 12 Hours) Vital Signs Temp Pulse Pulse Resp BP BP Pulse Ox 01/16/25 11:28 36.5 C 76 16 78/46 L 95 01/16/25 11:17 01/16/25 10:58 36.6 C 68 16 79/48 L 100 01/16/25 10:43 36.8 C 71 16 78/48 L 98 01/16/25 10:24 36.5 C 72 16 79/41 L 98 01/16/25 08:57 102/70 01/16/25 08:47 84 85/45 L 01/16/25 08:03 36.4 C L 77 24 77/42 L 92 01/16/25 07:55 36.4 C L 77 16 77/42 L 92 01/16/25 06:04 83/45 L 01/16/25 03:02 36.6 C 84 18 88/55 L 96 01/16/25 01:45 93/58 L 01/16/25 01:30 80/45 L O2 Del Method O2 Flow Rate 01/16/25 11:28 01/16/25 11:17 Room Air 01/16/25 10:58 01/16/25 10:43 01/16/25 10:24 01/16/25 08:57 01/16/25 08:47 01/16/25 08:03 Nasal Cannula 2 01/16/25 07:55 Room Air 01/16/25 06:04 01/16/25 03:02 Nasal Cannula 3 01/16/25 01:45 01/16/25 01:30 PG Care Time/CCT Total # of Minutes Spent Total Time Spent with Patient: Total time spent is greater than 50% in coordination of care (as documented) at patient's floor/unit and/or counseling patient: Coding Level of Care Code 15665 Post Operative Follow-Up Diagnoses Diverticulitis K57.92
--- NOTE | 2025-01-16 12:12 | Hospitalist Progress Note ---
Date of Service January 16, 2025 Assessment & Plan (1) Diverticulitis: (2) Acute UTI: (3) Frequent PVCs: Plan 84 y/o with history of COPD, neuropathy, anxiety , dyslipidemia, history of recurrent UTI and constipations. Patient presented here due to abdominal pain, weakness and urinary urgency. She states been constipated for months now, she took two laxatives yesterday with no resolution of symptoms. She have symptoms of frequency and urgency with some incontinence. She feel pressure in her abdomen. She's passing gasses. On evaluation in the ED CT: with acute sigmoid diverticulitis, and severe stenosis in same area with increase stool burden. No leukocytosis, normal Hgb. UA positive for UTI, positive wbc and leuk esterase. She denied any fevers, chills, diarrhea, nausea or vomiting. No chest pain or palpitations. Denied any hematuria or bloody stools.Patient will be admitted for acute diverticulitis #Acute diverticulitis/ Stenosis in sigmoid colon - Patient with hx of chronic constipations that presented with abdominal pain, and weakness. No history of diverticulitis in the past. - Unknown of last colonoscopy, she refers had been normal. No bloody stools. - CT abdomen/ Pelvis: Acute diverticulitis in the sigmoid colon. No perforations or abscess. stenosis of the involved sigmoid colon with large amount of upstream stool burden. Cannot exclude malignancy - no Fevers, no chills. Normal wbc. Normal LFTs. Lactate unremarkable, cli nically stable - continue ceftriaxone 1g daily, flagyl 500 mg BID - Miralax added - NPO for now. LR 80 ml/hr while NPO - Plan for diverting colostomy - POD#1 lap sigmoidectomy with colostomy, see surgery notes, routine postoperative cares - PPN until she is taking adequate PO. - given the anemia, temperature changes and low blood pressure this morning we will broaden her antibiotics to Zosyn #Anemia - moderate drop in hemoglobin through the night from 12.7 --> 8.5 , consent for transfusion of 2 units packed red blood cells. Will continue to monitor H&H after transfusion complete # hypotension - stable, no tachycardia. No signs of end organ ischemia at this time - stable, transfusion as above, no clear source of volume loss or bleeding. #Low body temp - during post operative window, improving, continue to monitor, no warming indicated - See hypotension as above, temperature has stabilized, routine vitals monitoring as above #sinus tachycardia/ PVC - EKG on arrival demonstrated sinus tachycardia and frequent PVCs. single episdoe of triplet - Patient asymptomatic, stable, no recurrence - Received 1 gm of Mag - Sinus rhythm on admission - Will admit to telemetry for further monitoring - Mag, Chemistry in AM stable - Stable, WNL at this time #UTI - hx of recurrent UTI with urinary symptoms. - UA positive with WBC and Leukocyte esterase. - zosyn as above #Neuropathy - continue gabapentin #Hypothyroidism: TSH: 6.81, T4: 1.06 continue levothyroxine COPD/ Pulmonary fibrosis - Albuterol as needed - CXR normal, no consolidations, #Anxiety: continue home Ativan and Remeron DVT prophylaxis: SCDs, activity Dispo: PCU/ telemetry Admission and Anticipated Discharge Date Admission Date: January 12, 2025 Subjective Doing okay this morning. Her blood pressures were little on the low side. She has been asymptomatic to that. Mild increase in her abdominal pain compared to yesterday although not unexpected given recent procedure. Otherwise she denies any new or different symptoms. No events or concerns per nursing staff. Discussed the results of this morning's hemoglobin and the quite significant decline. No clear active source of bleeding. Physical Exam Constitutional: well developed and well nourished; no acute distress and not ill appearing Eyes: PERRL, conjunctivae normal, anicteric sclerae Respiratory: normal respiratory effort, lungs clear to auscultation Cardiovascular: RRR, no murmur, no edema Gastrointestinal (Abdomen): Quiet bowel sounds, binder in place. No distention. Generally diffuse tenderness across the midportion of the abdomen no overt signs of peritonitis. Minimal drain output. Skin: no rashes, warm and dry Ronnell appearance Psychiatric: A+Ox3, euthymic affect Results & Data Results & Data Vital Signs (Past 12 Hours) Vital Signs Temp Pulse Pulse Resp BP BP Pulse Ox 01/16/25 11:28 36.5 C 76 16 78/46 L 95 01/16/25 11:17 01/16/25 10:58 36.6 C 68 16 79/48 L 100 01/16/25 10:43 36.8 C 71 16 78/48 L 98 01/16/25 10:24 36.5 C 72 16 79/41 L 98 01/16/25 08:57 102/70 01/16/25 08:47 84 85/45 L 01/16/25 08:03 36.4 C L 77 24 77/42 L 92 01/16/25 07:55 36.4 C L 77 16 77/42 L 92 01/16/25 06:04 83/45 L 01/16/25 03:02 36.6 C 84 18 88/55 L 96 01/16/25 01:45 93/58 L 01/16/25 01:30 80/45 L O2 Del Method O2 Flow Rate 01/16/25 11:28 01/16/25 11:17 Room Air 01/16/25 10:58 01/16/25 10:43 01/16/25 10:24 01/16/25 08:57 01/16/25 08:47 01/16/25 08:03 Nasal Cannula 2 01/16/25 07:55 Room Air 01/16/25 06:04 01/16/25 03:02 Nasal Cannula 3 01/16/25 01:45 01/16/25 01:30 Laboratory Results 01/16/25 01/16/25 01/16/25 07:43 05:35 04:54 WBC 8.63 RBC 2.76 L Hgb 8.5 L D Hct 26.2 L MCV 94.9 MCH 30.8 MCHC 32.4 RDW Std Deviation 47.3 H RDW Coeff of Gregoria 13.7 Plt Count 206 MPV 9.3 L Immature Gran % (Auto) 0.2 Neut % (Auto) 80.7 Lymph % (Auto) 8.6 [place] % (Auto) 10.3 Eos % (Auto) 0.1 Baso % (Auto) 0.1 Neut # (Auto) 6.96 H Lymph # (Auto) 0.74 L [place] # (Auto) 0.89 H Eos # (Auto) 0.01 Baso # (Auto) 0.01 Immature Gran # (Auto) 0.02 Sodium 137 Potassium 4.1 Chloride 105 Carbon Dioxide 26 Anion Gap 6 BUN 25 H Creatinine 0.83 Est Cr Clr Drug Dosing 45.4 eGFR 69.47 BUN/Creatinine Ratio 30.1 H Glucose 151 H POC Glucose 130 H Lactate 1.4 Calcium 7.7 L Phosphorus 2.8 Magnesium 1.6 L Total Bilirubin AST ALT Alkaline Phosphatase C-Reactive Protein 8.47 H Total Protein Albumin Globulin Albumin/Globulin Ratio Random Cortisol Cortisol AM Sample 2.33 L Blood Type A Positive Antibody Screen NEGATIVE Crossmatch See Detail 01/16/25 01/15/25 01/15/25 00:22 18:02 12:20 WBC 10.20 RBC 4.20 Hgb 12.7 Hct 39.4 MCV 93.8 MCH 30.2 MCHC 32.2 RDW Std Deviation 45.2 RDW Coeff of Gregoria 13.2 Plt Count 312 MPV 9.0 L Immature Gran % (Auto) 0.4 Neut % (Auto) 85.3 Lymph % (Auto) 6.2 [place] % (Auto) 7.5 Eos % (Auto) 0.2 Baso % (Auto) 0.4 Neut # (Auto) 8.71 H Lymph # (Auto) 0.63 L [place] # (Auto) 0.76 H Eos # (Auto) 0.02 Baso # (Auto) 0.04 Immature Gran # (Auto) 0.04 Sodium 136 Potassium 3.8 Chloride 104 Carbon Dioxide 25 Anion Gap 7 BUN 18 Creatinine 0.77 Est Cr Clr Drug Dosing 48.9 eGFR 76.02 BUN/Creatinine Ratio 23.4 H Glucose 220 H POC Glucose 226 H 239 H Lactate Calcium 8.4 L Phosphorus 3.3 Magnesium 1.6 L Total Bilirubin 0.5 AST 37 ALT 15 Alkaline Phosphatase 68 C-Reactive Protein Total Protein 6.2 Albumin 3.3 L Globulin 2.9 Albumin/Globulin Ratio 1.1 Random Cortisol 24.53 Cortisol AM Sample Blood Type A Positive Antibody Screen NEGATIVE Crossmatch PG Care Time/CCT Total # of Minutes Spent Total Time Spent with Patient: Total time spent is greater than 50% in coordination of care (as documented) at patient's floor/unit and/or counseling patient: Coding Level of Care Code 36370 SUB INP/OBS CARE 3/50MIN Diagnoses Diverticulitis K57.92 Acute UTI N39.0 Frequent PVCs I49.3
[2025-01-16] MEDS: INSULIN ASPART PER UNIT CHARGE SC SCH (12:37)
[2025-01-16 14:49] LABS: Hematocrit (blood only) 31.5 % (37.0-47.0); Hemoglobin 9.9 g/dl (12.0-16.0)
[2025-01-16] MEDS: CENTRAL TPN IV SCH (17:29)
[2025-01-16] MEDS: [UNRECOGNIZED DRUG - OTHER] IV SCH (17:29)
[2025-01-16] MEDS: PIPERACILLIN/TAZOBACTAM 4.5 GM/100 ML BAG IV SCH (17:29)
[2025-01-16] MEDS: CLINOLIPID 20% IV FAT EMULSION 250 ML IV SCH (17:29)
[2025-01-16] MEDS ORDERED: Nursing to Pharmacy Communication SCH (17:45)
[2025-01-16] MEDS: MAGNESIUM SULFATE / D5W 1 GM/100 ML BAG IV ONE ×2 (17:55→18:01)
[2025-01-16 19:11] LABS: Hematocrit (blood only) 36.4 % (37.0-47.0); Hemoglobin 12.2 g/dl (12.0-16.0)
[2025-01-17 07:40] LABS: Anion Gap 4.0 (3-11); Blood Urea Nitrogen 20.0 mg/dl (6-23); Calcium 7.6 mg/dl (8.6-10.3); Carbon Dioxide 26.0 mmol/L (21-32); Chloride 108.0 mmol/L (98-107); Creatinine Clr Calc Pharmacy 51.6 ml/min; Glucose 115.0 mg/dl (70-99(Fasting)); Magnesium 1.9 mg/dl (1.7-2.4); Potassium 4.0 mmol/L (3.5-5.1); Sodium 138.0 mmol/L (136-145)
[2025-01-17 09:15] LABS: Hematocrit (blood only) 34.6 % (37.0-47.0); Hemoglobin 11.2 g/dl (12.0-16.0); Immature Granulocytes # (auto) 0.04 K/uL (0.01-0.20); Immature Granulocytes % (auto) 0.4 %; Mean Corpuscular Hemoglobin 29.5 pg (25.0-34.0); Mean Corpuscular Volume 91.1 fL (80.0-100.0); Platelet Count 211 K/uL (130-400); RDW Standard Deviation 58.0 fL (36.4-46.3); Red Blood Count 3.80 M/uL (4.20-5.40); White Blood Count 9.44 K/ul (4.8-10.8)
--- NOTE | 2025-01-17 09:55 | Surgery Progress Note ---
Date of Service January 17, 2025 Assessment & Plan (1) History of colon resection: Plan: POD #2 Peters's procedure with repair of ureteral and bladder injuries. Good response to blood transfusion yesterday. Continue clear liquids We will stop by and change dressing later today Okay to start heparin or Lovenox Out of bed to chair, I-S, ambulation Admission and Anticipated Discharge Date Admission Date: January 12, 2025 Subjective POD #2 Remigio procedure with ureteral and bladder repair. Received blood yesterday, good response based on afternoon labs, no labs this morning yet. She is up in a chair, pain controlled. Physical Exam Constitutional: WD/WN, vitals as above Respiratory: normal respiratory effort, lungs clear to auscultation Cardiovascular: RRR, no murmur, no edema Gastrointestinal (Abdomen): Inspection/Auscultation: + abdominal surgical incision (No infection) Percussion/Palpation: + abdomen tender (Appropriate tender to palpation) and abdomen soft; no guarding and abdomen not rigid Ostomy congested, some liquid stool in the bag Results & Data Vital Signs (Past 12 Hours) Vital Signs Temp Pulse Pulse Resp BP Pulse Ox O2 Del Method 01/17/25 07:42 37.2 C 76 23 88/55 L 94 Room Air 01/17/25 04:22 84 01/17/25 03:02 37.0 C 84 16 105/63 92 Nasal Cannula 01/16/25 23:37 84 01/16/25 23:08 Nasal Cannula 01/16/25 22:44 36.7 C 86 16 89/59 L 94 Nasal Cannula O2 Flow Rate 01/17/25 07:42 01/17/25 04:22 01/17/25 03:02 3 01/16/25 23:37 01/16/25 23:08 2 01/16/25 22:44 3 Laboratory Results Laboratory Results - last 24 hr 01/16/25 01/16/25 01/16/25 07:43 12:12 14:16 WBC RBC Hgb 9.9 L Hct 31.5 L MCV MCH MCHC RDW Std Deviation RDW Coeff of Gregoria Plt Count MPV Immature Gran % (Auto) Neut % (Auto) Lymph % (Auto) [place] % (Auto) Eos % (Auto) Baso % (Auto) Neut # (Auto) Lymph # (Auto) [place] # (Auto) Eos # (Auto) Baso # (Auto) Immature Gran # (Auto) Sodium Potassium Chloride Carbon Dioxide Anion Gap BUN Creatinine Est Cr Clr Drug Dosing eGFR BUN/Creatinine Ratio Glucose POC Glucose 143 H Calcium Phosphorus Magnesium C-Reactive Protein Blood Type A Positive Antibody Screen NEGATIVE Crossmatch See Detail 01/16/25 01/16/25 01/16/25 17:42 18:43 20:37 WBC RBC Hgb 12.2 Hct 36.4 L MCV MCH MCHC RDW Std Deviation RDW Coeff of Gregoria Plt Count MPV Immature Gran % (Auto) Neut % (Auto) Lymph % (Auto) [place] % (Auto) Eos % (Auto) Baso % (Auto) Neut # (Auto) Lymph # (Auto) [place] # (Auto) Eos # (Auto) Baso # (Auto) Immature Gran # (Auto) Sodium Potassium Chloride Carbon Dioxide Anion Gap BUN Creatinine Est Cr Clr Drug Dosing eGFR BUN/Creatinine Ratio Glucose POC Glucose 140 H 137 H Calcium Phosphorus Magnesium C-Reactive Protein Blood Type Antibody Screen Crossmatch 01/17/25 01/17/25 01/17/25 06:30 07:16 08:33 WBC 9.44 RBC 3.80 L Hgb 11.2 L Hct 34.6 L MCV 91.1 MCH 29.5 MCHC 32.4 RDW Std Deviation 58.0 H RDW Coeff of Gregoria 17.2 H Plt Count 211 MPV 9.4 Immature Gran % (Auto) 0.4 Neut % (Auto) 74.9 Lymph % (Auto) 11.7 [place] % (Auto) 7.3 Eos % (Auto) 5.2 Baso % (Auto) 0.5 Neut # (Auto) 7.07 H Lymph # (Auto) 1.10 L [place] # (Auto) 0.69 H Eos # (Auto) 0.49 Baso # (Auto) 0.05 Immature Gran # (Auto) 0.04 Sodium 138 Potassium 4.0 Chloride 108 H Carbon Dioxide 26 Anion Gap 4 BUN 20 Creatinine 0.73 Est Cr Clr Drug Dosing 51.6 eGFR 81.04 BUN/Creatinine Ratio 27.4 H Glucose 115 H POC Glucose 125 H Calcium 7.6 L Phosphorus 2.1 L Magnesium 1.9 C-Reactive Protein 12.15 H Blood Type Antibody Screen Crossmatch PG Care Time/CCT Total # of Minutes Spent Total Time Spent with Patient: Total time spent is greater than 50% in coordination of care (as documented) at patient's floor/unit and/or counseling patient: Coding Level of Care Code 12704 Post Operative Follow-Up Diagnoses History of colon resection Z90.49
--- NOTE | 2025-01-17 10:36 | Hospitalist Progress Note ---
Date of Service January 17, 2025 Assessment & Plan (1) Diverticulitis: (2) Acute UTI: (3) Frequent PVCs: Plan 84 y/o with history of COPD, neuropathy, anxiety , dyslipidemia, history of recurrent UTI and constipations. Patient presented here due to abdominal pain, weakness and urinary urgency. She states been constipated for months now, she took two laxatives yesterday with no resolution of symptoms. She have symptoms of frequency and urgency with some incontinence. She feel pressure in her abdomen. She's passing gasses. On evaluation in the ED CT: with acute sigmoid diverticulitis, and severe stenosis in same area with increase stool burden. No leukocytosis, normal Hgb. UA positive for UTI, positive wbc and leuk esterase. She denied any fevers, chills, diarrhea, nausea or vomiting. No chest pain or palpitations. Denied any hematuria or bloody stools.Patient will be admitted for acute diverticulitis #Acute diverticulitis/ Stenosis in sigmoid colon - Patient with hx of chronic constipations that presented with abdominal pain, and weakness. No history of diverticulitis in the past. - Unknown of last colonoscopy, she refers had been normal. No bloody stools. - CT abdomen/ Pelvis: Acute diverticulitis in the sigmoid colon. No perforations or abscess. stenosis of the involved sigmoid colon with large amount of upstream stool burden. Cannot exclude malignancy - no Fevers, no chills. Normal wbc. Normal LFTs. Lactate unremarkable, cli nically stable - continue ceftriaxone 1g daily, flagyl 500 mg BID - Miralax added - NPO for now. LR 80 ml/hr while NPO - Plan for diverting colostomy - POD#2 lap sigmoidectomy with colostomy, see surgery notes, routine postoperative cares - TPN until she is taking adequate PO. - given the anemia, temperature changes and low blood pressure this morning we will broaden her antibiotics to Zosyn #Dark urine - check UA, total CK, CBC and smear, TPN/fluids as above #Anemia - excellent response to transfusion, still with slight bloody drain output, no other evidence of bleeding. # hypotension - Manual BP at the bedside does not correlate with wrist readings. Low suspicion for hypotension/hypoperfusion right arm limited by PICC. - HR likely to be more reliable for monitoring perfusion at least over the shrot term #Hypophosphatemia - on TPN, add bid oral supplement, daily checks #Low body temp - during post operative window, improving, continue to monitor, no warming indicated - Resolved #sinus tachycardia/ PVC - EKG on arrival demonstrated sinus tachycardia and frequent PVCs. single episdoe of triplet - Patient asymptomatic, stable, no recurrence - Received 1 gm of Mag - Sinus rhythm on admission - Will admit to telemetry for further monitoring - Mag, Chemistry in AM stable - Stable, WNL at this time #UTI - hx of recurrent UTI with urinary symptoms. - UA positive with WBC and Leukocyte esterase. - zosyn as above would complete 01/18, UC negative, unsure if she would need from a surgery standpoint. - Plan for last dose tomorrow AM #Neuropathy - continue gabapentin #Hypothyroidism: TSH: 6.81, T4: 1.06 continue levothyroxine COPD/ Pulmonary fibrosis - Albuterol as needed - CXR normal, no consolidations, #Anxiety: continue home Ativan and Remeron DVT prophylaxis: SCDs, activity Dispo: PCU/ telemetry Admission and Anticipated Discharge Date Admission Date: January 12, 2025 Subjective Feeling much better this morning. Some abdominal pain but it is diffuse and less localized than yesterday. Some bloody output from the JAE. Urine is dark in color this morning. Otherwise patient states she is feeling great compared to yesterday. Sitting up at the bedside chair. Interacting with staff appropriately. No stool output as of yet. Does feel as though she has an appetite Physical Exam Physical Exam: Small bloody output in drain, dark clear urine in camara Constitutional: well developed and well nourished; no acute distress and not ill appearing Eyes: PERRL, conjunctivae normal, anicteric sclerae Respiratory: normal respiratory effort, lungs clear to auscultation Cardiovascular: RRR, no murmur, no edema Gastrointestinal (Abdomen): Quiet bowel sounds, binder in place. No distention. Generally diffuse tenderness across the midportion of the abdomen no overt signs of peritonitis. Minimal drain output. Skin: no rashes, warm and dry Ronnell appearance Psychiatric: A+Ox3, euthymic affect Results & Data Results & Data Vital Signs (Past 12 Hours) Vital Signs Temp Pulse Pulse Resp BP Pulse Ox O2 Del Method 01/17/25 07:42 37.2 C 76 23 88/55 L 94 Room Air 01/17/25 04:22 84 01/17/25 03:02 37.0 C 84 16 105/63 92 Nasal Cannula 01/16/25 23:37 84 01/16/25 23:08 Nasal Cannula 01/16/25 22:44 36.7 C 86 16 89/59 L 94 Nasal Cannula O2 Flow Rate 01/17/25 07:42 01/17/25 04:22 01/17/25 03:02 3 01/16/25 23:37 01/16/25 23:08 2 01/16/25 22:44 3 Laboratory Results 01/17/25 01/17/25 01/17/25 08:33 07:16 06:30 WBC 9.44 RBC 3.80 L Hgb 11.2 L Hct 34.6 L MCV 91.1 MCH 29.5 MCHC 32.4 RDW Std Deviation 58.0 H RDW Coeff of Gregoria 17.2 H Plt Count 211 MPV 9.4 Immature Gran % (Auto) 0.4 Neut % (Auto) 74.9 Lymph % (Auto) 11.7 [place] % (Auto) 7.3 Eos % (Auto) 5.2 Baso % (Auto) 0.5 Neut # (Auto) 7.07 H Lymph # (Auto) 1.10 L [place] # (Auto) 0.69 H Eos # (Auto) 0.49 Baso # (Auto) 0.05 Immature Gran # (Auto) 0.04 Sodium 138 Potassium 4.0 Chloride 108 H Carbon Dioxide 26 Anion Gap 4 BUN 20 Creatinine 0.73 Est Cr Clr Drug Dosing 51.6 eGFR 81.04 BUN/Creatinine Ratio 27.4 H Glucose 115 H POC Glucose 125 H Calcium 7.6 L Phosphorus 2.1 L Magnesium 1.9 C-Reactive Protein 12.15 H Blood Type Antibody Screen Crossmatch 01/16/25 01/16/25 01/16/25 20:37 18:43 17:42 WBC RBC Hgb 12.2 Hct 36.4 L MCV MCH MCHC RDW Std Deviation RDW Coeff of Gregoria Plt Count MPV Immature Gran % (Auto) Neut % (Auto) Lymph % (Auto) [place] % (Auto) Eos % (Auto) Baso % (Auto) Neut # (Auto) Lymph # (Auto) [place] # (Auto) Eos # (Auto) Baso # (Auto) Immature Gran # (Auto) Sodium Potassium Chloride Carbon Dioxide Anion Gap BUN Creatinine Est Cr Clr Drug Dosing eGFR BUN/Creatinine Ratio Glucose POC Glucose 137 H 140 H Calcium Phosphorus Magnesium C-Reactive Protein Blood Type Antibody Screen Crossmatch 01/16/25 01/16/25 01/16/25 14:16 12:12 07:43 WBC RBC Hgb 9.9 L Hct 31.5 L MCV MCH MCHC RDW Std Deviation RDW Coeff of Gregoria Plt Count MPV Immature Gran % (Auto) Neut % (Auto) Lymph % (Auto) [place] % (Auto) Eos % (Auto) Baso % (Auto) Neut # (Auto) Lymph # (Auto) [place] # (Auto) Eos # (Auto) Baso # (Auto) Immature Gran # (Auto) Sodium Potassium Chloride Carbon Dioxide Anion Gap BUN Creatinine Est Cr Clr Drug Dosing eGFR BUN/Creatinine Ratio Glucose POC Glucose 143 H Calcium Phosphorus Magnesium C-Reactive Protein Blood Type A Positive Antibody Screen NEGATIVE Crossmatch See Detail PG Care Time/CCT Total # of Minutes Spent Total Time Spent with Patient: Total time spent is greater than 50% in coordination of care (as documented) at patient's floor/unit and/or counseling patient: Coding Level of Care Code 48514 SUB INP/OBS CARE 2/35MIN Diagnoses Diverticulitis K57.92 Acute UTI N39.0 Frequent PVCs I49.3
[2025-01-17 11:53] LABS: Creatine Kinase 652 U/L (26-192)
[2025-01-17] MEDS: POT PHOSPHATE MONOBASIC W/ SOD TAB PO SCH (12:43)
--- NOTE | 2025-01-17 15:23 | Communication Note ---
Date of Service: January 17, 2025 Abdominal incision dressing was changed today. Incision is clean, dry, intact with spring in place. There are no signs of infection on exam. Incision was dressed with 4 x 4s, ABD, and medipore tape. Abdominal binder was reattached.
[2025-01-17] MEDS: CENTRAL TPN IV SCH (17:25)
[2025-01-17] MEDS: CLINOLIPID 20% IV FAT EMULSION 250 ML IV SCH (17:25)
[2025-01-17] MEDS: [UNRECOGNIZED DRUG - OTHER] IV SCH (17:25)
[2025-01-18 06:34] LABS: Hematocrit (blood only) 35.5 % (37.0-47.0); Hemoglobin 11.9 g/dl (12.0-16.0); Immature Granulocytes # (auto) 0.06 K/uL (0.01-0.20); Immature Granulocytes % (auto) 0.5 %; Mean Corpuscular Hemoglobin 29.9 pg (25.0-34.0); Mean Corpuscular Volume 89.2 fL (80.0-100.0); Platelet Count 266 K/uL (130-400); RDW Standard Deviation 54.1 fL (36.4-46.3); Red Blood Count 3.98 M/uL (4.20-5.40); White Blood Count 11.47 K/ul (4.8-10.8)
[2025-01-18 06:59] LABS: Alanine Aminotransferase 12.0 U/L (7-52); Albumin Globulin Ratio 0.9 (0.9-2); Albumin Level 2.5 gm/dl (3.4-5.0); Alkaline Phosphatase 39.0 U/L (34-104); Anion Gap 5.0 (3-11); Bilirubin,Total 0.4 mg/dl (0.2-1.0); Blood Urea Nitrogen 18.0 mg/dl (6-23); Calcium 7.7 mg/dl (8.6-10.3); Carbon Dioxide 27.0 mmol/L (21-32); Chloride 106.0 mmol/L (98-107); Creatinine Clr Calc Pharmacy 57.1 ml/min; Globulin 2.7 gm/dl (2.5-4.0); Glucose 132.0 mg/dl (70-99(Fasting)); Magnesium 1.9 mg/dl (1.7-2.4); Potassium 3.6 mmol/L (3.5-5.1); Sodium 138.0 mmol/L (136-145); Total Protein 5.2 gm/dl (6.0-8.3)
[2025-01-18 07:02] LABS: Appearance Urine Cloudy (Clear)
[2025-01-18 07:06] LABS: Epithelial Cell Urine 0-2 /hpf (0-2)
--- NOTE | 2025-01-18 07:57 | Surgery Progress Note ---
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 vitals are stable, she is requiring some supplemental O2 Ostomy is functioning, will advance to low fiber diet today. If does well can consider last day of TPN today Incisions are c/d/i with spring, ostomy viable and functioning, JAE drain with serosang output, 180cc last 12 hours Need to encourage OOB/ambulation, pulmonary toilet, IS, and PT/OT is ordered We are okay w/ medicine starting DVT prophylaxis [place] needs to stay in 2 weeks post op, can f/u with urology as outpatient for this Admission and Anticipated Discharge Date Admission Date: January 12, 2025 Subjective Patient feeling fairly well. She is not very hungry, but does want more to eat. Pain overall controlled. Denies nausea/vomiting. No chest pain or shortness of breath. Physical Exam Physical Exam: awake/alert Respiratory: normal respiratory effort on supplemental O2 Gastrointestinal (Abdomen): Inspection/Auscultation: + abdominal surgical incision (c/d/i with spring) Percussion/Palpation: + abdomen tender (mild francine incisional discomfort to palpation ) and abdomen soft JAE drain serosang. + ostomy appears viable with liquid stool in bag Results & Data Vital Signs (Past 12 Hours) Vital Signs Temp Pulse Pulse Resp BP Pulse Ox O2 Del Method 01/18/25 07:26 97.5 F L 78 24 129/79 94 Nasal Cannula 01/18/25 03:15 98.1 F 79 18 116/70 94 Nasal Cannula 01/17/25 22:36 97.9 F 85 20 130/77 91 Nasal Cannula 01/17/25 21:43 75 01/17/25 20:30 Nasal Cannula O2 Flow Rate 01/18/25 07:26 2 01/18/25 03:15 1 01/17/25 22:36 1 01/17/25 21:43 01/17/25 20:30 1 PG Care Time/CCT Total # of Minutes Spent Total Time Spent with Patient: Total time spent is greater than 50% in coordination of care (as documented) at patient's floor/unit and/or counseling patient: Coding Level of Care Code 60993 Post Operative Follow-Up Diagnoses History of colon resection Z90.49 Addendum January 18, 2025 10:31 Patient seen and examined independently agree with assessment and plan of care, postop day 3, recommend continue IV antibiotics given colovesical fistula.
[2025-01-18] MEDS ORDERED: ACETAMINOPHEN 325 MG TAB PO PRN (08:23)
[2025-01-18] MEDS: ENOXAPARIN INJ 40 MG/0.4 ML SYR SQ SCH (08:56)
[2025-01-18] MEDS: ONDANSETRON INJ 2 MG/ML 2 ML VIAL IV PRN (11:57)
--- NOTE | 2025-01-18 14:35 | Hospitalist Progress Note ---
Date of Service January 18, 2025 Assessment & Plan (1) Diverticulitis: (2) Acute UTI: Plan This patient is an 84 y/o with history of COPD, pulmonary fibrosis, neuropathy, anxiety , HLD, recurrent UTI and constipation who was admitted with acute sigmoid diverticulitis with stricture and severe constipation as well as UTI. She is now s/p sigmoid colectomy and colostomy. #Acute sigmoid diverticulitis/Stenosis-CT A/P with acute diverticulitis in the sigmoid colon. No perforation or abscess, and with stenosis of the involved sigmoid colon with large amount of upstream stool burden. Cannot exclude malignancy. She had no fevers, leukocytosis, or evidence of sepsis on admission. Now s/p ex lap with DENNY, bladder repair, left ureteral repair, sigmoidectomy and creation of colostomy with Dr. Vo (colorectal surgery) and Dr. Oliver (urology) on 01/15. Left ureteral double-J stent and [facility]ios catheter remain in place. JAE drain remains in place. Tolerating liquids with not much output in colostomy yet, JAE still with output. - Remains on IV Zosyn but can discontinue Flagyl - Surgery has advanced diet to low fiber on 01/18-monitor for tolerance - Continue TPN - Okay to DC maintenance IV fluids -Appreciate surgery management -Follow CBC, CMP, magnesium, phosphorus and keep electrolytes replete-giving potassium phosphate p.o. #Gross hematuria/ureteral injury/bladder injury-due to adhesions, had injury to the left ureter and bladder intraoperatively for colectomy-left ureter with double-J stent in place and rupture repaired by urology. Bladder injury repaired by colorectal surgeon and Palacios catheter in place. With some gross hematuria as would be expected -Follow-up with urology in 6 weeks for ureteral stent removal - Continue Palacios catheter and can remove Palacios catheter in 10-14 days either with urology as an outpatient or at rehab #Acute blood loss anemia/Hemorrhagic shock-Hgb down to 8.5 on postop day 1 from baseline of 12 and became hypotensive. Transfused 2 units PRBCs and Hgb and BP now stable/improved. With some mild hematuria - Follow CBC daily - Follow BPs #sinus tachycardia/frequent PVC- EKG on arrival demonstrated sinus tachycardia and frequent PVCs. Now resolved and telemetry with normal sinus rhythm and some PVCs. Electrolytes were repleted - Follow BMP, magnesium, phosphorus and keep electrolytes replete #UTI- hx of recurrent UTI with urinary symptoms here prior to arrival. UA positive with WBC and Leukocyte esterase but urine culture grew mixed organisms. Repeat UA in 01/18 with RBCs and WBCs - Continue IV Zosyn - Follow urine culture #Neuropathy-no acute issues - continue gabapentin #Hypothyroidism: TSH: 6.81, T4: 1.06 continue levothyroxine COPD/ Pulmonary fibrosis/acute respiratory failure with hypoxemia-now weaned off supplemental O2 to room air, improving likely secondary to atelectasis from being sedentary from recent surgery. CXR negative. -Continue albuterol as needed and home maintenance inhalers #Anxiety-no acute issues -Continue home Ativan and Remeron DVT prophylaxis: SCDs, add Lovenox on 01/18 as per surgery Dispo: Continued stay but can downgrade from telemetry, awaiting PT/OT ev aluations to see if needs rehab Admission and Anticipated Discharge Date Admission Date: January 12, 2025 Subjective Patient denies abdominal pain or nausea. She has very low appetite. She denies shortness of breath or chest pains. I discussed her care with her son at the bedside. Discussed her care with nursing. There has been blood in her urine in the Palacios bag. Telemetry with normal sinus rhythm and PVCs with rates in the 70s to 90s Physical Exam Constitutional: WD/WN, vitals as above Respiratory: normal respiratory effort, lungs clear to auscultation Cardiovascular: RRR, no murmur, no edema Gastrointestinal (Abdomen): Inspection/Auscultation: + hypoactive bowel sounds; + abdomen abnormal to inspection (Abdominal binder in place, colostomy with brownish bloody liquid) Percussion/Palpation: abdomen soft; abdomen nontender Results & Data Results & Data Vital Signs (Past 12 Hours) Vital Signs Temp Pulse Resp BP Pulse Ox O2 Del Method O2 Flow Rate 01/18/25 12:16 36.2 C L 90 24 130/84 92 Room Air 01/18/25 09:02 93 Room Air 01/18/25 09:01 95 Nasal Cannula 1 01/18/25 08:00 Nasal Cannula 2 01/18/25 07:26 36.4 C L 78 24 129/79 94 Nasal Cannula 2 01/18/25 03:15 36.7 C 79 18 116/70 94 Nasal Cannula 1 Laboratory Results CBC, BMP, phosphorus, magnesium, LFTs reviewed PG Care Time/CCT Total # of Minutes Spent Total Time Spent with Patient: Total time spent is greater than 50% in coordination of care (as documented) at patient's floor/unit and/or counseling patient: Coding Level of Care Code 85639 SUB INP/OBS CARE 235MIN Diagnoses Diverticulitis K57.92 Acute UTI N39.0
[2025-01-18] MEDS: CLINOLIPID 20% IV FAT EMULSION 250 ML IV SCH (16:13)
[2025-01-18] MEDS: [UNRECOGNIZED DRUG - OTHER] IV SCH (16:14)
[2025-01-18] MEDS: CENTRAL TPN IV SCH (16:14)
[2025-01-18] MEDS: SODIUM CHLORIDE 0.9% 1,000 ML IV SCH (20:46)
[2025-01-19 07:43] LABS: Hematocrit (blood only) 34.6 % (37.0-47.0); Hemoglobin 11.4 g/dl (12.0-16.0); Immature Granulocytes # (auto) 0.05 K/uL (0.01-0.20); Immature Granulocytes % (auto) 0.5 %; Mean Corpuscular Hemoglobin 29.8 pg (25.0-34.0); Mean Corpuscular Volume 90.6 fL (80.0-100.0); Platelet Count 283 K/uL (130-400); RDW Standard Deviation 54.3 fL (36.4-46.3); Red Blood Count 3.82 M/uL (4.20-5.40); White Blood Count 10.25 K/ul (4.8-10.8)
[2025-01-19 08:02] LABS: Alanine Aminotransferase 9.0 U/L (7-52); Albumin Level 2.4 gm/dl (3.4-5.0); Alkaline Phosphatase 35.0 U/L (34-104); Anion Gap 4.0 (3-11); Bilirubin,Total 0.4 mg/dl (0.2-1.0); Blood Urea Nitrogen 19.0 mg/dl (6-23); Calcium 7.6 mg/dl (8.6-10.3); Carbon Dioxide 29.0 mmol/L (21-32); Chloride 108.0 mmol/L (98-107); Creatinine Clr Calc Pharmacy 58.9 ml/min; Glucose 113.0 mg/dl (70-99(Fasting)); Magnesium 1.9 mg/dl (1.7-2.4); Potassium 3.5 mmol/L (3.5-5.1); Sodium 141.0 mmol/L (136-145); Total Protein 5.0 gm/dl (6.0-8.3)
--- NOTE | 2025-01-19 08:28 | Surgery Progress Note ---
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 She is tolerating a low fiber diet and denies n/v Incisions are c/d/i with spring, ostomy viable and functioning, JAE drain with serosang output. Will plan on removing drain soon Need to encourage OOB/ambulation, pulmonary toilet, IS, and PT/OT is ordered. on lovenox PT/OT recommending rehab, but patient wants to go home. will leave up to medicine if this is possible, she will go home with ostomy and camara Camara needs to stay in 2 weeks post op, can f/u with urology as outpatient for this From our point of view patient is stable once d/c plans sorted, will continue to follow Admission and Anticipated Discharge Date Admission Date: January 12, 2025 Subjective Patient feels fairly well. Tolerating a diet, but says never really had much of an appetite. Pain controlled. Denies n/v. Ostomy is functioning Physical Exam Physical Exam: awake/alert Respiratory: normal respiratory effort Gastrointestinal (Abdomen): Inspection/Auscultation: + abdominal surgical incision (c/d/i with spring) Percussion/Palpation: + abdomen tender (mild francine incisional discomfort to palpation ) and abdomen soft JAE drain serosang Results & Data Vital Signs (Past 12 Hours) Vital Signs Temp Pulse Resp BP Pulse Ox O2 Del Method O2 Flow Rate 01/19/25 07:21 99.0 F 85 18 101/60 93 Nasal Cannula 1.0 01/18/25 23:05 98.1 F 80 16 109/69 92 Nasal Cannula 2 01/18/25 21:45 Nasal Cannula 1 PG Care Time/CCT Total # of Minutes Spent Total Time Spent with Patient: Total time spent is greater than 50% in coordination of care (as documented) at patient's floor/unit and/or counseling patient: Coding Level of Care Code 52017 Post Operative Follow-Up Diagnoses History of colon resection Z90.49
--- NOTE | 2025-01-19 16:50 | Hospitalist Progress Note ---
Date of Service January 19, 2025 Assessment & Plan (1) Diverticulitis: (2) Acute UTI: Plan This patient is an 84 y/o with history of COPD, pulmonary fibrosis, neuropathy, anxiety , HLD, recurrent UTI and constipation who was admitted with acute sigmoid diverticulitis with stricture and severe constipation as well as UTI. She is now s/p sigmoid colectomy and colostomy. #Acute sigmoid diverticulitis/Stenosis-CT A/P with acute diverticulitis in the sigmoid colon. No perforation or abscess, and with stenosis of the involved sigmoid colon with large amount of upstream stool burden. Cannot exclude malignancy. She had no fevers, leukocytosis, or evidence of sepsis on admission. Now s/p ex lap with DENNY, bladder repair, left ureteral repair, sigmoidectomy and creation of colostomy with Dr. Vo (colorectal surgery) and Dr. Oliver (urology) on 01/15. Left ureteral double-J stent and Palacios catheter remain in place. JAE drain remains in place. Tolerating low fiber diet with brown liquid in ostomy bag but no solid stool yet, JAE still with output but improving and to be removed. - Continue on IV Zosyn - Surgery has advanced diet to low fiber on 01/18-monitor for tolerance - Discontinue TPN and discontinue IV fluids -Appreciate surgery management -Discontinue oral potassium phosphate after today #Gross hematuria/ureteral injury/bladder injury-due to adhesions, had injury to the left ureter and bladder intraoperatively for colectomy-left ureter with double-J stent in place and rupture repaired by urology. Bladder injury repaired by colorectal surgeon and Palacios catheter in place. With some gross hematuria as would be expected now improving -Follow-up with urology in 6 weeks for ureteral stent removal - Continue Palacios catheter and can remove Palacios catheter in 10-14 days either with urology as an outpatient or at rehab #Acute blood loss anemia/Hemorrhagic shock-Hgb down to 8.5 on postop day 1 from baseline of 12 and became hypotensive. Transfused 2 units PRBCs and Hgb and BP now stable/improved, Hgb up to 11.4. With some mild hematuria intermittently - Follow CBC within 1 week at rehab - Follow BPs #sinus tachycardia/frequent PVC- EKG on arrival demonstrated sinus tachycardia and frequent PVCs-resolved after electrolytes repleted. Now downgraded off telemetry #UTI- hx of recurrent UTI with urinary symptoms here prior to arrival. UA positive with WBC and Leukocyte esterase but urine culture grew mixed organisms. Repeat UA in 01/18 with RBCs and WBCs, urine culture still pending - Continue IV Zosyn - Follow urine culture #Neuropathy-no acute issues - continue gabapentin #Hypothyroidism:TSH: 6.81, T4: 1.06 -continue levothyroxine #COPD/ Pulmonary fibrosis/acute respiratory failure with hypoxemia-now weaned off supplemental O2 to room air, improving likely secondary to atelectasis from being sedentary from recent surgery. CXR negative. -Continue albuterol as needed and home maintenance inhalers #Anxiety-no acute issues -Continue home Ativan and Remeron DVT prophylaxis: SCDs, Lovenox Dispo: Continued stay while awaiting rehab placement, medically stable for discharge Admission and Anticipated Discharge Date Admission Date: January 12, 2025 Subjective Patient feeling well, only abdominal pain with pressing on the abdomen. Is tolerating food better today, no nausea or vomiting. Some liquid output into ostomy bag, JAE drain still in place but is to be removed by surgery today. She is no longer on telemetry Physical Exam Constitutional: WD/WN, vitals as above Respiratory: normal respiratory effort, lungs clear to auscultation Cardiovascular: RRR, no murmur, no edema Gastrointestinal (Abdomen): Inspection/Auscultation: normal bowel sounds; + abdomen abnormal to inspection (Abdominal binder in place, colostomy with brownish bloody liquid) Percussion/Palpation: abdomen soft; abdomen nontender Psychiatric: A+Ox3, euthymic affect Results & Data Results & Data Vital Signs (Past 12 Hours) Vital Signs Temp Pulse Resp BP Pulse Ox O2 Del Method O2 Flow Rate 01/19/25 15:25 36.7 C 84 18 115/58 L 95 Nasal Cannula 2.0 01/19/25 11:01 36.6 C 80 16 114/63 96 Nasal Cannula 1 01/19/25 10:26 Nasal Cannula 2 01/19/25 07:21 37.2 C 85 18 101/60 93 Nasal Cannula 1.0 Laboratory Results CBC, BMP, LFTs, magnesium, phosphorus, CRP, urine culture reviewed PG Care Time/CCT Total # of Minutes Spent Total Time Spent with Patient: Total time spent is greater than 50% in coordination of care (as documented) at patient's floor/unit and/or counseling patient: Coding Level of Care Code 02912 SUB INP/OBS CARE Diagnoses Diverticulitis K57.92 Acute UTI N39.0
--- NOTE | 2025-01-20 07:41 | Surgery Progress Note ---
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 She is tolerating a low fiber diet and denies n/v despite low appetite Incisions are c/d/i with spring, ostomy viable and functioning, JAE drain with serosang output. Will plan on removing drain soon(prior to d/c) Need to encourage OOB/ambulation, pulmonary toilet, IS, and PT/OT is ordered. on lovenox PT/OT recommending rehab, but patient wants to go home. will leave up to medicine if this is possible, she will go home with ostomy and camara Camara needs to stay in 2 weeks post op, can f/u with urology as outpatient for this From our point of view patient is stable once d/c plans sorted, will continue to follow Admission and Anticipated Discharge Date Admission Date: January 12, 2025 Subjective Patient feels fairly well. Tolerating a diet, but says never really had much of an appetite. Pain controlled. Denies n/v. Ostomy is functioning Physical Exam Physical Exam: awake/alert Respiratory: normal respiratory effort Gastrointestinal (Abdomen): Inspection/Auscultation: + abdominal surgical incision (c/d/i with spring) Percussion/Palpation: + abdomen tender (mild francine incisional discomfort to palpation ) and abdomen soft + ostomy viable and functioning. JAE drai n serosang with 20cc over last 12 hrs, 225 over last 24hr Results & Data Vital Signs (Past 12 Hours) Vital Signs Temp Pulse Resp BP Pulse Ox O2 Del Method O2 Flow Rate 01/20/25 07:30 98.1 F 76 18 101/61 96 Room Air 01/19/25 23:55 97.5 F L 78 16 115/68 96 Nasal Cannula 2 01/19/25 20:00 Nasal Cannula 2 PG Care Time/CCT Total # of Minutes Spent Total Time Spent with Patient: Total time spent is greater than 50% in coordination of care (as documented) at patient's floor/unit and/or counseling patient: Coding Level of Care Code 46343 Post Operative Follow-Up Diagnoses History of colon resection Z90.49
--- NOTE | 2025-01-20 18:49 | Hospitalist Progress Note ---
Date of Service January 20, 2025 Assessment & Plan (1) Diverticulitis: (2) Acute UTI: Plan This patient is an 84 y/o with history of COPD, pulmonary fibrosis, neuropathy, anxiety , HLD, recurrent UTI and constipation who was admitted with acute sigmoid diverticulitis with stricture and severe constipation as well as UTI. She is now s/p sigmoid colectomy and colostomy. #Acute sigmoid diverticulitis/Stenosis-CT A/P with acute diverticulitis in the sigmoid colon. No perforation or abscess, and with stenosis of the involved sigmoid colon with large amount of upstream stool burden. She had no fevers, leukocytosis, or evidence of sepsis on admission. Now s/p ex lap with DENNY, bladder repair, left ureteral repair, sigmoidectomy and creation of colostomy with Dr. Vo (colorectal surgery) and Dr. Oliver (urology) on 01/15. Left ureteral double-J stent and Palacios catheter remain in place. JAE drain remains in place. Tolerating low fiber diet with brown liquid in ostomy bag but no solid stool yet, JAE still with output but improving and to be removed. Pathology neg for malignancy -can dc IV Zosyn - Surgery has advanced diet to low fiber on 01/18-monitor for tolerance - Discontinued TPN and IV fluids -Appreciate surgery management -f/u with [facility] as outpt #Gross hematuria/ureteral injury/bladder injury-due to adhesions, had injury to the left ureter and bladder intraoperatively for colectomy-left ureter with double-J stent in place and rupture repaired by urology. Bladder injury repaired by colorectal surgeon and Palacios catheter in place. With some gross hematuria as would be expected now resolved -Follow-up with urology in 6 weeks for ureteral stent removal - Continue Palacios catheter and can remove Palacios catheter in 10-14 days around 01/25-01/29 either with urology as an outpatient or at rehab #Acute blood loss anemia/Hemorrhagic shock-Hgb down to 8.5 on postop day 1 from baseline of 12 and became hypotensive. Transfused 2 units PRBCs and Hgb and BP now stable/improved, Hgb up to 11.4. With some mild hematuria intermittently - Follow CBC within 1 week at rehab - Follow BPs #sinus tachycardia/frequent PVC- EKG on arrival demonstrated sinus tachycardia and frequent PVCs-resolved after electrolytes repleted. Now downgraded off telemetry #UTI- hx of recurrent UTI with urinary symptoms here prior to arrival. UA positive with WBC and Leukocyte esterase but urine culture grew mixed organisms. Repeat UA in 01/18 with RBCs and WBCs, urine culture with Milana albicans - dc IV Zosyn #Neuropathy-no acute issues - continue gabapentin #Hypothyroidism:TSH: 6.81, T4: 1.06 -continue levothyroxine #COPD/ Pulmonary fibrosis/acute respiratory failure with hypoxemia-still remains on some supplemental O2 intermittently, improving likely secondary to atelectasis from being sedentary from recent surgery. CXR negative. -Continue albuterol as needed and home maintenance inhalers -if goes home rather than rehab, may need 2 step walk test #Anxiety-no acute issues -Continue home Ativan and Remeron DVT prophylaxis: SCDs, Lovenox Dispo: Continued stay while awaiting rehab placement, medically stable for discharge Admission and Anticipated Discharge Date Admission Date: January 12, 2025 Subjective Pt still c/o low appetite but no nausea, no abd pain. No solid stool in ostomy but having brown liquid output. Physical Exam Constitutional: WD/WN, vitals as above Respiratory: normal respiratory effort, lungs clear to auscultation Cardiovascular: RRR, no murmur, no edema Gastrointestinal (Abdomen): Inspection/Auscultation: normal bowel sounds; + abdomen abnormal to inspection (Abdominal binder in place, colostomy with brownish bloody liquid) Percussion/Palpation: abdomen soft; abdomen nontender Psychiatric: A+Ox3, euthymic affect Results & Data Results & Data Vital Signs (Past 12 Hours) Vital Signs Temp Pulse Resp BP Pulse Ox O2 Del Method O2 Flow Rate 01/20/25 15:25 36.7 C 87 18 114/61 95 Room Air 01/20/25 11:55 36.8 C 61 18 102/62 95 Nasal Cannula 2.0 01/20/25 08:00 2 01/20/25 07:30 36.7 C 76 18 101/61 96 Nasal Cannula 2 Laboratory Results Ur cx reviewed PG Care Time/CCT Total # of Minutes Spent Total Time Spent with Patient: Total time spent is greater than 50% in coordination of care (as documented) at patient's floor/unit and/or counseling patient: Coding Level of Care Code 60684 SUB INP/OBS CARE 2/35MIN Diagnoses Diverticulitis K57.92 Acute UTI N39.0
--- NOTE | 2025-01-21 10:52 | Surgery Progress Note ---
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 She is tolerating a low fiber diet and denies n/v despite low appetite Incisions are c/d/i with spring, ostomy viable and functioning, JAE drain with serosang output. Will ask RN to remove today Need to encourage OOB/ambulation, pulmonary toilet, IS, and PT/OT is ordered. on lovenox PT/OT recommending rehab, case management on board and awaiting bed availability at facility [facility] needs to stay in 2 weeks post op, can f/u with urology as outpatient for this From our point of view patient is stable once d/c plans sorted, will continue to follow Admission and Anticipated Discharge Date Admission Date: January 12, 2025 Subjective Patient offers no complaints this AM. Eager for discharge once rehab facility confirms bed availability. Physical Exam Physical Exam: awake/alert Respiratory: normal respiratory effort Gastrointestinal (Abdomen): Inspection/Auscultation: + abdominal surgical incision (c/d/i with spring) Percussion/Palpation: + abdomen tender (mild francine incisional discomfort to palpation ) and abdomen soft + ostomy viable with liquid brown stool in bag JAE drain serosang Results & Data Vital Signs (Past 12 Hours) Vital Signs Temp Pulse Resp BP Pulse Ox O2 Del Method O2 Flow Rate 01/21/25 07:00 98.1 F 76 17 100/58 L 96 Nasal Cannula 2.0 01/20/25 23:08 97.5 F L 93 H 18 95/58 L 97 Nasal Cannula 2.0 PG Care Time/CCT Total # of Minutes Spent Total Time Spent with Patient: Total time spent is greater than 50% in coordination of care (as documented) at patient's floor/unit and/or counseling patient: Coding Level of Care Code 65509 Post Operative Follow-Up Diagnoses History of colon resection Z90.49
--- NOTE | 2025-01-21 17:31 | Hospitalist Progress Note ---
Date of Service January 21, 2025 Assessment & Plan (1) Diverticulitis: (2) Acute UTI: Plan This patient is an 84 y/o with history of COPD, pulmonary fibrosis, neuropathy, anxiety , HLD, recurrent UTI and constipation who was admitted with acute sigmoid diverticulitis with stricture and severe constipation as well as UTI. She is now s/p sigmoid colectomy and colostomy. #Acute sigmoid diverticulitis/Stenosis-CT A/P with acute diverticulitis in the sigmoid colon. No perforation or abscess, and with stenosis of the involved sigmoid colon with large amount of upstream stool burden. She had no fevers, leukocytosis, or evidence of sepsis on admission. Now s/p ex lap with DENNY, bladder repair, left ureteral repair, sigmoidectomy and creation of colostomy with Dr. Vo (colorectal surgery) and Dr. Oliver (urology) on 01/15. Left ureteral double-J stent and [facility] catheter remain in place. JAE drain now removed. Tolerating low fiber diet with brown liquid in ostomy bag but no solid stool yet. Pathology neg for malignancy. IV abx and TPN completed. -Appreciate surgery management-f/u with Surgery as outpt -continue ostomy care #Gross hematuria/ureteral injury/bladder injury-due to adhesions, had injury to the left ureter and bladder intraoperatively for colectomy-left ureter with double-J stent in place and rupture repaired by urology. Bladder injury repaired by colorectal surgeon and Palacios catheter in place. With some gross hematuria as would be expected now resolved -Follow-up with urology in 6 weeks for ureteral stent removal - Continue Palacios catheter and can remove Palacios catheter in 10-14 days around 01/25-01/29 either with urology as an outpatient or at rehab #Acute blood loss anemia/Hemorrhagic shock-Hgb down to 8.5 on postop day 1 from baseline of 12 and became hypotensive. Transfused 2 units PRBCs and Hgb and BP now stable/improved, Hgb up to 11.4. With some mild hematuria intermittently - Follow CBC within 1 week at rehab - Follow BPs #sinus tachycardia/frequent PVC- EKG on arrival demonstrated sinus tachycardia and frequent PVCs-resolved after electrolytes repleted. Now downgraded off telemetry #UTI- hx of recurrent UTI with urinary symptoms here prior to arrival. UA positive with WBC and Leukocyte esterase but urine culture grew mixed organisms. Repeat UA in 01/18 with RBCs and WBCs, urine culture with Milana albicans. Treated with IV Zosyn and now abx stopped #Neuropathy-no acute issues - continue gabapentin #Hypothyroidism:TSH: 6.81, T4: 1.06 -continue levothyroxine #COPD/ Pulmonary fibrosis/acute respiratory failure with hypoxemia-still remains on some supplemental O2 intermittently, improving likely secondary to atelectasis from being sedentary from recent surgery. CXR negative. -Continue albuterol as needed and home maintenance inhalers -if goes home rather than rehab, may need 2 step walk test #Anxiety-no acute issues -Continue home Ativan and Remeron DVT prophylaxis: SCDs, Lovenox Dispo: Continued stay while awaiting rehab placement, medically stable for discharge. Discussed care w/ daughter on phone on 01/21 Admission and Anticipated Discharge Date Admission Date: January 12, 2025 Subjective Pt doing well, no abd pain, no nausea, no complaints except wants to go home Physical Exam Constitutional: WD/WN, vitals as above Respiratory: normal respiratory effort, lungs clear to auscultation Cardiovascular: RRR, no murmur, no edema Gastrointestinal (Abdomen): Inspection/Auscultation: normal bowel sounds; + abdomen abnormal to inspection (Abdominal binder in place, colostomy with brownish bloody liquid) Percussion/Palpation: abdomen soft; abdomen nontender Psychiatric: A+Ox3, euthymic affect Results & Data Results & Data Vital Signs (Past 12 Hours) Vital Signs Temp Pulse Resp BP Pulse Ox O2 Del Method O2 Flow Rate 01/21/25 16:29 36.7 C 83 18 110/75 94 Nasal Cannula 2.0 01/21/25 12:17 36.7 C 81 18 102/68 93 Room Air 01/21/25 07:00 36.7 C 76 17 100/58 L 96 Nasal Cannula 2.0 PG Care Time/CCT Total # of Minutes Spent Total Time Spent with Patient: Total time spent is greater than 50% in coordination of care (as documented) at patient's floor/unit and/or counseling patient: Coding Level of Care Code 08368 SUB INP/OBS CARE 04/25MIN Diagnoses Diverticulitis K57.92 Acute UTI N39.0
[2025-01-21] MEDS: BUTT PASTE (ZINC OXIDE 16%) 171 APPLN/57 GM JAR EXT PRN (22:00)
--- NOTE | 2025-01-22 07:58 | Surgery Progress Note ---
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 She is tolerating a low fiber diet and denies n/v despite low appetite Incisions are c/d/i with spring, ostomy viable and functioning, JAE drain removed yesterday Will need to ensure if ostomy leaks it's caught early & cleaned up to prevent any further skin excoriation Need to encourage OOB/ambulation, pulmonary toilet, IS, and PT/OT is ordered. on lovenox PT/OT recommending rehab, case management on board and awaiting bed availability at facility [facility] needs to stay in 2 weeks post op, can f/u with urology as outpatient for this Midline stapes can be removed around POD#14; can f/u with Dr. Vo in 1 week Stable for discharge once plans for facility vs home finalized Admission and Anticipated Discharge Date Admission Date: January 12, 2025 Subjective Patient doing well. Pain controlled. No nausea/vomiting. Low appetite, but tolerating small amounts of diet. Physical Exam Physical Exam: awake/alert Respiratory: normal respiratory effort Gastrointestinal (Abdomen): Inspection/Auscultation: + abdominal surgical incision (c/d/i with spring) Percussion/Palpation: + abdomen tender (mild francine incisional discomfort to palpation ) and abdomen soft some erythema of lower midline incision on the skin, appears from excoriation from ostomy bag leaking. ostomy is viable and working Results & Data Vital Signs (Past 12 Hours) Vital Signs Temp Pulse Resp BP Pulse Ox O2 Del Method O2 Flow Rate 01/22/25 07:26 97.3 F L 78 18 104/65 93 Nasal Cannula 2 01/21/25 21:48 Nasal Cannula 2 PG Care Time/CCT Total # of Minutes Spent Total Time Spent with Patient: Total time spent is greater than 50% in coordination of care (as documented) at patient's floor/unit and/or counseling patient: Coding Level of Care Code 92525 SUB INP/OBS CARE 04/25MIN Diagnoses History of colon resection Z90.49
--- NOTE | 2025-01-22 21:45 | Hospitalist Progress Note ---
Date of Service January 22, 2025 Assessment & Plan (1) Diverticulitis: (2) Acute UTI: Plan This patient is an 84 y/o with history of COPD, pulmonary fibrosis, neuropathy, anxiety , HLD, recurrent UTI and constipation who was admitted with acute sigmoid diverticulitis with stricture and severe constipation as well as UTI. She is now s/p sigmoid colectomy and colostomy. #Acute sigmoid diverticulitis/Stenosis-CT A/P with acute diverticulitis in the sigmoid colon. No perforation or abscess, and with stenosis of the involved sigmoid colon with large amount of upstream stool burden. She had no fevers, leukocytosis, or evidence of sepsis on admission. Now s/p ex lap with DENNY, bladder repair, left ureteral repair, sigmoidectomy and creation of colostomy with Dr. Vo (colorectal surgery) and Dr. Oliver (urology) on 01/15. Left ureteral double-J stent and [facility] catheter remain in place. JAE drain now removed. Tolerating low fiber diet with brown liquid in ostomy bag but no solid stool yet. Pathology neg for malignancy. IV abx and TPN completed. -Appreciate surgery management-f/u with Surgery as outpt -continue ostomy care -check CBC, CMP in AM -continue Vit C as per Colorectal surgery for wound healing I presume -not using any opioid pain meds-discontinue morphine and oxycodone, use tylenol only prn pain #Gross hematuria/ureteral injury/bladder injury-due to adhesions, had injury to the left ureter and bladder intraoperatively for colectomy-left ureter with double-J stent in place and rupture repaired by urology. Bladder injury repaired by colorectal surgeon and Palacios catheter in place. With some gross hematuria as would be expected now resolved -Follow-up with urology in 6 weeks for ureteral stent removal - Continue Palacios catheter and can remove Palacios catheter in 10-14 days around 01/25-01/29 either with urology as an outpatient or at rehab #Acute blood loss anemia/Hemorrhagic shock-Hgb down to 8.5 on postop day 1 from baseline of 12 and became hypotensive. Transfused 2 units PRBCs and Hgb and BP now stable/improved, Hgb up to 11.4. With some mild hematuria intermittently - Follow CBC in the AM and then within 1 week at rehab - Follow BPs #sinus tachycardia/frequent PVC- EKG on arrival demonstrated sinus tachycardia and frequent PVCs-resolved after electrolytes repleted. Now downgraded off telemetry many days ago #UTI- hx of recurrent UTI with urinary symptoms here prior to arrival. UA positive with WBC and Leukocyte esterase but urine culture grew mixed organisms. Repeat UA in 01/18 with RBCs and WBCs, urine culture with Milana albicans. Treated with IV Zosyn and now abx stopped #Neuropathy-no acute issues - continue gabapentin #Hypothyroidism:TSH: 6.81, T4 1.06 -continue levothyroxine -f/u TSH in 4 weeks when not acutely ill #COPD/ Pulmonary fibrosis/acute respiratory failure with hypoxemia-still remains on some supplemental O2 intermittently, improving likely secondary to atelectasis from being sedentary from recent surgery. CXR negative. -Continue albuterol as needed and home maintenance inhalers -if goes home rather than rehab, would need 2 step walk test #Anxiety-no acute issues -Continue home Ativan and Remeron DVT prophylaxis: SCDs, Lovenox Dispo: Continued stay while awaiting rehab placement, medically stable for discharge. Discussed care w/ daughter on phone on 01/21 Admission and Anticipated Discharge Date Admission Date: January 12, 2025 Subjective Pt has no complaints. Walked around the room today, putting out liquid stool in her bag, still appetite low. Physical Exam Constitutional: WD/WN, vitals as above Respiratory: normal respiratory effort, lungs clear to auscultation Cardiovascular: RRR, no murmur, no edema Gastrointestinal (Abdomen): Inspection/Auscultation: normal bowel sounds; + abdomen abnormal to inspection (Abdominal binder in place, colostomy with brownish bloody liquid) Percussion/Palpation: abdomen soft; abdomen nontender Psychiatric: A+Ox3, euthymic affect Results & Data Results & Data Vital Signs (Past 12 Hours) Vital Signs Temp Pulse Resp BP Pulse Ox O2 Del Method O2 Flow Rate 01/22/25 11:12 36.7 C 71 19 107/66 98 Nasal Cannula 2 PG Care Time/CCT Total # of Minutes Spent Total Time Spent with Patient: Total time spent is greater than 50% in coordination of care (as documented) at patient's floor/unit and/or counseling patient: Coding Level of Care Code 51699 SUB INP/OBS CARE 04/25MIN Diagnoses Diverticulitis K57.92 Acute UTI N39.0
[2025-01-23 06:03] LABS: Hematocrit (blood only) 35.1 % (37.0-47.0); Hemoglobin 11.6 g/dl (12.0-16.0); Immature Granulocytes # (auto) 0.08 K/uL (0.01-0.20); Immature Granulocytes % (auto) 1.2 %; Mean Corpuscular Hemoglobin 30.0 pg (25.0-34.0); Mean Corpuscular Volume 90.7 fL (80.0-100.0); Platelet Count 319 K/uL (130-400); RDW Standard Deviation 50.5 fL (36.4-46.3); Red Blood Count 3.87 M/uL (4.20-5.40); White Blood Count 6.60 K/ul (4.8-10.8)
[2025-01-23 06:24] LABS: Alanine Aminotransferase 12.0 U/L (7-52); Albumin Globulin Ratio 0.9 (0.9-2); Albumin Level 2.7 gm/dl (3.4-5.0); Alkaline Phosphatase 49.0 U/L (34-104); Anion Gap 7.0 (3-11); Bilirubin,Total 0.4 mg/dl (0.2-1.0); Blood Urea Nitrogen 14.0 mg/dl (6-23); Calcium 8.1 mg/dl (8.6-10.3); Carbon Dioxide 28.0 mmol/L (21-32); Chloride 103.0 mmol/L (98-107); Creatinine Clr Calc Pharmacy 62.8 ml/min; Globulin 3.0 gm/dl (2.5-4.0); Glucose 86.0 mg/dl (70-99(Fasting)); Magnesium 1.8 mg/dl (1.7-2.4); Potassium 3.8 mmol/L (3.5-5.1); Sodium 138.0 mmol/L (136-145); Total Protein 5.7 gm/dl (6.0-8.3)
--- NOTE | 2025-01-23 17:49 | Hospitalist Progress Note ---
Date of Service January 23, 2025 Assessment & Plan (1) Diverticulitis: (2) Acute UTI: Plan This patient is an 84 y/o with history of COPD, pulmonary fibrosis, neuropathy, anxiety , HLD, recurrent UTI and constipation who was admitted with acute sigmoid diverticulitis with stricture and severe constipation as well as UTI. She is now s/p sigmoid colectomy and colostomy. #Acute sigmoid diverticulitis/Stenosis-CT A/P with acute diverticulitis in the sigmoid colon. No perforation or abscess, and with stenosis of the involved sigmoid colon with large amount of upstream stool burden. She had no fevers, leukocytosis, or evidence of sepsis on admission. Now s/p ex lap with DENNY, bladder repair, left ureteral repair, sigmoidectomy and creation of colostomy with Dr. Vo (colorectal surgery) and Dr. Oliver (urology) on 01/15. Left ureteral double-J stent and Camara catheter remain in place. JAE drain now removed. Tolerating low fiber diet with brown liquid in ostomy bag but no solid stool yet. Pathology neg for malignancy. IV abx and TPN completed. -Appreciate surgery management-f/u with Surgery as outpt -continue ostomy care -CBC, CMP stable -continue Vit C as per Colorectal surgery for wound healing I presume -not using any opioid pain meds-discontinue morphine and oxycodone, use tylenol only prn pain #Gross hematuria/ureteral injury/bladder injury-due to adhesions, had injury to the left ureter and bladder intraoperatively for colectomy-left ureter with double-J stent in place and rupture repaired by urology. Bladder injury repaired by colorectal surgeon and Camara catheter in place. With some gross hematuria as would be expected now resolved -Follow-up with urology in 6 weeks for ureteral stent removal - Continue Camara catheter and can remove Camara catheter in 10-14 days around 01/25-01/29 either with urology as an outpatient or at rehab #Acute blood loss anemia/Hemorrhagic shock-Hgb down to 8.5 on postop day 1 from baseline of 12 and became hypotensive. Transfused 2 units PRBCs and Hgb and BP now stable/improved, Hgb up to 11.4. With some mild hematuria intermittently - Follow CBC in the AM and then within 1 week at rehab - Follow BPs #sinus tachycardia/frequent PVC- EKG on arrival demonstrated sinus tachycardia and frequent PVCs-resolved after electrolytes repleted. Now downgraded off telemetry many days ago #UTI- hx of recurrent UTI with urinary symptoms here prior to arrival. UA positive with WBC and Leukocyte esterase but urine culture grew mixed organisms. Repeat UA in 01/18 with RBCs and WBCs, urine culture with Milana albicans. Treated with IV Zosyn and now abx stopped #Neuropathy-no acute issues - continue gabapentin #Hypothyroidism:TSH: 6.81, T4 1.06 -continue levothyroxine -f/u TSH in 4 weeks when not acutely ill #COPD/ Pulmonary fibrosis/acute respiratory failure with hypoxemia-still remains on some supplemental O2 intermittently, improving likely secondary to atelectasis from being sedentary from recent surgery. CXR negative. -Continue albuterol as needed and home maintenance inhalers -if goes home rather than rehab, would need 2 step walk test #Anxiety-no acute issues -Continue home Ativan and Remeron DVT prophylaxis: SCDs, Lovenox Dispo: Continued stay while awaiting rehab placement, medically stable for discharge. 01/23: pt's son at bedside Admission and Anticipated Discharge Date Admission Date: January 12, 2025 Subjective She notes reduced appetite at this time. Encouraged pt to eat small frequent meals as tolerated Review of Systems Review of Systems: Comprehensive ROS completed and is otherwise negative. Physical Exam Physical Exam: Gen: no acute distress, lying in bed comfortable HEENT: NC/AT, MMM Lungs: nonlabored breathing, CTAB CVS: s1s2nl, RRR Abd: nl bowel sounds, colostomy present with liquid stool : + camara Ext: no edema Neuro: AAOx3 Psych: calm, cooperative Results & Data Results & Data Vital Signs (Past 12 Hours) Vital Signs Temp Pulse Resp BP Pulse Ox O2 Del Method O2 Flow Rate 01/23/25 15:53 36.3 C L 83 16 123/81 97 Room Air 01/23/25 08:23 36.5 C 80 20 111/69 96 Room Air 01/23/25 07:25 Nasal Cannula 2 PG Care Time/CCT Total # of Minutes Spent Total Time Spent with Patient: Total time spent is greater than 50% in coordination of care (as documented) at patient's floor/unit and/or counseling patient: Coding Level of Care Code 48643 SUB INP/OBS CARE 2/35MIN Diagnoses Diverticulitis K57.92 Acute UTI N39.0
--- NOTE | 2025-01-24 16:10 | Hospitalist Progress Note ---
Date of Service January 24, 2025 Assessment & Plan (1) Diverticulitis: (2) Acute UTI: Plan This patient is an 84 y/o with history of COPD, pulmonary fibrosis, neuropathy, anxiety , HLD, recurrent UTI and constipation who was admitted with acute sigmoid diverticulitis with stricture and severe constipation as well as UTI. She is now s/p sigmoid colectomy and colostomy. #Acute sigmoid diverticulitis/Stenosis-CT A/P with acute diverticulitis in the sigmoid colon. No perforation or abscess, and with stenosis of the involved sigmoid colon with large amount of upstream stool burden. She had no fevers, leukocytosis, or evidence of sepsis on admission. Now s/p ex lap with DENNY, bladder repair, left ureteral repair, sigmoidectomy and creation of colostomy with Dr. Vo (colorectal surgery) and Dr. Oliver (urology) on 01/15. Left ureteral double-J stent and Camara catheter remain in place. JAE drain now removed. Tolerating low fiber diet with brown liquid in ostomy bag but no solid stool yet. Pathology neg for malignancy. IV abx and TPN completed. -Appreciate surgery management-f/u with Surgery as outpt -continue ostomy care -CBC, CMP stable -continue Vit C as per Colorectal surgery for wound healing I presume -not using any opioid pain meds-discontinue morphine and oxycodone, use tylenol only prn pain #Gross hematuria/ureteral injury/bladder injury-due to adhesions, had injury to the left ureter and bladder intraoperatively for colectomy-left ureter with double-J stent in place and rupture repaired by urology. Bladder injury repaired by colorectal surgeon and Camara catheter in place. With some gross hematuria as would be expected now resolved - Follow-up with urology in 6 weeks for ureteral stent removal - Continue Camara catheter and can remove Camara catheter in 10-14 days around 01/25-01/29 either with urology as an outpatient or at rehab #Acute blood loss anemia/Hemorrhagic shock-Hgb down to 8.5 on postop day 1 from baseline of 12 and became hypotensive. Transfused 2 units PRBCs and Hgb and BP now stable/improved, Hgb up to 11.4. With some mild hematuria intermittently - Follow CBC in the AM and then within 1 week at rehab - Follow BPs #sinus tachycardia/frequent PVC- EKG on arrival demonstrated sinus tachycardia and frequent PVCs-resolved after electrolytes repleted. Now downgraded off telemetry many days ago #UTI- hx of recurrent UTI with urinary symptoms here prior to arrival. UA positive with WBC and Leukocyte esterase but urine culture grew mixed organisms. Repeat UA in 01/18 with RBCs and WBCs, urine culture with Milana albicans. Treated with IV Zosyn and now abx stopped #Neuropathy-no acute issues - continue gabapentin #Hypothyroidism:TSH: 6.81, T4 1.06 -continue levothyroxine -f/u TSH in 4 weeks when not acutely ill #COPD/ Pulmonary fibrosis/acute respiratory failure with hypoxemia-still remains on some supplemental O2 intermittently, improving likely secondary to atelectasis from being sedentary from recent surgery. CXR negative. -Continue albuterol as needed and home maintenance inhalers -if goes home rather than rehab, would need 2 step walk test #Anxiety-no acute issues -Continue home Ativan and Remeron DVT prophylaxis: SCDs, Lovenox Dispo: Continued stay while awaiting rehab placement, medically stable for discharge. 01/23: pt's son at bedside Admission and Anticipated Discharge Date Admission Date: January 12, 2025 Subjective pt upset today that she cannot take a shower. Review of Systems Review of Systems: Comprehensive ROS completed and is otherwise negative. Physical Exam Physical Exam: Gen: no acute distress, lying in bed comfortable HEENT: NC/AT, MMM Lungs: nonlabored breathing, CTAB CVS: s1s2nl, RRR Abd: nl bowel sounds, colostomy present with liquid stool : + camara Ext: no edema Neuro: AAOx3 Psych: calm, cooperative Results & Data Results & Data Vital Signs (Past 12 Hours) Vital Signs Temp Pulse Resp BP BP Pulse Ox O2 Del Method 01/24/25 14:42 36.5 C 82 16 144/78 H 94 Room Air 01/24/25 10:39 94 Room Air 01/24/25 09:20 96 Nasal Cannula 01/24/25 08:15 36.6 C 82 16 102/66 92 Room Air 01/24/25 07:25 Nasal Cannula O2 Flow Rate 01/24/25 14:42 01/24/25 10:39 01/24/25 09:20 2 01/24/25 08:15 01/24/25 07:25 2 PG Care Time/CCT Total # of Minutes Spent Total Time Spent with Patient: Total time spent is greater than 50% in coordination of care (as documented) at patient's floor/unit and/or counseling patient: Coding Level of Care Code 43915 SUB INP/OBS CARE 2/35MIN Diagnoses Diverticulitis K57.92 Acute UTI N39.0
--- NOTE | 2025-01-25 18:20 | Hospitalist Progress Note ---
Date of Service January 25, 2025 Assessment & Plan (1) Diverticulitis: (2) Acute UTI: Plan This patient is an 84 y/o with history of COPD, pulmonary fibrosis, neuropathy, anxiety , HLD, recurrent UTI and constipation who was admitted with acute sigmoid diverticulitis with stricture and severe constipation as well as UTI. She is now s/p sigmoid colectomy and colostomy. #Acute sigmoid diverticulitis/Stenosis-CT A/P with acute diverticulitis in the sigmoid colon. No perforation or abscess, and with stenosis of the involved sigmoid colon with large amount of upstream stool burden. She had no fevers, leukocytosis, or evidence of sepsis on admission. Now s/p ex lap with DENNY, bladder repair, left ureteral repair, sigmoidectomy and creation of colostomy with Dr. Vo (colorectal surgery) and Dr. Oliver (urology) on 01/15. Left ureteral double-J stent and Camara catheter remain in place. JAE drain now removed. Tolerating low fiber diet with brown liquid in ostomy bag but no solid stool yet. Pathology neg for malignancy. IV abx and TPN completed. -Appreciate surgery management-f/u with Surgery as outpt -continue ostomy care -CBC, CMP stable -continue Vit C as per Colorectal surgery for wound healing I presume -not using any opioid pain meds-discontinue morphine and oxycodone, use tylenol only prn pain #Gross hematuria/ureteral injury/bladder injury-due to adhesions, had injury to the left ureter and bladder intraoperatively for colectomy-left ureter with double-J stent in place and rupture repaired by urology. Bladder injury repaired by colorectal surgeon and Camara catheter in place. With some gross hematuria as would be expected now resolved - Follow-up with urology in 6 weeks for ureteral stent removal - Continue Camara catheter and can remove Camara catheter in 10-14 days around 01/25-01/29 either with urology as an outpatient or at rehab #Acute blood loss anemia/Hemorrhagic shock-Hgb down to 8.5 on postop day 1 from baseline of 12 and became hypotensive. Transfused 2 units PRBCs and Hgb and BP now stable/improved, Hgb up to 11.4. With some mild hematuria intermittently - Follow CBC in the AM and then within 1 week at rehab - Follow BPs #sinus tachycardia/frequent PVC- EKG on arrival demonstrated sinus tachycardia and frequent PVCs-resolved after electrolytes repleted. Now downgraded off telemetry many days ago #UTI- hx of recurrent UTI with urinary symptoms here prior to arrival. UA positive with WBC and Leukocyte esterase but urine culture grew mixed organisms. Repeat UA in 01/18 with RBCs and WBCs, urine culture with Milana albicans. Treated with IV Zosyn and now abx stopped #Neuropathy-no acute issues - continue gabapentin #Hypothyroidism:TSH: 6.81, T4 1.06 -continue levothyroxine -f/u TSH in 4 weeks when not acutely ill #COPD/ Pulmonary fibrosis/acute respiratory failure with hypoxemia-still remains on some supplemental O2 intermittently, improving likely secondary to atelectasis from being sedentary from recent surgery. CXR negative. -Continue albuterol as needed and home maintenance inhalers -if goes home rather than rehab, would need 2 step walk test #Anxiety-no acute issues -Continue home Ativan and Remeron DVT prophylaxis: SCDs, Lovenox Dispo: Continued stay while awaiting rehab placement, medically stable for discharge. 01/23: pt's son at bedside Admission and Anticipated Discharge Date Admission Date: January 12, 2025 Subjective no new complains Review of Systems Review of Systems: Comprehensive ROS completed and is otherwise negative. Physical Exam Physical Exam: Gen: no acute distress, lying in bed comfortable HEENT: NC/AT, MMM Lungs: nonlabored breathing, CTAB CVS: s1s2nl, RRR Abd: nl bowel sounds, colostomy present with liquid stool : + camara Ext: no edema Neuro: AAOx3 Psych: calm, cooperative Results & Data Results & Data Vital Signs (Past 12 Hours) Vital Signs Temp Pulse Resp BP Pulse Ox O2 Del Method 01/25/25 14:59 36.7 C 83 16 127/77 93 Room Air 01/25/25 08:19 36.4 C L 89 16 123/68 94 Room Air 01/25/25 07:40 Room Air PG Care Time/CCT Total # of Minutes Spent Total Time Spent with Patient: Total time spent is greater than 50% in coordination of care (as documented) at patient's floor/unit and/or counseling patient: Coding Level of Care Code 33868 SUB INP/OBS CARE 04/25MIN Diagnoses Diverticulitis K57.92 Acute UTI N39.0
--- NOTE | 2025-01-26 12:41 | Hospitalist Progress Note ---
Date of Service January 26, 2025 Assessment & Plan (1) Diverticulitis: (2) Acute UTI: Plan This patient is an 84 y/o with history of COPD, pulmonary fibrosis, neuropathy, anxiety , HLD, recurrent UTI and constipation who was admitted with acute sigmoid diverticulitis with stricture and severe constipation as well as UTI. She is now s/p sigmoid colectomy and colostomy. #Acute sigmoid diverticulitis/Stenosis-CT A/P with acute diverticulitis in the sigmoid colon. No perforation or abscess, and with stenosis of the involved sigmoid colon with large amount of upstream stool burden. She had no fevers, leukocytosis, or evidence of sepsis on admission. Now s/p ex lap with DENNY, bladder repair, left ureteral repair, sigmoidectomy and creation of colostomy with Dr. Vo (colorectal surgery) and Dr. Oliver (urology) on 01/15. Left ureteral double-J stent and Camara catheter remain in place. JAE drain now removed. Tolerating low fiber diet with brown liquid in ostomy bag but no solid stool yet. Pathology neg for malignancy. IV abx and TPN completed. -Appreciate surgery management-f/u with Surgery as outpt -continue ostomy care -CBC, CMP stable -continue Vit C as per Colorectal surgery for wound healing I presume -not using any opioid pain meds-discontinue morphine and oxycodone, use tylenol only prn pain #Gross hematuria/ureteral injury/bladder injury-due to adhesions, had injury to the left ureter and bladder intraoperatively for colectomy-left ureter with double-J stent in place and rupture repaired by urology. Bladder injury repaired by colorectal surgeon and Camara catheter in place. With some gross hematuria as would be expected now resolved - Follow-up with urology in 6 weeks for ureteral stent removal - Continue Camara catheter and can remove Camara catheter in 10-14 days around 01/25-01/29 either with urology as an outpatient or at rehab #Acute blood loss anemia/Hemorrhagic shock-Hgb down to 8.5 on postop day 1 from baseline of 12 and became hypotensive. Transfused 2 units PRBCs and Hgb and BP now stable/improved, Hgb up to 11.4. With some mild hematuria intermittently - Repeat CBC in the AM and then within 1 week at rehab - Follow BPs #sinus tachycardia/frequent PVC- EKG on arrival demonstrated sinus tachycardia and frequent PVCs-resolved after electrolytes repleted. Now downgraded off telemetry many days ago #UTI- hx of recurrent UTI with urinary symptoms here prior to arrival. UA positive with WBC and Leukocyte esterase but urine culture grew mixed organisms. Repeat UA in 01/18 with RBCs and WBCs, urine culture with Milana albicans. Treated with IV Zosyn and now abx stopped #Neuropathy-no acute issues - continue gabapentin #Hypothyroidism:TSH: 6.81, T4 1.06 - continue levothyroxine - f/u TSH in 4 weeks when not acutely ill #COPD/ Pulmonary fibrosis/acute respiratory failure with hypoxemia-still remains on some supplemental O2 intermittently, improving likely secondary to atelectasis from being sedentary from recent surgery. CXR negative. - Continue albuterol as needed and home maintenance inhalers - if goes home rather than rehab, would need 2 step walk test - oxygen weaning trial daily, cont incentive spirometry #Anxiety-no acute issues - Continue home Ativan and Remeron DVT prophylaxis: SCDs, Lovenox Dispo: insurance declined acute rehab, recs SNF, medically stable for discharge. 01/23: pt's son at bedside 01/26: update provided to pt's daughter Jessica Admission and Anticipated Discharge Date Admission Date: January 12, 2025 Subjective No new complaints Looking forward to leaving Review of Systems Review of Systems: Comprehensive ROS completed and is otherwise negative. Physical Exam Physical Exam: Gen: no acute distress, lying in bed comfortable HEENT: NC/AT, MMM Lungs: nonlabored breathing, CTAB CVS: s1s2nl, RRR Abd: nl bowel sounds, colostomy present : + camara Ext: no edema Neuro: AAOx3 Psych: calm, cooperative Results & Data Results & Data Vital Signs (Past 12 Hours) Vital Signs Temp Pulse Resp BP Pulse Ox O2 Del Method O2 Flow Rate 01/26/25 09:47 37.0 C 77 105/65 96 Room Air 01/26/25 09:36 Nasal Cannula 2 01/26/25 08:47 37.0 C 103/67 96 Nasal Cannula 2 01/26/25 08:00 37 C 77 24 97/63 L 86 L Room Air PG Care Time/CCT Total # of Minutes Spent Total Time Spent with Patient: Total time spent is greater than 50% in coordination of care (as documented) at patient's floor/unit and/or counseling patient: Coding Level of Care Code 59904 SUB INP/OBS CARE MIN Diagnoses Diverticulitis K57.92 Acute UTI N39.0
[2025-01-27 06:11] LABS: Hematocrit (blood only) 34.9 % (37.0-47.0); Hemoglobin 11.3 g/dl (12.0-16.0); Mean Corpuscular Hemoglobin 29.0 pg (25.0-34.0); Mean Corpuscular Volume 89.5 fL (80.0-100.0); Platelet Count 415 K/uL (130-400); RDW Standard Deviation 50.0 fL (36.4-46.3); Red Blood Count 3.90 M/uL (4.20-5.40); White Blood Count 8.88 K/ul (4.8-10.8)
[2025-01-27 06:28] LABS: Anion Gap 7.0 (3-11); Blood Urea Nitrogen 16.0 mg/dl (6-23); Calcium 8.6 mg/dl (8.6-10.3); Carbon Dioxide 29.0 mmol/L (21-32); Chloride 102.0 mmol/L (98-107); Creatinine Clr Calc Pharmacy 54.6 ml/min; Glucose 87.0 mg/dl (70-99(Fasting)); Magnesium 1.8 mg/dl (1.7-2.4); Potassium 4.0 mmol/L (3.5-5.1); Sodium 138.0 mmol/L (136-145)
--- NOTE | 2025-01-27 14:34 | Hospitalist Progress Note ---
Date of Service January 27, 2025 Assessment & Plan (1) Diverticulitis: (2) Acute UTI: Plan This patient is an 84 y/o with history of COPD, pulmonary fibrosis, neuropathy, anxiety , HLD, recurrent UTI and constipation who was admitted with acute sigmoid diverticulitis with stricture and severe constipation as well as UTI. She is now s/p sigmoid colectomy and colostomy. #Acute sigmoid diverticulitis/Stenosis-CT A/P with acute diverticulitis in the sigmoid colon. No perforation or abscess, and with stenosis of the involved sigmoid colon with large amount of upstream stool burden. She had no fevers, leukocytosis, or evidence of sepsis on admission. Now s/p ex lap with DENNY, bladder repair, left ureteral repair, sigmoidectomy and creation of colostomy with Dr. Vo (colorectal surgery) and Dr. Oliver (urology) on 01/15. Left ureteral double-J stent and Camara catheter remain in place. JAE drain now removed. Tolerating low fiber diet with brown liquid in ostomy bag but no solid stool yet. Pathology neg for malignancy. IV abx and TPN completed. -Appreciate surgery management-f/u with Surgery as outpt -continue ostomy care, postop day #16 -CBC, CMP stable -continue Vit C as per Colorectal surgery for wound healing I presume -not using any opioid pain meds-discontinue morphine and oxycodone, use tylenol only prn pain #Gross hematuria/ureteral injury/bladder injury-due to adhesions, had injury to the left ureter and bladder intraoperatively for colectomy-left ureter with double-J stent in place and rupture repaired by urology. Bladder injury repaired by colorectal surgeon and Camara catheter in place. With some gross hematuria as would be expected now resolved - Follow-up with urology in 6 weeks for ureteral stent removal - Continue Camara catheter and can remove Camara catheter in 10-14 days around 01/25-01/29 either with urology as an outpatient or at rehab - Camara removed, trial of voiding overnight, prefer to DC without camara #Acute blood loss anemia/Hemorrhagic shock-Hgb down to 8.5 on postop day 1 from baseline of 12 and became hypotensive. Transfused 2 units PRBCs and Hgb and BP now stable/improved, Hgb up to 11.4. With some mild hematuria intermittently - Repeat CBC in the AM and then within 1 week at rehab - Follow BPs, stable, no symptoms #sinus tachycardia/frequent PVC- EKG on arrival demonstrated sinus tachycardia and frequent PVCs-resolved after electrolytes repleted. Now downgraded off telemetry many days ago #UTI- hx of recurrent UTI with urinary symptoms here prior to arrival. UA positive with WBC and Leukocyte esterase but urine culture grew mixed organisms. Repeat UA in 01/18 with RBCs and WBCs, urine culture with Milana albicans. Treated with IV Zosyn and now abx stopped #Neuropathy-no acute issues - continue gabapentin #Hypothyroidism:TSH: 6.81, T4 1.06 - continue levothyroxine - f/u TSH in 4 weeks when not acutely ill #COPD/ Pulmonary fibrosis/acute respiratory failure with hypoxemia-still remains on some supplemental O2 intermittently, improving likely secondary to atelectasis from being sedentary from recent surgery. CXR negative. - Continue albuterol as needed and home maintenance inhalers - if goes home rather than rehab, would need 2 step walk test - oxygen weaning trial daily, cont incentive spirometry #Anxiety-no acute issues - Continue home Ativan and Remeron DVT prophylaxis: SCDs, Lovenox Dispo: insurance declined acute rehab, recs SNF, medically stable for discharge. 01/23: pt's son at bedside 01/26: update provided to pt's daughter Jessica Admission and Anticipated Discharge Date Admission Date: January 12, 2025 Subjective Doing well this morning. Up sitting in the bedside chair eating breakfast. Smiles remembers me from a couple months ago and asks when she can go home. No other new events complaints or concerns. Good oral intake, decreased with discontinuation of Camara catheter and trial of voiding. No concerns for stoma Physical Exam Physical Exam: Gen: no acute distress, lying in bed comfortable HEENT: NC/AT, MMM Lungs: nonlabored breathing, CTAB CVS: s1s2nl, RRR Abd: nl bowel sounds, colostomy present : + camara Ext: no edema Neuro: AAOx3 Psych: calm, cooperative Results & Data Results & Data Vital Signs (Past 12 Hours) Vital Signs Temp Pulse Resp BP Pulse Ox O2 Del Method 01/27/25 07:43 36.6 C 83 18 122/78 95 Room Air 01/27/25 07:29 Room Air Laboratory Results 01/27/25 05:50 WBC 8.88 RBC 3.90 L Hgb 11.3 L Hct 34.9 L MCV 89.5 MCH 29.0 MCHC 32.4 RDW Std Deviation 50.0 H RDW Coeff of Gregoria 15.3 H Plt Count 415 H MPV 9.1 L Sodium 138 Potassium 4.0 Chloride 102 Carbon Dioxide 29 Anion Gap 7 BUN 16 Creatinine 0.69 Est Cr Clr Drug Dosing 54.6 eGFR 85.52 BUN/Creatinine Ratio 23.2 H Glucose 87 Calcium 8.6 Phosphorus 3.5 Magnesium 1.8 PG Care Time/CCT Total # of Minutes Spent Total Time Spent with Patient: Total time spent is greater than 50% in coordination of care (as documented) at patient's floor/unit and/or counseling patient: Coding Level of Care Code 91534 SUB INP/OBS CARE MIN Diagnoses Diverticulitis K57.92 Acute UTI N39.0
[2025-01-27 20:19] VITALS: PULSE 88; RESP 18
--- NOTE | 2025-01-28 08:22 | Communication Note ---
Date of Service: January 28, 2025 Patient is POD#13. She is doing well, tolerating diet, no n/v. Pain controlled. Ostomy functioning. Eager for discharge. Midline spring removed. Some wyatt perficial skin separation noted with leakage of small amount of serosang fluid. Would recommend daily and as needed dressing changes with dry 4x4 gauze and medipore tape. Can follow up in office in 2 weeks
[2025-01-28 08:42] VITALS: BP 118/74; TEMP 97.9; O2SAT 95
--- NOTE | 2025-01-28 13:50 | Discharge Summary ---
Discharge Summary Date of Service January 28, 2025 Principal Dx & Hospital Course #1 = Principal Diagnosis (1) Diverticulitis: (2) Acute UTI: Plan This patient is an 84 y/o with history of COPD, pulmonary fibrosis, neuropathy, anxiety , HLD, recurrent UTI and constipation who was admitted with acute sigmoid diverticulitis with stricture and severe constipation as well as UTI. She is now s/p sigmoid colectomy and colostomy. #Acute sigmoid diverticulitis/Stenosis-CT A/P with acute diverticulitis in the sigmoid colon. No perforation or abscess, and with stenosis of the involved sigmoid colon with large amount of upstream stool burden. She had no fevers, leukocytosis, or evidence of sepsis on admission. Now s/p ex lap with DENNY, bladder repair, left ureteral repair, sigmoidectomy and creation of colostomy with Dr. Vo (colorectal surgery) and Dr. Oliver (urology) on 01/15. Left ureteral double-J stent and Camara catheter remain in place. JAE drain now removed. Tolerating low fiber diet with brown liquid in ostomy bag but no solid stool yet. Pathology neg for malignancy. IV abx and TPN completed. -Appreciate surgery management-f/u with Surgery as outpt -continue ostomy care, postop day #17 on DC -CBC, CMP stable. -continue Vit C as per Colorectal surgery for wound healing I presume -not using any opioid pain meds-discontinue morphine and oxycodone, use tylenol only prn pain #Gross hematuria/ureteral injury/bladder injury-due to adhesions, had injury to the left ureter and bladder intraoperatively for colectomy-left ureter with double-J stent in place and rupture repaired by urology. Bladder injury repaired by colorectal surgeon and Camara catheter in place. With some gross hematuria as would be expected now resolved - Follow-up with urology in 6 weeks for ureteral stent removal - Continue Camara catheter and can remove Camara catheter in 10-14 days around 01/25-01/29 either with urology as an outpatient or at rehab - Camara removed, trial of voiding overnight, prefer to DC without camara - Dicharged without camara, voiding well x 5 the morning of dishcarge, no idfficulty or retention #Acute blood loss anemia/Hemorrhagic shock-Hgb down to 8.5 on postop day 1 from baseline of 12 and became hypotensive. Transfused 2 units PRBCs and Hgb and BP now stable/improved, Hgb up to 11.4. With some mild hematuria intermittently - Follow BPs, recheck in 1 week, no signs of acute bleed #sinus tachycardia/frequent PVC- EKG on arrival demonstrated sinus tachycardia and frequent PVCs-resolved after electrolytes repleted. Resolved at the time of DC #UTI- hx of recurrent UTI with urinary symptoms here prior to arrival. UA positive with WBC and Leukocyte esterase but urine culture grew mixed organisms. Repeat UA in 01/18 with RBCs and WBCs, urine culture with Milana albicans. Treated with IV Zosyn, early in hospitalization, no ongoing antibiotics required #Neuropathy-no acute issues - continue gabapentin #Hypothyroidism:TSH: 6.81, T4 1.06 - continue levothyroxine - f/u TSH in 4 weeks when not acutely ill #COPD/ Pulmonary fibrosis/acute respiratory failure with hypoxemia-still remains on some supplemental O2 intermittently, improving likely secondary to atelectasis from being sedentary from recent surgery. CXR negative. - Continue albuterol as needed and home maintenance inhalers - if goes home rather than rehab, would need 2 step walk test - oxygen weaning trial daily, cont incentive spirometry #Anxiety-no acute issues - Continue home Ativan and Remeron Admission HPI Per Admitting Provider 84 y/o with history of COPD, neuropathy, anxiety , dyslipidemia, history of recurrent UTI and constipations. Patient presented here due to abdominal pain, weakness and urinary urgency. She states been constipated for months now, she took two laxatives yesterday with no resolution of symptoms. She have symptoms of frequency and urgency with some incontinence. She feel pressure in her abdomen. She's passing gasses. On evaluation in the ED CT: with acute sigmoid diverticulitis, and severe stenosis in same area with increase stool burden. No leukocytosis, normal Hgb. UA positive for UTI, positive wbc and leuk esterase. She denied any fevers, chills, diarrhea, nausea or vomiting. No chest pain or palpitations. Denied any hematuria or bloody stools.Patient will be admitted for acute diverticulitis Discharge Exam Gen: no acute distress, lying in bed comfortable HEENT: NC/AT, MMM Lungs: nonlabored breathing, CTAB CVS: s1s2nl, RRR Abd: nl bowel sounds, colostomy present, normal appearing mucosa, healthy skin surrounding : Camara removed Ext: no edema Neuro: AAOx3 Psych: calm, cooperative Discharge Plan Discharge Items Patient Disposition: Home - Home Health Services Reason For Visit: SIGMOID DIVERTICULITIS, UTI, PVCs Discharge Diagnosis: exploratory laparotomy sigmoid colon resection creation of colostomy repair of ureter injury Condition on Discharge: Fair Health Concerns: - Stoma management, adequate oral intake and nutrition, follow-up with gastroenterology Goals: Manage Tylenol and adequate nutritional oral intake. Close follow-up with gastroenterology for potential reversal Activity: Per Instructions section Lifting: No more than 10 pounds Bathing Comment: may shower; no soaking in tubs/pools x 2 weeks Driving/Machine Use: no driving while on narcotics for pain Non-emergency contact: Primary Care Provider and Surgeon Call non-emergency contact if: you have any medication questions, your symptoms worsen, your pain is not controlled, you have a fever, your temperature is above 101.5, your wound has increased redness, your wound has increased drainage and your wound pain has increased Follow-up/Referrals: Issa Oliver MD [Physician] - (The urology office will call you with an appointment. Your camara catheter will remain in place for 2 weeks post operatively and you need to be seen in the office for when it will be removed) Patricia Aviles MD [Primary Care Provider] - Prabhu Vo MD [Surgeon] - (please call to schedule follow up in the office in 1 week for staple removal and check up) Diet: Low Fiber Addtl Attending Provider Instructions: SPECIAL CARE INSTRUCTIONS: * Please care for your ostomy as you have been educated prior to discharge from the hospital * Cover midline incision daily with dry 4x4 gauze and medipore tape. You may cover incisions and change daily for comfort/drainage. Where your surgical drain was removed please change dressing over that area daily until healed and no longer draining with dry gauze and tape. * You may shower. NO soaking in pools or baths for 2 weeks * No lifting greater than 10lbs. No strenuous exercise until cleared by surgeon. Light walking is accepted. * No driving while taking narcotic pain medication; wait at least 3 days * No drinking alcohol while taking narcotic pain medication * May use Ibuprofen/Tylenol over the counter for pain as tolerated. Do not exceed 3grams of Tylenol per 24 hours * Expect some swelling and bruising. * Diet- you may resume your regular diet Call your doctor if: * Temperature above 101 degrees, nausea/vomiting, fever/chills * Pain not relieved by pain medicine ordered * There is increased drainage or redness from any incision * You have any unanswered questions or concerns [phone]. FOLLOW UP VISIT: If not already scheduled, please call the office for a follow-up visit. Office Pending Studies at Discharge: Yes Studies:: surgical pathology Stand-Alone Forms: My [facility], Smoking Cessation Medications and DC Order Prescriptions: New Boudreauxs Butt Paste 16 % Ointment 1 applic EXT BID PRN (Reason: skin irritation) Qty: 396 0RF Continued albuterol sulfate 90 mcg/actuation HFA aerosol inhaler 2 puff inhalation Q6H PRN (Reason: shortness of breath or wheezing) Qty: 18 5RF glucosamine sulfate 500 mg tablet 500 mg PO DAILY Rx Instructions: administer with a meal dc encompass 12/10 ([facility]) Shower Chair See Rx Instructions .Route .MEDSUPPLY Qty: 1 0RF Rx Instructions: As directed to increase patient safety and prevention of falls/injuries while bathing mirtazapine 7.5 mg tablet 7.5 mg PO HS Qty: 30 11RF levothyroxine 50 mcg tablet 50 mcg PO DAILY Qty: 30 6RF Bevespi Aerosphere 9-4.8 mcg HFA aerosol inhaler 2 puff inhalation BID Qty: 10.7 5RF lorazepam 1 mg tablet 1 mg PO HS Qty: 30 5RF Stool Softener 50 mg capsule 50 mg PO BID calcium carbonate 600 mg calcium (1,500 mg) tablet 600 mg PO DAILY cholecalciferol (vitamin D3) 2,000 unit capsule 2,000 units PO DAILY Qty: 90 Azo Cranberry 250 mg tablet,chewable 250 mg PO TID gabapentin 300 mg capsule 300 mg PO HS Qty: 30 11RF multivitamin with folic acid [Daily-Anne Marie (with folic acid)] 400 mcg Tablet 1 tab PO QAM Qty: 30 0RF acetaminophen 325 mg Tablet 650 mg PO Q6H PRN (Reason: fever or pain) Qty: 1 0RF Azo Urinary Pain Relief 99.5 mg Tablet 99.5 mg PO BID triamcinolone acetonide 0.5 % cream 1 applic EXT BID PRN (Reason: ITCHY RASH) Rx Instructions: apply to itchy rash spots Discharge Orders: Discharge Order (Routine); Ordered 01/28/25 Ordered By: Judd Dyer/Other Patient Handouts: Diverticulosis and Diverticulitis, Colostomy: Changing Your Pouch, Colostomy: Caring for Your Stoma, Colostomy: Managing Your Nutrition, Colostomy: Selecting Your Pouch Admission Data Admit Date/Time: 01/12/25 00:46 Attending Provider: Judd Hightower Admit Provider: Hung Lara Primary Care Provider: Patricia Aviles Other Providers: [facility]; [place]; Alfredo Alvarez; Dylan Milian Jr; Prabhu Vo; [facility] Stay Data Consultations 01/11/25 23:08 ED Decision to Admit Stat 01/12/25 01:29 Consult Gastroenterology Routine 01/12/25 13:10 Consult General Surgery Routine Procedures Performed Operation Date: 01/15/25 07:00 Actual Procedures p Ureteral Stent Insertion Bilateral, Left Ureter Repair(Bilateral) - Issa Oliver MD p Exploratory Laparotomy with Lysis of Adhesions and Bladder Repair ,Laparoscopic Sigmoidectomy and Creation of Colostomy(Not Applicable) - Prabhu Vo MD s Flexible Sigmoidoscopy(Not Applicable) - Prabhu Vo MD Diagnostic Imagining Performed 01/11/25 21:15 CT abd pelvis IV con only Stat CT head/brain wo con Stat Pending Results Patient Have Any Pending Studies at Discharge: Yes Discharge Instructions Given to Patient (Per Discharging Provider) SPECIAL CARE INSTRUCTIONS: * Please care for your ostomy as you have been educated prior to discharge from the hospital * Cover midline incision daily with dry 4x4 gauze and medipore tape. You may cover incisions and change daily for comfort/drainage. Where your surgical drain was removed please change dressing over that area daily until healed and no longer draining with dry gauze and tape. * You may shower. NO soaking in pools or baths for 2 weeks * No lifting greater than 10lbs. No strenuous exercise until cleared by surgeon. Light walking is accepted. * No driving while taking narcotic pain medication; wait at least 3 days * No drinking alcohol while taking narcotic pain medication * May use Ibuprofen/Tylenol over the counter for pain as tolerated. Do not exceed 3grams of Tylenol per 24 hours * Expect some swelling and bruising. * Diet- you may resume your regular diet Call your doctor if: * Temperature above 101 degrees, nausea/vomiting, fever/chills * Pain not relieved by pain medicine ordered * There is increased drainage or redness from any incision * You have any unanswered questions or concerns [phone]. FOLLOW UP VISIT: If not already scheduled, please call the office for a follow-up visit. Office Total Time Total Time Spent Total Time Spent (In Minutes): 44 minutes spent coordinating home health and outpatient cares, reviewing follow-up care plan with urology and surgery at the bedside of the patient. Prescription management and documentation Coding Level of Care Code 76283 INP/OBS DISCH >30 MIN Diagnoses Diverticulitis K57.92 Acute UTI N39.0
== END 2025-01-28 16:12 | disposition home health service (06) | DRG 329 ==
LOC: ED 19:01 → SUATTDRO 01-12 00:46 → 2S 01-12 00:46 → 3E 01-23 01:54